=== PATIENT | female | born 1965 | race Caucasian/White ===

== ENCOUNTER 2022-10-21 15:50 | Outpatient (CLI) | payer BC, SELFPAY ==
[2022-10-21 17:24] LABS: Albumin* 4.7 g/dL (3.3-5.0); Chloride* 103 mmol/L (96-114)
[2022-10-21 17:25] LABS: Sodium* 141 mmol/L (135-149)
[2022-10-21 17:27] LABS: Amylase* 83 U/L (18-89); Creatinine* 1.2 mg/dL (0.5-1.5); Estimated Glomerular Filt Rate 52 ml/min
[2022-10-21 17:28] LABS: Alanine Aminotransferase* 32 U/L (4-35); Alkaline Phosphatase* 59 U/L (40-150); Aspartate Amino Transferase* 34 U/L (12-35); Bilirubin Total* 0.9 mg/dL (0.1-1.5); Blood Urea Nitrogen* 22 mg/dL (7-30); Calcium* 9.9 mg/dL (8.4-10.6); Carbon Dioxide* 28 mmol/L (20-32); Glucose* 109 mg/dL (60-115); Lipase* 181 U/L (23-300); Potassium* 3.7 mmol/L (3.6-5.1); Total Protein* 7.4 g/dL (6.0-8.3)
[2022-10-21 17:31] LABS: C Reactive Protein* 0.9 mg/dL (0.5-1.0)
== END 2022-10-21 15:51 | disposition home or self-care (01) ==
PROVIDERS: PCP Family Medicine; Visit Provider Family Medicine
DX: R10.9 Unspecified abdominal pain (principal)
CPT/HCPCS: 80053; 82150; 83690; 86140; 87086

== ENCOUNTER 2022-10-21 16:38 | Outpatient (CLI) | payer BC, SELFPAY ==
--- NOTE | 2022-10-21 17:00 | CRLHL7_ITS ---
For Patients: As a result of the Century Cures Act, medical imaging exams and procedure reports are released immediately into your electronic medical record. You may view this report before your referring provider. If you have questions, please contact your health care provider. Indication: Right-sided abdominal pain x4 days Technique: Volumetric multidetector CT images of the abdomen and pelvis were obtained after the administration of intravenous contrast. 100 cc Isovue 370 low osmolar intravenous contrast Comparison: CT abdomen and pelvis February 01, 2022 Findings: There is basilar atelectasis and parenchymal scar. The liver is enlarged with mild to moderate hepatic steatosis. The portal vein is patent. The gallbladder is unremarkable without evidence of radiopaque calculus. There is no significant common biliary ductal dilatation or abrupt cut off. The spleen is normal in enhancement and size. There is a small sliding-type hiatal hernia. There is mild thickening of the gastric antrum. The pancreas is normal in enhancement without significant atrophy. The adrenal glands are unremarkable. The kidneys demonstrate preserved corticomedullary differentiation without evidence of obstructive uropathy. There is moderate stool seen throughout the colon with minimal distal colonic diverticulosis without evidence of diverticulitis. The appendix is unremarkable. There is no significant mesenteric, retroperitoneal, or pelvic sidewall lymph nodes. The aorta is nonaneurysmal. There is no significant atherosclerotic disease appreciated. The solid pelvic viscera are grossly unremarkable. There is no free fluid or free air. There is a small fat containing umbilical hernia. The lumbar vertebral body heights are grossly maintained with [id number] multilevel degenerative disc disease. There is moderate facet arthrosis. Impression: Moderately enlarged liver with mildly elevated right hemidiaphragm with minimal basilar atelectasis. Normal appendix. Moderate diffuse stool seen throughout the colon. Otherwise, no definite acute intra-abdominal abnormalities are appreciated. Please note that all CT scans at this facility use dose modulation, iterative reconstruction, and/or weight-based dosing when appropriate to reduce radiation dose to as low as reasonably achievable. Dictated by Collin Singer MD @ 10/21/2022 6:12:13 PM (Electronically Signed)
== END 2022-10-21 16:39 | disposition home or self-care (01) ==
LOC: CT 16:38
PROVIDERS: PCP Family Medicine; Visit Provider Family Medicine
DX: R10.9 Unspecified abdominal pain (principal)
CPT/HCPCS: 74177; 80053; 82150; 83690; 86140; 87086; Q9967

== ENCOUNTER 2023-03-29 09:25 | Outpatient (CLI) | payer BC, SELFPAY | END 2023-03-29 09:26 | disposition home or self-care (01) | LOC: NFLDREF 03-30 11:03 | PROVIDERS: PCP Family Medicine; Referring Provider Family Medicine; Visit Provider Family Medicine | DX: E03.9 Hypothyroidism, unspecified (principal); E78.5 Hyperlipidemia, unspecified; G25.81 Restless legs syndrome | CPT/HCPCS: 80053; 80061; 82728; 84443 ==

== ENCOUNTER 2023-12-21 11:07 | Outpatient (CLI) | payer BC, SELFPAY | END 2023-12-21 11:08 | disposition home or self-care (01) | LOC: NFLDREF 17:15 | PROVIDERS: PCP Family Medicine; Referring Provider Family Medicine; Visit Provider Obstetrics & Gynecology | DX: R10.2 Pelvic and perineal pain (principal) | CPT/HCPCS: 87086 ==

== ENCOUNTER 2024-02-12 21:56 | Emergency (ER) | payer BC, SELFPAY ==
[2024-02-12 22:07] VITALS: BP 160/90; PULSE 63; RESP 16; TEMP 36.4; O2SAT 98; BMI 32.6
--- NOTE | 2024-02-12 22:25 | ED_ITS ---
HPI - General Adult General Time Seen by Provider: 22:25 Date Seen: 02/12/24 Chief complaint: Skin/Abscess/Foreign Body Stated complaint: Has something stuck in her R ear Time Seen by Provider: 02/12/24 22:24 Source: patient and RN notes reviewed Mode of arrival: ambulatory Limitations: no limitations History of Present Illness HPI narrative: Patient is a 58-year-old female coming in with concern of a foreign body in her right ear. She felt a tickling like there is a hair in her ear, thought maybe she perhaps got a bug in her ear. They did try some drops in did not help. There is a little sense of discomfort in the ear. She notes no hearing changes, no ringing. She has not been sick with any cough or cold symptoms. They did put a Q-tip in her ear and did end up getting some blood when they pulled it out. She has ruptured her eardrum before and does not have any sense of loss of hearing or feeling like that. Related Data Home Medications ?Medication ?Instructions ?Recorded ?Confirmed B-complex with vitamin C 1 tab PO QDAY 04/02/22 12/21/23 aspirin 81 mg tablet,delayed 81 mg PO QDAY 04/02/22 12/21/23 release (Adult Low Dose Aspirin) cholecalciferol (vitamin D3) 125 125 mcg PO QDAY 04/02/22 12/21/23 mcg (5,000 unit) capsule gabapentin 100 mg capsule 200 - 400 mg PO BID 10/21/22 12/21/23 iron,carbonyl 65 mg-vitamin C 125 2 tab PO QAM 04/21/23 12/21/23 mg tablet,delayed release (Vitron-C) levothyroxine 137 mcg capsule 137 mcg PO QDAY 04/21/23 12/21/23 Previous Rx's ?Medication ?Instructions ?Recorded cyclobenzaprine 10 mg tablet 10 mg PO QDAY PRN muscle spasm #90 04/02/22 tabs celecoxib 200 mg capsule 200 mg PO DAILY #90 caps 04/21/23 furosemide 20 mg tablet 20 mg PO .Daily as needed PRN 04/21/23 edema #90 tabs losartan 50 mg tablet 50 mg PO DAILY #90 tabs 04/21/23 prochlorperazine maleate 10 mg 10 mg PO Q6H PRN nausea and 04/21/23 tablet vomiting #30 tabs sumatriptan succinate 25 mg tablet See Rx Instructions PO .COMPLEX #9 04/21/23 tabs topiramate 50 mg tablet 50 mg PO BID #180 tabs 04/21/23 zolpidem 5 mg tablet 5 mg PO .hs #30 tabs 11/09/23 estradiol 0.01% (0.1 mg/gram) 1 g vaginal 2XW #42.5 grams 02/02/24 vaginal cream (Estrace) simvastatin 40 mg tablet 40 mg PO QPM #90 tabs 02/04/24 Allergies Allergy/AdvReac Type Severity Reaction Status Date / Time Chocolate Allergy Severe Sore Uncoded 12/21/23 11:16 throat, swelling Nut tree Allergy Severe Swelling Uncoded 12/21/23 11:16 in mouth Review of Systems Narrative: As per HPI. PFSH PFS Medical History Laceration of toe ?S91.119A - Laceration without foreign body of unspecified toe without damage to nail, initial encounter (ICD-10) Depression ?F32.A - Depression, unspecified (ICD-10) Adjustment disorder with anxious mood ?F43.22 - Adjustment disorder with anxiety (ICD-10) Surgical History Status post carpal tunnel release ?Z98.890 - Other specified postprocedural states (ICD-10) History of tubal ligation (1992) ?Z98.51 - Tubal ligation status (ICD-10) History of tonsillectomy (1969) ?Z90.89 - Acquired absence of other organs (ICD-10) History of nasal surgery (2001) ?Z98.890 - Other specified postprocedural states (ICD-10) History of endometrial ablation (2010) ?Z98.890 - Other specified postprocedural states (ICD-10) Family History Father Coronary artery disease Family/Other Breast cancer Social History Narrative: SOCIAL HISTORY: . Not working. Two children. She is sexually active. She exercises by riding a bike 3-5x per week. Her recent orthopedic issues have limited this since she recently had carpal tunnel release and thumb surgery on the right. HABITS: No tobacco or recreational drug use. Alcohol use is about 2 drinks per mo.. FAMILY HISTORY: Unchanged. Father with coronary artery disease status post bypass graft in his 40s. Parents are alive and otherwise well. Grandmother with breast cancer at age 60. What is your current living situation?: I presently have a place to live Problems where you live: no known problems In the past 12 months, utilities in danger of being shut off: no In past 12 months, lack of transportation kept you from medical appts, meetings, work, or getting things needed for daily living: no In the past 12 mos, have been you worried that your food would run out before you had money to buy more?: never true In the past 12 mos, the food you bought just didn't last and you didn't have money to buy more?: never true Smoking Status: Never smoker How often does anyone, including family, friends and others, physically hurt you : never How often does anyone, including family, friends and others, insult or talk down to you: never How often does anyone, including family, friends and others, threaten you with harm: never How often does anyone, including family, friends and others, scream or curse at you: never Little interest or pleasure in doing things: several days Feeling down, depressed, or hopeless: not at all Exam Const: Vital Signs, click to edit/add: Vital Signs - 24 hr 02/12/24 22:07 Temperature 97.6 F Pulse Rate [Left P ulse Oximeter] 63 Respiratory Rate 16 Blood Pressure [Ri ght Upper Arm] 160/90 H Pulse Oximetry 98 Oxygen Delivery Me thod Room Air This 58-year-old female is alert, interactive, no apparent distress. Face atraumatic. External ear structures are both normal. Left tympanic membrane and canal are completely normal. In the bottom of the right ear canal, small amount of abrasion with just a little bit of blood. The tympanic membrane itself is translucent, no evidence of any erythema or infection. There is a small portion of wax deep in the ear canal in the superior anterior portion, is quite small. This is too deep to take out. I absolutely do not see any foreign body, certainly do not see any bug. The abrasion in the inferior canal is not actively bleeding, reviewed that this would heal on its own. No pain on palpation of the tragus or the mastoid. No adenopathy noted around the ear. Documenting provider has reviewed patient's vital signs: yes Course Vital Signs Vital signs: Initial Vital Signs Temperature 97.6 F 02/12/24 22:07 Temperature Source Temporal Artery Scan 02/12/24 22:07 Pulse Rate 63 02/12/24 22:07 Pulse Rhythm Regular 02/12/24 22:07 Respiratory Rate 16 02/12/24 22:07 Blood Pressure 160/90 H 02/12/24 22:07 Blood Pressure Mean 113 H 02/12/24 22:07 Blood Pressure Position Sitting 02/12/24 22:07 Pulse Oximetry 98 02/12/24 22:07 Oxygen Delivery Method Room Air 02/12/24 22:07 Vital Signs Temperature 97.6 F 02/12/24 22:07 Pulse Rate 63 02/12/24 22:07 Respiratory Rate 16 02/12/24 22:07 Blood Pressure 160/90 H 02/12/24 22:07 Pulse Oximetry 98 02/12/24 22:07 Oxygen Delivery Method Room Air 02/12/24 22:07 Temperature 97.6 F 02/12/24 22:07 Pulse Rate 63 02/12/24 22:07 Respiratory Rate 16 02/12/24 22:07 Blood Pressure 160/90 H 02/12/24 22:07 Pulse Oximetry 98 02/12/24 22:07 Oxygen Delivery Method Room Air 02/12/24 22:07 Discharge Plan Discharge Clinical Impression: Otalgia of right ear Patient Disposition: Home, Self-Care Condition: Stable Instructions: Earache (ED) Additional Instructions: I do not see a source for your ear discomfort her symptoms tonight. Recommend leaving the ear canal alone, the little abrasion in the bottom part of the canal will heal on its own, may take 1-2 weeks for completion of healing. If you are noting increasing ear pain, develops other symptoms or concerning symptoms, do recommend re-evaluation. Is certainly fine for you to take some [id number] medicines such as Tylenol or ibuprofen per bottle directions if you have ongoing discomfort. If the pain is worsening, do recommend re- evaluation. Activity Level: Activity as Tolerated Prescriptions: No Action gabapentin 100 mg capsule 200 - 400 mg PO BID Patient Comments: TAKE 2-4 CAPSULES (200-400 MG) BY MOUTH TWICE A DAY levothyroxine 137 mcg capsule 137 mcg PO QDAY celecoxib 200 mg capsule 200 mg PO DAILY Qty: 90 3RF furosemide 20 mg tablet 20 mg PO .Daily as needed PRN (Reason: edema) Qty: 90 3RF losartan 50 mg tablet 50 mg PO DAILY Qty: 90 3RF prochlorperazine maleate 10 mg tablet 10 mg PO Q6H PRN (Reason: nausea and vomiting) Qty: 30 9RF sumatriptan succinate 25 mg tablet See Rx Instructions PO .COMPLEX Qty: 9 11RF Rx Instructions: take 1 tab at onset of headache; if no relief may repeat 1 tab after at least 2 hrs; max = 4 tabs/24 hr PO topiramate 50 mg tablet 50 mg PO BID Qty: 180 3RF B-complex with vitamin C Tablet 1 tab PO QDAY cholecalciferol (vitamin D3) 125 mcg (5,000 unit) capsule 125 mcg PO QDAY aspirin [Adult Low Dose Aspirin] 81 mg tablet,delayed release (DR/EC) 81 mg PO QDAY cyclobenzaprine 10 mg tablet 10 mg PO QDAY PRN (Reason: muscle spasm) Qty: 90 3RF Vitron-C 65 mg iron- 125 mg tablet,delayed release (DR/EC) 2 tab PO QAM zolpidem 5 mg tablet 5 mg PO .hs Qty: 30 5RF estradiol [Estrace] 0.01 % (0.1 mg/gram) cream 1 g vaginal 2XW Qty: 42.5 2RF simvastatin 40 mg tablet 40 mg PO QPM Qty: 90 0RF Follow Up/Referrals: Troy Seals MD [Primary Care Provider] - Stand Alone Forms: [employer] Info Instructions
--- OUTSIDE RECORDS SUMMARY | 2024-02-12 22:36 | XMS_ITS | Clinical Summary ---
Author Organization [facility] Address [place], [place] [address] Care Team Providers Care Glass Or Mirror Inspector Name Role Phone Troy Seals MD Primary Care Provider [phone] Oliver yHlton MD Unavailable [phone] Jm Araujo Unavailable Unavailable Allergies No known active allergies Medications Medication Sig Dispensed Refills Start Date End Date Status acetaminophen (TYLENOL EXTRA STRGTH) 500 mg tablet Take 500 mg by mouth every 6 hours if needed. Max acetaminophen dose: 4000mg in 24 hrs. Active multivitamin (MVI) tablet Take 1 tablet by mouth once daily. Active omega-3 fatty acids-vitamin E (FISH OIL) 1,000 mg cap Take 2 capsules by mouth once daily. Active ZOLPIDEM TARTRATE (AMBIEN ORAL) Take by mouth. Active aspirin chewable 81 mg chewable tablet Take 81 mg by mouth once daily with a meal. Active fexofenadine (GLENROY) 180 mg tablet Take 180 mg by mouth once daily. Active chlorthalidone (HYGROTON) 25 mg tablet Take 25 mg by mouth once daily. Active cholecalciferol (VITAMIN D3) 5,000 unit capsule Take 1 capsule by mouth once daily. 40 units = 1 mcg (5000 units = 125 mcg) 0 04/19/2020 Active celecoxib (CELEBREX) 100 mg capsule Take 1 capsule by mouth once daily with a meal. 0 04/19/2020 Active cyclobenzaprine (FLEXERIL) 10 mg tablet Take 1 tablet by mouth 3 times daily. 0 04/19/2020 Active furosemide (LASIX) 20 mg tablet Take 1 tablet by mouth once daily if needed for Other (Specify). 0 04/19/2020 Active simvastatin (ZOCOR) 40 mg tablet Take 1 tablet by mouth at bedtime. 0 04/19/2020 Active thyroid (ARMOUR THYROID) 30 mg tablet Take 2.5 tablets by mouth once daily. 04/19/2020 Active potassium chloride (MICRO-K) 10 mEq Controlled-release capsule Take 1 capsule by mouth once daily with a meal. 0 04/19/2020 Active estradioL (ESTRACE) 2 mg tablet Take 25 mg by mouth once daily. 05/09/2020 Active medroxyPROGESTERone (PROVERA) 10 mg tablet Take 10 mg by mouth once daily. 05/09/2020 Active phentermine (ADIPEX-P) 37.5 mg tablet Take 37.5 mg by mouth once daily before a meal. 05/10/2020 Active topiramate (TOPAMAX) 25 mg tablet Take 25 mg by mouth 2 times daily. 04/15/2020 Active medication order composerIndications :Routine general medical examination at a health care facility Topical testosterone cream, 1 pump daily on Wednesday, Wednesday & Wednesday. 0 05/14/2020 Active Active Problems Problem Noted Date Diagnosed Date CAD (coronary artery disease) 07/09/2014 SOB (shortness of breath) 06/06/2014 PVC (premature ventricular contraction) 06/06/20 14 Immunizations Name Administration Dates Next Due COVID-19 vaccine ([employer] 30mcg/0.3mL) P F, MDV 01/24/2021,12/31/2020 Social History Tobacco Use Types Packs/Day Years Used Date Smoking Tobacco: Never Smokeless Tobacco: Never Alcohol Use Standard Drinks/Week Comments Yes 0 (1 standard drink = 0.6 oz pur e alcohol) Social Connections Answer Date Recorded Frequency of Communication with Friends and Fami ly Not on file 09/20/2021 Financial Resource Strain Answer Date R ecorded Difficulty of Paying Living Expenses Not on file 09/20/2021 Difficulty of Paying Living Expenses Not on file 09/20/2021 Sex and Gender Information Value Date Recorded Sex Assigned at Not on file Gender Identity Not on file Sexual Orientation Not on file Obstetrics History Last Filed Vital Signs Vital Sign Reading Time Taken Comments Blood Pressure 112/76 05/23/2020 9:18 AM CDT Pulse 74 05/23/2020 9:18 AM CDT Temperature 36.5 ??C (97.7 ??F) 05/29/2020 2:00 PM CD T Respiratory Rate 16 05/14/2020 10:29 AM CDT Oxygen Saturation 96% 05/29/2020 2:00 PM CDT Inhaled Oxygen Concentration - - Weight 94.3 kg (208 lb) 05/23/2020 9:18 AM CDT Height 162.6 cm (5' 4) 05/23/2020 9:18 AM CDT Body Mass Index 35.7 05/23/2020 9:18 AM CDT Plan of Treatment Health Maintenance Due Date Last Done Comments Tdap 1975 Depression screening for age 12+ 1976 HIV for age 15-65 1979 Hepatitis C screening for age 18-79 1982 Tetanus booster 1984 Colonoscopy through age 75 2009 Lipids for age 45-75 2009 Mammogram for age 45-75 2009 Zoster (shingles) series for age 50+ (1 of 2) 2014 BMI (ht and wt on same day) for age 18+ 05/23/2021 05/23/2020, 05/14/2020 COVID-19 vaccine series (2022- season) 2023 01/24/2021, 12/31/2020 Influenza for age 50-64 05/21/2024 Pap test for age 21-65 06/16/2024 , 06/16/2021, 11/14/2015, Additional history exists Pneumococcal series for age 6-64 Aged Out No longer eligible based on patient's age to complete this topic Procedures Procedure Name Priority Date/Time Associated Diagnosis Comments HPV THIN PREP Routine 06/16/2021 11:35 AM CDT from Last 3 Months or Most Recently Relevant to Health Maintenance Results * HPV HIGH RISK (06/16/2021 11:35 AM CDT) TYPE 16 Negative Negative 06/19/2021 3:20 PM CDT [facility] TYPE 18 Negative Negative 06/19/2021 3:20 PM CDT [facility] OTHER HIGH RISK TYPES Negative Negative 06/19/2021 3:20 PM CDT [facility] Other (Cervical/Vagina l) 06/16/2021 11:35 AM CDT 06/18/2021 9:20 AM CDT Narrative [facility] - 06/19/2021 3:20 PM CDT HPV types 16, 18, 31, 33, 35, 39, 45, 51, 52, 56, 58, 59, 66 and 68 DNA were undetectable or below the pre-set threshold. Methodology: Farzaneh Dick 4800 HPV Test Cynthia Coy MD MICROBIOLOGY [facility] [address] [place] [id number], from Last 3 Months or Most Recently Relevant to Health Maintenance Care Teams Glass Or Mirror Inspector Relationship Specialty Start Date End Date Troy Seals MD PCP - General Family Practice 06/04/14 [place] [id number] [facility] [place] [address] Consulting Physician Cardiovascular Disease 06/06/14 Jm Araujo [address] [place] [address] Family Practice Electrical Drafter 04/19/20
--- OUTSIDE RECORDS SUMMARY | 2024-02-12 22:37 | XMS_ITS ---
Author Organization [facility] Address [address] [place] [address] Care Team Providers Care Extractor Plant Operator Name Role Phone Unavailable Unavailable Unavailable Surgery Details Not on file Complications Check Surgery Details section. Procedure Estimated Blood Loss Check Surgery Details section. Procedure Findings Check Surgery Details section. Procedure Specimens Taken Check Surgery Details section.
--- OUTSIDE RECORDS SUMMARY | 2024-02-12 22:37 | XMS_ITS | Encounter Summary ---
Author Organization [facility] Address [address] [place] [id number] Care Team Providers Care Double Corner Cutter Name Role Phone Unavailable Primary Care Provider Unavailabl e Reason for Visit * Reason Comments Med Refill Encounter Details Date Type Department Care Team (Late st Contact Info) Description 12/27/2023 Refill Division of Endocrinology in [place], [place] [address] [place] [phone] Cinda Willis M.B., Ch.B. [address] [place] [phone] Med Refill Social History Tobacco Use Types Packs/Day Years Used Date Smoking Tobacco: Never Smokeless Tobacco: Never Alcohol Use Standard Drinks/Week Comments Not Currently 1 (1 standard drink = 0.6 oz pur e alcohol) Humiliation, Afraid, Rape, and Kick questionnair e Answer Date Recorded Within the last year, have y ou been afraid of your partner or ex-partner? No 11/22/2022 Within the last year, have y ou been humiliated or emotionally abused in other ways by your partner or ex-partner? No Within the last year, have y ou been kicked, hit, slapped, or otherwise physically hurt by your partner or ex-partner? No 11/22/2022 Within the last year, have y ou been raped or forced to have any kind of sexual activity by your partner or ex-partner? No 11/22/2022 Social Connection and Isolat ion Panel [NHANES] Answer Date Recorded In a typical week, how many times do you talk on the phone with family, friends, or neighbors? Once a week 11/22/2022 How often do you get togethe r with friends or relatives? Once a week 11/22/2022 How often do you attend chur or bahai services? More than 4 times per year 11/22/2022 Do you belong to any clubs o r organizations such as rastafarian groups, unions, fraternal or athletic groups, or school groups? Yes 11/22/2022 How often do you attend meet ings of the clubs or organizations you belong to? More than 4 times per year 11/22/2022 Are you , , di vorced, , never , or living with a partner? 11/22/2022 AUDIT-C Answer Date Recorded Q1: How often do you have a drink containing alc ohol? Monthly or less 11/22/2022 Q2: How many drinks containi ng alcohol do you have on a typical day when you are drinking? 1 or 2 11/22/2022 Q3: How often do you have si x or more drinks on one occasion? Never 11/22/2022 Overall Financial Resource Strain (CARDIA) Answe r Date Recorded How hard is it for you to pa y for the very basics like food, housing, medical care, and heating? Not hard at all 11/22/2022 PHQ-2 Answer Date Recorded PHQ-2 Score 1 03/11/2021 [facility] - Occupational Stress Questionnaire Answer Date Recorded Do you feel stress - tense, restless, nervous, or anxious, or unable to sleep at night because your mind is troubled all the time - these days? Only a little 11/22/2022 Exercise Vital Sign Answer Date Recorde d On average, how many days pe r week do you engage in moderate to strenuous exercise (like a brisk walk)? 3 days 11/22/2022 On average, how many minutes do you engage in exercise at this level? 30 min 11/22/2022 Hunger Vital Sign Answer Date Recorded Within the past 12 months, y ou worried that your food would run out before you got the money to buy more. Never true 11/23/19 23 Within the past 12 months, t he food you bought just didn't last and you didn't have money to get more. Never true 11/22/2022 PRAPARE - Transportation Answer Date Re corded In the past 12 months, has l ack of transportation kept you from medical appointments or from getting medications? No 01/2023 In the past 12 months, has l ack of transportation kept you from meetings, work, or from getting things needed for daily living? No 11/22/2022 Housing Stability Vital Sign Answer Milton e Recorded In the last 12 months, was t here a time when you were not able to pay the mortgage or rent on time? No 11/22/2022 In the last 12 months, how many places have you lived? 1 11/22/2022 In the last 12 months, was t here a time when you did not have a steady place to sleep or slept in a jail (including now)? No 11/22/2022 Depression Answer Date Recor ded PHQ-9 Total Score (max 27) 4 03/11 Nutrition Answer Date Recorded Nutrition: EVOO Fat Source No 11/22 On average, how many serving s of fruits and vegetables do you eat per day (serving size is equal to 1 cup or approximately the size of a tennis ball)? 0-1 11/22/2022 Dental Answer Date Recorded Dental: Regular Dentist Yes 11/08/19 21 Employment Answer Date Recorded Employment status Unemployed/not in [facility] paid workforce and NOT seeking employment 11/22/2022 Education Answer Date Recorded What is the highest level of school you have completed or the highest degree you have received? Associate degree: occupational, technical, or vocational program 10/01/2020 Sex and Gender Information Value Date Recorded Sex Assigned at Female 06/23/2021 10:52 AM CDT Gender Identity Female 10/01/2020 2:34 PM CONTRACT RUNNER Sexual Orientation Straight 10/01/2020 2: 34 PM CONTRACT RUNNER documented as of this encounter Plan of Treatment Upcoming Encounters Date Type Department Care Team (Late st Contact Info) Description 02/18/2024 2:00 PM CDT Clinical Support Department of Nutrition and Diabetes Education in [place], [place] 200 [place] [phone] Cinda Willis M.B., Ch.B. 200 [place] [phone] Mandy Trevino M.S., RDN, LD [address] [place] [phone] 03/09/2024 2:45 PM CDT Clinical Support [facility]ative [facility] and [facility] in [address] [phone] Paulie Corral L.Ac. 03/17/2024 2:00 PM CDT Clinical Support Department of Nutrition and Diabetes Education in [address] [phone] Cinda Willis M.B., Ch.B. [address] [place] [phone] Mandy Trevino M.S., RDN, LD [address] [place] [phone] documented as of this encounter Visit Diagnoses Not on filedocumented in this encounter Additional Health Concerns Assessment Noted Time PHQ-9 Depression Total Score: 4 03/11/20 21 2:35 PM CDT documented as of this encounter
--- OUTSIDE RECORDS SUMMARY | 2024-02-12 22:37 | XMS_ITS | Clinical Summary ---
Author Organization [facility] Address [address] [place] [address] Care Team Providers Care Customer Specialist Name Role Phone Unavailable Primary Care Provider Unavailabl e Source Comments Patient records contain information from all sites at [facility]. For routine questions regarding patient records, call [phone] during business hours, M-F 8:00 AM - 5:00 PM Central Time. Record requests for emergency care only can be directed to [phone] at any time.[facility] Allergies Active Allergy Reactions Criticality Noted Date Comments Propofol Nausea And Vomiting 02/27/2014 Chocolate Flavor Other (see comments) 1 Soar throat, tongue swelling Nut - Unspecified Other (see comments) 10/01/19 14 Adhesive Itching 08/04/2013 Medications Medication Sig Dispensed Refills Start Date End Date Status losartan (COZAAR) 50 mg tablet Take 50 mg by mouth daily. 08/31/2020 Active topiramate (TOPAMAX) 50 mg tablet Take 50 mg by mouth 2 (two) times a day. 08/16/2020 Active zolpidem (AMBIEN) 5 mg tablet Take 2.5 mg by mouth at bedtime. 09/10/2020 Active simvastatin (ZOCOR) 40 mg tablet Take 40 mg by mouth at bedtime. 09/16/2020 Active celecoxib (CeleBREX) 200 mg capsule Take 200 mg by mouth daily. 09/16/2020 Active aspirin 81 mg chewable tablet Chew 81 mg daily. Ac tive furosemide (LASIX) 20 mg tablet Take 20 mg by mouth as needed. 07/20/2020 Active cyclobenzaprine (FLEXERIL) 10 mg tablet Take 10 mg by mouth as needed. 04/19/2020 Active iron,carbonyl-vitam in C (VITRON-C) 65 mg iron- [address] tablet Take 2 tablets by mouth daily. Do not crush or chew. Active prochlorperazine (COMPAZINE) 10 mg tablet Take 10 mg by mouth every 6 (six) hours as needed for nausea or vomiting. Active diphenhydrAMINE (BENADRYL) 25 mg capsule Take 25 mg by mouth daily. 10/08/2013 Active calcium carbonate (CALCIUM 500 ORAL) Take 1 tablet by mouth daily. Active MULTIVITAMIN ORAL Take 1 tablet by mouth daily. Active vitamin B complex (B COMPLEX 1 ORAL) Place 1 capsule under the tongue daily. Active Lactobac no.41/Bifidobact no.7 (PROBIOTIC-10 ORAL) Take 2 capsules by mouth at bedtime. Inner Balance 10/08/2012 Active hydroCHLOROthiazide (MICROZIDE) 12.5 mg capsule Take 12.5 mg by mouth daily. 01/01/2021 Active cholecalciferol, vitamin D3, (VITAMIN D3 ORAL) Take 5,000 Units by mouth daily. Active gabapentin (NEURONTIN) 600 mg tablet Take 200 mg by mouth 2 (two) times a day. 200 mg am, 400 mg pm Active naltrexone-bupropio n (Contrave) 8-90 mg per extended release tablet Start 1 tab daily in week 1, then 1 tablet twice daily in week 2, then 1 tablet AM, 2 tabs PM in week 3, then 2 tabs twice daily therafter 120 tablet 11 12/03/2022 Active diazePAM (Valium) 5 mg tablet Take 1 tablet (5 mg total) by mouth See Admin Instructions. Take one (1) tablet 30 minutes before MRI, may take 2nd dose if needed. Will need team cdl driver. 2 tablet 07/23/2023 Active diazePAM (Valium) 5 mg tablet Take 1 tablet (5 mg total) by mouth See Admin Instructions. Take one (1) tablet 30 minutes before MRI, may take 2nd dose if needed. Will need team cdl driver. 2 tablet 07/23/2023 Active diazePAM (VALIUM) 5 mg tablet Take 1 tablet (5mg) by mouth 30minutes before MRI, may take second dose if needed. 2 tablet 07/23/2023 Active levothyroxine (SYNTHROID, LEVOTHROID) 112 mcg tablet take one tablet by mouth every morning before breakfast 30 tablet 1 12/27/2023 Active Active Problems Problem Noted Date Diagnosed Date Limitation Of Motion Finger Right 01/27/2021 Obesity Body Mass Index 30-39.9 Adult 01/10/2021 Overview: Endocrinology consult recommended for advice on weight management. Carpal Tunnel Syndrome Right 12/30/2020 Carpal Tunnel Syndrome Left 12/30/2020 Primary Osteoarthritis First Carpal Metacarpal J oint Left 12/26/2020 Primary Osteoarthritis First Carpal Metacarpal J oint Right 12/26/2020 Numbness Hand 12/26/2020 Pain Abdominal Wall 10/08/2020 Pelvic And Perineal Pain 10/08/2020 Pain Low Back Unspecified 10/08/2020 Lower Abdominal Pain Unspecified 10/04/2020 Spasm Muscle Weakness Muscle Encounters Date Type Department Care Team Description 02/07/2024 1:30 PM CDT Clinical Support Integrative Medicine and Health in [place], [place] [address] [place] [address] Zeke Reddy L.Ac. Pain Low Back Unspecified; Pain Hip Bilateral 01/14/2024 2:45 PM CDT Clinical Support [facility] in [place], [place] [address] [place] [address] Zeke Reddy L.Ac. Pain Low Back Unspecified; Pain Hip Bilateral 01/07/2024 3:00 PM CDT Clinical Support Department of Nutrition and Diabetes Education in [place], [place] [address] [place] [address] Cinda Willis M.B., Ch.B. Mandy Trevino M.S., RDN, LD Obesity Body Mass Index 30-39.9 Adult [E66.9] (Primary Dx) 12/27/2023 Refill Division of Endocrinology in [place], [place] [address] [place] [address] Cinda Willis M.B., Ch.B. Med Refill 12/03/2023 1:30 PM CDT Clinical Support [facility] in [place], [place] [address] [place] [address] Zeny Cain L.Ac. Pain Low Back Unspecified; Pain Hip Bilateral from Last 3 Months Immunizations Name Administration Dates Next Due Influenza, Unspecified 02/21/2020 RZV (SHINGRIX) 10/08/2020(Deferred: Other - Will get locally at home),02/26/2020 Tdap 11/10/2012,09/26/2007 influenza vaccine quad (FLUZONE/FLUARIX) (6 months and older)(PF) 07/21/2019 Family History Medical History Relation Name Comments Coronary artery disease Father William Renteria Hyperlipidemia Father William Renteria Hypertension Father William Renteria Sleep apnea Father William Renteria Coronary artery disease Mother Meredith Renteria Breast cancer Mother's Sister Dorothy Mclain Breast cancer Paternal Grandmother Renea Renteria Relation Name Status Comments Father William Renteria Mother Meredith Renteria Mother's Sister Dorothy Mclain Paternal Grandmother Renea Renteria Social History Tobacco Use Types Packs/Day Years Used Date Smoking Tobacco: Never Smokeless Tobacco: Never Tobacco Cessation:Counseling Given: Not Answered Alcohol Use Standard Drinks/Week Comments Not Currently 1 (1 standard drink = 0.6 oz pur e alcohol) [facility] Utilities Answer Date Recorded In the past 12 months has e [employer], gas, oil, or water [employer] threatened to shut off services in your home? No 12/31/2023 Humiliation, Afraid, Rape, and Kick questionnair e [...] How often do you attend chur or mu-ism services? More than 4 times per year 11/22/2022 Do you belong to any clubs o r organizations such as temple groups, unions, fraternal or athletic groups, or [...] Answer Date Recorded PHQ-2 Score 1 03/11/2021 [facility] - Occupational Stress Questionnaire Answer Date Recorded [...] to strenuous exercise (like a brisk walk)? 0 days 12/31/2023 On average, how many minutes do you engage in exercise at this level? 0 min 12/31/2023 Hunger Vital Sign Answer Date Recorded Within the past 12 months, y ou worried that your food would run out before you got the money to buy more. Never true 12/31/19 24 Within the past 12 months, t he food you bought just didn't last and you didn't have money to get more. Never true 12/31/2023 PRAPARE - Transportation Answer Date Re corded In the past 12 months, has l ack of transportation kept you from medical appointments or from getting medications? No 12/19 In the past 12 months, has l ack of transportation kept you from meetings, work, or from getting things needed for daily living? No 12/31/2023 Depression Answer Date Recor ded PHQ-9 Total Score (max 27) 4 03/11 Nutrition Answer Date Recorded Nutrition: EVOO Fat Source No 12/30 On average, how many serving s of fruits and vegetables do you eat per day (serving size is equal to 1 cup or approximately the size of a tennis ball)? 3-5 12/31/2023 Dental Answer Date Recorded Dental: Regular Dentist Yes 11/08/19 Employment Answer Date Recorded Employment status Unemployed/not in e paid workforce and NOT seeking employment 12/31/2023 Housing Stability Answer Date Recorded What is your living situation today? I have a [facility] place to live 12/31/2023 Education Answer Date Recorded What is the highest level of school you have completed or the highest degree you have received? Associate degree: occupational, technical, or vocational program 10/01/2020 Sex and Gender Information Value Date Recorded Sex Assigned at Female 06/23/2021 10:52 AM CDT Gender Identity Female 10/01/2020 2:34 PM HAMPER MAKER MACHINE Sexual Orientation Straight 10/01/2020 2: 34 PM HAMPER MAKER MACHINE Last Filed Vital Signs Vital Sign Reading Time Taken Comments Blood Pressure 154/72 10/27/2023 2:52 PM HAMPER MAKER MACHINE Pulse 63 10/27/2023 2:52 PM HAMPER MAKER MACHINE Temperature 36.6 ??C (97.9 ??F) 10/27/2023 1:41 PM CS T Respiratory Rate 18 01/20/2021 1:15 PM CDT Oxygen Saturation 98% 10/27/2023 2:52 PM HAMPER MAKER MACHINE Inhaled Oxygen Concentration - - Weight 87.1 kg (192 lb 0.3 oz) 01/07/2024 2:48 P M CDT Height 159.6 cm (5' 2.84) 01/07/2024 2:48 PM CD T Body Mass Index 34.19 01/07/2024 2:48 PM CDT Plan of Treatment Upcoming Encounters Date Type Department Care Team (Late st Contact Info) Description 02/18/2024 2:00 PM CDT Clinical Support Department of Nutrition and Diabetes Education in [place], [place] [address] [place] [address] Cinda Willis M.B., Ch.B. [address] [place] [phone] Mandy Trevino M.S., RDN, LD [address] [place] [phone] 03/09/2024 2:45 PM CDT Clinical Support [facility] in [place], [place] [address] [place] [phone] Paulie Corral L.Ac. 03/17/2024 2:00 PM CDT Clinical Support Department of Nutrition and Diabetes Education in [place], [place] [address] [place] [phone] Cinda Willis M.B., Ch.B. [address] [place] [phone] Mandy Trevino M.S., RDN, LD [address] [place] [phone] Health Maintenance Due Date Last Done Comments CT Colonography 1964 Colonoscopy 1964 FIT 1964 HIV Screening 1964 Potassium Level 1964 Sodium Level 1964 Hepatitis B Vaccines (1 of 3 - 19+ 3-dose series) 1983 Creatinine Level (Kidney Function Test) 10/13/2017 10/13/2016 Lipid (Cholesterol) Screening 10/24/2017 10/24/2012 (Performed elsewhere) Fasting Glucose for Diabetes Screening 10/13/2019 10/13/2016 Mammogram 03/22/2021 03/22/2020, 07/21 (Performed elsewhere), 06/26/2013 (Performed elsewhere) Depression Screening (Annual PHQ-2) 09/20/2023 Cervical Cancer Screening 06/16/20242020, 10/24/2012 (Performed elsewhere) Thyroid Stimulating Hormone (TSH) test for thyroid function 09/03/2024 09/03/2023, 07/02/2023, 04/09/2023, Additional history exists Cologuard 07/16/2026 07/16/2023 Colorectal Cancer Screening 07/16/2026 DTaP,Tdap,and Td Vaccines (4 - Td or Tdap) 06/09/2031 06/09/2021, 11/10/2012, 09/26/2007 Hepatitis C Screening Completed 10/13/2016 Zoster Vaccines Completed 03/10/2021, 09/20, 02/26/2020 COVID-19 Vaccine Completed 08/03/2023, , 02/19/2022, Additional history exists Influenza Vaccine Completed 08/03/2023, , 07/02/2020, Additional history exists Pneumococcal vaccine (0-64 years) Aged Out No longer eligible based on patient's age to complete this topic Medical Devices Implanted Type Area Civil Technician Device Identifier Shelf Expiration Date Model / Serial / Lot Misc Other Misc Other Mouth Description:Left side upper lower teeth Procedures Procedure Name Priority Date/Time Associated Diagnosis Comments THYROID-STIMULATING HORMONE-SENSITIVE (S-TSH) Routine 09/03/2023 1:51 PM HAMPER MAKER MACHINE Hypothyroidism Primary OUTSIDE MG MAMMOGRAM Routine 03/22/2020 1:15 PM CDT HEMOGLOBIN A1C, B Routine 10/13/2016 9:2 6 AM HAMPER MAKER MACHINE CHRONIC VIRAL HEPATITIS PROFILE Routine 10/13/2016 9:26 AM HAMPER MAKER MACHINE CREATININE WITH EGFR, S/P Routine 10/13/2016 9:26 AM HAMPER MAKER MACHINE from Last 3 Months or Most Recently Relevant to Health Maintenance Results * S-TSH (Thyroid-Stimulating Hormone - Sensitive) (09/03/2023 1:51 PM HAMPER MAKER MACHINE) TSH, Sensitive 0.6 0.3 - 4.2 mIU/L 09/03/2023 2:56 PM HAMPER MAKER MACHINE DTL Blood (Blood, Venous) 09/03/2023 1:51 PM HAMPER MAKER MACHINE 09/03/2023 2:23 PM HAMPER MAKER MACHINE Cinda Staples, Светлана.B. LAB BLOOD ADD-ON Performing Organization Address City/[facility] Co de Phone Number [facility] [address] [place], [place] [phone] [place] [address] DTL [facility][note 3] [address] [place] [address] * MAMMO SCREEN, BILAT, W/CAD-Outside Mammogram (03/22/2020 1:15 PM CDT) Narrative IIMS - 07/01/2020 4:26 PM CDT This order has been created and auto-finalized to support the import of outside images. If available, original interpretation can be found on the Media Tab in Chart Review, in Document Viewer, or as an image in QREADS. If a re-interpretation or overread is required please follow defined workflow. ?? Provider Not In System IMG BI PROCEDURES Performing Organization Address [facility] de Phone Number [facility] NA * Chronic Hepatitis Profile (10/13/2016 9:26 AM HAMPER MAKER MACHINE) HBs Antigen, S Negative Negative [facility] HBc Total Ab, S Negative Negative [facility] HCV Ab, S Negative Negative [facility] Comment:[id number] rat io is <1.00. HBs Antibody,S Negative Unvaccinated : Negative; Vaccinated: Positive [facility] Comment:Patient is presumed to be not immune to infection with HBV. HBs Antibody, Quantitative, S <5.0 Unvaccinated : <5.0; Vaccinated: >=12.0 MIU/ML [facility] 10/13/2016 9:26 AM HAMPER MAKER MACHINE 10/13/2016 9:26 AM HAMPER MAKER MACHINE Didier Hays M.D. LAB MICROBIOLOGY - BLOOD ORDERABLES Performing Organization Address City/[facility] Co de Phone Number [facility] [address] * Hemoglobin A1c (10/13/2016 9:26 AM HAMPER MAKER MACHINE) Hemoglobin A1c, B 5.4 4.0 - 5.6 % [facility] 10/13/2016 9:26 AM HAMPER MAKER MACHINE 10/13/2016 9:26 AM HAMPER MAKER MACHINE Didier Hays M.D. LAB BLOOD ADD-ON [facility] [address] * Creatinine with Estimated GFR (MDRD) (10/13/2016 9:26 AM HAMPER MAKER MACHINE) Creatinine 0.9 0.6 - 1.1 MG/DL [facility] eGFR Non-Black/Afric an Luxembourger >60 >60 ML/MIN/BSA [facility] eGFR-Black/Afri can Luxembourger >60 >60 ML/MIN/BSA [facility] 10/13/2016 9:26 AM HAMPER MAKER MACHINE 10/13/2016 9:26 AM HAMPER MAKER MACHINE Didier Hays M.D. LAB BLOOD ADD-ON [facility] [address] from Last 3 Months or Most Recently Relevant to Health Maintenance
--- OUTSIDE RECORDS SUMMARY | 2024-02-12 22:37 | XMS_ITS | Referral Summary ---
Author Organization [facility] Address [address] [place] [address] Care Team Providers Care Java Developer Consultant Name Role Phone Unavailable Primary Care Provider Unavailabl e Source Comments Patient records contain information from all sites at [facility]. For routine questions regarding patient records, call [phone] during business hours, M-F 8:00 AM - 5:00 PM Central Time. Record requests for emergency care only can be directed to [phone] at any time.[facility] Encounters Date Type Department Care Team Description 02/07/2024 1:30 PM CDT Clinical Support [facility]ative [facility] and [facility] in [place], [place] [address] [place] [address] Zeke Reddy L.Ac. Pain Low Back Unspecified; Pain Hip Bilateral 01/14/2024 2:45 PM CDT Clinical Support [facility] in [place], [place] [address] [place] [address] Zeke Reddy L.Ac. Pain Low Back Unspecified; Pain Hip Bilateral 01/07/2024 3:00 PM CDT Clinical Support Department of Nutrition and Diabetes Education in [place], [place] [address] [place] [address] Cinda Willis M.B., Ch.B. Mandy Trevino M.S., RDN, LD Obesity Body Mass Index 30-39.9 Adult [E66.9] (Primary Dx) 12/27/2023 Refill Division of Endocrinology in [place], [place] [address] [place] [address] Cinda Willis M.B., Ch.B. Med Refill 12/03/2023 1:30 PM CDT Clinical Support [facility] in [place], [place] [address] [place] [address] Zeny Cain L.Ac. Pain Low Back Unspecified; Pain Hip Bilateral from Last 3 Months Allergies Active Allergy Reactions Criticality Noted Date [...] take 2nd dose if needed. Will need truck driver rubbish collector. 2 tablet 07/23/2023 Active diazePAM (Valium) 5 mg tablet Take 1 tablet (5 mg total) by mouth See Admin Instructions. Take one (1) tablet 30 minutes before MRI, may take 2nd dose if needed. Will need truck driver rubbish collector. 2 tablet 07/23/2023 Active diazePAM (VALIUM) 5 [...] Pain Unspecified 10/04/2020 Spasm Muscle Weakness Muscle Immunizations Name Administration Dates Next Due Influenza, Unspecified 02/21/2020 RZV (SHINGRIX) 10/08/2020(Deferred: Other - Will get locally at home),02/26/2020 Tdap 11/10/2012,09/26/2007 influenza vaccine quad (FLUZONE/FLUARIX) (6 months and older)(PF) 07/21/2019 Social History Tobacco Use Types Packs/Day Years Used Date Smoking Tobacco: Never Smokeless Tobacco: Never Tobacco Cessation:Counseling Given: Not Answered Alcohol Use Standard Drinks/Week Comments Not Currently 1 (1 standard drink = 0.6 oz pur e alcohol) [facility] [employer] Answer Date Recorded In the past 12 months has e [employer], gas, oil, or water [employer] threatened to shut off services in your [...] 11/22/2022 How often do you attend chur ch or zoroastrianism services? More than 4 times per year 11/22/2022 Do you belong to any clubs o r organizations such as yazdanism groups, unions, fraternal or athletic groups, or [...] Answer Date Recorded PHQ-2 Score 1 03/11/2021 [facility] of Occupat ional Health - Occupational Stress [...] your living situation today? I have a [facility] place to live 12/31/2023 Education Answer Date Recorded What is the highest level of school you have completed or the highest degree you have received? Associate degree: occupational, technical, or vocational program 10/01/2020 Sex and Gender Information Value Date Recorded Sex Assigned at Female 06/23/2021 10:52 AM CDT Gender Identity Female 10/01/2020 2:34 PM CARBON PAPER INTERLEAFER Sexual Orientation Straight 10/01/2020 2: 34 PM CARBON PAPER INTERLEAFER Last Filed Vital Signs Vital Sign Reading Time Taken Comments Blood Pressure 154/72 10/27/2023 2:52 PM CARBON PAPER INTERLEAFER Pulse 63 10/27/2023 2:52 PM CARBON PAPER INTERLEAFER Temperature 36.6 ??C (97.9 ??F) 10/27/2023 1:41 PM CS T Respiratory Rate 18 01/20/2021 1:15 PM CDT Oxygen Saturation 98% 10/27/2023 2:52 PM CARBON PAPER INTERLEAFER Inhaled Oxygen Concentration - - Weight 87.1 kg (192 lb 0.3 oz) 01/07/2024 2:48 P M CDT Height 159.6 cm (5' 2.84) 01/07/2024 2:48 PM CD T Body Mass Index 34.19 01/07/2024 2:48 PM CDT Plan of Treatment Upcoming Encounters Date Type Department Care Team (Late st Contact Info) Description 02/18/2024 2:00 PM CDT Clinical Support Department of Nutrition and Diabetes Education in [place], [place] [address] [place] [phone] Cinda Willis M.B., Ch.B. [address] [place] [phone] Mandy Trevino M.S., RDN, LD [address] [place] [phone] 03/09/2024 2:45 PM CDT Clinical Support [facility] in [place], [place] [address] [place] [phone] Paulie Corral L.Ac. 03/17/2024 2:00 PM CDT Clinical Support Department of Nutrition and Diabetes Education in [place], [place] [address] [place] [phone] Cinda Willis M.B., Ch.B. [address] [place] [phone] Mandy Trevino M.S., RDN, LD [address] [place] [phone] Medical Devices Implanted Type Area Household Manager Device Identifier Shelf Expiration Date Model / Serial / Lot Misc Other Misc Other Mouth Description:Left side upper lower teeth Procedures Procedure Name Priority Date/Time Associated Diagnosis Comments THYROID-STIMULATING HORMONE-SENSITIVE (S-TSH) Routine 09/03/2023 1:51 PM CARBON PAPER INTERLEAFER Hypothyroidism Primary OUTSIDE MG MAMMOGRAM Routine 03/22/2020 1:15 PM CDT HEMOGLOBIN A1C, B Routine 10/13/2016 9:2 6 AM CARBON PAPER INTERLEAFER CHRONIC VIRAL HEPATITIS PROFILE Routine 10/13/2016 9:26 AM CARBON PAPER INTERLEAFER CREATININE WITH EGFR, S/P Routine 10/13/2016 9:26 AM CARBON PAPER INTERLEAFER from Last 3 Months or Most Recently Relevant to Health Maintenance Results * S-TSH (Thyroid-Stimulating Hormone - Sensitive) (09/03/2023 1:51 PM CARBON PAPER INTERLEAFER) TSH, Sensitive 0.6 0.3 - 4.2 mIU/L 09/03/2023 2:56 PM CARBON PAPER INTERLEAFER DTL Blood (Blood, Venous) 09/03/2023 1:51 PM CARBON PAPER INTERLEAFER 09/03/2023 2:23 PM CARBON PAPER INTERLEAFER Cinda Staples, B. LAB BLOOD ADD-ON Performing Organization Address City/[facility] Co de Phone Number [facility] [address] [place] [address], [facility] DTL [facility] [address] [place] [address] * MAMMO SCREEN, BILAT, W/CAD-Outside Mammogram (03/22/2020 [...] System IMG BI PROCEDURES Performing Organization Address [facility] de Phone Number [facility] NA * Chronic Hepatitis Profile (10/13/2016 9:26 AM CARBON PAPER INTERLEAFER) HBs Antigen, S Negative Negative [facility] HBc Total Ab, S Negative Negative [facility] HCV Ab, S Negative Negative [facility] Comment:Yxldgr-mc-xgmiqj rat io is <1.00. HBs Antibody,S Negative Unvaccinated : Negative; Vaccinated: Positive [facility] Comment:Patient is presumed to be not immune to infection with HBV. HBs Antibody, Quantitative, S <5.0 Unvaccinated : <5.0; Vaccinated: >=12.0 MIU/ML [facility] 10/13/2016 9:26 AM CARBON PAPER INTERLEAFER 10/13/2016 9:26 AM CARBON PAPER INTERLEAFER Didier Hays M.D. LAB MICROBIOLOGY - BLOOD ORDERABLES Performing Organization Address City/[facility] Co de Phone Number [facility] [address] * Hemoglobin A1c (10/13/2016 9:26 AM CARBON PAPER INTERLEAFER) Hemoglobin A1c, B 5.4 4.0 - 5.6 % [facility] 10/13/2016 9:26 AM CARBON PAPER INTERLEAFER 10/13/2016 9:26 AM CARBON PAPER INTERLEAFER Didier Hays M.D. LAB BLOOD ADD-ON [facility] [address] * Creatinine with Estimated GFR (MDRD) (10/13/2016 9:26 AM CARBON PAPER INTERLEAFER) Creatinine 0.9 0.6 - 1.1 MG/DL [facility] eGFR Non-Black/Afric an German >60 >60 ML/MIN/BSA [facility] eGFR-Black/Afri can German >60 >60 ML/MIN/BSA [facility] 10/13/2016 9:26 AM CARBON PAPER INTERLEAFER 10/13/2016 9:26 AM CARBON PAPER INTERLEAFER Didier Hays M.D. LAB BLOOD ADD-ON [facility] [address] from Last 3 Months or Most Recently Relevant to Health Maintenance
--- OUTSIDE RECORDS SUMMARY | 2024-02-12 22:37 | XMS_ITS | Encounter Summary ---
Author Organization [facility] Address [address] [place] [address] Care Team Providers Care Desk Monitor Name Role Phone Unavailable Primary Care Provider Unavailabl e Reason for Visit * Outpatient (Routine) - Closed Specialty Diagnoses / Procedures Referred By Neftaly weinstein Referred To Contact Diagnoses Pain Low Back Unspecified Pain Hip Bilateral Procedures IM Acupuncture Rst [facility] [address] [place] [phone] [facility] Referral ID Status Reason Start Date Expiration Date Visits Re quested Visits Authorized [id number] Closed 12/11/2022 12/11/2023 12 12 Encounter Details Date Type Department Care Team (Latest Contact Info) Description 12/03/2023 1:30 PM CDT Clinical Support [facility] in [place], [place] [address] [place] [address] Zeny Cain L.Ac. [address] [place] [phone] Pain Low Back Unspecified; Pain Hip Bilateral Social History Tobacco Use Types Packs/Day Years [...] How often do you attend chur or hinduism services? More than 4 times per year 11/22/2022 Do you belong to any clubs o r organizations such as religious groups, unions, fraternal or athletic groups, or [...] Answer Date Recorded PHQ-2 Score 1 03/11/2021 [facility] of Occupat ional Health - Occupational Stress [...] place to sleep or slept in a longterm (including now)? No 11/22/2022 Depression Answer Date [...] e paid workforce and NOT seeking employment 11/22/2022 Education Answer Date Recorded What is the highest level of school you have completed or the highest degree you have received? Associate degree: occupational, technical, or vocational program 10/01/2020 Sex and Gender Information Value Date Recorded Sex Assigned at Female 06/23/2021 10:52 AM CDT Gender Identity Female 10/01/2020 2:34 PM PLASTICS FABRICATION SUPERVISOR Sexual Orientation Straight 10/01/2020 2: 34 PM PLASTICS FABRICATION SUPERVISOR documented as of this encounter Progress Notes * Zeny Cain L.Ac. - 12/03/2023 1:30 PM CDT Referral Source: No ref. provider found Supervised by: [place] [id number] SUBJECTIVE Chief Complaint: Back Pain and Neck Pain History of Present Illness Ms. Snow is a 58 y.o. female referred for evaluation and consideration of acupuncture treatment. Ms. Snow is seen in the outpatient setting. Their medical history is well documented and relevant portions were reviewed and discussed at today's session. Pilar returns for acupuncture treatment. She did undergo cervical spine injections in September and October. Today, she shares that she has been under a fair amount of stress with her father passing away unexpectedly. She is experiencing some pain and tension in her neck and upper back along with arecent return of low back and hip pain. OBJECTIVE ASSESSMENT / PLAN #1 Pain Low Back Unspecified #2 Pain Hip Bilateral This is treatment 12 of expected 20 treatments. Frequency: Acupuncture ordered for: Acute care Benefits and risks of acupuncture were discussed with patient and patient has signed consent authorization to proceed with treatment. Patient was informed that results may vary dependent on severity of symptoms and frequency of treatment. It was noted that most patients need a series of acupuncture treatments to obtain symptom relief. Total Needling Time: 30 minutes [place] Electrified: No Diathermy: No Cupping: Yes Treatment Points Used: Set One: GB20/21, JJJ, TB15, SI14 Set Two: UB23/24/25/26/53 GB30 Auricular: Number of [place] Used = Number of [place] Retrieved: Yes Stimulation Intensity: Medium Narrative Assessment: PPE used during visit: Patient tolerated acupuncture without any complications and will follow up as scheduled. The attendance policy for acupuncture has been reviewed and discussed with the patient in person. The patient has been made aware that due to high demand, acupuncture appointments are not always available in the timeframe or at the rate of frequency recommended to the patient. Patient Centered Plan of Care: The following plan of care, goals and recommendations have been discussed with the patient. Acupuncture treatment is time limited. The patient has been made aware that the purpose of acupuncture treatment is to make progress toward stated goals. Achievement of goals or therapeutic plateau will precipitate a change in type or frequency of therapeutic intervention or dismissal from this program with recommendations for availing acupuncture in his/her community. Patient has been provided resources and the www.NCCAOM.org for locating a qualified personal finance instructor in the local community. PATIENT EDUCATION Ready to learn, no apparent learning barriers were identified, learning preference include listening. Explained diagnosis and treatment plan: patient/caregiver expressed understanding of the content. documented in this encounter Plan of Treatment Upcoming Encounters Date Type Department Care Team (Late st Contact Info) Description 02/18/2024 2:00 PM CDT Clinical Support Department of Nutrition and Diabetes Education in [place], [place] [address] [place] [phone] Cinda Willis M.B., Ch.B. [address] [place] [phone] Mandy Trevino M.S., TOIN, LD [address] [place] [phone] 03/09/2024 2:45 PM CDT Clinical Support [facility] in [address] [phone] Paulie Corral L.Ac. 03/17/2024 2:00 PM CDT Clinical Support Department of Nutrition and Diabetes Education in [place], [place] [address] [place] [phone] Cinda Willis M.B., Ch.B. [address] [place] [phone] Mandy Trevino M.S., RDN, LD [address] [place] [phone] documented as of this encounter Visit Diagnoses Diagnosis Pain Low Back Unspecified Pain Hip Bilateral documented in this encounter Additional Health Concerns Assessment Noted Time PHQ-9 Depression Total Score: 4 03/11/20 21 2:35 PM CDT documented as of this encounter
--- OUTSIDE RECORDS SUMMARY | 2024-02-12 22:37 | XMS_ITS | Encounter Summary ---
Author Organization [facility] Address [address] [place] [phone] Care Team Providers Care Pharmacy Assistant Name Role Phone Unavailable Primary Care Provider Unavailabl e Reason for Referral * Outpatient (Routine) - Authorized Specialty Diagnoses / Procedures Referred By Contac t Referred To Contact Diagnoses Pain Low Back Unspecified Pain Hip Bilateral Procedures [facility] Acupuncture [facility] [address] [place] [phone] [facility] Referral ID Status Reason Start Date Expiration Date V isits Requested Visits Authorized [id number] Authorized 02/07/2024 02/06/2025 20 20 Reason for Visit * Outpatient (Routine) - Closed Specialty Diagnoses / Procedures Referred By Contac t Referred To Contact Diagnoses Pain Low Back Unspecified Pain Hip Bilateral Procedures [facility] Acupuncture [facility] [address] [place] [phone] [facility] Referral ID Status Reason Start Date Expiration Date Visits Re quested Visits Authorized [id number] Closed 12/11/2022 12/11/2023 12 12 Encounter Details Date Type Department Care Team (Latest Contact Info) Description 02/07/2024 1:30 PM CDT Clinical Support [facility] in [place], [place] [address] [place] [phone] Zeke Reddy L.Ac. [address] [place] [phone] Pain Low Back Unspecified; Pain Hip Bilateral Social History Tobacco Use Types Packs/Day Years Used Date Smoking Tobacco: Never Smokeless Tobacco: Never Alcohol Use Standard Drinks/Week Comments Not Currently 1 (1 standard drink = 0.6 oz pur e alcohol) [facility] Utilities Answer Date Recorded In the past 12 months has th e electric, gas, oil, or water company threatened to shut off services in your [...] often do you attend chur ch or congregation services? More than 4 times per year 11/22/2022 Do you belong to any clubs o r organizations such as mormonism groups, unions, fraternal or athletic groups, or [...] Answer Date Recorded PHQ-2 Score 1 03/11/2021 [facility] of Occupat ional [facility] - Occupational Stress Questionnaire Answer Date Recorded [...] Answer Date Recorded Employment status Unemployed/not in th e paid workforce and NOT seeking employment 12/31/2023 Housing Stability Answer Date Recorded What is your living situation today? I have a [facility] place to live 12/31/2023 Education Answer Date Recorded What is the highest level of school you have completed or the highest degree you have received? Associate degree: occupational, technical, or vocational program 10/01/2020 Sex and Gender Information Value Date Recorded Sex Assigned at Female 06/23/2021 10:52 AM CDT Gender Identity Female 10/01/2020 2:34 PM TAX COMPLIANCE REPRESENTATIVE Sexual Orientation Straight 10/01/2020 2: 34 PM TAX COMPLIANCE REPRESENTATIVE documented as of this encounter Progress Notes * Zeke Reddy L.Ac. - 02/07/2024 1:30 PM CDT Referral Source: No ref. provider found Supervised by: Canelo Bryant M.D. SUBJECTIVE Chief Complaint: Back Pain and Neck Pain History of Present Illness Ms. Snow is a 58 y.o. female referred for evaluation and consideration of acupuncture treatment. Ms. Snow is seen in the outpatient setting. Their medical history is well documented and relevant portions were reviewed and discussed at today's session. Pilar feels beneficial with acupuncture treatment and returns for further treatment today. She feels dull occipital pain, nausea, neck pain radiating to bilateral shoulders, denies arm pain or numbness. She is also struggling with lower back and hip pain. Today we worked on her neck and lower back, and she felt great after this session. OBJECTIVE ASSESSMENT / PLAN #1 Pain Low Back Unspecified #2 Pain Hip Bilateral This is treatment 1 of expected 20 treatments. Frequency: Acupuncture ordered [...] symptom relief. Total Needling Time: 30 minutes [place] Electrified: No Diathermy: No Cupping: Yes Treatment Points Used: Set One: GV 14/16/17, GB 19/20/21, [place], SI 11/13,BL 24/25/26/27/28 Set Two: Both GB 29/30/34/41, BL 54, Hip Ashix1 Number of [place] Used = Number of [place] Retrieved: Yes Stimulation Intensity: Medium Narrative Assessment: Patient tolerated acupuncture without any complications and [...] and the www.NCCAOM.org for locating a qualified visitor services associate in the local community. PATIENT EDUCATION Ready to learn, no apparent learning barriers were identified, learning preference include listening. Explained diagnosis and treatment plan: patient/caregiver expressed understanding of the content. documented in this encounter Plan of Treatment Upcoming Encounters Date Type Department Care Team (Late st Contact Info) Description 02/18/2024 2:00 PM CDT Clinical Support Department of Nutrition and Diabetes Education in [place], [place] [address] [place] [phone] Cinda Willis M.B., Ch.B. [address] [place] [phone] Mandy Trevino M.S., RDN, LD [address] [place] [phone] 03/09/2024 2:45 PM CDT Clinical Support [facility] in [place], [place] [address] [place] [phone] Paulie Corral L.Ac. 03/17/2024 2:00 PM CDT Clinical Support Department of Nutrition and Diabetes Education in [place], [place] [address] [place] [phone] Cinda Willis M.B., Ch.B. [address] [place] [phone] Mandy Trevino M.S., RDN, LD [address] [place] [phone] Scheduled Orders Name Type Priority Associated Diagnoses Orde r Schedule [facility] Acupuncture Procedures Routine Pain Low Back Unspecified Pain Hip Bilateral 20 Occurrences starting 02/07/2024 until 05/09/2025 documented as of this encounter Visit Diagnoses Diagnosis Pain Low Back Unspecified Pain Hip Bilateral documented in this encounter Additional Health Concerns Assessment Noted Time PHQ-9 Depression Total Score: 4 03/11/20 21 2:35 PM CDT documented as of this encounter
--- OUTSIDE RECORDS SUMMARY | 2024-02-12 22:37 | XMS_ITS | Encounter Summary ---
Author Organization [facility] Address [address] [place] [id number] Care Team Providers Care Leather Staker Name Role Phone Unavailable Primary Care Provider Unavailabl e Reason for Referral * Outpatient (Routine) - Authorized Specialty Diagnoses / Procedures Referred By Contac t Referred To Contact Cinda Styles M.B., Ch.B. [address] [place] [phone] [facility] Referral ID Status Reason Start Date Expiration Date V isits Requested Visits Authorized [id number] Authorized 01/07/2024 07/08/2025 2 2 Reason for Visit * Outpatient (Routine) - Closed Specialty Diagnoses / Procedures Referred By Neftaly weinstein Referred To Contact Cinda Styles M.B., Ch.B. [address] [place] [phone] [facility] Referral ID Status Reason Start Date Expiration Date Visits Re quested Visits Authorized [id number] Closed 07/09/2023 07/08/2026 1 1 Encounter Details Date Type Department Care Team (Latest Contact Info) Description 01/07/2024 3:00 PM CDT Clinical Support Department of Nutrition and Diabetes Education in [place], [place] [address] [place] [phone] Cinda Willis M.B., Ch.B. [address] [place] [phone] Mandy Trevino M.S., RDN, LD [address] [place] [phone] Obesity Body Mass Index 30-39.9 Adult [E66.9] (Primary Dx) Social History Tobacco Use Types Packs/Day Years Used Date Smoking Tobacco: Never Smokeless Tobacco: Never Alcohol Use Standard Drinks/Week Comments Not Currently 1 (1 standard drink = 0.6 oz pur e alcohol) [facility] Utilities Answer Date Recorded In the past 12 months has e [employer], gas, oil, or water [employer] threatened to shut off services in your [...] How often do you attend chur or episcopalian services? More than 4 times per year 11/22/2022 Do you belong to any clubs o r organizations such as congregation groups, unions, fraternal or athletic groups, or [...] Answer Date Recorded PHQ-2 Score 1 03/11/2021 [facility] - Occupational Stress Questionnaire Answer Date [...] living situation today? I have a [facility] to live 12/31/2023 Education Answer Date Recorded What is the highest level of school you have completed or the highest degree you have received? Associate degree: occupational, technical, or vocational program 10/01/2020 Sex and Gender Information Value Date Recorded Sex Assigned at Female 06/23/2021 10:52 AM CDT Gender Identity Female 10/01/2020 2:34 PM METAPHYSICS TEACHER Sexual Orientation Straight 10/01/2020 2: 34 PM METAPHYSICS TEACHER documented as of this encounter Last Filed Vital Signs Vital Sign Reading Time Taken Comments Blood Pressure - - Pulse - - Temperature - - Respiratory Rate - - Oxygen Saturation - - Inhaled Oxygen Concentration - - Weight 87.1 kg (192 lb 0.3 oz) 01/07/2024 2:48 P M CDT Height 159.6 cm (5' 2.84) 01/07/2024 2:48 PM CD T Body Mass Index 34.19 01/07/2024 2:48 PM CDT documented in this encounter Progress Notes * Mandy Trevino M.S., RDN, LD - 01/07/2024 3:00 PM CDT CHIEF COMPLAINT/REASON FOR VISIT Nutrition-Weight Management Follow-Up Met with patient ASSESSMENT Previous goals: 1. Try walk at home on [employer] or get basket for dog on the bike. Anything is good, more is better 2. Continue to focus on 2- 3 balanced meals daily (metabolic balance plan) -She continues to do this 80% of the time and is maintaining her weight Dieting experience: She previously tried phentermine but could not tolerate this. She is in [employer] group 2 times per month and is taking one Contrave in the morning (prescription is 2 in the am and 2 in the pm). She is doing a program from metabolic balance for inflammation (food, supplements, labs, etc.) and is following this. Eating environment: She does the cooking and grocery shopping. Restaurants/fast food 1-2 times per week. Food and beverage intake Breakfast: protein shake (Mediloss) + collagen powder Morning Snack: none Lunch (1 pm): turkey and cheese sandwich on whole wheat Afternoon Snack: fruit Evening Meal (6-8 pm): fish and fruit, salad Night Snack: none Beverages: Sprite Zero, water with [place], María Elena Dry Alcohol intake: occasionally 1-2 drinks Physical activity: Gisela Snow reports doing the recumbent bike for 50 minutes 4 times perweek. Weight History Ht Readings from Last 1 Encounters: 01/07/24 159.6 cm Wt Readings from Last 1 Encounters: 01/07/24 87.1 kg BMI Readings from Last 1 Encounters: 01/07/24 34.19 kg/m?? Weight change: 05/08/22: 88.9 kg 11/02/22: 91.9 kg 01/04/23: 87.2 kg 02/04/23: 85.7 kg 04/01/23: 86.8 kg 05/06/23: 86 kg 07/09/23: 85.8 kg Estimation of Nutritional Needs REE December 2020=[id number] REE x 1.2 - 500 = 1400 calories per day NUTRITION DIAGNOSIS Overweight/Obesity related to imbalance between energy intake and energy expenditure as evidenced by patient's intake, activity report, and BMI > 30 INTERVENTION Education: Weight Control See Patient Education Record for information regarding education materials covered today. MONITORING AND EVALUATION: Nutrition parameter to monitor: Weight Desired Outcome: establish healthy lifestyle changes; gradual weight reduction Patient Goal(s): 1. Basket on bike/tricycle for the dog, walking 3 times 2. Continue to focus on 2- 3 balanced meals daily (metabolic balance plan) FOLLOW UP PLAN: Follow-up appointment has been arranged Time spent with patient (minutes): 20 documented in this encounter Plan of Treatment Upcoming Encounters Date Type Department Care Team (Late st Contact Info) Description 02/18/2024 2:00 PM CDT Clinical Support Department of Nutrition and Diabetes Education in [place], [place] [address] [place] [phone] Cinda Willis M.B., Ch.B. 200 [place] [phone] Mandy Trevino M.S., RDN, LD [address] [place] [phone] 03/09/2024 2:45 PM CDT Clinical Support [facility] in [place], [place] [address] [place] [phone] Paulie Corral L.Ac. 03/17/2024 2:00 PM CDT Clinical Support Department of Nutrition and Diabetes Education in [place], [place] [address] [place] [phone] Cinda Willis M.B., Ch.B. [address] [place] [phone] Mandy Trevino M.S., RDN, LD [address] [place] [phone] Scheduled Referrals Name Type Priority Associated Diagnoses Order Schedule Nutrition office visit (clinic) Outpatient Referral Routine 2 Occurrence s starting 01/07/2024 until 04/07/2025 documented as of this encounter Visit Diagnoses Diagnosis Obesity Body Mass Index 30-39.9 Adult [E66.9]- Primary documented in this encounter Additional Health Concerns Assessment Noted Time PHQ-9 Depression Total Score: 4 03/11/20 21 2:35 PM CDT documented as of this encounter
--- OUTSIDE RECORDS SUMMARY | 2024-02-12 22:37 | XMS_ITS | Encounter Summary ---
Author Organization [facility] Address [address] [place] [address] Care Team Providers Care Exhibition Designer Name Role Phone Unavailable Primary Care Provider Unavailabl e Reason for Visit * Outpatient (Routine) - Closed Specialty Diagnoses / Procedures Referred By Neftaly t Referred To Contact Diagnoses Pain Low Back Unspecified Pain Hip Bilateral Procedures [facility] Acupuncture [facility]st [facility] [address] [place] [phone] [facility] Referral ID Status Reason Start Date Expiration Date Visits Re quested Visits Authorized [id number] Closed 12/11/2022 12/11/2023 12 12 Encounter Details Date Type Department Care Team (Latest Contact Info) Description 01/14/2024 2:45 PM CDT Clinical Support [facility] in [place], [place] [address] [place] [phone] Zeke Reddy L.Ac. [address] [place] [phone] Pain Low Back Unspecified; Pain Hip Bilateral Social History Tobacco Use Types Packs/Day Years Used Date Smoking Tobacco: Never Smokeless Tobacco: Never Alcohol Use Standard Drinks/Week Comments Not Currently 1 (1 standard drink = 0.6 oz pur e alcohol) [facility] Utilities Answer Date Recorded In the past 12 months has e electric, gas, oil, or water company [...] How often do you attend chur or mandaeism services? More than 4 times per year 11/22/2022 Do you belong to any clubs o r organizations such as quaker groups, unions, fraternal or athletic groups, or [...] Date Recorded PHQ-2 Score 1 03/11/2021 [facility] Occupat ional Health - Occupational Stress [...] your living situation today? I have a [facility] place to live 12/31/2023 Education Answer Date Recorded What is the highest level of school you have completed or the highest degree you have received? Associate degree: occupational, technical, or vocational program 10/01/2020 Sex and Gender Information Value Date Recorded Sex Assigned at Female 06/23/2021 10:52 AM CDT Gender Identity Female 10/01/2020 2:34 PM TREATMENT SPECIALIST Sexual Orientation Straight 10/01/2020 2: 34 PM TREATMENT SPECIALIST documented as of this encounter Progress Notes * Zeke Reddy L.Ac. - 01/14/2024 2:45 PM CDT Referral Source: No ref. provider found Supervised by: Julius Walker M.D. SUBJECTIVE Chief Complaint: Back Pain and [...] returns for further treatment today. She feels neck pain radiating to bilateral shoulders, denies arm pain or numbness. She is also struggling with lower back and hip pain. Today we worked on her neck and lower back, and she felt great when shewas leaving. OBJECTIVE ASSESSMENT / PLAN #1 Pain Low Back Unspecified #2 Pain Hip Bilateral This is treatment 13 of expected 20 treatments. Frequency: Acupuncture ordered [...] symptom relief. Total Needling Time: 30 minutes [place] Electrified: No Diathermy: No Cupping: Yes Treatment Points Used: Set One: GV 14, GB 20/21, Jingbailao, SI 11/13,BL 24/25/26/27/28 Set Two: Both GB 29/30/34/41, BL 54, Hip Ashix1 Number of [place] Used = Number of [place] Retrieved: Yes Stimulation Intensity: Medium Narrative Assessment: [...] and the www.[employer].org for locating a qualified home health nurse licensed practical in the local community. PATIENT EDUCATION Ready to learn, no apparent learning barriers were identified, learning preference include listening. Explained diagnosis and treatment plan: patient/caregiver expressed understanding of the content. documented in this encounter Plan of Treatment Upcoming Encounters Date Type Department Care Team (Late st Contact Info) Description 02/18/2024 2:00 PM CDT Clinical Support Department of Nutrition and Diabetes Education in [place], [place] [address] [place] [phone] Cinda Willis M.B., Ch.B. [address] [place] [phone] Mandy Trevino MDianne, RDN, LD [address] [place] [phone] 03/09/2024 2:45 PM CDT Clinical Support [facility] in [place], [place] [address] [place] [phone] Paulie Corral L.Ac. 03/17/2024 2:00 PM CDT Clinical Support Department of Nutrition and Diabetes Education in [place], [place] [address] [place] [phone] Cinda Willis M.B., Ch.B. [address] [place] [phone] Mandy Trevino M.S., RDN, LD [address] [place] [phone] documented as of this encounter Visit Diagnoses Diagnosis Pain Low Back Unspecified Pain Hip Bilateral documented in this encounter Additional Health Concerns Assessment Noted Time PHQ-9 Depression Total Score: 4 03/11/20 21 2:35 PM CDT documented as of this encounter
== END 2024-02-12 22:46 | disposition home or self-care (01) ==
LOC: ED 22:34
PROVIDERS: Emergency Provider Family Medicine; PCP Family Medicine
DX: H92.01 Otalgia, right ear (principal)
CPT/HCPCS: 99282

== ENCOUNTER 2024-02-26 20:56 | Emergency (ER) | payer BC, SELFPAY ==
[2024-02-26 21:10] VITALS: BP 160/87; PULSE 73; RESP 18; TEMP 36.8; O2SAT 96; BMI 34.0
--- NOTE | 2024-02-26 21:40 | CRLHL7_ITS ---
For Patients: As a result of the Century Cures Act, medical imaging exams and procedure reports are released immediately into your electronic medical record. You may view this report before your referring provider. If you have questions, please contact your health care provider. INDICATION: Fluid retention. TECHNIQUE: Chest 2 views. COMPARISON: None. FINDINGS: Cardiovascular and mediastinum: Heart size and vasculature are normal in caliber and appearance. Lungs and pleural spaces: Lungs are clear. No sign of infiltrate or mass. No sign of pleural effusion. No pneumothorax. Bones and soft tissues: Unremarkable for age. IMPRESSION: No evidence of an acute pulmonary process. Dictated by Ezekiel Sanders MD @ 02/26/2024 9:59:01 PM (Electronically Signed)
--- NOTE | 2024-02-26 21:40 | ED.GENADULT ---
HPI - General Adult General Chief complaint: Lower Extremity Swelling Stated complaint: Water retention Time Seen by Provider: 02/26/24 21:09 History of Present Illness HPI narrative: This 58-year-old female comes in with her reporting fluid retention over the past several days. She states that she had this quite a while ago and did not have a workup but did take some tablets of Lasix which resolved the symptoms. She states that she took 2 tablets of Lasix yesterday and again today but reports overall is 6 lb weight gain. Her weight did decrease by 3 lb yesterday but it was back up again today. She does not report any shortness of breath or orthopnea. She has not had any chest pain. She does not have a history of congestive heart failure. I see in her past medical history that there is a diagnosis of obstructive sleep apnea syndrome which may account for some fluid retention. Related Data Home Medications ?Medication ?Instructions ?Recorded ?Confirmed B-complex with vitamin C 1 tab PO QDAY 04/02/22 12/21/23 aspirin 81 mg tablet,delayed 81 mg PO QDAY 04/02/22 12/21/23 release (Adult Low Dose Aspirin) cholecalciferol (vitamin D3) 125 125 mcg PO QDAY 04/02/22 12/21/23 mcg (5,000 unit) capsule gabapentin 100 mg capsule 200 - 400 mg PO BID 10/21/22 12/21/23 iron,carbonyl 65 mg-vitamin C 125 2 tab PO QAM 04/21/23 12/21/23 mg tablet,delayed release (Vitron-C) levothyroxine 137 mcg capsule 137 mcg PO QDAY 04/21/23 12/21/23 Previous Rx's ?Medication ?Instructions ?Recorded cyclobenzaprine 10 mg tablet 10 mg PO QDAY PRN muscle spasm #90 04/02/22 tabs celecoxib 200 mg capsule 200 mg PO DAILY #90 caps 04/21/23 furosemide 20 mg tablet 20 mg PO .Daily as needed PRN 04/21/23 edema #90 tabs losartan 50 mg tablet 50 mg PO DAILY #90 tabs 04/21/23 prochlorperazine maleate 10 mg 10 mg PO Q6H PRN nausea and 04/21/23 tablet vomiting #30 tabs sumatriptan succinate 25 mg tablet See Rx Instructions PO .COMPLEX #9 04/21/23 tabs topiramate 50 mg tablet 50 mg PO BID #180 tabs 04/21/23 zolpidem 5 mg tablet 5 mg PO .hs #30 tabs 11/09/23 estradiol 0.01% (0.1 mg/gram) 1 g vaginal 2XW #42.5 grams 02/02/24 vaginal cream (Estrace) simvastatin 40 mg tablet 40 mg PO QPM #90 tabs 02/04/24 furosemide 20 mg tablet (Lasix) 20 mg PO DAILY #14 tabs 02/26/24 Allergies Allergy/AdvReac Type Severity Reaction Status Date / Time Chocolate Allergy Severe Sore Uncoded 12/21/23 11:16 throat, swelling Nut tree Allergy Severe Swelling Uncoded 12/21/23 11:16 in mouth Review of Systems Status of ROS: Reports: 10 or more systems reviewed and unremarkable except as noted in History and below Narrative: Constitutional: No fevers, no weight gain or loss. Eyes: No discharge. No vision changes. HENT: No congestion, no sore throat, no ear pain. Cardiovascular: No chest pain, no palpitations. Respiratory: No shortness of breath, no wheezes, no cough. Gastrointestinal: No abdominal pain, no vomiting, no diarrhea. Genitourinary: No dysuria, no hematuria. Musculoskeletal: Normal range of motion. Skin: No rashes, no pruritis. Neurological: No dizziness, weakness, sensory change, speech change. Endo/Heme/Allergies: No bruising or bleeding. No polydipsia. Pysch: no suicidality, no anxiety, no insomnia. All other systems reviewed and are negative. [facility] Medical History Laceration of toe ?S91.119A - Laceration without foreign body of unspecified toe without damage to nail, initial encounter (ICD-10) Depression ?F32.A - Depression, unspecified (ICD-10) Adjustment disorder with anxious mood ?F43.22 - Adjustment disorder with anxiety (ICD-10) Surgical History Status post carpal tunnel release ?Z98.890 - Other specified postprocedural states (ICD-10) History of tubal ligation (1992) ?Z98.51 - Tubal ligation status (ICD-10) History of tonsillectomy (1969) ?Z90.89 - Acquired absence of other organs (ICD-10) History of nasal surgery (2001) ?Z98.890 - Other specified postprocedural states (ICD-10) History of endometrial ablation (2010) ?Z98.890 - Other specified postprocedural states (ICD-10) Family History Father Coronary artery disease Family/Other Breast cancer Social History Narrative: SOCIAL HISTORY: . Not working. Two children. She is sexually active. She exercises by riding a bike 3-5x per week. Her recent orthopedic issues have limited this since she recently had carpal tunnel release and thumb surgery on the right. HABITS: No tobacco or recreational drug use. Alcohol use is about 2 drinks per mo.. FAMILY HISTORY: Unchanged. Father with coronary artery disease status post bypass graft in his 40s. Parents are alive and otherwise well. Grandmother with breast cancer at age 60. What is your current living situation?: I presently have a place to live Problems where you live: no known problems In the past 12 months, utilities in danger of being shut off: no In past 12 months, lack of transportation kept you from medical appts, meetings, work, or getting things needed for daily living: no In the past 12 mos, have been you worried that your food would run out before you had money to buy more?: never true In the past 12 mos, the food you bought just didn't last and you didn't have money to buy more?: never true Smoking Status: Never smoker Do you use any of these nicotine containing products: None Second hand tobacco smoke exposure: No How often do you have a drink containing alcohol: never AUDIT-C Alcohol total score: 0 Non-prescribed substance use: denies use How often does anyone, including family, friends and others, physically hurt you: never How often does anyone, including family, friends and others, insult or talk down to you: never How often does anyone, including family, friends and others, threaten you with harm: never How often does anyone, including family, friends and others, scream or curse at you: never Little interest or pleasure in doing things: several days Feeling down, depressed, or hopeless: not at all service: No Exam Narrative: Exam Narrative: Constitutional: Well-developed, well-nourished, no acute distress. HEENT: Normocephalic, atraumatic. Neck: Normal range of motion. Nontender. Supple. Heart: Regular. No murmurs. Normal rate. Intact distal pulses. Lungs: Clear to auscultation. No chest discomfort. No wheezes, rhonchi, or rales. Abdomen: Normal bowel sounds. Nontender. No rebound tenderness. Genitalia: Deferred. Back: No midline tenderness. Normal range of motion. Extremities: Normal range of motion. No injury. No pitting pedal edema. Skin: Intact. No rash. Warm. No erythema or pallor. Neurologic: No altered sensation. No weakness. Alert and oriented. Psychiatric: No suicidality. No anxiety or depression. No insomnia. Nursing notes and vitals signs are reviewed. Const: Vital Signs, click to edit/add: Vital Signs - 24 hr 02/26/24 21:10 Temperature 98.3 F Pulse Rate [Pulse Oximeter] 73 Respiratory Rate 18 Blood Pressure [Ri ght Upper Arm] 160/87 H Pulse Oximetry 96 Oxygen Delivery Me thod Room Air Course Vital Signs Vital signs: Initial Vital Signs Temperature 98.3 F 02/26/24 21:10 Temperature Source Temporal Artery Scan 02/26/24 21:10 Pulse Rate 73 02/26/24 21:10 Respiratory Rate 18 02/26/24 21:10 Blood Pressure 160/87 H 02/26/24 21:10 Blood Pressure Mean 111 H 02/26/24 21:10 Blood Pressure Position Sitting 02/26/24 21:10 Pulse Oximetry 96 02/26/24 21:10 Oxygen Delivery Method Room Air 02/26/24 21:10 Vital Signs Temperature 98.3 F 02/26/24 21:10 Pulse Rate 73 02/26/24 21:10 Respiratory Rate 18 02/26/24 21:10 Blood Pressure 160/87 H 02/26/24 21:10 Pulse Oximetry 96 02/26/24 21:10 Oxygen Delivery Method Room Air 02/26/24 21:10 Temperature 98.3 F 02/26/24 21:10 Pulse Rate 73 02/26/24 21:10 Respiratory Rate 18 02/26/24 21:10 Blood Pressure 160/87 H 02/26/24 21:10 Pulse Oximetry 96 02/26/24 21:10 Oxygen Delivery Method Room Air 02/26/24 21:10 Medical Decision Making MDM Narrative Medical decision making narrative: This patient comes in with concern that she is retaining fluid. She does not have any pitting edema. Her exam is rather normal but she reports weight gain. She does not have any chest pain or shortness of breath. I did do a workup as this has not been checked in the past as she reports some episodes of fluid retention similar to this previously. EKG, chest x-ray, and labs all returned with reassuring findings. She is not showing any sign of heart failure or heart injury and kidney function is normal for her. I see in her past medical history that she has obstructive sleep apnea syndrome listed. This may contribute to some fluid retention if it it is an active condition for her currently. The patient is okay to be discharged home and is reassured with these findings. I did provide a prescription for some tablets of Lasix and encouraged her to follow-up with her primary physician. The patient also states that she drinks lots of water and perhaps she is drinking too much water so I encouraged her to come moderate her fluid intake. Lab Data Labs: Lab Results 02/26/24 Range/Units 21:50 WBC 8.87 (4.50-11.00) K/uL RBC 4.88 (4.00-5.20) m/uL Hgb 14.7 (12.0-16.0) gm/dL Hct 45.1 (33.0-51.0) % MCV 92 (80-100) fL MCH 30 (26-34) pg MCHC 33 (32-36) gm/dL RDW Coeff of Lexi 12.8 (11.5-15.5) % Plt Count 252 (140-440) K/uL Neut % (Auto) 39.7 L (42.0-72.0) % Lymph % (Auto) 43.2 (20-44) % Harney % (Auto) 10.5 (0.0-11.0) % Eos % (Auto) 6.0 (0.0-7.0) % Baso % (Auto) 0.5 (0.0-3.0) % Neut # (Auto) 3.50 (1.7-7.0) K/uL Lymph # (Auto) 3.83 H (0.90-2.90) K/uL Harney # (Auto) 0.90 (0.00-0.90) K/UL Eos # (Auto) 0.53 H (0.00-0.50) K/uL Baso # (Auto) 0.04 (0.00-0.30) K/uL Abs Immat Gran (auto) 0.01 (0.00-0.30) K/uL Imm/Tot Granulo (auto) 0.1 % Sodium 140 (135-149) mmol/L Potassium 3.9 (3.6-5.1) mmol/L Chloride 103 (96-114) mmol/L Carbon Dioxide 31 (20-32) mmol/L Anion Gap 6 L (7-15) mEq/L BUN 22 (7-30) mg/dL Creatinine 1.1 (0.5-1.5) mg/dL Estimated Creat Clear 47.55 Estimated GFR 58 ml/min Glucose 109 (60-115) mg/dL Calcium 9.6 (8.4-10.6) mg/dL Troponin I < 0.01 L (0.01-0.04) ng/mL NT-Pro-B Natriuret Pep 80 pg/mL ECG Data Attestation: I personally reviewed and interpreted this ECG as follows: Interpretation: Normal sinus rhythm. Rate is 70 beats per minute. There are no ST or T-wave abnormalities. Discharge Plan Discharge Clinical Impression: Volume overload Patient Disposition: Home, Self-Care Condition: Stable Additional Instructions: Take medication as needed and indicated. Follow up with primary physician for ongoing management or return if worsening. Prescriptions: New furosemide [Lasix] 20 mg tablet 20 mg PO DAILY Qty: 14 2RF No Action gabapentin 100 mg capsule 200 - 400 mg PO BID Patient Comments: TAKE 2-4 CAPSULES (200-400 MG) BY MOUTH TWICE A DAY levothyroxine 137 mcg capsule 137 mcg PO QDAY celecoxib 200 mg capsule 200 mg PO DAILY Qty: 90 3RF furosemide 20 mg tablet 20 mg PO .Daily as needed PRN (Reason: edema) Qty: 90 3RF losartan 50 mg tablet 50 mg PO DAILY Qty: 90 3RF prochlorperazine maleate 10 mg tablet 10 mg PO Q6H PRN (Reason: nausea and vomiting) Qty: 30 9RF sumatriptan succinate 25 mg tablet See Rx Instructions PO .COMPLEX Qty: 9 11RF Rx Instructions: take 1 tab at onset of headache; if no relief may repeat 1 tab after at least 2 hrs; max = 4 tabs/24 hr PO topiramate 50 mg tablet 50 mg PO BID Qty: 180 3RF B-complex with vitamin C Tablet 1 tab PO QDAY cholecalciferol (vitamin D3) 125 mcg (5,000 unit) capsule 125 mcg PO QDAY aspirin [Adult Low Dose Aspirin] 81 mg tablet,delayed release (DR/EC) 81 mg PO QDAY cyclobenzaprine 10 mg tablet 10 mg PO QDAY PRN (Reason: muscle spasm) Qty: 90 3RF Vitron-C 65 mg iron- 125 mg tablet,delayed release (DR/EC) 2 tab PO QAM zolpidem 5 mg tablet 5 mg PO .hs Qty: 30 5RF estradiol [Estrace] 0.01 % (0.1 mg/gram) cream 1 g vaginal 2XW Qty: 42.5 2RF simvastatin 40 mg tablet 40 mg PO QPM Qty: 90 0RF Follow Up/Referrals: Troy Seals MD [Primary Care Provider] - Stand Alone Forms: MyHealth Info Instructions
--- OUTSIDE RECORDS SUMMARY | 2024-02-26 21:45 | XMS_ITS | Encounter Summary ---
Author Organization [facility] Address [address] [place] [id number] Care Team Providers Care Fisheries Enforcement Officer Name Role Phone Unavailable Primary Care Provider Unavailabl e Reason for Referral * Outpatient (Routine) - Authorized Specialty Diagnoses / Procedures Referred By Contac t Referred To Contact Cinda Styles M.B., Ch.B. [address] [place] [phone] [facility] Referral ID Status Reason Start Date Expiration Date V isits Requested Visits Authorized [id number] Authorized 02/18/2024 08/19/2025 2 2 Reason for Visit * Outpatient (Routine) - Authorized Specialty Diagnoses / Procedures Referred By Contangelique t Referred To Contact Cinda Styles M.B., Ch.B. [address] [place] [phone] [facility] Referral ID Status Reason Start Date Expiration Date V isits Requested Visits Authorized [id number] Authorized 01/07/2024 07/08/2025 2 2 Encounter Details Date Type Department Care Team (Latest Contact Info) Description 02/18/2024 2:00 PM CDT Clinical Support Department of Nutrition and Diabetes Education in [place], [place] [address] [place] [phone] Cinda Willis M.B., Ch.B. [address] [place] [address] [phone] Mandy Trevino M.S., RDN, LD [address] [place] [phone] Obesity Body Mass Index 30-39.9 Adult [E66.9] (Primary Dx) Social History Tobacco Use Types Packs/Day Years Used Date Smoking Tobacco: Never Smokeless Tobacco: Never Alcohol Use Standard Drinks/Week Comments Not Currently 1 (1 standard drink = 0.6 oz pur e alcohol) [facility] Utilities Answer Date Recorded In the past 12 months has e [employer], gas, oil, or water [employer] threatened to shut off services in your [...] How often do you attend chur or restorationist services? More than 4 times per year 11/22/2022 Do you belong to any clubs o r organizations such as yazidi groups, unions, fraternal or athletic groups, or [...] Answer Date Recorded PHQ-2 Score 1 03/11/2021 [facility] - Occupational Stress Questionnaire Answer Date [...] Answer Date Recorded Dental: Regular Dentist Yes 02/19/20 21 Employment Answer Date Recorded Employment status [...] CDT Gender Identity Female 10/01/2020 2:34 PM [employer] Sexual Orientation Straight 10/01/2020 2: 34 PM [employer] documented as of this encounter Last Filed Vital Signs Vital Sign Reading Time Taken Comments Blood Pressure - - Pulse - - Temperature - - Respiratory Rate - - Oxygen Saturation - - Inhaled Oxygen Concentration - - Weight 88.1 kg (194 lb 3.6 oz) 02/18/2024 1:28 P M CDT Height 159.7 cm (5' 2.87) 02/18/2024 1:28 PM CD T Body Mass Index 34.54 02/18/2024 1:28 PM CDT documented in this encounter Progress Notes * Mandy Trevino M.S., RDN, LD - 02/18/2024 2:00 PM CDT CHIEF COMPLAINT/REASON FOR VISIT Nutrition-Weight Management Follow-Up Met with patient ASSESSMENT Previous goals: 1. Basket on bike/tricycle for the dog, walking 3 times -Rode the bike 2 times recently, ordered basket for the bike 2. Continue to focus on 2- 3 balanced meals daily (metabolic balance plan) -is up 3 pounds so has been limit food intake this week which is the habit she does when she starts to see the scale increase Dieting experience: She previously tried phentermine but could not tolerate this. She is in [email or web address] 2 times per month and [...] Snack: none Beverages: Sprite Zero, water with [place], María Elena Dry Alcohol intake: occasionally 1-2 drinks Physical activity: Gisela Snow reports doing the recumbent bike for 50 minutes 4 times perweek. Weight History Ht Readings from Last 1 Encounters: 02/18/24 159.7 cm Wt Readings from Last 1 Encounters: 02/18/24 88.1 kg BMI Readings from Last 1 Encounters: 02/18/24 34.54 kg/m?? Weight change: 05/08/22: 88.9 kg 11/02/22: 91.9 kg 01/04/23: 87.2 kg 02/04/23: 85.7 kg 04/01/23: 86.8 kg 05/06/23: 86 kg 07/09/23: 85.8 kg 01/06/23: 87.1 kg Estimation of Nutritional Needs REE December [...] Goal(s): 1. Basket on bike/tricycle for the dog 2. Continue to focus on 2- 3 balanced meals daily FOLLOW UP PLAN: Follow-up appointment has been arranged She is interested in Wegovy and Zepbound since Contrave is not helping her to lose weight. She willcheck with her insurance company and reach out to Dr. Willis. Time spent with patient (minutes): 20 documented in this encounter Plan of Treatment Upcoming Encounters Date Type Department Care Team (Late st Contact Info) Description 03/09/2024 2:45 PM CDT Clinical Support [facility] and [facility] in [place], [place] [address] [place] [phone] Paulie Corral L.Ac. 03/17/2024 2:00 PM CDT Clinical Support Department of Nutrition and Diabetes Education in [place], [place] [address] [place] [phone] Cinda Willis M.B., Ch.B. [address] [place] [phone] Mandy Trevino M.S., RDN, LD [address] [place] [phone] 04/21/2024 1:00 PM CDT Clinical Support Department of Nutrition and Diabetes Education in [place], [place] [address] [place] [phone] Cinda Willis M.B., Ch.B. [address] [place] [phone] Mandy Trevino M.S., RDN, LD [address] [place] [phone] Scheduled Referrals Name Type Priority Associated Diagnoses Order Schedule Nutrition office visit (clinic) Outpatient Referral Routine 2 Occurrence s starting 02/18/2024 until 05/20/2025 documented as of this encounter Visit Diagnoses Diagnosis Obesity Body Mass Index 30-39.9 Adult [E66.9]- Primary documented in this encounter Additional Health Concerns Assessment Noted Time PHQ-9 Depression Total Score: 4 03/11/20 21 2:35 PM CDT documented as of this encounter
--- OUTSIDE RECORDS SUMMARY | 2024-02-26 21:45 | XMS_ITS | Clinical Summary ---
Author Organization [facility] Address [place], [place] [address] Care Team Providers Care Strip Machine Operator Name Role Phone Troy Seals MD Primary Care Provider [phone] Oliver Hylton MD Unavailable [phone] Jm Araujo Unavailable Unavailable Allergies No known [...] Name Administration Dates Next Due COVID-19 vaccine ([employer] 30mcg/0.3mL) P F, MDV 01/24/2021,12/31/2020 Social History [...] 16 Negative Negative 06/19/2021 3:20 PM CDT [facility] TRAL [facility]ORATORY TYPE 18 Negative Negative 06/19/2021 3:20 PM CDT [facility] OTHER HIGH RISK TYPES Negative Negative 06/19/2021 3:20 PM CDT [facility] TRA [facility]OR[facility] Other (Cervical/Vagina l) 06/16/2021 11:35 AM CDT 06/18/2021 9:20 AM CDT Narrative [facility] - 06/19/2021 3:20 PM CDT HPV types 16, 18, 31, 33, 35, 39, 45, 51, 52, 56, 58, 59, 66 and 68 DNA were undetectable or below the pre-set threshold. Methodology: Farzaneh Dick 4800 HPV Test Cynthia Coy MD MICROBIOLOGY [facility] [address] [place] [address], from Last 3 Months or Most Recently Relevant to Health Maintenance Care Teams Strip Machine Operator Relationship Specialty Start Date End Date Troy Seals MD PCP - General Family Practice 06/04/14 [place] [address] [place] [address] Consulting Physician Cardiovascular Disease 06/06/14 Jm Araujo [address] [place] [address] Family Practice Fender Repairer 04/19/20
--- OUTSIDE RECORDS SUMMARY | 2024-02-26 21:45 | XMS_ITS | Encounter Summary ---
Author Organization [facility] Address [address] [place] [address] Care Team Providers Care Mill Representative Name Role Phone Unavailable Primary Care Provider Unavailabl e Reason for Referral * Outpatient (Routine) - Authorized Specialty Diagnoses / Procedures Referred By Contac t Referred To Contact Diagnoses Pain Low Back Unspecified Pain Hip Bilateral Procedures [facility] Ac[facility] [address] [place] [phone] [facility] Referral ID Status Reason Start Date Expiration Date V isits Requested Visits Authorized [id number] Authorized 02/07/2024 02/06/2025 20 20 Reason for Visit * Outpatient (Routine) - Closed Specialty Diagnoses / Procedures Referred By Contac t Referred To Contact Diagnoses Pain Low Back Unspecified Pain Hip Bilateral Procedures [facility] Acupuncture [facility] [address] [place] [phone] [facility] Referral ID Status Reason Start Date Expiration Date Visits Re quested Visits Authorized [id number] Closed 12/11/2022 12/11/2023 12 12 Encounter Details Date Type Department Care Team (Latest Contact Info) Description 02/07/2024 1:30 PM CDT Clinical Support Integrative Medicine and Health in [place], [place] [address] [place] [phone] Zeke Reddy L.Ac. [address] [place] [phone] Pain Low Back Unspecified; Pain Hip Bilateral Social History Tobacco Use Types Packs/Day Years Used Date Smoking Tobacco: Never Smokeless Tobacco: Never Alcohol Use Standard Drinks/Week Comments Not Currently 1 (1 standard drink = 0.6 oz pur e alcohol) [facility] Utilities Answer Date Recorded In the past [...] often do you attend chur ch or pentecostalism services? More than 4 times per year 11/22/2022 Do you belong to any clubs o r organizations such as mu-ism groups, unions, fraternal or athletic groups, or [...] Answer Date Recorded PHQ-2 Score 1 03/11/2021 [facility] of Occupat ional [facility] - Occupational Stress Questionnaire Answer Date Recorded [...] CDT Gender Identity Female 10/01/2020 2:34 PM CLAMP CARRIER OPERATOR Sexual Orientation Straight 10/01/2020 2: 34 PM CLAMP CARRIER OPERATOR documented as of this encounter Progress Notes [...] symptom relief. Total Needling Time: 30 minutes [place] Electrified: No Diathermy: No Cupping: Yes Treatment Points Used: Set One: GV 14/16/17, GB 19/20/21, Jingbailao, SI 11/13,BL 24/25/26/27/28 Set Two: Both GB 29/30/34/41, BL 54, Hip Ashix1 Number of [place] Used = Number of [place] Retrieved: Yes Stimulation Intensity: Medium Narrative Assessment: [...] and the www.NCCAOM.org for locating a qualified licensed mental health professional in the local community. PATIENT EDUCATION Ready to learn, no apparent learning barriers were identified, learning preference include listening. Explained diagnosis and treatment plan: patient/caregiver expressed understanding of the content. documented in this encounter Plan of Treatment Upcoming Encounters Date Type Department Care Team (Late st Contact Info) Description 03/09/2024 2:45 PM CDT Clinical Support Integrative Medicine and Health in [address] [phone] Paulie Corral, L.Ac. 03/17/2024 2:00 PM CDT Clinical Support Department of Nutrition and Diabetes Education in [place], [place] [address] [place] [phone] Cinda Willis M.B., Ch.B. [address] [place] [phone] Mandy Trevino M.S., RDN, LD [address] [place] [phone] 04/21/2024 1:00 PM CDT Clinical Support Department of Nutrition and Diabetes Education in [address] [phone] Cinda Willis M.B., Ch.B. [address] [place] [phone] Mandy Trevino M.S., RDN, LD [address] [place] [phone] Scheduled Orders Name Type Priority Associated Diagnoses Orde r Schedule [facility] Acupuncture Procedures Routine Pain Low Back Unspecified Pain Hip Bilateral 20 Occurrences starting 02/07/2024 until 05/09/2025 documented as of this encounter Visit Diagnoses Diagnosis Pain Low Back Unspecified Pain Hip Bilateral documented in this encounter Additional Health Concerns Assessment Noted Time PHQ-9 Depression Total Score: 4 03/11/20 21 2:35 PM CDT documented as of this encounter
--- OUTSIDE RECORDS SUMMARY | 2024-02-26 21:45 | XMS_ITS | Clinical Summary ---
Author Organization [facility] Address [address] [place] [address] Care Team Providers Care Dance Artist Name Role Phone Unavailable Primary Care Provider Unavailabl e Source Comments Patient records contain information from all sites at [facility]. For routine questions regarding patient records, call [phone] during business hours, M-F 8:00 AM - 5:00 PM Central Time. Record requests for emergency care only can be directed to [phone] at any time.[facility] Allergies Active Allergy Reactions Criticality Noted Date [...] take 2nd dose if needed. Will need commercial front load driver. 2 tablet 07/23/2023 Active diazePAM (Valium) 5 mg tablet Take 1 tablet (5 mg total) by mouth See Admin Instructions. Take one (1) tablet 30 minutes before MRI, may take 2nd dose if needed. Will need commercial front load driver. 2 tablet 07/23/2023 Active diazePAM (VALIUM) [...] Encounters Date Type Department Care Team Description 02/18/2024 2:00 PM CDT Clinical Support Department of Nutrition and Diabetes Education in [place], [place] [address] [place] [address] Cinda Willis M.B., Светлана.B. Mandy Trevino, M.S., RDN, LD Obesity Body Mass Index 30-39.9 Adult [E66.9] (Primary Dx) 02/07/2024 1:30 PM CDT Clinical Support Integrative Medicine and Health in [place], [place] [address] [place] [address] Zeke Reddy L.Ac. Pain Low Back Unspecified; Pain Hip Bilateral 01/14/2024 2:45 PM CDT Clinical Support Integrative Medicine and Health in [place], [place] [address] [place] [address] Zeke Reddy, L.Ac. Pain Low Back Unspecified; Pain Hip Bilateral 01/07/2024 3:00 PM CDT Clinical Support Department of Nutrition and Diabetes Education in [place], [place] [address] [place] [address] Cinda Willis M.B., Ch.B. Mandy Trevino, M.S., RDN, LD Obesity Body Mass Index 30-39.9 Adult [E66.9] (Primary Dx) 12/27/2023 Refill Division of Endocrinology in [place], [place] [address] [place] [phone] Cinda Willis M.B., Ch.B. Med Refill 12/03/2023 1:30 PM CDT Clinical Support Integrative Medicine and Health in [place], [place] [address] [place] [address] Zeny Cain L.Ac. Pain Low Back Unspecified; [...] drink = 0.6 oz pur e alcohol) [facility] Utilities Answer Date Recorded In the past 12 months has e Rupture, oil, or water [employer] threatened to shut off services in your [...] How often do you attend chur or yazidism services? More than 4 times per year [...] Answer Date Recorded PHQ-2 Score 1 03/11/2021 [facility] of Occupat ional Health - Occupational [...] your living situation today? I have a [facility] place to live 12/31/2023 Education Answer Date Recorded What is the highest level of school you have completed or the highest degree you have received? Associate degree: occupational, technical, or vocational program 10/01/2020 Sex and Gender Information Value Date Recorded Sex Assigned at Female 06/23/2021 10:52 AM CDT Gender Identity Female 10/01/2020 2:34 PM GUEST SERVICES ASSISTANT Sexual Orientation Straight 10/01/2020 2: 34 PM GUEST SERVICES ASSISTANT Last Filed Vital Signs Vital Sign Reading Time Taken Comments Blood Pressure 154/72 10/27/2023 2:52 PM GUEST SERVICES ASSISTANT Pulse 63 10/27/2023 2:52 PM GUEST SERVICES ASSISTANT Temperature 36.6 ??C (97.9 ??F) 10/27/2023 1:41 PM CS T Respiratory Rate 18 01/20/2021 1:15 PM CDT Oxygen Saturation 98% 10/27/2023 2:52 PM GUEST SERVICES ASSISTANT Inhaled Oxygen Concentration - - Weight 88.1 kg (194 lb 3.6 oz) 02/18/2024 1:28 P M CDT Height 159.7 cm (5' 2.87) 02/18/2024 1:28 PM CD T Body Mass Index 34.54 02/18/2024 1:28 PM CDT Plan of Treatment Upcoming Encounters Date Type Department Care Team (Late st Contact Info) Description 03/09/2024 2:45 PM CDT Clinical Support Integrative Medicine and Health in [place], [place] [address] [place] [phone] Paulie Corral L.Ac. 03/17/2024 2:00 PM CDT Clinical Support Department of Nutrition and Diabetes Education in [place], [place] [address] [place] [phone] Cinda Willis M.B., Ch.B. [address] [place] [phone] Mandy Trevino M.S., TOIN, LD [address] [place] [phone] 04/21/2024 1:00 PM CDT Clinical Support Department of Nutrition and Diabetes Education in [place], [place] [address] [place] [phone] Cinda Willis M.B., Ch.B. [address] [place] [phone] Mandy Trevino M.S., TOIN, LD [address] [place] [phone] Health Maintenance Due Date Last Done Comments [...] this topic Medical Devices Implanted Type Area Security Shift Manager Device Identifier Shelf Expiration Date Model / Serial / Lot Misc Other Misc Other Mouth Description:Left side upper lower teeth Procedures Procedure Name Priority Date/Time Associated Diagnosis Comments THYROID-STIMULATING HORMONE-SENSITIVE (S-TSH) Routine 09/03/2023 1:51 PM GUEST SERVICES ASSISTANT Hypothyroidism Primary OUTSIDE MG MAMMOGRAM Routine 03/22/2020 1:15 PM CDT HEMOGLOBIN A1C, B Routine 10/13/2016 9:2 6 AM GUEST SERVICES ASSISTANT CHRONIC VIRAL HEPATITIS PROFILE Routine 10/13/2016 9:26 AM GUEST SERVICES ASSISTANT CREATININE WITH EGFR, S/P Routine 10/13/2016 9:26 AM GUEST SERVICES ASSISTANT from Last 3 Months or Most Recently Relevant to Health Maintenance Results * S-TSH (Thyroid-Stimulating Hormone - Sensitive) (09/03/2023 1:51 PM GUEST SERVICES ASSISTANT) TSH, Sensitive 0.6 0.3 - 4.2 mIU/L 09/03/2023 2:56 PM GUEST SERVICES ASSISTANT DTL Blood (Blood, Venous) 09/03/2023 1:51 PM GUEST SERVICES ASSISTANT 09/03/2023 2:23 PM GUEST SERVICES ASSISTANT Cinda Staples, B. LAB BLOOD ADD-ON Performing Organization Address City/[facility] Co de Phone Number [facility] [address] [place] [address], [facility] [address] [place] [address] * MAMMO SCREEN, BILAT, W/CAD-Outside Mammogram (03/22/2020 [...] BI PROCEDURES Performing Organization Address [facility] de Phone Number IIID NA * Chronic Hepatitis Profile (10/13/2016 9:26 AM GUEST SERVICES ASSISTANT) HBs Antigen, S Negative Negative [facility] HBc Total Ab, S Negative Negative [facility] HCV Ab, S Negative Negative [facility] Comment:Lnjbsw-km-pduagz rat io is <1.00. HBs Antibody,S Negative Unvaccinated : Negative; Vaccinated: Positive [facility] Comment:Patient is presumed to be not immune to infection with HBV. HBs Antibody, Quantitative, S <5.0 Unvaccinated : <5.0; Vaccinated: >=12.0 MIU/ML [facility] 10/13/2016 9:26 AM GUEST SERVICES ASSISTANT 10/13/2016 9:26 AM GUEST SERVICES ASSISTANT Didier Hays M.D. LAB MICROBIOLOGY - BLOOD ORDERABLES [facility] [address] * Hemoglobin A1c (10/13/2016 9:26 AM GUEST SERVICES ASSISTANT) Hemoglobin A1c, B 5.4 4.0 - 5.6 % [facility] 10/13/2016 9:26 AM GUEST SERVICES ASSISTANT 10/13/2016 9:26 AM GUEST SERVICES ASSISTANT Didier Hays M.D. LAB BLOOD ADD-ON Performing Organization Address City/[facility] Co de Phone Number [facility] [address] * Creatinine with Estimated GFR (MDRD) (10/13/2016 9:26 AM GUEST SERVICES ASSISTANT) Creatinine 0.9 0.6 - 1.1 MG/DL [facility] eGFR Non-Black/Afric an Macedonian >60 >60 ML/MIN/BSA [facility] eGFR-Black/Afri can Macedonian >60 >60 ML/MIN/BSA [facility] 10/13/2016 9:26 AM GUEST SERVICES ASSISTANT 10/13/2016 9:26 AM GUEST SERVICES ASSISTANT Didier Hays M.D. LAB BLOOD ADD-ON [facility] [address] from Last 3 Months or Most Recently Relevant to Health Maintenance
--- OUTSIDE RECORDS SUMMARY | 2024-02-26 21:45 | XMS_ITS ---
Author Organization [facility] Address [address] [place] [address] Care Team Providers Care Computational Linguist Name Role Phone Unavailable Unavailable Unavailable Surgery Details Not on file Complications Check Surgery Details section. Procedure Estimated Blood Loss Check Surgery Details section. Procedure Findings Check Surgery Details section. Procedure Specimens Taken Check Surgery Details section.
--- OUTSIDE RECORDS SUMMARY | 2024-02-26 21:45 | XMS_ITS | Encounter Summary ---
Author Organization [facility] Address [address] [place] [address] Care Team Providers Care Teamsite Developer Name Role Phone Unavailable Primary Care Provider Unavailabl e Reason for Visit * Reason Comments Med Refill Encounter Details Date Type Department Care Team (Late st Contact Info) Description 12/27/2023 Refill Division of Endocrinology in [place], [place] [address] [place] [phone] Cinda Willis M.B., Ch.B. [address] [place] [phone] Med Refill Social History Tobacco Use Types [...] How often do you attend chur or sabianist services? More than 4 times per year 11/22/2022 Do you belong to any clubs o r organizations such as confucianist groups, unions, fraternal or athletic groups, or [...] Date Recorded PHQ-2 Score 1 03/11/2021 [facility] of Occupat ional Health - Occupational [...] place to sleep or slept in a penitentiary (including now)? No 11/22/2022 Depression Answer Date [...] Answer Date Recorded Employment status Unemployed/not in [employer] paid workforce and NOT seeking employment 11/22/2022 Education Answer Date Recorded What is the highest level of school you have completed or the highest degree you have received? 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 03/17/2024 2:00 PM CDT Clinical Support Department of Nutrition and Diabetes Education in [place], [place] [address] [place] [phone] Cinda Willis M.B., Ch.B. [address] [place] [phone] Mandy Trevino M.S., RDN, LD [address] [place] [phone] 04/21/2024 1:00 PM CDT Clinical Support Department of Nutrition and Diabetes Education in [address] [phone] Cinda Willis M.B., Ch.B. [address] [place] [phone] Mandy Trevino M.S., RDN, LD [address] [place] [phone] documented as of this encounter Visit Diagnoses Not on filedocumented in this encounter Additional Health Concerns Assessment Noted Time PHQ-9 Depression Total Score: 4 03/11/20 21 2:35 PM CDT documented as of this encounter
--- OUTSIDE RECORDS SUMMARY | 2024-02-26 21:45 | XMS_ITS | Encounter Summary ---
Author Organization [facility] Address [address] [place] [address] Care Team Providers Care Shank Skinner Name Role Phone Unavailable Primary Care Provider Unavailabl e Reason for Visit * Outpatient (Routine) - Closed Specialty Diagnoses / Procedures Referred By Neftaly t Referred To Contact Diagnoses Pain Low Back Unspecified Pain Hip Bilateral Procedures [facility] Acupuncture Rst [facility] [place] [address] [place] [address] [facility] Referral ID Status Reason Start Date Expiration Date Visits Re quested Visits Authorized [id number] Closed 12/11/2022 12/11/2023 12 12 Encounter Details Date Type Department Care Team (Latest Contact Info) Description 01/14/2024 2:45 PM CDT Clinical Support Integrative Medicine and Health in [place], [place] [address] [place] [phone] Zeke Reddy L.Ac. [address] [place] [phone] Pain Low Back Unspecified; Pain Hip Bilateral Social History Tobacco Use Types Packs/Day Years Used Date Smoking Tobacco: Never Smokeless Tobacco: Never Alcohol Use Standard Drinks/Week Comments Not Currently 1 (1 standard drink = 0.6 oz pur e alcohol) [facility] Utilities Answer Date Recorded In [...] How often do you attend chur or mormonism services? More than 4 times per year 11/22/2022 Do you belong to any clubs o r organizations such as faith groups, unions, fraternal or athletic groups, or [...] Answer Date Recorded PHQ-2 Score 1 03/11/2021 [facility] of Occupat ional Health - Occupational [...] your living situation today? I have a [facility] place to live 12/31/2023 Education Answer Date Recorded What is the highest level of school you have completed or the highest degree you have received? 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 Total Needling Time: 30 minutes [place] Electrified: No Diathermy: No Cupping: Yes Treatment Points Used: Set One: GV 14, GB 20/21, Jingbailao, SI 11/13,BL 24/25/26/27/28 Set Two: Both GB 29/30/34/41, BL 54, Hip Ashix1 Number of [place] Used = Number of [place] Retrieved: Yes Stimulation Intensity: Medium Narrative Assessment: [...] and the www.NCCAOM.org for locating a qualified escort service attendant in the local community. PATIENT EDUCATION Ready to learn, no apparent learning barriers were identified, learning preference include listening. Explained diagnosis and treatment plan: patient/caregiver expressed understanding of the content. documented in this encounter Plan of Treatment Upcoming Encounters Date Type Department Care Team (Late st Contact Info) Description 03/09/2024 2:45 PM CDT Clinical Support Integrative Medicine and Health in [place], [place] [address] [place] [phone] Paulie Corral L.Ac. 03/17/2024 2:00 PM CDT Clinical Support Department of Nutrition and Diabetes Education in [address] [phone] Cinda Willis M.B., Ch.B. [address] [place] [phone] Mandy Trevino M.S., RDN, LD [address] [place] [phone] 04/21/2024 1:00 PM CDT Clinical Support Department of Nutrition and Diabetes Education in [address] [phone] Cinda Willis M.B., Ch.B. [address] [place] [phone] Mandy Trevino M.S., RDN, LD [address] [place] [phone] documented as of this encounter Visit Diagnoses Diagnosis Pain Low Back Unspecified Pain Hip Bilateral documented in this encounter Additional Health Concerns Assessment Noted Time PHQ-9 Depression Total Score: 4 03/11/20 21 2:35 PM CDT documented as of this encounter
--- OUTSIDE RECORDS SUMMARY | 2024-02-26 21:45 | XMS_ITS | Encounter Summary ---
Author Organization [facility] Address [address] [place] [address] Care Team Providers Care Rating Officer Name Role Phone Unavailable Primary Care Provider Unavailabl e Reason for Referral * Outpatient (Routine) - Authorized Specialty Diagnoses / Procedures Referred By Contac t Referred To Contact Cinda Styles M.B., Ch.B. [address] [place] [phone] [facility] Referral ID Status Reason Start Date Expiration Date V isits Requested Visits Authorized [id number] Authorized 01/07/2024 07/08/2025 2 2 Reason for Visit * Outpatient (Routine) - Closed Specialty Diagnoses / Procedures Referred By Neftaly weinstein Referred To Contact Cinda Styles M.B., Ch.B. [address] [place] [phone] [facility] Referral ID Status Reason Start Date Expiration Date Visits Re quested Visits Authorized [id number] Closed 07/09/2023 07/08/2026 1 1 Encounter Details Date Type Department Care Team (Latest Contact Info) Description 01/07/2024 3:00 PM CDT Clinical Support Department of Nutrition and Diabetes Education in [place], [place] [address] [place] [phone] Cinda Willis M.B., Ch.B. [address] [place] [phone] Mandy Trevino M.S., RDN, LD [address] [place] [address] Obesity Body Mass Index 30-39.9 Adult [E66.9] (Primary Dx) Social History Tobacco Use Types Packs/Day Years Used Date Smoking Tobacco: Never Smokeless Tobacco: Never Alcohol Use Standard Drinks/Week Comments Not Currently 1 (1 standard drink = 0.6 oz pur e alcohol) [facility] Utilities Answer Date Recorded In the past 12 months has e [employer], gas, oil, or water [employer] threatened to shut off services in your [...] How often do you attend chur or faith services? 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 She is in [employer] group 2 times per month [...] Snack: none Beverages: Sprite Zero, water with [place], María Elena Dry Alcohol intake: occasionally 1-2 [...] Clinical Support Integrative Medicine and Health in [place], [place] [address] [place] [address] Paulie Corral L.Ac. 03/17/2024 2:00 PM CDT Clinical Support Department of Nutrition and Diabetes Education in [place], [place] [address] [place] [phone] Cinda Willis M.B., Ch.B. [address] [place] [phone] Mandy Trevino M.S., RDN, LD [address] [place] [phone] 04/21/2024 1:00 PM CDT Clinical Support Department of Nutrition and Diabetes Education in [place], [place] [address] [place] [phone] Cinda Willis M.B., Ch.B. [address] [place] [phone] Mandy Trevino M.S., RDN, LD [address] [place] [phone] Scheduled Referrals Name Type Priority Associated Diagnoses [...]
--- OUTSIDE RECORDS SUMMARY | 2024-02-26 21:45 | XMS_ITS | Referral Summary ---
Author Organization [facility] Address [address] [place] [address] Care Team Providers Care Mds Rn Name Role Phone Unavailable Primary Care Provider Unavailabl e Source Comments Patient records contain information from all sites at [facility]. For routine questions regarding patient records, call [phone] during business hours, M-F 8:00 AM - 5:00 PM Central Time. Record requests for emergency care only can be directed to [phone] at any time.[facility] Encounters Date Type Department Care Team Description 02/18/2024 2:00 PM CDT Clinical Support Department of Nutrition and Diabetes Education in [place], [place] [address] [place] [address] Cinda Willis M.B., Ch.B. Mandy Trevino, M.S., RDN, LD Obesity Body Mass Index 30-39.9 Adult [E66.9] (Primary Dx) 02/07/2024 1:30 PM CDT Clinical Support Integrative Medicine and Health in [place], [place] [address] [place] [phone] Zeke Reddy L.Ac. Pain Low Back Unspecified; Pain Hip Bilateral 01/14/2024 2:45 PM CDT Clinical Support Integrative Medicine and Health in [place], [place] [address] [place] [phone] Zeke Reddy L.Ac. Pain Low Back Unspecified; Pain Hip Bilateral 01/07/2024 3:00 PM CDT Clinical Support Department of Nutrition and Diabetes Education in [place], [place] [address] [place] [phone] Cinda Willis M.B., Ch.B. Mandy Trevino M.S., RDN, LD Obesity Body Mass Index 30-39.9 Adult [E66.9] (Primary Dx) 12/27/2023 Refill Division of Endocrinology in [place], [place] [address] [place] [address] Cinda Willis M.B., Ch.B. Med Refill 12/03/2023 1:30 PM CDT Clinical Support [facility] and Health in [place], [place] [address] [place] [address] Zeny Cain L.Ac. Pain Low Back Unspecified; [...] take 2nd dose if needed. Will need hazmat tanker driver. 2 tablet 07/23/2023 Active diazePAM (Valium) 5 mg tablet Take 1 tablet (5 mg total) by mouth See Admin Instructions. Take one (1) tablet 30 minutes before MRI, may take 2nd dose if needed. Will need hazmat tanker driver. 2 tablet 07/23/2023 Active diazePAM (VALIUM) [...] drink = 0.6 oz pur e alcohol) [facility] Utilities Answer Date Recorded In the past 12 months has e [employer], gas, oil, or water Mavin threatened to shut off services in your [...] often do you attend chur ch or hinduism services? More than 4 times per year 11/22/2022 Do you belong to any clubs o r organizations such as jain groups, unions, fraternal or athletic groups, or [...] Answer Date Recorded PHQ-2 Score 1 03/11/2021 [facility] - Occupational Stress Questionnaire Answer Date [...] your living situation today? I have a [facility] place to live 12/31/2023 Education Answer Date Recorded What is the highest level of school you have completed or the highest degree you have received? Associate degree: occupational, technical, or vocational program 10/01/2020 Sex and Gender Information Value Date Recorded Sex Assigned at Female 06/23/2021 10:52 AM CDT Gender Identity Female 10/01/2020 2:34 PM HOME APPLIANCES MECHANIC Sexual Orientation Straight 10/01/2020 2: 34 PM HOME APPLIANCES MECHANIC Last Filed Vital Signs Vital Sign Reading Time Taken Comments Blood Pressure 154/72 10/27/2023 2:52 PM HOME APPLIANCES MECHANIC Pulse 63 10/27/2023 2:52 PM HOME APPLIANCES MECHANIC Temperature 36.6 ??C (97.9 ??F) 10/27/2023 1:41 PM CS T Respiratory Rate 18 01/20/2021 1:15 PM CDT Oxygen Saturation 98% 10/27/2023 2:52 PM HOME APPLIANCES MECHANIC Inhaled Oxygen Concentration - - Weight 88.1 kg (194 lb 3.6 oz) 02/18/2024 1:28 P M CDT Height 159.7 cm (5' 2.87) 02/18/2024 1:28 PM CD T Body Mass Index 34.54 02/18/2024 1:28 PM CDT Plan of Treatment Upcoming Encounters Date Type Department Care Team (Late st Contact Info) Description 03/09/2024 2:45 PM CDT Clinical Support Integrative Medicine and Health in [place], [place] [address] [place] [address] Paulie Corral L.Ac. 03/17/2024 2:00 PM CDT Clinical Support Department of Nutrition and Diabetes Education in [place], [place] [address] [place] [phone] Cinda Willis M.B., Ch.B. [address] [place] [phone] Mandy Trevino M.S., RDN, LD [address] [place] [phone] 04/21/2024 1:00 PM CDT Clinical Support Department of Nutrition and Diabetes Education in [place], [place] [address] [place] [phone] Cinda Willis M.B., Ch.B. [address] [place] [phone] Mandy Trevino M.S., RDN, LD [address] [place] [phone] Medical Devices Implanted Type Area Forging Press Setter Up Device Identifier Shelf Expiration Date Model / Serial / Lot Misc Other Misc Other Mouth Description:Left side upper lower teeth Procedures Procedure Name Priority Date/Time Associated Diagnosis Comments THYROID-STIMULATING HORMONE-SENSITIVE (S-TSH) Routine 09/03/2023 1:51 PM HOME APPLIANCES MECHANIC Hypothyroidism Primary OUTSIDE MG MAMMOGRAM Routine 03/22/2020 1:15 PM CDT HEMOGLOBIN A1C, B Routine 10/13/2016 9:2 6 AM HOME APPLIANCES MECHANIC CHRONIC VIRAL HEPATITIS PROFILE Routine 10/13/2016 9:26 AM HOME APPLIANCES MECHANIC CREATININE WITH EGFR, S/P Routine 10/13/2016 9:26 AM HOME APPLIANCES MECHANIC from Last 3 Months or Most Recently Relevant to Health Maintenance Results * S-TSH (Thyroid-Stimulating Hormone - Sensitive) (09/03/2023 1:51 PM HOME APPLIANCES MECHANIC) TSH, Sensitive 0.6 0.3 - 4.2 mIU/L 09/03/2023 2:56 PM HOME APPLIANCES MECHANIC DTL Blood (Blood, Venous) 09/03/2023 1:51 PM HOME APPLIANCES MECHANIC 09/03/2023 2:23 PM HOME APPLIANCES MECHANIC Cinda Staples, B. LAB BLOOD ADD-ON Performing Organization Address [facility] Co de Phone Number [facility] [address] [place] [address], [facility] DTL [facility] [address] [place] [address] * MAMMO SCREEN, BILAT, W/CAD-Outside Mammogram (03/22/2020 [...] System IMG BI PROCEDURES Performing Organization Address [facility] de Phone Number IIAZ NA * Chronic Hepatitis Profile (10/13/2016 9:26 AM HOME APPLIANCES MECHANIC) HBs Antigen, S Negative Negative [facility] HBc Total Ab, S Negative Negative [facility] HCV Ab, S Negative Negative [facility] Comment:Hzgana-wy-qnemgc rat io is <1.00. HBs Antibody,S Negative Unvaccinated : Negative; Vaccinated: Positive [facility] Comment:Patient is presumed to be not immune to infection with HBV. HBs Antibody, Quantitative, S <5.0 Unvaccinated : <5.0; Vaccinated: >=12.0 MIU/ML [facility] 10/13/2016 9:26 AM HOME APPLIANCES MECHANIC 10/13/2016 9:26 AM HOME APPLIANCES MECHANIC Didier Hays M.D. LAB MICROBIOLOGY - BLOOD ORDERABLES [facility] [address] * Hemoglobin A1c (10/13/2016 9:26 AM HOME APPLIANCES MECHANIC) Hemoglobin A1c, B 5.4 4.0 - 5.6 % [facility] 10/13/2016 9:26 AM HOME APPLIANCES MECHANIC 10/13/2016 9:26 AM HOME APPLIANCES MECHANIC Didier Hays M.D. LAB BLOOD ADD-ON Performing Organization Address City/[facility] Co de Phone Number [facility] [address] * Creatinine with Estimated GFR (MDRD) (10/13/2016 9:26 AM HOME APPLIANCES MECHANIC) Creatinine 0.9 0.6 - 1.1 MG/DL [facility] eGFR Non-Black/Afric an Kenyan >60 >60 ML/MIN/BSA [facility] eGFR-Black/Afri can Kenyan >60 >60 ML/MIN/BSA [facility] 10/13/2016 9:26 AM HOME APPLIANCES MECHANIC 10/13/2016 9:26 AM HOME APPLIANCES MECHANIC Didier Hays M.D. LAB BLOOD ADD-ON [facility] [address] from Last 3 Months or Most Recently Relevant to Health Maintenance
--- OUTSIDE RECORDS SUMMARY | 2024-02-26 21:46 | XMS_ITS | Encounter Summary ---
Author Organization [facility] Address [address] [place] [address] Care Team Providers Care Courier Name Role Phone Unavailable Primary Care Provider Unavailabl e Reason for Visit * Outpatient (Routine) - Closed Specialty Diagnoses / Procedures Referred By Neftaly weinstein Referred To Contact Diagnoses Pain Low Back Unspecified Pain Hip Bilateral Procedures IM Acupuncture R[facility] [address] [place] [phone] [facility] Referral ID Status Reason Start Date Expiration Date Visits Re quested Visits Authorized [id number] Closed 12/11/2022 12/11/2023 12 12 Encounter Details Date Type Department Care Team (Latest Contact Info) Description 12/03/2023 1:30 PM CDT Clinical Support Integrative Medicine and Health in [place], [place] [address] [place] [address] Zeny Cain L.Ac. [address] [place] [phone] Pain Low Back Unspecified; Pain Hip Bilateral [...] How often do you attend chur or moravian services? More than 4 times per year [...] Answer Date Recorded PHQ-2 Score 1 03/11/2021 [facility] [place] [facility] Occupat ional Health - Occupational Stress [...] place to sleep or slept in a intermediate (including now)? No 11/22/2022 Depression Answer Date [...] CDT Gender Identity Female 10/01/2020 2:34 PM FURNITURE REMOVALIST'S ASSISTANT Sexual Orientation Straight 10/01/2020 2: 34 PM FURNITURE REMOVALIST'S ASSISTANT documented as of this encounter Progress Notes * Zeny Cain L.Ac. - 12/03/2023 1:30 PM CDT Referral Source: No ref. provider found Supervised by: [place] [id number] SUBJECTIVE Chief Complaint: Back Pain and Neck [...] symptom relief. Total Needling Time: 30 minutes [place] Electrified: No Diathermy: No Cupping: Yes Treatment Points Used: Set One: GB20/21, JJJ, TB15, SI14 Set Two: UB23/24/25/26/53 GB30 Auricular: Number of [place] Used = Number of [place] Retrieved: Yes Stimulation Intensity: Medium Narrative Assessment: [...] and the www.NCCAOM.org for locating a qualified pump servicer in the local community. PATIENT EDUCATION Ready to learn, no apparent learning barriers were identified, learning preference include listening. Explained diagnosis and treatment plan: patient/caregiver expressed understanding of the content. documented in this encounter Plan of Treatment Upcoming Encounters Date Type Department Care Team (Late st Contact Info) Description 03/09/2024 2:45 PM CDT Clinical Support [facility]ative Medicine and Health in [place], [place] [address] [place] [phone] Paulie Corral L.Ac. 03/17/2024 2:00 PM CDT Clinical Support Department of Nutrition and Diabetes Education in [place], [place] [address] [place] [phone] Cinda Willis M.B., Ch.B. [address] [place] [phone] Mandy Trevino M.S., RDN, LD [address] [place] [phone] 04/21/2024 1:00 PM CDT Clinical Support Department of Nutrition and Diabetes Education in [address] [phone] Cinda Willis M.B., Ch.B. [address] [place] [phone] Mandy Trevino M.S., RDN, LD [address] [place] [phone] documented as of this encounter Visit Diagnoses Diagnosis Pain Low Back Unspecified Pain Hip Bilateral documented in this encounter Additional Health Concerns Assessment Noted Time PHQ-9 Depression Total Score: 4 03/11/20 21 2:35 PM CDT documented as of this encounter
[2024-02-26 22:02] LABS: Basophils Absolute Auto 0.04 K/uL (0.00-0.30); Basophils Percent Auto 0.5 % (0.0-3.0); Eosinophils Absolute Auto 0.53 K/uL (0.00-0.50); Hematocrit 45.1 % (33.0-51.0); Hemoglobin* 14.7 gm/dL (12.0-16.0); Immature Granulocytes Abs Auto 0.01 K/uL (0.00-0.30); Immature Granulocytes Pct Auto 0.1 %; Lymphocytes Absolute Auto 3.83 K/uL (0.90-2.90); Lymphocytes Percent Auto 43.2 % (20-44); Mean Corpuscular HGB Conc 33 gm/dL (32-36); Mean Corpuscular Hemoglobin 30 pg (26-34); Mean Corpuscular Volume 92 fL (80-100); Monocytes Percent Auto 10.5 % (0.0-11.0); Neutrophils Percent Auto 39.7 % (42.0-72.0); Platelet Count* 252 K/uL (140-440); RDW Coefficient of Variation % 12.8 % (11.5-15.5); Red Blood Count 4.88 m/uL (4.00-5.20); White Blood Count* 8.87 K/uL (4.50-11.00)
[2024-02-26 22:06] LABS: Slide Review Reflex No
[2024-02-26 22:17] LABS: Chloride* 103 mmol/L (96-114); Sodium* 140 mmol/L (135-149)
[2024-02-26 22:18] LABS: Potassium* 3.9 mmol/L (3.6-5.1)
[2024-02-26 22:20] LABS: Anion Gap 6 mEq/L (7-15); Carbon Dioxide* 31 mmol/L (20-32); Creatinine* 1.1 mg/dL (0.5-1.5); Est. Creatinine Clearance* 47.55; Estimated Glomerular Filt Rate 58 ml/min
[2024-02-26 22:21] LABS: Blood Urea Nitrogen* 22 mg/dL (7-30); Calcium* 9.6 mg/dL (8.4-10.6); Glucose* 109 mg/dL (60-115)
[2024-02-26 22:41] LABS: NT Pro B Type NatriureticPept* 80 pg/mL; Troponin I* < 0.01 ng/mL (0.01-0.04)
== END 2024-02-26 23:35 | disposition home or self-care (01) ==
PROVIDERS: Emergency Provider Emergency Medicine Emergency Medical Services; PCP Family Medicine
DX: E87.70 Fluid overload, unspecified (principal)
CPT/HCPCS: 36415; 71046; 80048; 83880; 84484; 85025; 93005; 99284; 99285

== ENCOUNTER 2024-05-10 09:18 | Outpatient (CLI) | payer BC, SELFPAY ==
--- OUTSIDE RECORDS SUMMARY | 2024-05-10 15:06 | XMS_ITS | Clinical Summary ---
Author Organization [facility] Address [place], [place] [address] Care Team Providers Care Material Chaser Name Role Phone Troy Seals MD Primary Care Provider [phone] Oliver Hylton MD Unavailable Jm Araujo Unavailable Unavailable Allergies No known [...] Name Administration Dates Next Due COVID-19 vaccine (Applix 30mcg/0.3mL) P F, MDV 01/24/2021,12/31/2020 Social History [...] 16 Negative Negative 06/19/2021 3:20 PM CDT [facility] LABOR[facility] TYPE 18 Negative Negative 06/19/2021 3:20 PM CDT [facility] TR[facility] LAB[facility] OTHER HIGH RISK TYPES Negative Negative 06/19/2021 3:20 PM CDT [facility] Other (Cervical/Vagina l) 06/16/2021 11:35 AM CDT 06/18/2021 9:20 AM CDT Narrative [facility] - 06/19/2021 3:20 PM CDT HPV types 16, 18, 31, 33, 35, 39, 45, 51, 52, 56, 58, 59, 66 and 68 DNA were undetectable or below the pre-set threshold. Methodology: Farzaneh Dick 4800 HPV Test Cynthia Coy MD MICROBIOLOGY [facility] [address] [place] [address], from Last 3 Months or Most Recently Relevant to Health Maintenance Care Teams Material Chaser Relationship Specialty Start Date End Date Troy Seals MD PCP - General Family Practice 06/04/14 [place] [address] [facility] [place] [address] Consulting Physician Cardiovascular Disease 06/06/14 Jm Araujo [address] [place] [address] Family Practice Funding Analyst 04/19/20
--- OUTSIDE RECORDS SUMMARY | 2024-05-10 15:06 | XMS_ITS | Encounter Summary ---
Author Organization [facility] Address [address] [place] [address] Care Team Providers Care Supervisor Car Installations Name Role Phone Unavailable Primary Care Provider Unavailabl e Reason for Visit * Reason Comments Med Refill Encounter Details Date Type Department Care Team (Late st Contact Info) Description 03/06/2024 Refill Division of Endocrinology in [place], [place] [address] [place] [address] Cinda Willis M.B., Ch.B. [address] [place] [address] Med Refill Social History Tobacco Use Types Packs/Day Years Used Date Smoking Tobacco: Never Smokeless Tobacco: Never Alcohol Use Standard Drinks/Week Comments Not Currently 1 (1 standard drink = 0.6 oz pur e alcohol) [facility] Utilities Answer Date Recorded In the past 12 months has [facility] [employer], gas, oil, or water [employer] threatened to shut off services in your [...] often do you attend chur ch or lutheran services? More than 4 times per year 11/22/2022 Do you belong to any clubs o r organizations such as zoroastrian groups, unions, fraternal or athletic groups, or [...] Answer Date Recorded PHQ-2 Score 1 03/11/2021 [facility] Questionnaire Answer Date Recorded [...] Answer Date Recorded Employment status Unemployed/not in [employer] paid workforce and NOT seeking employment 12/31/2023 Housing Stability Answer Date Recorded What is your living situation today? I have a [facility] place to live 12/31/2023 Education Answer Date Recorded What is the highest level of school you have completed or the highest degree you have received? Associate degree: occupational, technical, or vocational program 10/01/2020 Sex and Gender Information Value Date Recorded Sex Assigned at Female 06/23/2021 10:52 AM CDT Gender Identity Female 10/01/2020 2:34 PM SHUTTLE FINAL INSPECTOR Sexual Orientation Straight 10/01/2020 2: 34 PM SHUTTLE FINAL INSPECTOR documented as of this encounter Plan of Treatment Upcoming Encounters Date Type Department Care Team (Late st Contact Info) Description 05/12/2024 2:45 PM CDT Clinical Support Integrative Medicine and Health in [place], [place] [address] [place] [address] Calvin Smalls L.Ac. 06/02/2024 3:00 PM CDT Clinical Support Department of Nutrition and Diabetes Education in [place], [place] [address] [place] [address] Cinda Willis M.B., Ch.B. [address] [place] [phone] Mandy Trevino M.S., RDN, LD [address] [place] [phone] 06/09/2024 2:45 PM CDT Clinical Support [facility] Health in [place], [place] [address] [place] [phone] Zeke Reddy L.Ac. [address] [place] [phone] 06/30/2024 2:00 PM CDT Clinical Support Department of Nutrition and Diabetes Education in [place], [place] [address] [place] [phone] Cinda Willis M.B., Ch.B. [address] [place] [phone] Mandy Trevino M.S., VERENA, LD [address] [place] [phone] 07/07/2024 4:30 PM CDT Clinical Support Integrative Medicine and Health in [address] [phone] Zeke Reddy L.Ac. [address] [place] [phone] 08/04/2024 2:00 PM SHUTTLE FINAL INSPECTOR Telemedicine Department of Nutrition and Diabetes Education in [place], [place] [address] [place] [phone] Cinda Willis M.B., Ch.B. [address] [place] [phone] Mandy Trevino M.S., VERENA, LD [address] [place] [phone] documented as of this encounter Visit Diagnoses Not on filedocumented in this encounter Additional Health Concerns Assessment Noted Time PHQ-9 Depression Total Score: 4 03/11/20 21 2:35 PM CDT documented as of this encounter
--- OUTSIDE RECORDS SUMMARY | 2024-05-10 15:06 | XMS_ITS | Encounter Summary ---
Author Organization [facility] Address [address] [place] [address] Care Team Providers Care Histopathologist Name Role Phone Unavailable Primary Care Provider Unavailabl e Reason for Referral * Outpatient (Routine) - Authorized Specialty Diagnoses / Procedures Referred By Contac t Referred To Contact Diagnoses Pain Low Back Unspecified Pain Hip Bilateral Procedures [facility] Acupuncture [facility] [address] [place] [address] [facility] Referral ID Status Reason Start Date Expiration Date V isits Requested Visits Authorized [id number] Authorized 02/07/2024 02/06/2025 20 20 Reason for Visit * Outpatient (Routine) - Closed Specialty Diagnoses / Procedures Referred By Contac t Referred To Contact Diagnoses Pain Low Back Unspecified Pain Hip Bilateral Procedures [facility] Acupuncture [facility] [address] [place] [address] [facility] Referral ID Status Reason Start Date Expiration Date Visits Re quested Visits Authorized [id number] Closed 12/11/2022 12/11/2023 12 12 Encounter Details Date Type Department Care Team (Latest Contact Info) Description 02/07/2024 1:30 PM CDT Clinical Support Integrative Medicine and Health in [place], [place] [address] [place] [phone] Zeke Reddy L.Ac. [address] [place] [phone] Pain Low Back Unspecified; Pain Hip Bilateral Social History Tobacco Use Types Packs/Day Years Used Date Smoking Tobacco: Never Smokeless Tobacco: Never Alcohol Use Standard Drinks/Week Comments Not Currently 1 (1 standard drink = 0.6 oz pur e alcohol) [facility] Utilities Answer Date Recorded In the past [...] often do you attend chur ch or samaritan services? More than 4 times per year 11/22/2022 Do you belong to any clubs o r organizations such as evangelical groups, unions, fraternal or athletic groups, or [...] Answer Date Recorded PHQ-2 Score 1 03/11/2021 [facility] of Occupat ional Health - Occupational [...] your living situation today? I have a [facility] place to live 12/31/2023 Education Answer Date Recorded What is the highest level of school you have completed or the highest degree you have received? Associate degree: occupational, technical, or vocational program 10/01/2020 Sex and Gender Information Value Date Recorded Sex Assigned at Female 06/23/2021 10:52 AM CDT Gender Identity Female 10/01/2020 2:34 PM EXPANDED FUNCTION DENTAL ASSISTANT Sexual Orientation Straight 10/01/2020 2: 34 PM EXPANDED FUNCTION DENTAL ASSISTANT documented as of this encounter Progress [...] symptom relief. Total Needling Time: 30 minutes [place] Electrified: No Diathermy: No Cupping: Yes Treatment Points Used: Set One: GV 14/16/17, GB 19/20/21, Jingbailao, SI 11/13,BL 24/25/26/27/28 Set Two: Both GB 29/30/34/41, BL 54, Hip Ashix1 Number of [place] Used = Number of [place] Retrieved: Yes Stimulation Intensity: Medium Narrative Assessment: [...] and the www.NCCAOM.org for locating a qualified musician instrumental in the local community. PATIENT EDUCATION Ready to learn, no apparent learning barriers were identified, learning preference include listening. Explained diagnosis and treatment plan: patient/caregiver expressed understanding of the content. documented in this encounter Plan of Treatment Upcoming Encounters Date Type Department Care Team (Late st Contact Info) Description 05/12/2024 2:45 PM CDT Clinical Support [facility]ative Medicine and Health in [address] [phone] Calvin Smalls L.AcNorberto 06/02/2024 3:00 PM CDT Clinical Support Department of Nutrition and Diabetes Education in [address] [phone] Cinda Willis M.B., Ch.B. [address] [place] [phone] Madny Trevino M.S., RDN, LD [address] [place] [phone] 06/09/2024 2:45 PM CDT Clinical Support Integrative Medicine and [facility] in [address] [phone] Zeke Reddy L.Ac. [address] [place] [phone] 06/30/2024 2:00 PM CDT Clinical Support Department of Nutrition and Diabetes Education in [address] [place] [phone] Cinda Willis M.B., Ch.B. [address] [place] [phone] Mandy Trevino M.S., RDN, LD [address] [place] [phone] 07/07/2024 4:30 PM CDT Clinical Support [facility] and Health in [place], [place] [address] [place] [phone] Zeke Reddy L.Ac. [address] [place] [phone] 08/04/2024 2:00 PM EXPANDED FUNCTION DENTAL ASSISTANT Telemedicine Department of Nutrition and Diabetes Education in [place], [place] [address] [place] [phone] Cinda Willis M.B., Ch.B. [address] [place] [phone] Mandy Trevino M.S., RDN, LD [address] [place] [phone] Scheduled Orders Name Type Priority Associated Diagnoses Orde r Schedule [facility] Acupuncture Procedures Routine Pain Low Back [...]
--- OUTSIDE RECORDS SUMMARY | 2024-05-10 15:06 | XMS_ITS | Encounter Summary ---
Author Organization [facility] Address [address] [place] [address] Care Team Providers Care Director Of Programming Name Role Phone Unavailable Primary Care Provider Unavailabl e Reason for Referral * Outpatient (Routine) - Authorized Specialty Diagnoses / Procedures Referred By Contac t Referred To Contact Cinda Styles M.B., Ch.B. [address] [place] [phone] [facility] Referral ID Status Reason Start Date Expiration Date V isits Requested Visits Authorized [id number] Authorized 02/18/2024 08/19/2025 2 2 Reason for Visit * Outpatient (Routine) - Authorized Specialty Diagnoses / Procedures Referred By Neftaly weinstein Referred To Contact Cinda Styles M.B., Ch.B. [address] [place] [address] [facility] Referral ID Status Reason Start Date Expiration Date V isits Requested Visits Authorized [id number] Authorized 01/07/2024 07/08/2025 2 2 Encounter Details Date Type Department Care Team (Latest Contact Info) Description 02/18/2024 2:00 PM CDT Clinical Support Department of Nutrition and Diabetes Education in [place], [place] [address] [place] [phone] Cinda Willis M.B., Ch.B. [address] [place] [address] [phone] Mandy Trevino M.S., RDN, LD [address] [place] [address] Obesity Body Mass Index 30-39.9 Adult [E66.9] (Primary Dx) Social History Tobacco Use Types Packs/Day Years Used Date Smoking Tobacco: Never Smokeless Tobacco: Never Alcohol Use Standard Drinks/Week Comments Not Currently 1 (1 standard drink = 0.6 oz pur e alcohol) [facility] Utilities Answer Date Recorded In the past 12 months has e [employer], gas, oil, or water [employer] threatened to shut off services in your [...] How often do you attend chur or orthodoxy services? More than 4 times per year 11/22/2022 Do you belong to any clubs o r organizations such as orthodox groups, unions, fraternal or athletic groups, or [...] Answer Date Recorded PHQ-2 Score 1 03/11/2021 [facility] - Occupational Stress Questionnaire Answer Date [...] CDT Gender Identity Female 10/01/2020 2:34 PM [employer] Sexual Orientation Straight 10/01/2020 2: 34 PM [employer] documented as of this encounter Last Filed [...] this encounter Progress Notes * Mandy Trevino M.SNorberto, RDN, LD - 02/18/2024 2:00 PM CDT [...] could not tolerate this. She is in [employer] group 2 times per month and [...] Snack: none Beverages: Sprite Zero, water with [place], María Elena Dry Alcohol intake: occasionally 1-2 [...] PM CDT Clinical Support Integrative Medicine and [facility] in [place], [place] [address] [place] [address] Calvin Smalls L.Ac. 06/02/2024 3:00 PM CDT Clinical Support Department of Nutrition and Diabetes Education in [place], [place] [address] [place] [address] Cinda Willis M.B., Ch.B. [address] [place] [phone] Mandy Trevino M.S., RDCrystal, LD [address] [place] [phone] 06/09/2024 2:45 PM CDT Clinical Support Integrative Medicine and Health in [place], [place] [address] [place] [phone] Zeke Reddy L.Ac. [address] [place] [phone] 06/30/2024 2:00 PM CDT Clinical Support Department of Nutrition and Diabetes Education in [place], [place] [address] [place] [address] Cinda Willis M.B., Ch.B. [address] [place] [phone] Mandy Trevino M.S., VERENA, LD [address] [place] [phone] 07/07/2024 4:30 PM CDT Clinical Support [facility]ative Medicine and Health in [place], [place] [address] [place] [phone] Zeke Reddy L.Ac. [address] [place] [phone] 08/04/2024 2:00 PM [employer] Telemedicine Department of Nutrition and Diabetes Education in [place], [place] [address] [place] [phone] Cinda Willis M.B., Ch.B. [address] [place] [phone] Mandy Trevino M.S., RDN, LD [address] [place] [phone] Scheduled Referrals Name Type Priority Associated Diagnoses [...]
--- OUTSIDE RECORDS SUMMARY | 2024-05-10 15:06 | XMS_ITS | Encounter Summary ---
Author Organization [facility] Address [address] [place] [id number] Care Team Providers Care Welding Engineer Name Role Phone Unavailable Primary Care Provider Unavailabl e Reason for Referral * Outpatient (Routine) - Authorized Specialty Diagnoses / Procedures Referred By Contac t Referred To Contact Cinda Styles M.B., Ch.B. [address] [place] [phone] [facility] Referral ID Status Reason Start Date Expiration Date V isits Requested Visits Authorized [id number] Authorized 04/21/2024 10/21/2025 2 2 Reason for Visit * Outpatient (Routine) - Authorized Specialty Diagnoses / Procedures Referred By Neftaly weinstein Referred To Contact Cinda Styles M.B., Ch.B. [address] [place] [phone] [facility] Referral ID Status Reason Start Date Expiration Date V isits Requested Visits Authorized [id number] Authorized 02/18/2024 08/19/2025 2 2 Encounter Details Date Type Department Care Team (Latest Contact Info) Description 04/21/2024 2:00 PM CDT Clinical Support Department of Nutrition and Diabetes Education in [place], [place] [address] [place] [phone] Cinda Willis M.B., Ch.B. [address] [place] [phone] Mandy Trevino M.S., RDN, LD [address] [place] [address] Obesity Body Mass Index 30-39.9 Adult [E66.9] (Primary Dx) Social History Tobacco Use Types Packs/Day Years Used Date Smoking Tobacco: Never Smokeless Tobacco: Never Alcohol Use Standard Drinks/Week Comments Not Currently 1 (1 standard drink = 0.6 oz pur e alcohol) [facility] Utilities Answer Date Recorded In the past 12 months has e [facility], gas, oil, or water [employer] threatened to shut off services in your [...] How often do you attend chur or shinto services? More than 4 times per year 11/22/2022 Do you belong to any clubs o r organizations such as catholic groups, unions, fraternal or athletic groups, or [...] Answer Date Recorded PHQ-2 Score 1 03/11/2021 [facility] - Occupational Stress Questionnaire Answer Date [...] CDT Gender Identity Female 10/01/2020 2:34 PM GROUP DIRECTOR EXPERIENCE Sexual Orientation Straight 10/01/2020 2: 34 PM GROUP DIRECTOR EXPERIENCE documented as of this encounter Last Filed Vital Signs Vital Sign Reading Time Taken Comments Blood Pressure - - Pulse - - Temperature - - Respiratory Rate - - Oxygen Saturation - - Inhaled Oxygen Concentration - - Weight 88.6 kg (195 lb 5.2 oz) 04/21/2024 1:29 P M CDT Height 160 cm (5' 2.99) 04/21/2024 1:29 PM CDT Body Mass Index 34.61 04/21/2024 1:29 PM CDT documented in this encounter Progress Notes * Mandy Trevino M.S., RDN, LD - 04/21/2024 2:00 PM CDT CHIEF COMPLAINT/REASON FOR VISIT Nutrition-Weight Management Follow-Up Met with patient ASSESSMENT Previous goals: 1. Basket on bike/tricycle for the dog 2. Continue to focus on 2- 3 balanced meals daily She got a basket for the dog but has not used it yet. She is feeling unmotivated and stuck recently. Started on Lexapro 6 weeks ago and has seen a therapist once. She has not noticed a big differencein the medication yet. She is having goats milk and a pinky cracker around 11, peanut butter in the afternoon (unsure how much), sometimes a protein (chicken/hamburger noe) with an apple in the evening. Done eating by 9 pm most nights. May have 2-3 pinky crackers in the middle of the night if she is famished when letting the dog out. She called insurance about injectable weight loss medications and needs a prior authorization. Dieting experience: She previously tried phentermine but could not tolerate this and did not find benefits from Contrave. She is in [employer] group 2 times per month. She is doing a program from metabolic [...] Snack: none Beverages: Sprite Zero, water with Edward, María Elena Dry Alcohol intake: occasionally 1-2 drinks Physical activity: Gisela [place] reports doing the recumbent bike for 50 minutes 4 times perweek. Weight History Ht Readings from Last 1 Encounters: 04/21/24 160 cm Wt Readings from Last 1 Encounters: 04/21/24 88.6 kg BMI Readings from Last 1 Encounters: 04/21/24 34.61 kg/m?? Weight change: 05/06/23: 86 kg 07/09/23: 85.8 kg 01/07/24: 87.1 kg 02/08/24: 88.1 kg Estimation of Nutritional Needs REE December [...] changes; gradual weight reduction Patient Goal(s): 1. Portion peanut butter for snacks 2. Have protein + fruit/veg in the evening FOLLOW UP PLAN: Follow-up appointment has been arranged She is interested in Wegovy and Zepbound since Contrave is not helping her to lose weight. Encouraged her to message Dr. Willis now that she has talked to insurance. Time spent with patient (minutes): 35 documented in this encounter Plan of Treatment Upcoming Encounters Date Type Department Care Team (Late st Contact Info) Description 05/12/2024 2:45 PM CDT Clinical Support Integrative Medicine and Health in [place], [place] [address] [place] [address] Calvin Smalls L.Ac. 06/02/2024 3:00 PM CDT Clinical Support Department of Nutrition and Diabetes Education in [place], [place] [address] [place] [address] Cinda Willis M.B., Ch.B. [address] [place] [phone] Mandy Trevino M.S., VERENA, LD [address] [place] [phone] 06/09/2024 2:45 PM CDT Clinical Support [facility]ative Medicine and Health in [place], [place] [address] [place] [address] Zeke Reddy L.Ac. [address] [place] [phone] 06/30/2024 2:00 PM CDT Clinical Support Department of Nutrition and Diabetes Education in [place], [place] [address] [place] [address] Cinda Willis M.B., Ch.B. [address] [place] [phone] Mandy Trevino M.S., VERENA, LD [address] [place] [phone] 07/07/2024 4:30 PM CDT Clinical Support Integrative Medicine and Health in [place], [place] [address] [place] [phone] Zeke Reddy L.Ac. [address] [place] [phone] 08/04/2024 2:00 PM GROUP DIRECTOR EXPERIENCE Telemedicine Department of Nutrition and Diabetes Education in [place], [place] [address] [place] [address] Cinda Willis M.B., Ch.B. [address] [place] [phone] Mandy Trevino M.S., RDN, LD [address] [place] [phone] Scheduled Referrals Name Type Priority Associated Diagnoses Order Schedule Nutrition office visit (clinic) Outpatient Referral Routine 2 Occurrence s starting 04/21/2024 until 07/22/2025 documented as of this encounter Visit Diagnoses Diagnosis Obesity Body Mass Index 30-39.9 Adult [E66.9]- Primary documented in this encounter Additional Health Concerns Assessment Noted Time PHQ-9 Depression Total Score: 4 03/11/20 21 2:35 PM CDT documented as of this encounter
--- OUTSIDE RECORDS SUMMARY | 2024-05-10 15:06 | XMS_ITS | Clinical Summary ---
Author Organization [facility] Address [address] [place] [address] Care Team Providers Care Sand Mixer Operator Name Role Phone Unavailable Primary Care Provider Unavailabl e Source Comments Patient records contain information from all sites at [facility]. For routine questions regarding patient records, call [phone] during business hours, M-F 8:00 AM - 5:00 PM Central Time. Record requests for emergency care only can be directed to [phone] at any time.[facility] Allergies Active Allergy Reactions Criticality Noted [...] take 2nd dose if needed. Will need driver utility worker. 2 tablet 07/23/2023 Active diazePAM (Valium) 5 mg tablet Take 1 tablet (5 mg total) by mouth See Admin Instructions. Take one (1) tablet 30 minutes before MRI, may take 2nd dose if needed. Will need driver utility worker. 2 tablet 07/23/2023 Active diazePAM (VALIUM) 5 [...] Obesity Body Mass Index 30-39.9 Adult 01/10/2021 Overview (01/10/2021): Endocrinology consult recommended for advice on weight [...] Encounters Date Type Department Care Team Description 04/21/2024 2:00 PM CDT Clinical Support Department of Nutrition and Diabetes Education in [place], [place] [address] [place] [address] Cinda Willis M.B., Ch.B. Mandy Trevino MNorbertoSNorberto, RDN, LD Obesity Body Mass Index 30-39.9 Adult [E66.9] (Primary Dx) 04/14/2024 2:45 PM CDT Clinical Support Integrative Medicine and Health in [place], [place] [address] [place] [address] Calvin Smalls, L.Ac. Pain Low Back Unspecified; Pain Hip Bilateral 04/14/2024 Clinical Communication Integrative Medicine and Health in [place], [place] [address] [place] [address] Calvin Smalls L.Ac. 03/09/2024 2:45 PM CDT Clinical Support [facility] and Health in [place], [place] [address] [place] [address] Paulie Corral, L.Ac. Pain Low Back Unspecified; Pain Hip Bilateral 03/06/2024 Refill Division of Endocrinology in [place], [place] [address] [place] [address] Cinda Willis M.B., Ch.B. Med Refill 02/18/2024 2:00 PM CDT Clinical Support Department of Nutrition and Diabetes Education in [place], [place] [address] [place] [address] Cinda Willis M.B., Y[place]. Mandy Trevino M.SNorberto, RDN, LD Obesity Body Mass Index 30-39.9 Adult [E66.9] (Primary Dx) from Last 3 Months Immunizations Name Administration [...] drink = 0.6 oz pur e alcohol) [facility] Utilities Answer Date Recorded In the past 12 months has e [employer], oil, or water [employer] threatened to shut off services in your [...] How often do you attend chur or confucianism services? More than 4 times per year [...] Answer Date Recorded PHQ-2 Score 1 03/11/2021 [facility] - Occupational [...] Answer Date Recorded Employment status Unemployed/not in [employer] paid workforce and NOT seeking employment 12/31/2023 Housing Stability Answer Date Recorded What is your living situation today? I have a [facility] place to live 12/31/2023 Education Answer Date Recorded What is the highest level of school you have completed or the highest degree you have received? Associate degree: occupational, technical, or vocational program 10/01/2020 Sex and Gender Information Value Date Recorded Sex Assigned at Female 06/23/2021 10:52 AM CDT Gender Identity Female 10/01/2020 2:34 PM JAIL GUARD Sexual Orientation Straight 10/01/2020 2: 34 PM JAIL GUARD Last Filed Vital Signs Vital Sign Reading Time Taken Comments Blood Pressure 154/72 10/27/2023 2:52 PM JAIL GUARD Pulse 63 10/27/2023 2:52 PM JAIL GUARD Temperature 36.6 ??C (97.9 ??F) 10/27/2023 1:41 PM CS T Respiratory Rate 18 01/20/2021 1:15 PM CDT Oxygen Saturation 98% 10/27/2023 2:52 PM JAIL GUARD Inhaled Oxygen Concentration - - Weight 88.6 kg (195 lb 5.2 oz) 04/21/2024 1:29 P M CDT Height 160 cm (5' 2.99) 04/21/2024 1:29 PM CDT Body Mass Index 34.61 04/21/2024 1:29 PM CDT Plan of Treatment Upcoming Encounters Date Type Department Care Team (Late st Contact Info) Description 05/12/2024 2:45 PM CDT Clinical Support Integrative Medicine and Health in [place], [place] [address] [place] [phone] Calvin Smalls L.Ac. 06/02/2024 3:00 PM CDT Clinical Support Department of Nutrition and Diabetes Education in [place], [place] [address] [place] [phone] Cinda Willis M.B., Ch.B. [address] [place] [phone] Mandy Trevino M.S., VERENA, LD [address] [place] [phone] 06/09/2024 2:45 PM CDT Clinical Support [facility] in [place], [place] [address] [place] [phone] Zeke Reddy L.Ac. [address] [place] [phone] 06/30/2024 2:00 PM CDT Clinical Support Department of Nutrition and Diabetes Education in [place], [place] [address] [place] [phone] Cinda Willis M.B., Ch.B. [address] [place] [phone] Mandy Trevino M.S., VERENA, LD [address] [place] [phone] 07/07/2024 4:30 PM CDT Clinical Support [facility] and Health in [place], [place] [address] [place] [phone] Zeke Reddy L.Ac. [address] [place] [phone] 08/04/2024 2:00 PM JAIL GUARD Telemedicine Department of Nutrition and Diabetes Education in [place], [place] [address] [place] [phone] Cinda Willis M.B., Ch.B. [address] [place] [phone] Mandy Trevino M.S., RDN, LD [address] [place] [address] Health Maintenance Due Date Last Done Comments CT Colonography 1964 Colonoscopy 1964 FIT 1964 HIV Screening 1965 Potassium Level 1964 Sodium Level 1964 Creatinine Level (Kidney Function Test) 10/13/2017 10/13/2016 Lipid (Cholesterol) Screening 10/24/2017 10/24/2012 (Performed elsewhere) Fasting Glucose for Diabetes Screening 10/13/2019 10/13/2016 Mammogram 03/22/2021 03/22/2020, 07/21 (Performed elsewhere), 06/26/2013 (Performed elsewhere) Depression Screening (Annual PHQ-2) 09/20/2023 Cervical Cancer Screening 06/16/20242020, 10/24/2012 (Performed elsewhere) Influenza Vaccine (#1) 2024 , 09/09/2021, 07/02/2020, Additional history exists Thyroid Stimulating Hormone (TSH) test for thyroid function 09/03/2024 09/03/2023, 07/02/2023, 04/09/2023, Additional history exists Cologuard 07/16/2026 07/16/2023 Colorectal Cancer Screening 07/16/2026 DTaP,Tdap,and Td Vaccines (4 - Td or Tdap) 06/09/2031 06/09/2021, 11/10/2012, 09/26/2007 Hepatitis C Screening Completed 10/13/2016 Zoster Vaccines Completed 03/10/2021, 09/20, 02/26/2020 COVID-19 Vaccine Completed 08/03/2023, , 02/19/2022, Additional history exists Hepatitis B Vaccines Aged Out No long er eligible based on patient's age to complete this topic Pneumococcal vaccine (0-64 years) Aged Out No longer eligible based on patient's age to complete this topic Medical Devices Implanted Type Area Business Test Analyst Device Identifier Shelf Expiration Date Model / Serial / Lot Misc Other Misc Other Mouth Description:Left side upper lower teeth Procedures Procedure Name Priority Date/Time Associated Diagnosis Comments THYROID-STIMULATING HORMONE-SENSITIVE (S-TSH) Routine 09/03/2023 1:51 PM JAIL GUARD Hypothyroidism Primary OUTSIDE MG MAMMOGRAM Routine 03/22/2020 1:15 PM CDT HEMOGLOBIN A1C, B Routine 10/13/2016 9:2 6 AM JAIL GUARD CHRONIC VIRAL HEPATITIS PROFILE Routine 10/13/2016 9:26 AM JAIL GUARD CREATININE WITH EGFR, S/P Routine 10/13/2016 9:26 AM JAIL GUARD from Last 3 Months or Most Recently Relevant to Health Maintenance Results * S-TSH (Thyroid-Stimulating Hormone - Sensitive) (09/03/2023 1:51 PM JAIL GUARD) TSH, Sensitive 0.6 0.3 - 4.2 mIU/L 09/03/2023 2:56 PM JAIL GUARD DTL Blood (Blood, Venous) 09/03/2023 1:51 PM JAIL GUARD 09/03/2023 2:23 PM JAIL GUARD Cinda Staples, Ch.B. LAB BLOOD ADD-ON [facility] [address] [place] [address], [place] DTL [facility] [address] [place] [address] * MAMMO SCREEN, BILAT, W/CAD-Outside Mammogram (03/22/2020 [...] System IMG BI PROCEDURES Performing Organization Address [facility] Co de Phone Number IIMS NA * Chronic Hepatitis Profile (10/13/2016 9:26 AM JAIL GUARD) HBs Antigen, S Negative Negative [facility] HBc Total Ab, S Negative Negative [facility] HCV Ab, S Negative Negative [facility] Comment:Zfgedx-ia-uppsev rat io is <1.00. HBs Antibody,S Negative Unvaccinated : Negative; Vaccinated: Positive [facility] Comment:Patient is presumed to be not immune to infection with HBV. HBs Antibody, Quantitative, S <5.0 Unvaccinated : <5.0; Vaccinated: >=12.0 MIU/ML [facility] 10/13/2016 9:26 AM JAIL GUARD 10/13/2016 9:26 AM JAIL GUARD Didier Hays M.D. LAB MICROBIOLOGY - BLOOD ORDERABLES Performing Organization Address [facility] Co de Phone Number [facility] [address] * Hemoglobin A1c (10/13/2016 9:26 AM JAIL GUARD) Hemoglobin A1c, B 5.4 4.0 - 5.6 % [facility] 10/13/2016 9:26 AM JAIL GUARD 10/13/2016 9:26 AM JAIL GUARD Didier Hays M.D. LAB BLOOD ADD-ON Performing Organization Address [facility] Co de Phone Number [facility] [address] * Creatinine with Estimated GFR (MDRD) (10/13/2016 9:26 AM JAIL GUARD) Creatinine 0.9 0.6 - 1.1 MG/DL [facility] eGFR Non-Black/Afric an Malagasy >60 >60 ML/MIN/BSA [facility] eGFR-Black/Afri can Malagasy >60 >60 ML/MIN/BSA [facility] 10/13/2016 9:26 AM JAIL GUARD 10/13/2016 9:26 AM JAIL GUARD Didier Hays M.D. LAB BLOOD ADD-ON [facility] [address] from Last 3 Months or Most Recently Relevant to Health Maintenance
--- OUTSIDE RECORDS SUMMARY | 2024-05-10 15:06 | XMS_ITS | Referral Summary ---
Author Organization [facility] Address [address] [place] [address] Care Team Providers Care Watch Train Assembler Name Role Phone Unavailable Primary Care Provider Unavailabl e Source Comments Patient records contain information from all sites at [facility]. For routine questions regarding patient records, call [phone] during business hours, M-F 8:00 AM - 5:00 PM Central Time. Record requests for emergency care only can be directed to [phone] at any time.[facility] Encounters Date Type Department Care Team Description 04/21/2024 2:00 PM CDT Clinical Support Department of Nutrition and Diabetes Education in [place], [place] [address] [place] [address] Cinda Willis M.B., Ch.B. Mandy Trevino, M.S., RDN, LD Obesity Body Mass Index 30-39.9 Adult [E66.9] (Primary Dx) 04/14/2024 Clinical Communication [facility] in [place], [place] [address] [place] [address] Calvin Smalls L.Ac. 04/14/2024 2:45 PM CDT Clinical Support [facility] in [place], [place] [address] [place] [address] Calvin Smalls L.Ac. Pain Low Back Unspecified; Pain Hip Bilateral 03/09/2024 2:45 PM CDT Clinical Support [facility] in [place], [place] [address] [place] [address] Paulie Corral L.Ac. Pain Low Back Unspecified; Pain Hip Bilateral 03/06/2024 Refill Division of Endocrinology in [place], [place] [address] [place] [address] Cinda Willis M.B., Ch.B. Med Refill 02/18/2024 2:00 PM CDT Clinical Support Department of Nutrition and Diabetes Education in [place], [place] [address] [place] [address] Cinda Willis M.B., Ch.B. Mandy Trevino M.S., RDN, LD Obesity Body Mass Index 30-39.9 Adult [E66.9] (Primary Dx) from Last 3 Months Allergies Active Allergy [...] take 2nd dose if needed. Will need feeder driver. 2 tablet 07/23/2023 Active diazePAM (Valium) 5 mg tablet Take 1 tablet (5 mg total) by mouth See Admin Instructions. Take one (1) tablet 30 minutes before MRI, may take 2nd dose if needed. Will need feeder driver. 2 tablet 07/23/2023 Active diazePAM (VALIUM) [...] drink = 0.6 oz pur e alcohol) [employer]ities Answer Date Recorded In the past 12 months has e [employer], gas, oil, or water Merchantry threatened to shut off services in your [...] often do you attend chur ch or bahai services? More than 4 times per year 11/22/2022 Do you belong to any clubs o r organizations such as adventist groups, unions, fraternal or athletic groups, or [...] Answer Date Recorded PHQ-2 Score 1 03/11/2021 [facility] - Occupational Stress Questionnaire Answer Date [...] Answer Date Recorded Employment status Unemployed/not in [employer] paid workforce and NOT seeking employment 12/31/2023 Housing Stability Answer Date Recorded What is your living situation today? I have a [facility] place to live 12/31/2023 Education Answer Date Recorded What is the highest level of school you have completed or the highest degree you have received? Associate degree: occupational, technical, or vocational program 10/01/2020 Sex and Gender Information Value Date Recorded Sex Assigned at Female 06/23/2021 10:52 AM CDT Gender Identity Female 10/01/2020 2:34 PM BELL HOLE DIGGER Sexual Orientation Straight 10/01/2020 2: 34 PM BELL HOLE DIGGER Last Filed Vital Signs Vital Sign Reading Time Taken Comments Blood Pressure 154/72 10/27/2023 2:52 PM BELL HOLE DIGGER Pulse 63 10/27/2023 2:52 PM BELL HOLE DIGGER Temperature 36.6 ??C (97.9 ??F) 10/27/2023 1:41 PM CS T Respiratory Rate 18 01/20/2021 1:15 PM CDT Oxygen Saturation 98% 10/27/2023 2:52 PM BELL HOLE DIGGER Inhaled Oxygen Concentration - - Weight 88.6 kg (195 lb 5.2 oz) 04/21/2024 1:29 P M CDT Height 160 cm (5' 2.99) 04/21/2024 1:29 PM CDT Body Mass Index 34.61 04/21/2024 1:29 PM CDT Plan of Treatment Upcoming Encounters Date Type Department Care Team (Late st Contact Info) Description 05/12/2024 2:45 PM CDT Clinical Support [facility] in [place], [place] [address] [place] [address] Calvin Smalls L.Ac. 06/02/2024 3:00 PM CDT Clinical Support Department of Nutrition and Diabetes Education in [place], [place] [address] [place] [address] Cinda Willis M.B., Ch.B. [address] [place] [phone] Mandy Trevino M.S., RDN, LD [address] [place] [phone] 06/09/2024 2:45 PM CDT Clinical Support [facility] in [place], [place] [address] [place] [phone] Zeke Reddy L.Ac. [address] [place] [phone] 06/30/2024 2:00 PM CDT Clinical Support Department of Nutrition and Diabetes Education in [place], [place] [address] [place] [phone] Cinda Willis M.B., Ch.B. [address] [place] [phone] Mandy Trevino M.S., TOIN, LD [address] [place] [phone] 07/07/2024 4:30 PM CDT Clinical Support [facility] in [place], [place] [address] [place] [phone] Zeke Reddy L.Ac. [address] [place] [phone] 08/04/2024 2:00 PM BELL HOLE DIGGER Telemedicine Department of Nutrition and Diabetes Education in [place], [place] [address] [place] [phone] Cinda Willis M.B., Ch.B. [address] [place] [phone] Mandy Trevino M.S., RDN, LD [address] [place] [address] Medical Devices Implanted Type Area Small Products Assembler Device Identifier Shelf Expiration Date Model / Serial / Lot Misc Other Misc Other Mouth Description:Left side upper lower teeth Procedures Procedure Name Priority Date/Time Associated Diagnosis Comments THYROID-STIMULATING HORMONE-SENSITIVE (S-TSH) Routine 09/03/2023 1:51 PM BELL HOLE DIGGER Hypothyroidism Primary OUTSIDE MG MAMMOGRAM Routine 03/22/2020 1:15 PM CDT HEMOGLOBIN A1C, B Routine 10/13/2016 9:2 6 AM BELL HOLE DIGGER CHRONIC VIRAL HEPATITIS PROFILE Routine 10/13/2016 9:26 AM BELL HOLE DIGGER CREATININE WITH EGFR, S/P Routine 10/13/2016 9:26 AM BELL HOLE DIGGER from Last 3 Months or Most Recently Relevant to Health Maintenance Results * S-TSH (Thyroid-Stimulating Hormone - Sensitive) (09/03/2023 1:51 PM BELL HOLE DIGGER) TSH, Sensitive 0.6 0.3 - 4.2 mIU/L 09/03/2023 2:56 PM BELL HOLE DIGGER DTL Blood (Blood, Venous) 09/03/2023 1:51 PM BELL HOLE DIGGER 09/03/2023 2:23 PM BELL HOLE DIGGER Cinda Staples, Ch.B. LAB BLOOD ADD-ON [facility] [address] [place] [address], [facility] DTL [facility] [address] [place] [address] * MAMMO SCREEN, BILAT, W/CAD-Outside Mammogram (03/22/2020 [...] System IMG BI PROCEDURES Performing Organization Address [facility] Co de Phone Number IIMS NA * Chronic Hepatitis Profile (10/13/2016 9:26 AM BELL HOLE DIGGER) HBs Antigen, S Negative Negative [facility] HBc Total Ab, S Negative Negative [facility] HCV Ab, S Negative Negative [facility] Comment:Xseofz-qi-apnmip rat io is <1.00. HBs Antibody,S Negative Unvaccinated : Negative; Vaccinated: Positive [facility] Comment:Patient is presumed to be not immune to infection with HBV. HBs Antibody, Quantitative, S <5.0 Unvaccinated : <5.0; Vaccinated: >=12.0 MIU/ML [facility] 10/13/2016 9:26 AM BELL HOLE DIGGER 10/13/2016 9:26 AM BELL HOLE DIGGER Didier Hays M.D. LAB MICROBIOLOGY - BLOOD ORDERABLES Performing Organization Address [facility] Co de Phone Number [facility] [address] * Hemoglobin A1c (10/13/2016 9:26 AM BELL HOLE DIGGER) Hemoglobin A1c, B 5.4 4.0 - 5.6 % [facility] 10/13/2016 9:26 AM BELL HOLE DIGGER 10/13/2016 9:26 AM BELL HOLE DIGGER Didier Hays M.D. LAB BLOOD ADD-ON Performing Organization Address [facility] Co de Phone Number [facility] [address] * Creatinine with Estimated GFR (MDRD) (10/13/2016 9:26 AM BELL HOLE DIGGER) Creatinine 0.9 0.6 - 1.1 MG/DL [facility] eGFR Non-Black/Afric an Lithuanian >60 >60 ML/MIN/BSA [facility] eGFR-Black/Afri can Lithuanian >60 >60 ML/MIN/BSA [facility] 10/13/2016 9:26 AM BELL HOLE DIGGER 10/13/2016 9:26 AM BELL HOLE DIGGER Didier Hays M.D. LAB BLOOD ADD-ON [facility] [address] from Last 3 Months or Most Recently Relevant to Health Maintenance
--- OUTSIDE RECORDS SUMMARY | 2024-05-10 15:06 | XMS_ITS | Encounter Summary ---
Author Organization [facility] Address [address] [place] [address] Care Team Providers Care Submarine Diver Name Role Phone Unavailable Primary Care Provider Unavailabl e Reason for Visit * Outpatient (Routine) - Closed Specialty Diagnoses / Procedures Referred By Neftaly weinstein Referred To Contact Diagnoses Pain Low Back Unspecified Pain Hip Bilateral Procedures [facility] Acupuncture [facility] [address] [place] [address] [facility] Referral ID Status Reason Start Date Expiration Date Visits Re quested Visits Authorized [id number] Closed 12/11/2022 12/11/2023 12 12 Encounter Details Date Type Department Care Team (Latest Contact Info) Description 03/09/2024 2:45 PM CDT Clinical Support [facility] in [place], [place] [address] [place] [phone] Paulie Corral, L.. Pain Low Back Unspecified; Pain Hip Bilateral Social History Tobacco Use Types Packs/Day Years Used Date Smoking Tobacco: Never Smokeless Tobacco: Never Alcohol Use Standard Drinks/Week Comments Not Currently 1 (1 standard drink = 0.6 oz pur e alcohol) [facility] Utilities Answer Date Recorded In [...] How often do you attend chur or jew services? More than 4 times per year [...] Answer Date Recorded PHQ-2 Score 1 03/11/2021 [facility] - Occupational Stress [...] your living situation today? I have a [facility] place to live 12/31/2023 Education Answer Date Recorded What is the highest level of school you have completed or the highest degree you have received? Associate degree: occupational, technical, or vocational program 10/01/2020 Sex and Gender Information Value Date Recorded Sex Assigned at Female 06/23/2021 10:52 AM CDT Gender Identity Female 10/01/2020 2:34 PM DEFENCE FORCE SENIOR OFFICER Sexual Orientation Straight 10/01/2020 2: 34 PM DEFENCE FORCE SENIOR OFFICER documented as of this encounter Progress Notes * Paulie Corral L.Ac. - 03/09/2024 2:45 PM CDT Referral Source: No ref. provider found Supervised by: Noemy Felton MD [id number] SUBJECTIVE Chief Complaint: Bilateral Hip Pain and Back Pain History of Present Illness Ms. Snow is a 58 y.o. female referred for evaluation and consideration of acupuncture treatment. Ms. Snow is seen in the outpatient setting. Their medical history is well documented and relevant portions were reviewed and discussed at today's session. 03/09/24: Follow Up - Pilar reports that her acupuncture treatments are really helping keep her overall chronic low back and hip pain under control. Pilar also reports that she has all been having her neck worked on as well to help reduce the pain there too. Today we will continue to work on reducing the pain in the neck, low back and hips. OBJECTIVE ASSESSMENT / PLAN #1 Pain Low Back Unspecified #2 Pain Hip Bilateral This is treatment 15 of expected 20 treatments. Acupuncture ordered for: Acute care Benefits and risks of acupuncture were discussed with patient and patient has signed consent authorization to proceed with treatment. Patient was informed that results may vary dependent on severity of symptoms and frequency of treatment. It was noted that most patients need a series of acupuncture treatments to obtain symptom relief. Total Needling Time: 30 minutes [place] Electrified: No Diathermy: Yes Cupping: No Tuina: No Treatment Points Used: Set One: Gb20, Gb21, Du14, Bl13, Bl14, Bl15, Bl17, Sp6, Ki3 Set Two: Bl23, Bl24, Bl25, Vishal Kieran, Bl54, Gb30, Gb34 Head: None Auricular: None Number of [place] Used = Number of [place] Retrieved: Yes Stimulation Intensity: Medium Narrative Assessment: [...] for locating a qualified licensed mental health counselor in the local community. PATIENT EDUCATION Ready to learn, no apparent learning barriers were identified, learning preference include listening. Explained diagnosis and treatment plan: patient/caregiver expressed understanding of the content. documented in this encounter Plan of Treatment Upcoming Encounters Date Type Department Care Team (Late st Contact Info) Description 05/12/2024 2:45 PM CDT Clinical Support [facility] in [address] [phone] Calvin Smalls LNorbertoAc. 06/02/2024 3:00 PM CDT Clinical Support Department of Nutrition and Diabetes Education in [address] [phone] Cinda Willis M.B., Ch.B. [address] [place] [phone] Mandy Trevino M.S., RDN, LD [address] [place] [phone] 06/09/2024 2:45 PM CDT Clinical Support [facility] in [address] [phone] Zeke Reddy L.Ac. [address] [place] [phone] 06/30/2024 2:00 PM CDT Clinical Support Department of Nutrition and Diabetes Education in [address] [phone] Cinda Willis M.B., Ch.B. [address] [place] [phone] Mandy Trevino M.S., RDN, LD [address] [place] [phone] 07/07/2024 4:30 PM CDT Clinical Support [facility] in [address] [place] [address] Zeke Reddy L.Ac. [address] [place] [phone] 08/04/2024 2:00 PM DEFENCE FORCE SENIOR OFFICER Telemedicine Department of Nutrition and Diabetes Education in [place], [place] [address] [place] [phone] Cinda Willis M.B., Ch.B. [address] [place] [phone] Mandy Trevino M.S., RDN, LD [address] [place] [phone] documented as of this encounter Visit Diagnoses Diagnosis Pain Low Back Unspecified Pain Hip Bilateral documented in this encounter Additional Health Concerns Assessment Noted Time PHQ-9 Depression Total Score: 4 03/11/20 21 2:35 PM CDT documented as of this encounter
--- OUTSIDE RECORDS SUMMARY | 2024-05-10 15:06 | XMS_ITS | Encounter Summary ---
Author Organization [facility] Address [address] [place] [address] Care Team Providers Care Equipment Coordinator Name Role Phone Unavailable Primary Care Provider Unavailabl e Reason for Visit * Outpatient (Routine) - Authorized Specialty Diagnoses / Procedures Referred By Neftaly weinstein Referred To Contact Diagnoses Pain Low Back Unspecified Pain Hip Bilateral Procedures [facility] Acupuncture [facility]st [facility] [address] [place] [address] [facility] Referral ID Status Reason Start Date Expiration Date V isits Requested Visits Authorized [id number] Authorized 02/07/2024 02/06/2025 20 20 Encounter Details Date Type Department Care Team (Latest Contact Info) Description 04/14/2024 2:45 PM CDT Clinical Support [facility] in [place], [place] [address] [place] [address] Calvin Smalls L.[facility] Pain Low Back Unspecified; Pain Hip Bilateral Social History Tobacco Use Types Packs/Day Years Used Date Smoking Tobacco: Never Smokeless Tobacco: Never Alcohol Use Standard Drinks/Week Comments Not Currently 1 (1 standard drink = 0.6 oz pur e alcohol) [facility] Utilities Answer Date Recorded In the past [...] any clubs o r organizations such as baptism groups, unions, fraternal or athletic groups, or [...] Answer Date Recorded PHQ-2 Score 1 03/11/2021 [facility] Occupat ional Health - Occupational [...] your living situation today? I have a [facility] place to live 12/31/2023 Education Answer Date Recorded What is the highest level of school you have completed or the highest degree you have received? Associate degree: occupational, technical, or vocational program 10/01/2020 Sex and Gender Information Value Date Recorded Sex Assigned at Female 06/23/2021 10:52 AM CDT Gender Identity Female 10/01/2020 2:34 PM PLUMBING HARDWARE ASSEMBLER Sexual Orientation Straight 10/01/2020 2: 34 PM PLUMBING HARDWARE ASSEMBLER documented as of this encounter Progress Notes * Calvin Smalls L.Ac. - 04/14/2024 2:45 PM CDT Referral Source: No ref. provider found Supervised by: [place] [id number] SUBJECTIVE Chief Complaint: Back Pain History of Present Illness Ms. Snow is a 59 y.o. female referred for evaluation and consideration of acupuncture treatment. Ms. Snow is seen in the outpatient setting. Their medical history is well documented and relevant portions were reviewed and discussed at today's session. 04/14/24 Gisela reports that she is doing very well with the acupuncture, but that it was definitelytime for a treatment as the last few days she's been tossing and turning last night due to pain in her low back and hips. The pain is localized in the lower lumbar, SI, and TFL areas. She also reports a nagging pain that is always tight in her left neck. I showed her a floor stretch (reverse pigeonwith a twist) to help open her hips and stretch her TFL/SI joint at night. Previous Treatment: 03/09/24: Follow Up - Pilar reports that her acupuncture treatments are really helping keep her overall chronic low back and hip pain under control. Pilar also reports that she has all been having her neck worked on as well to help reduce the pain there too. Today we will continue to work on reducing the pain in the neck, low back and hips. ASSESSMENT / PLAN #1 Pain Low Back Unspecified #2 Pain Hip Bilateral This is treatment 16 of expected 20 treatments. Frequency: Acupuncture ordered [...] symptom relief. Total Needling Time: 30 minutes [place] Electrified: No Diathermy: Yes Cupping: No Treatment Points Used: Set One: GB20, UB10, GB21, SI15, UB23-25, [place], YaoYan, TFL mitzi triangle Set Two: UB40, GB34, SP6, KD3, UB62 Number of [place] Used = Number of [place] Retrieved: Yes Stimulation Intensity: Medium Narrative Assessment: [...] and the www.[employer]org for locating a qualified clay roaster in the local community. PATIENT EDUCATION Ready to learn, no apparent learning barriers were identified, learning preference include listening. Explained diagnosis and treatment plan: patient/caregiver expressed understanding of the content. documented in this encounter Plan of Treatment Upcoming Encounters Date Type Department Care Team (Late st Contact Info) Description 05/12/2024 2:45 PM CDT Clinical Support [facility] in [place], [place] [address] [place] [phone] Calvin Smalls L.Ac. 06/02/2024 3:00 PM CDT Clinical Support Department of Nutrition and Diabetes Education in [place], [place] [address] [place] [phone] Cinda Willis M.B., Ch.B. [address] [place] [phone] Mandy Trevino M.S., RDN, LD [address] [place] [phone] 06/09/2024 2:45 PM CDT Clinical Support [facility] in [place], [place] [address] [place] [phone] Zeke Reddy L.Ac. [address] [place] [phone] 06/30/2024 2:00 PM CDT Clinical Support Department of Nutrition and Diabetes Education in [place], [place] [address] [place] [phone] Cinda Willis M.B., Ch.B. [address] [place] [phone] Mandy Trevino M.S., RDN, LD [address] [place] [phone] 07/07/2024 4:30 PM CDT Clinical Support [facility] in [address] [phone] Zeke Reddy L.Ac. [address] [place] [phone] 08/04/2024 2:00 PM PLUMBING HARDWARE ASSEMBLER Telemedicine Department of Nutrition and Diabetes Education in [address] [phone] Cinda Willis M.B., Ch.B. [address] [place] [phone] Mandy Trevino M.S., VERENA, LD [address] [place] [phone] documented as of this encounter Visit Diagnoses Diagnosis Pain Low Back Unspecified Pain Hip Bilateral documented in this encounter Additional Health Concerns Assessment Noted Time PHQ-9 Depression Total Score: 4 03/11/20 21 2:35 PM CDT documented as of this encounter
--- OUTSIDE RECORDS SUMMARY | 2024-05-10 15:06 | XMS_ITS ---
Author Organization [facility] Address [address] [place] [address] Care Team Providers Care Metal Grinder Name Role Phone Unavailable Unavailable Unavailable Surgery Details Not on file Complications Check Surgery Details section. Procedure Estimated Blood Loss Check Surgery Details section. Procedure Findings Check Surgery Details section. Procedure Specimens Taken Check Surgery Details section.
--- OUTSIDE RECORDS SUMMARY | 2024-05-10 15:06 | XMS_ITS | Encounter Summary ---
Author Organization [facility] Address [address] [place] [address] Care Team Providers Care Him Coder Name Role Phone Unavailable Primary Care Provider Unavailabl e Encounter Details Date Type Department Care Team (Late st Contact Info) Description 04/14/2024 Clinical Communication Integrative Medicine and Health in [place], [place] [address] [place] [address] Calvin Smalls, L.[facility] Social History Tobacco Use Types Packs/Day Years Used Date Smoking Tobacco: Never Smokeless Tobacco: Never Alcohol Use Standard Drinks/Week Comments Not Currently 1 (1 standard drink = 0.6 oz pur e alcohol) [facility] Utilities Answer Date Recorded In the past 12 months has [facility] [employer], gas, oil, or water [employer] threatened to shut off services in your [...] How often do you attend chur or congregation services? More than 4 times per year 11/22/2022 Do you belong to any clubs o r organizations such as amish groups, unions, fraternal or athletic groups, or [...] Date Recorded PHQ-2 Score 1 03/11/2021 [facility] - Occupational Stress Questionnaire Answer Date Recorded [...] Answer Date Recorded Employment status Unemployed/not in [place] paid workforce and NOT seeking employment 12/31/2023 Housing Stability Answer Date Recorded What is your living situation today? I have a [facility] place to live 12/31/2023 Education Answer Date Recorded What is the highest level of school you have completed or the highest degree you have received? 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 06/02/2024 3:00 PM CDT Clinical Support Department of Nutrition and Diabetes Education in [place], [place] [address] [place] [address] Cinda Willis M.B., Ch.B. [address] [place] [address] Mandy Trevino M.S., RDN, LD [address] [place] [phone] 06/09/2024 2:45 PM CDT Clinical Support [facility]ative [facility] and Health in [place], [place] [address] [place] [phone] Zeke Reddy L.Ac. [address] [place] [phone] 06/30/2024 2:00 PM CDT Clinical Support Department of Nutrition and Diabetes Education in [place], [place] [address] [place] [phone] Cinda Willis M.B., Ch.B. [address] [place] [phone] Mandy Trevino M.S., TOIN, LD [address] [place] [phone] 07/07/2024 4:30 PM CDT Clinical Support [facility] in [place], [place] [address] [place] [phone] Zeke Reddy L.Ac. [address] [place] [phone] 08/04/2024 2:00 PM BONDACTOR MACHINE OPERATOR Telemedicine Department of Nutrition and Diabetes Education in [address] [phone] Cinda Willis M.B., Ch.B. [address] [place] [phone] Mandy Trevino M.S., RDN, LD [address] [place] [phone] documented as of this encounter Visit Diagnoses Not on filedocumented in this encounter Additional Health Concerns Assessment Noted Time PHQ-9 Depression Total Score: 4 03/11/20 21 2:35 PM CDT documented as of this encounter
== END 2024-05-10 09:19 | disposition home or self-care (01) ==
LOC: NFLDREF 15:04
PROVIDERS: PCP Family Medicine; Referring Provider Family Medicine; Visit Provider Family Medicine
DX: E03.9 Hypothyroidism, unspecified (principal); E78.5 Hyperlipidemia, unspecified; N18.9 Chronic kidney disease, unspecified; E66.9 Obesity, unspecified; I10 Essential (primary) hypertension
CPT/HCPCS: 80053; 80061; 84439; 84443

== ENCOUNTER 2024-05-17 14:56 | Outpatient (CLI) | payer BC, SELFPAY ==
--- OUTSIDE RECORDS SUMMARY | 2024-05-17 14:58 | XMS_ITS | Encounter Summary ---
Author Organization [facility] Address [address] [place] [address] Care Team Providers Care Stage Technician Name Role Phone Unavailable Primary Care Provider Unavailabl e Reason for Visit * Outpatient (Routine) - Authorized Specialty Diagnoses / Procedures Referred By Neftaly weinstein Referred To Contact Diagnoses Pain Low Back Unspecified Pain Hip Bilateral Procedures [facility] Acupuncture Rst [facility] [place] [address] [place] [address] [facility] Referral ID Status Reason Start Date Expiration Date V isits Requested Visits Authorized [id number] Authorized 02/07/2024 02/06/2025 20 20 Encounter Details Date Type Department Care Team (Latest Contact Info) Description 05/12/2024 1:00 PM CDT Clinical Support Integrative Medicine and Health in [place], [place] [address] [place] [address] Calvin Smalls L.[facility] Pain Low Back Unspecified; Pain Hip Bilateral Social History Tobacco Use Types Packs/Day Years Used Date Smoking Tobacco: Never Smokeless Tobacco: Never Alcohol Use Standard Drinks/Week Comments Not Currently 1 (1 standard drink = 0.6 oz pur e alcohol) [facility] Utilities Answer Date Recorded In the [...] How often do you attend chur or synagogue services? More than 4 times per year 11/22/2022 Do you belong to any clubs o r organizations such as jainism groups, unions, fraternal or athletic groups, or [...] Answer Date Recorded PHQ-2 Score 1 03/11/2021 [facility] [place] [facility] - Occupational Stress [...] your living situation today? I have a [facility] place to live 12/31/2023 Education Answer Date Recorded What is the highest level of school you have completed or the highest degree you have received? Associate degree: occupational, technical, or vocational program 10/01/2020 Sex and Gender Information Value Date Recorded Sex Assigned at Female 06/23/2021 10:52 AM CDT Gender Identity Female 10/01/2020 2:34 PM SHIP CONSTRUCTION TEACHER Sexual Orientation Straight 10/01/2020 2: 34 PM SHIP CONSTRUCTION TEACHER documented as of this encounter Progress Notes * Calvin Smalls L.Ac. - 05/12/2024 1:00 PM CDT Referral Source: No ref. provider found Supervised by: [place] [id number] SUBJECTIVE Chief Complaint: Back Pain History of Present Illness Ms. Snow is a 59 y.o. female referred for evaluation and consideration of acupuncture treatment. Ms. Snow is seen in the outpatient setting. Their medical history is well documented and relevant portions were reviewed and discussed at today's session. 05/12/24 Gisela reports Previous Treatment: ASSESSMENT / PLAN #1 Pain Low Back Unspecified #2 Pain Hip Bilateral This is treatment 17 of expected 20 treatments. Acupuncture ordered for: [...] symptom relief. Total Needling Time: 30 minutes Paul Electrified: No Diathermy: Yes Cupping: No Treatment Points Used: Set One: GB20, UB10, GB21, SI15, UB23-25, Bailao, YaoYan, TFL mitzi triangle Set Two: UB40, GB34, SP6, KD3, UB62 Other: Number of Paul Used = Number of Paul Retrieved: Yes Stimulation Intensity: Medium Narrative Assessment: PPE used during visit: Provider wore a mask. Patient tolerated acupuncture without any complications and [...] the www.[employer].org for locating a qualified licensed life and health agent in the local community. PATIENT EDUCATION Ready to learn, no apparent learning barriers were identified, learning preference include listening. Explained diagnosis and treatment plan: patient/caregiver expressed understanding of the content. documented in this encounter Plan of Treatment Upcoming Encounters Date Type Department Care Team (Late st Contact Info) Description 06/02/2024 3:00 PM CDT Clinical Support Department of Nutrition and Diabetes Education in [place], [place] [address] [place] [phone] Cinda Willis M.B., Ch.B. [address] [place] [phone] Mandy Trevino M.S., RDN, LD [address] [place] [phone] 06/09/2024 2:45 PM CDT Clinical Support [facility]ative Medicine and Health in [place], [place] [address] [place] [phone] Zeke Reddy L.Ac. [address] [place] [phone] 06/30/2024 2:00 PM CDT Clinical Support Department of Nutrition and Diabetes Education in [place], [place] [address] [place] [phone] Cinda Willis M.B., Ch.B. [address] [place] [phone] Mandy Trevino M.S., RDN, LD [address] [place] [phone] 07/07/2024 4:30 PM CDT Clinical Support [facility] in [place], [place] [address] [place] [phone] Zeke Reddy L.Ac. [address] [place] [phone] 08/04/2024 2:00 PM SHIP CONSTRUCTION TEACHER Telemedicine Department of Nutrition and Diabetes Education in [place], [place] [address] [place] [phone] Cinda Willis M.B., Ch.B. [address] [place] [phone] Mandy Trevino M.S., RDN, LD [address] [place] [phone] 08/18/2024 2:45 PM SHIP CONSTRUCTION TEACHER Clinical Support [facility] in [place], [place] [address] [place] [phone] Zeke Reddy L.Ac. [address] [place] [phone] documented as of this encounter Visit Diagnoses Diagnosis Pain Low Back Unspecified Pain Hip Bilateral documented in this encounter Additional Health Concerns Assessment Noted Time PHQ-9 Depression Total Score: 4 03/11/20 21 2:35 PM CDT documented as of this encounter
--- OUTSIDE RECORDS SUMMARY | 2024-05-17 14:58 | XMS_ITS | Encounter Summary ---
Author Organization [facility] Address [address] [place] [address] Care Team Providers Care Orientation And Mobility Specialist Name Role Phone Unavailable Primary Care Provider Unavailabl e Reason for Referral * Outpatient (Routine) - Authorized Specialty Diagnoses / Procedures Referred By Contac t Referred To Contact Cinda Styles M.B., Ch.B. [address] [place] [phone] [facility] Referral ID Status Reason Start Date Expiration Date V isits Requested Visits Authorized [id number] Authorized 02/18/2024 08/19/2025 2 2 Reason for Visit * Outpatient (Routine) - Authorized Specialty Diagnoses / Procedures Referred By Neftaly weinstein Referred To Contact Cinda Styles M.B., Ch.B. [address] [place] [address] [facility] Referral ID Status Reason Start Date Expiration Date V isits Requested Visits Authorized [id number] Authorized 01/07/2024 07/08/2025 2 2 Encounter Details Date Type Department Care Team (Latest Contact Info) Description 02/18/2024 2:00 PM CDT Clinical Support Department of Nutrition and Diabetes Education in [place], [place] [address] [place] [phone] Cinda Willis M.B., Ch.B. [address] [place] [phone] Mandy Trevino M.S., RDN, LD [address] [place] [address] Obesity Body Mass Index 30-39.9 Adult [E66.9] (Primary Dx) Social History Tobacco Use Types Packs/Day Years Used Date Smoking Tobacco: Never Smokeless Tobacco: Never Alcohol Use Standard Drinks/Week Comments Not Currently 1 (1 standard drink = 0.6 oz pur e alcohol) [facility] Utilities Answer Date Recorded In the past 12 months has e [employer], gas, oil, or water [employer] threatened to shut off services in your [...] How often do you attend chur or advent services? More than 4 times per year 11/22/2022 Do you belong to any clubs o r organizations such as pentecostalism groups, unions, fraternal or athletic groups, or [...] Answer Date Recorded PHQ-2 Score 1 03/11/2021 [facility] - Occupational Stress Questionnaire Answer Date [...] CDT Gender Identity Female 10/01/2020 2:34 PM ON AIR ANNOUNCER Sexual Orientation Straight 10/01/2020 2: 34 PM ON AIR ANNOUNCER documented as of this encounter Last Filed [...] could not tolerate this. She is in [employer] 2 times per month and [...] Snack: none Beverages: Sprite Zero, water with Breda, María Elena Dry Alcohol intake: occasionally 1-2 [...] Department of Nutrition and Diabetes Education in [place], [place] [address] [place] [phone] Cinda Willis M.B., Ch.B. [address] [place] [phone] Mandy Trevino M.S., RDN, LD [address] [place] [phone] 06/09/2024 2:45 PM CDT Clinical Support Integrative Medicine and Health in [place], [place] [address] [place] [phone] Zeke Reddy L.Ac. [address] [place] [phone] 06/30/2024 2:00 PM CDT Clinical Support Department of Nutrition and Diabetes Education in [place], [place] [address] [place] [phone] Cinda Willis M.B., Ch.B. [address] [place] [phone] Mandy Trevino M.S., RDN, LD [address] [place] [phone] 07/07/2024 4:30 PM CDT Clinical Support [facility] and [facility] in [place], [place] [address] [place] [phone] Zeke Reddy L.Ac. [address] [place] [phone] 08/04/2024 2:00 PM ON AIR ANNOUNCER Telemedicine Department of Nutrition and Diabetes Education in [place], [place] [address] [place] [phone] Cinda Willis M.B., Ch.B. [address] [place] [phone] Mandy Trevino M.S., RDN, LD [address] [place] [phone] 08/18/2024 2:45 PM ON AIR ANNOUNCER Clinical Support Integrative Medicine and Health in [place], [place] [address] [place] [phone] Zeke Reddy L.Ac. [address] [place] [address] Scheduled Referrals Name Type Priority Associated Diagnoses [...]
--- OUTSIDE RECORDS SUMMARY | 2024-05-17 14:58 | XMS_ITS | Referral Summary ---
Author Organization [facility] Address [address] [place] [address] Care Team Providers Care Representative Personal Service Name Role Phone Unavailable Primary Care Provider Unavailabl e Source Comments Patient records contain information from all sites at [facility]. For routine questions regarding patient records, call [phone] during business hours, M-F 8:00 AM - 5:00 PM Central Time. Record requests for emergency care only can be directed to [phone] at any time.[facility] Encounters Date Type Department Care Team Description 05/17/2024 Orders Only Division of Endocrinology in [place], [place] [address] [place] [address] Kristi Garland APRN, C.N.P. 05/12/2024 1:00 PM CDT Clinical Support [facility] in [place], [place] [address] [place] [address] Calvin Smalls L.Ac. Pain Low Back Unspecified; Pain Hip Bilateral 04/21/2024 2:00 PM CDT Clinical Support Department of Nutrition and Diabetes Education in [place], [place] [address] [place] [address] Cinda Willis M.B., Ch.B. Mandy Trevino, M.S., RDN, LD Obesity Body Mass Index 30-39.9 Adult [E66.9] (Primary Dx) 04/14/2024 Clinical Communication Integrative Medicine and Health in [place], [place] [address] [place] [address] Calvin Smalls L.Ac. 04/14/2024 2:45 PM CDT Clinical Support [facility] and Health in [place], [place] [address] [place] [address] Calvin Smalls L.Ac. Pain Low Back Unspecified; Pain Hip Bilateral 03/09/2024 2:45 PM CDT Clinical Support [facility] and Health in [place], [place] [address] [place] [address] Paulie Corral L.Ac. Pain Low Back Unspecified; Pain Hip Bilateral 03/06/2024 Refill Division of Endocrinology in [place], [place] [address] [place] [address] Cinda Willis M.B., Ch.B. Med Refill 02/18/2024 2:00 PM CDT Clinical Support Department of Nutrition and Diabetes Education in [place], [place] [address] [place] [address] Cinda Willis M.B., Ch.B. Mandy Trevino M.S., [...] take 2nd dose if needed. Will need emt driver. 2 tablet 07/23/2023 Active diazePAM (Valium) 5 mg tablet Take 1 tablet (5 mg total) by mouth See Admin Instructions. Take one (1) tablet 30 minutes before MRI, may take 2nd dose if needed. Will need emt driver. 2 tablet 07/23/2023 Active diazePAM (VALIUM) [...] drink = 0.6 oz pur e alcohol) [facility] Utilities Answer Date Recorded In the past 12 months has [facility] [employer], [employer], or water [employer] threatened to shut off services in your [...] your living situation today? I have a [facility] place to live 12/31/2023 Education Answer Date Recorded What is the highest level of school you have completed or the highest degree you have received? Associate degree: occupational, technical, or vocational program 10/01/2020 Sex and Gender Information Value Date Recorded Sex Assigned at Female 06/23/2021 10:52 AM CDT Gender Identity Female 10/01/2020 2:34 PM NOTCHING MACHINE OPERATOR Sexual Orientation Straight 10/01/2020 2: 34 PM NOTCHING MACHINE OPERATOR Last Filed Vital Signs Vital Sign Reading Time Taken Comments Blood Pressure 154/72 10/27/2023 2:52 PM NOTCHING MACHINE OPERATOR Pulse 63 10/27/2023 2:52 PM NOTCHING MACHINE OPERATOR Temperature 36.6 ??C (97.9 ??F) 10/27/2023 1:41 PM CS T Respiratory Rate 18 01/20/2021 1:15 PM CDT Oxygen Saturation 98% 10/27/2023 2:52 PM NOTCHING MACHINE OPERATOR Inhaled Oxygen Concentration - - Weight 88.6 kg (195 lb 5.2 oz) 04/21/2024 1:29 P M CDT Height 160 cm (5' 2.99) 04/21/2024 1:29 PM CDT Body Mass Index 34.61 04/21/2024 1:29 PM CDT Plan of Treatment Upcoming Encounters Date Type Department Care Team (Late st Contact Info) Description 06/02/2024 3:00 PM CDT Clinical Support Department of Nutrition and Diabetes Education in [address] [phone] Cinda Willis M.B., Ch.B. [address] [place] [phone] Mandy Trevino M.S., VERENA, LD [address] [place] [phone] 06/09/2024 2:45 PM CDT Clinical Support [facility]ative Medicine and Health in [address] [phone] Zeke Reddy L.Ac. [address] [place] [phone] 06/30/2024 2:00 PM CDT Clinical Support Department of Nutrition and Diabetes Education in [place], [place] [address] [place] [phone] Cinda Willis M.B., Ch.B. [address] [place] [phone] Mandy Trevino M.S., VERENA, LD [address] [place] [phone] 07/07/2024 4:30 PM CDT Clinical Support [facility] in [place], [place] [address] [place] [phone] Zeke Reddy L.Ac. [address] [place] [phone] 08/04/2024 2:00 PM NOTCHING MACHINE OPERATOR Telemedicine Department of Nutrition and Diabetes Education in [place], [place] [address] [place] [phone] Cinda Willis M.B., Ch.B. [address] [place] [address] Mandy Trevino M.S., RDN, LD [address] [place] [phone] 08/18/2024 2:45 PM NOTCHING MACHINE OPERATOR Clinical Support [facility] Health in [place], [place] [address] [place] [address] Zeke Reddy L.Ac. [address] [place] [phone] Medical Devices Implanted Type Area Anglesmith Helper Device Identifier Shelf Expiration Date Model / Serial / Lot Misc Other Misc Other Mouth Description:Left side upper lower teeth Procedures Procedure Name Priority Date/Time Associated Diagnosis Comments THYROID-STIMULATING HORMONE-SENSITIVE (S-TSH) Routine 09/03/2023 1:51 PM NOTCHING MACHINE OPERATOR Hypothyroidism Primary OUTSIDE MG MAMMOGRAM Routine 03/22/2020 1:15 PM CDT HEMOGLOBIN A1C, B Routine 10/13/2016 9:2 6 AM NOTCHING MACHINE OPERATOR CHRONIC VIRAL HEPATITIS PROFILE Routine 10/13/2016 9:26 AM NOTCHING MACHINE OPERATOR CREATININE WITH EGFR, S/P Routine 10/13/2016 9:26 AM NOTCHING MACHINE OPERATOR from Last 3 Months or Most Recently Relevant to Health Maintenance Results * S-TSH (Thyroid-Stimulating Hormone - Sensitive) (09/03/2023 1:51 PM NOTCHING MACHINE OPERATOR) TSH, Sensitive 0.6 0.3 - 4.2 mIU/L 09/03/2023 2:56 PM NOTCHING MACHINE OPERATOR DTL Blood (Blood, Venous) 09/03/2023 1:51 PM NOTCHING MACHINE OPERATOR 09/03/2023 2:23 PM NOTCHING MACHINE OPERATOR Cinda Staples, Ch.B. LAB BLOOD ADD-ON [facility] [address] [place], [place] [address] DTL [facility] [address] [place] [address] * MAMMO SCREEN, BILAT, W/CAD-Outside Mammogram (03/22/2020 [...] System IMG BI PROCEDURES Performing Organization Address [facility] Co de Phone Number [facility] NA * Chronic Hepatitis Profile (10/13/2016 9:26 AM NOTCHING MACHINE OPERATOR) HBs Antigen, S Negative Negative [facility] HBc Total Ab, S Negative Negative [facility] HCV Ab, S Negative Negative [facility] Comment:Mfaies-kc-ietory rat io is <1.00. HBs Antibody,S Negative Unvaccinated : Negative; Vaccinated: Positive [facility] Comment:Patient is presumed to be not immune to infection with HBV. HBs Antibody, Quantitative, S <5.0 Unvaccinated : <5.0; Vaccinated: >=12.0 MIU/ML [facility] 10/13/2016 9:26 AM NOTCHING MACHINE OPERATOR 10/13/2016 9:26 AM NOTCHING MACHINE OPERATOR Didier Hays M.D. LAB MICROBIOLOGY - BLOOD ORDERABLES Performing Organization Address [facility] Co de Phone Number [facility] [address] [place], [place] [phone] [place] [address] * Hemoglobin A1c (10/13/2016 9:26 AM NOTCHING MACHINE OPERATOR) Hemoglobin A1c, B 5.4 4.0 - 5.6 % [facility] 10/13/2016 9:26 AM NOTCHING MACHINE OPERATOR 10/13/2016 9:26 AM NOTCHING MACHINE OPERATOR Didier Hays M.D. LAB BLOOD ADD-ON [facility] [address] [place], [place] [address] * Creatinine with Estimated GFR (MDRD) (10/13/2016 9:26 AM NOTCHING MACHINE OPERATOR) Creatinine 0.9 0.6 - 1.1 MG/DL [facility] eGFR Non-Black/Afric an Turkish >60 >60 ML/MIN/BSA [facility] eGFR-Black/Afri can Turkish >60 >60 ML/MIN/BSA [facility] 10/13/2016 9:26 AM NOTCHING MACHINE OPERATOR 10/13/2016 9:26 AM NOTCHING MACHINE OPERATOR Didier Hays M.D. LAB BLOOD ADD-ON Performing Organization Address City/State/[facility] Co de Phone Number [facility] [address] [place], [place] [address] from Last 3 Months or Most Recently Relevant to Health Maintenance
--- OUTSIDE RECORDS SUMMARY | 2024-05-17 14:58 | XMS_ITS | Encounter Summary ---
Author Organization [facility] Address [address] [place] [address] Care Team Providers Care Per Diem Nurse Name Role Phone Unavailable Primary Care Provider Unavailabl e Encounter Details Date Type Department Care Team (Late st Contact Info) Description 05/17/2024 Orders Only Division of Endocrinology in [place], [place] [address] [place] [address] Kristi Garland, MANGLE ROLLER, C.N.P. [address] [place] [address] Social History Tobacco Use Types Packs/Day Years Used Date Smoking Tobacco: Never Smokeless Tobacco: Never Alcohol Use Standard Drinks/Week Comments Not Currently 1 (1 standard drink = 0.6 oz pur e alcohol) [facility] Utilities Answer Date Recorded In the past 12 months has [employer]), gas, oil, or water [employer] threatened to shut off services in your [...] often do you attend chur ch or anabaptism services? More than 4 times per year 11/22/2022 Do you belong to any clubs o r organizations such as yazidism groups, unions, fraternal or athletic groups, or [...] 1 03/11/2021 [facility] Questionnaire Answer [...] Answer Date Recorded Employment status Unemployed/not in [employer] paid workforce and NOT seeking employment 12/31/2023 Housing Stability Answer Date Recorded What is your living situation today? I have a [facility] place to live 12/31/2023 Education Answer Date Recorded What is the highest level of school you have completed or the highest degree you have received? Associate degree: occupational, technical, or vocational program 10/01/2020 Sex and Gender Information Value Date Recorded Sex Assigned at Female 06/23/2021 10:52 AM CDT Gender Identity Female 10/01/2020 2:34 PM TIMBER FELLER Sexual Orientation Straight 10/01/2020 2: 34 PM TIMBER FELLER documented as of this encounter Plan of Treatment Upcoming Encounters Date Type Department Care Team (Late st Contact Info) Description 06/02/2024 3:00 PM CDT Clinical Support Department of Nutrition and Diabetes Education in [place], [place] [address] [place] [address] Cinda Willis M.B., Ch.B. [address] [place] [phone] Mandy Trevino M.S., RDN, LD [address] [place] [address] 06/09/2024 2:45 PM CDT Clinical Support Integrative Medicine and Health in [place], [place] [address] [place] [phone] Zeke Reddy L.Ac. [address] [place] [phone] 06/30/2024 2:00 PM CDT Clinical Support Department of Nutrition and Diabetes Education in [place], [place] [address] [place] [phone] Cinda Willis M.B., Ch.B. [address] [place] [phone] Mandy Trevino M.S., VERENA, LD [address] [place] [phone] 07/07/2024 4:30 PM CDT Clinical Support [facility] and [facility] in [place], [place] [address] [place] [phone] Zeke Reddy L.Ac. [address] [place] [phone] 08/04/2024 2:00 PM TIMBER FELLER Telemedicine Department of Nutrition and Diabetes Education in [place], [place] [address] [place] [phone] Cinda Willis M.B., Ch.B. [address] [place] [phone] Mandy Trevino M.S., VERENA, LD [address] [place] [phone] 08/18/2024 2:45 PM TIMBER FELLER Clinical Support [facility]ative [facility] and Health in [place], [place] [address] [place] [phone] Zeke Reddy L.Ac. [address] [place] [phone] documented as of this encounter Visit Diagnoses Not on filedocumented in this encounter Additional Health Concerns Assessment Noted Time PHQ-9 Depression Total Score: 4 03/11/20 21 2:35 PM CDT documented as of this encounter
--- OUTSIDE RECORDS SUMMARY | 2024-05-17 14:58 | XMS_ITS | Clinical Summary ---
Author Organization [facility] Address [place], [place] [address] Care Team Providers Care Technical Training Instructor Name Role Phone Troy Seals MD Primary Care Provider [phone] Oliver Hylton MD Unavailable [phone] Jm Araujo Unavailable Unavailable Allergies No known [...] Name Administration Dates Next Due COVID-19 vaccine ([employer] 30mcg/0.3mL) P F, MDV 01/24/2021,12/31/2020 Social History [...] 3:20 PM CDT [facility] TRAL LABORATORY TYPE 18 Negative Negative 06/19/2021 3:20 PM CDT [facility] TRAL LABORATORY OTHER HIGH RISK TYPES Negative Negative 06/19/2021 3:20 PM CDT [facility] TRA LABORATORY Other (Cervical/Vagina l) 06/16/2021 11:35 AM CDT 06/18/2021 9:20 AM CDT Narrative [facility] - 06/19/2021 3:20 PM CDT HPV types 16, 18, 31, 33, 35, 39, 45, 51, 52, 56, 58, 59, 66 and 68 DNA were undetectable or below the pre-set threshold. Methodology: Farzaneh Dick 4800 HPV Test Cynthia Coy MD MICROBIOLOGY [facility] [address] [place] [address], from Last 3 Months or Most Recently Relevant to Health Maintenance Care Teams Technical Training Instructor Relationship Specialty Start Date End Date Troy Seals MD PCP - General Family Practice 06/04/14 [place] [address] [facility] [address] Consulting Physician Cardiovascular Disease 06/06/14 Jm Araujo [address] [place] [address] Family Practice Data Designer 04/19/20
--- OUTSIDE RECORDS SUMMARY | 2024-05-17 14:58 | XMS_ITS | Encounter Summary ---
Author Organization [facility] Address [address] [place] [address] Care Team Providers Care Bedspread Inspector Name Role Phone Unavailable Primary Care Provider Unavailabl e Reason for Visit * Reason Comments Med Refill Encounter Details Date Type Department Care Team (Late st Contact Info) Description 03/06/2024 Refill Division of Endocrinology in [place], [place] [address] [place] [address] Cinda Willis M.B., Ch.B. [address] [place] [address] Med Refill Social History Tobacco Use Types Packs/Day Years Used Date Smoking Tobacco: Never Smokeless Tobacco: Never Alcohol Use Standard Drinks/Week Comments Not Currently 1 (1 standard drink = 0.6 oz pur e alcohol) [facility] Utilities Answer Date Recorded In the past 12 months has [facility] [employer], gas, oil, or water [employer] threatened to shut off services in your [...] often do you attend chur ch or taoist services? More than 4 times per year 11/22/2022 Do you belong to any clubs o r organizations such as scientology groups, unions, fraternal or athletic groups, or [...] Answer Date Recorded PHQ-2 Score 1 03/11/2021 [facility] Questionnaire Answer Date Recorded [...] Answer Date Recorded Employment status Unemployed/not in [employer] paid workforce and NOT seeking employment 12/31/2023 Housing Stability Answer Date Recorded What is your living situation today? I have a [facility] place to live 12/31/2023 Education Answer Date Recorded What is the highest level of school you have completed or the highest degree you have received? Associate degree: occupational, technical, or vocational program 10/01/2020 Sex and Gender Information Value Date Recorded Sex Assigned at Female 06/23/2021 10:52 AM CDT Gender Identity Female 10/01/2020 2:34 PM MAINTENANCE MECHANIC MILLWRIGHT Sexual Orientation Straight 10/01/2020 2: 34 PM MAINTENANCE MECHANIC MILLWRIGHT documented as of this encounter Plan of Treatment Upcoming Encounters Date Type Department Care Team (Late st Contact Info) Description 06/02/2024 3:00 PM CDT Clinical Support Department of Nutrition and Diabetes Education in [place], [place] [address] [place] [phone] Cinda Willis M.B., Ch.B. [address] [place] [phone] Mandy Trevino M.S., RDN, LD [address] [place] [phone] 06/09/2024 2:45 PM CDT Clinical Support Integrative Medicine and Health in [place], [place] [address] [place] [phone] Zeke Reddy L.Ac. [address] [place] [phone] 06/30/2024 2:00 PM CDT Clinical Support Department of Nutrition and Diabetes Education in [place], [place] [address] [place] [phone] Cinda Willis M.B., Ch.B. [address] [place] [phone] Mandy Trevino M.S., VERENA, LD [address] [place] [phone] 07/07/2024 4:30 PM CDT Clinical Support [facility] and Health in [place], [place] [address] [place] [phone] Zeke Reddy L.Ac. [address] [place] [phone] 08/04/2024 2:00 PM MAINTENANCE MECHANIC MILLWRIGHT Telemedicine Department of Nutrition and Diabetes Education in [place], [place] [address] [place] [phone] Cinda Willis M.B., Ch.B. [address] [place] [phone] Mandy Trevino M.S., VERENA, LD [address] [place] [phone] 08/18/2024 2:45 PM MAINTENANCE MECHANIC MILLWRIGHT Clinical Support Integrative Medicine and Health in [address] [phone] Zeke Reddy L.Ac. [address] [place] [phone] documented as of this encounter Visit Diagnoses Not on filedocumented in this encounter Additional Health Concerns Assessment Noted Time PHQ-9 Depression Total Score: 4 03/11/20 21 2:35 PM CDT documented as of this encounter
--- OUTSIDE RECORDS SUMMARY | 2024-05-17 14:58 | XMS_ITS | Clinical Summary ---
Author Organization [facility] Address [address] [place] [address] Care Team Providers Care Coal Grader Name Role Phone Unavailable Primary Care Provider Unavailabl e Source Comments Patient records contain information from all sites at [facility]. For routine questions regarding patient records, call [phone] during business hours, M-F 8:00 AM - 5:00 PM Central Time. Record requests for emergency care only can be directed to [phone] at any time.[facility] Allergies Active Allergy Reactions Criticality Noted [...] take 2nd dose if needed. Will need trailer driver. 2 tablet 07/23/2023 Active diazePAM (Valium) 5 mg tablet Take 1 tablet (5 mg total) by mouth See Admin Instructions. Take one (1) tablet 30 minutes before MRI, may take 2nd dose if needed. Will need trailer driver. 2 tablet 07/23/2023 Active diazePAM (VALIUM) [...] 05/17/2024 Orders Only Division of Endocrinology in [place], [place] [address] [place] [address] Kristi Garland APRN, C.N.P. 05/12/2024 1:00 PM CDT Clinical Support Integrative Medicine and Health in [place], [place] [address] [place] [address] Calvin Smalls L.Ac. Pain Low Back Unspecified; Pain Hip Bilateral 04/21/2024 2:00 PM CDT Clinical Support Department of Nutrition and Diabetes Education in [place], [place] [address] [place] [address] Cinda Willis M.B., Ch.B. Mandy Trevino MNorbertoSNorberto, RDN, LD Obesity Body Mass Index 30-39.9 Adult [E66.9] (Primary Dx) 04/14/2024 2:45 PM CDT Clinical Support [facility] Health in [place], [place] [address] [place] [address] Calvin Smalls L.Ac. Pain Low Back Unspecified; Pain Hip Bilateral 04/14/2024 Clinical Communication [facility]ative Medicine and Health in [place], [place] [address] [place] [address] Calvin Smalls L.Ac. 03/09/2024 2:45 PM CDT Clinical Support [facility] Health in [place], [place] [address] [place] [address] Paulie Corral L.Ac. Pain Low Back Unspecified; Pain Hip Bilateral 03/06/2024 Refill Division of Endocrinology in [place], [place] [address] [place] [address] Cinda Willis M.B., Ch.B. Med Refill 02/18/2024 2:00 PM CDT Clinical Support Department of Nutrition and Diabetes Education in [place], [place] [address] [place] [address] Cinda Willis M.B., Ch.B. Mandy Trevino M.S., [...] week 11/22/2022 How often do you attend [facility] or adventist services? More than 4 times per year 11/22/2022 Do you belong to any clubs o r organizations such as mormon groups, unions, fraternal or athletic groups, or [...] Date Recorded PHQ-2 Score 1 03/11/2021 [facility] of Occupat ional Health - Occupational [...] your living situation today? I have a [facility] place to live 12/31/2023 Education Answer Date Recorded What is the highest level of school you have completed or the highest degree you have received? Associate degree: occupational, technical, or vocational program 10/01/2020 Sex and Gender Information Value Date Recorded Sex Assigned at Female 06/23/2021 10:52 AM CDT Gender Identity Female 10/01/2020 2:34 PM HIGH SCHOOL MUSIC DIRECTOR Sexual Orientation Straight 10/01/2020 2: 34 PM HIGH SCHOOL MUSIC DIRECTOR Last Filed Vital Signs Vital Sign Reading Time Taken Comments Blood Pressure 154/72 10/27/2023 2:52 PM HIGH SCHOOL MUSIC DIRECTOR Pulse 63 10/27/2023 2:52 PM HIGH SCHOOL MUSIC DIRECTOR Temperature 36.6 ??C (97.9 ??F) 10/27/2023 1:41 PM CS T Respiratory Rate 18 01/20/2021 1:15 PM CDT Oxygen Saturation 98% 10/27/2023 2:52 PM HIGH SCHOOL MUSIC DIRECTOR Inhaled Oxygen Concentration - - Weight 88.6 kg (195 lb 5.2 oz) 04/21/2024 1:29 P M CDT Height 160 cm (5' 2.99) 04/21/2024 1:29 PM CDT Body Mass Index 34.61 04/21/2024 1:29 PM CDT Plan of Treatment Upcoming Encounters Date Type Department Care Team (Late st Contact Info) Description 06/02/2024 3:00 PM CDT Clinical Support Department of Nutrition and Diabetes Education in [place], [place] [address] [place] [address] Cinda Willis M.B., Ch.B. [address] [place] [phone] Mandy Trevino M.S., RDN, LD [address] [place] [phone] 06/09/2024 2:45 PM CDT Clinical Support [facility] and Health in [place], [place] [address] [place] [address] Zeke Reddy L.Ac. [address] [place] [phone] 06/30/2024 2:00 PM CDT Clinical Support Department of Nutrition and Diabetes Education in [place], [place] [address] [place] [phone] Cinda Willis M.B., Ch.B. [address] [place] [phone] Mandy Trevino M.S., RDN, LD [address] [place] [phone] 07/07/2024 4:30 PM CDT Clinical Support [facility] and Health in [place], [place] [address] [place] [address] Zeke Reddy L.Ac. [address] [place] [phone] 08/04/2024 2:00 PM HIGH SCHOOL MUSIC DIRECTOR Telemedicine Department of Nutrition and Diabetes Education in [place], [place] [address] [place] [phone] Cinda Willis M.B., Ch.B. [address] [place] [phone] Mandy Trevino M.S., RDN, LD [address] [place] [phone] 08/18/2024 2:45 PM HIGH SCHOOL MUSIC DIRECTOR Clinical Support [facility]ative Medicine and Health in [place], [place] [address] [place] [phone] Zeke Reddy L.Ac. [address] [place] [phone] Health Maintenance Due Date Last Done Comments [...] this topic Medical Devices Implanted Type Area Revenue Enforcement Collection Agent Device Identifier Shelf Expiration Date Model / Serial / Lot Misc Other Misc Other Mouth Description:Left side upper lower teeth Procedures Procedure Name Priority Date/Time Associated Diagnosis Comments THYROID-STIMULATING HORMONE-SENSITIVE (S-TSH) Routine 09/03/2023 1:51 PM HIGH SCHOOL MUSIC DIRECTOR Hypothyroidism Primary OUTSIDE MG MAMMOGRAM Routine 03/22/2020 1:15 PM CDT HEMOGLOBIN A1C, B Routine 10/13/2016 9:2 6 AM HIGH SCHOOL MUSIC DIRECTOR CHRONIC VIRAL HEPATITIS PROFILE Routine 10/13/2016 9:26 AM HIGH SCHOOL MUSIC DIRECTOR CREATININE WITH EGFR, S/P Routine 10/13/2016 9:26 AM HIGH SCHOOL MUSIC DIRECTOR from Last 3 Months or Most Recently Relevant to Health Maintenance Results * S-TSH (Thyroid-Stimulating Hormone - Sensitive) (09/03/2023 1:51 PM HIGH SCHOOL MUSIC DIRECTOR) TSH, Sensitive 0.6 0.3 - 4.2 mIU/L 09/03/2023 2:56 PM HIGH SCHOOL MUSIC DIRECTOR DTL Blood (Blood, Venous) 09/03/2023 1:51 PM HIGH SCHOOL MUSIC DIRECTOR 09/03/2023 2:23 PM HIGH SCHOOL MUSIC DIRECTOR Cinda Willis M.B., Ch.B. LAB BLOOD ADD-ON Performing Organization Address City/[facility] Co de Phone Number [facility] [address] [place] [address], [facility] DTL [facility] [address] [place] [address] * MAMMO SCREEN, BILAT, W/CAD-Outside Mammogram (03/22/2020 [...] System IMG BI PROCEDURES Performing Organization Address [facility] [[email or web address]] de Phone Number [facility] NA * Chronic Hepatitis Profile (10/13/2016 9:26 AM HIGH SCHOOL MUSIC DIRECTOR) HBs Antigen, S Negative Negative [facility] HBc Total Ab, S Negative Negative [facility] HCV Ab, S Negative Negative [facility] Comment:Bwavzo-xi-buxmxv rat io is <1.00. HBs Antibody,S Negative Unvaccinated : Negative; Vaccinated: Positive [facility] Comment:Patient is presumed to be not immune to infection with HBV. HBs Antibody, Quantitative, S <5.0 Unvaccinated : <5.0; Vaccinated: >=12.0 MIU/ML [facility] 10/13/2016 9:26 AM HIGH SCHOOL MUSIC DIRECTOR 10/13/2016 9:26 AM HIGH SCHOOL MUSIC DIRECTOR Didier Hays M.D. LAB MICROBIOLOGY - BLOOD ORDERABLES Performing Organization Address [facility] Co de Phone Number [facility] [address] [place] [address], [facility] * Hemoglobin A1c (10/13/2016 9:26 AM HIGH SCHOOL MUSIC DIRECTOR) Hemoglobin A1c, B 5.4 4.0 - 5.6 % [facility] 10/13/2016 9:26 AM HIGH SCHOOL MUSIC DIRECTOR 10/13/2016 9:26 AM HIGH SCHOOL MUSIC DIRECTOR Didier Hays M.D. LAB BLOOD ADD-ON [facility] [address] * Creatinine with Estimated GFR (MDRD) (10/13/2016 9:26 AM HIGH SCHOOL MUSIC DIRECTOR) Creatinine 0.9 0.6 - 1.1 MG/DL [facility] eGFR Non-Black/Afric an Syrian >60 >60 ML/MIN/BSA [facility] eGFR-Black/Afri can Syrian >60 >60 ML/MIN/BSA [facility] 10/13/2016 9:26 AM HIGH SCHOOL MUSIC DIRECTOR 10/13/2016 9:26 AM HIGH SCHOOL MUSIC DIRECTOR Didier Hays M.D. LAB BLOOD ADD-ON [facility] [address] from Last 3 Months or Most Recently Relevant to Health Maintenance
--- OUTSIDE RECORDS SUMMARY | 2024-05-17 14:58 | XMS_ITS | Encounter Summary ---
Author Organization [facility] Address [address] [place] [address] Care Team Providers Care Hr Intern Name Role Phone Unavailable Primary Care Provider Unavailabl e Reason for Visit * Outpatient (Routine) - Closed Specialty Diagnoses / Procedures Referred By Neftaly weinstein Referred To Contact Diagnoses Pain Low Back Unspecified Pain Hip Bilateral Procedures [facility] Acupuncture Rst [facility] [address] [place] [address] [facility] Referral ID Status Reason Start Date Expiration Date Visits Re quested Visits Authorized [id number] Closed 12/11/2022 12/11/2023 12 12 Encounter Details Date Type Department Care Team (Latest Contact Info) Description 03/09/2024 2:45 PM CDT Clinical Support [facility]ative Medicine and Health in [place], [place] [address] [place] [phone] Paulie Corral, L.. Pain Low Back Unspecified; Pain Hip Bilateral Social History Tobacco Use Types Packs/Day Years Used Date Smoking Tobacco: Never Smokeless Tobacco: Never Alcohol Use Standard Drinks/Week Comments Not Currently 1 (1 standard drink = 0.6 oz pur e alcohol) [facility] Utilities Answer Date Recorded In the [...] How often do you attend chur or jewish services? More than 4 times per year 11/22/2022 Do you belong to any clubs o r organizations such as hindu groups, unions, fraternal or athletic groups, or [...] Answer Date Recorded PHQ-2 Score 1 03/11/2021 [facility] of Occupat ional Health - [...] your living situation today? I have a [facility] place to live 12/31/2023 Education Answer Date Recorded What is the highest level of school you have completed or the highest degree you have received? Associate degree: occupational, technical, or vocational program 10/01/2020 Sex and Gender Information Value Date Recorded Sex Assigned at Female 06/23/2021 10:52 AM CDT Gender Identity Female 10/01/2020 2:34 PM HOME THERAPY CLINICIAN Sexual Orientation Straight 10/01/2020 2: 34 PM HOME THERAPY CLINICIAN documented as of this encounter Progress Notes * Paulie Corral L.Ac. - 03/09/2024 2:45 PM CDT Referral Source: No ref. provider found Supervised by: Noemy Felton MD [id number] SUBJECTIVE Chief Complaint: Bilateral Hip Pain and [...] symptom relief. Total Needling Time: 30 minutes [place] Electrified: No Diathermy: Yes Cupping: No Tuina: No Treatment Points Used: Set One: Gb20, Gb21, Du14, Bl13, Bl14, Bl15, Bl17, Sp6, Ki3 Set Two: Bl23, Bl24, Bl25, Vishal Kieran, Bl54, Gb30, Gb34 Head: None Auricular: None Number of [place] Used = Number of [place] Retrieved: Yes Stimulation Intensity: Medium Narrative Assessment: [...] the www.[employer].org for locating a qualified licensed surveyor in the local community. PATIENT EDUCATION Ready to learn, no apparent learning barriers were identified, learning preference include listening. Explained diagnosis and treatment plan: patient/caregiver expressed understanding of the content. documented in this encounter Plan of Treatment Upcoming Encounters Date Type Department Care Team (Late st Contact Info) Description 06/02/2024 3:00 PM CDT Clinical Support Department of Nutrition and Diabetes Education in [address] [phone] Cinda Willis M.B., Ch.B. [address] [place] [phone] Mandy Trevino M.S., TOIN, LD [address] [place] [phone] 06/09/2024 2:45 PM CDT Clinical Support [facility]ative Medicine and Health in [address] [phone] Zeke Reddy L.Ac. [address] [place] [phone] 06/30/2024 2:00 PM CDT Clinical Support Department of Nutrition and Diabetes Education in [address] [phone] Cinda Willis M.B., Ch.B. [address] [place] [phone] Mandy Trevino M.S., VERENA, LD [address] [place] [phone] 07/07/2024 4:30 PM CDT Clinical Support [facility]ative Medicine and Health in [address] [phone] Zeke Reddy L.Ac. [address] [place] [phone] 08/04/2024 2:00 PM HOME THERAPY CLINICIAN Telemedicine Department of Nutrition and Diabetes Education in [place], [place] [address] [place] [address] Cinda Willis M.B., Ch.B. [address] [place] [phone] Mandy Trevino M.S., RDN, LD [address] [place] [phone] 08/18/2024 2:45 PM HOME THERAPY CLINICIAN Clinical Support [facility] Health in [place], [place] [address] [place] [phone] Zeke Reddy L.Ac. [address] [place] [phone] documented as of this encounter Visit Diagnoses Diagnosis Pain Low Back Unspecified Pain Hip Bilateral documented in this encounter Additional Health Concerns Assessment Noted Time PHQ-9 Depression Total Score: 4 03/11/20 21 2:35 PM CDT documented as of this encounter
--- OUTSIDE RECORDS SUMMARY | 2024-05-17 14:58 | XMS_ITS | Encounter Summary ---
Author Organization [facility] Address [address] [place] [address] Care Team Providers Care Mixing Place Supervisor Name Role Phone Unavailable Primary Care Provider Unavailabl e Reason for Referral * Outpatient (Routine) - Authorized Specialty Diagnoses / Procedures Referred By Contac t Referred To Contact Diagnoses Pain Low Back Unspecified Pain Hip Bilateral Procedures [facility] Acup[facility] [address] [place] [address] [facility] Referral ID Status Reason Start Date Expiration Date V isits Requested Visits Authorized [id number] Authorized 02/07/2024 02/06/2025 20 20 Reason for Visit * Outpatient (Routine) - Closed Specialty Diagnoses / Procedures Referred By Contac t Referred To Contact Diagnoses Pain Low Back Unspecified Pain Hip Bilateral Procedures [facility] Acup[facility] [address] [place] [address] [facility] Referral ID Status Reason Start Date Expiration Date Visits Re quested Visits Authorized [id number] Closed 12/11/2022 12/11/2023 12 12 Encounter Details Date Type Department Care Team (Latest Contact Info) Description 02/07/2024 1:30 PM CDT Clinical Support [facility]ative [facility] and Health in [place], [place] [address] [place] [phone] Zeke Reddy L.Ac. [address] [place] [phone] Pain Low Back Unspecified; Pain Hip Bilateral Social History Tobacco Use Types Packs/Day Years Used Date Smoking Tobacco: Never Smokeless Tobacco: Never Alcohol Use Standard Drinks/Week Comments Not Currently 1 (1 standard drink = 0.6 oz pur e alcohol) [facility] Utilities Answer Date Recorded In the [...] often do you attend chur ch or jewish services? More than 4 times [...] Answer Date Recorded PHQ-2 Score 1 03/11/2021 [facility] - Occupational [...] your living situation today? I have a [facility] place to live 12/31/2023 Education Answer Date Recorded What is the highest level of school you have completed or the highest degree you have received? Associate degree: occupational, technical, or vocational program 10/01/2020 Sex and Gender Information Value Date Recorded Sex Assigned at Female 06/23/2021 10:52 AM CDT Gender Identity Female 10/01/2020 2:34 PM LEARNING AND DEVELOPMENT ADMINISTRATOR Sexual Orientation Straight 10/01/2020 2: 34 PM LEARNING AND DEVELOPMENT ADMINISTRATOR documented as of this encounter Progress Notes [...] symptom relief. Total Needling Time: 30 minutes [place] Electrified: No Diathermy: No Cupping: Yes Treatment Points Used: Set One: GV 14/16/17, GB 19/20/21, Jingbailao, SI 11/13,BL 24/25/26/27/28 Set Two: Both GB 29/30/34/41, BL 54, Hip Ashix1 Number of [place] Used = Number of [place] Retrieved: Yes Stimulation Intensity: Medium Narrative Assessment: [...] the www.NCCAOM.org for locating a qualified licensed plumber in the local community. PATIENT EDUCATION Ready to learn, no apparent learning barriers were identified, learning preference include listening. Explained diagnosis and treatment plan: patient/caregiver expressed understanding of the content. documented in this encounter Plan of Treatment Upcoming Encounters Date Type Department Care Team (Late st Contact Info) Description 06/02/2024 3:00 PM CDT Clinical Support Department of Nutrition and Diabetes Education in [place], [place] [address] [place] [phone] Cinda Willis M.B., Ch.B. [address] [place] [phone] Mandy Trevino M.S., RDN, LD [address] [place] [phone] 06/09/2024 2:45 PM CDT Clinical Support [facility] in [place], [place] [address] [place] [phone] Zeke Reddy L.Ac. [address] [place] [phone] 06/30/2024 2:00 PM CDT Clinical Support Department of Nutrition and Diabetes Education in [place], [place] [address] [place] [phone] Cinda Willis M.B., Ch.B. [address] [place] [phone] Mandy Trevino M.S., VERENA, LD [address] [place] [phone] 07/07/2024 4:30 PM CDT Clinical Support [facility] in [place], [place] [address] [place] [phone] Zeke Reddy L.Ac. [address] [place] [phone] 08/04/2024 2:00 PM LEARNING AND DEVELOPMENT ADMINISTRATOR Telemedicine Department of Nutrition and Diabetes Education in [place], [place] [address] [place] [phone] Cinda Willis M.B., Ch.B. [address] [place] [phone] Mandy Trevino M.S., VERENA, LD [address] [place] [phone] 08/18/2024 2:45 PM LEARNING AND DEVELOPMENT ADMINISTRATOR Clinical Support [facility]ative [facility] in [address] [phone] Zeke Reddy L.Ac. [address] [place] [phone] Scheduled Orders Name Type Priority Associated Diagnoses Orde r Schedule [facility] Acupuncture Procedures Routine Pain Low Back [...]
--- OUTSIDE RECORDS SUMMARY | 2024-05-17 14:58 | XMS_ITS ---
Author Organization [facility] Address [address] [place] [address] Care Team Providers Care Power Plant Operations Manager Name Role Phone Unavailable Unavailable Unavailable Surgery Details Not on file Complications Check Surgery Details section. Procedure Estimated Blood Loss Check Surgery Details section. Procedure Findings Check Surgery Details section. Procedure Specimens Taken Check Surgery Details section.
--- OUTSIDE RECORDS SUMMARY | 2024-05-17 14:58 | XMS_ITS | Encounter Summary ---
Author Organization [facility] Address [address] [place] [address] Care Team Providers Care Special Skills Officer Name Role Phone Unavailable Primary Care Provider Unavailabl e Reason for Referral * Outpatient (Routine) - Authorized Specialty Diagnoses / Procedures Referred By Contac t Referred To Contact Cinda Styles M.B., Ch.B. [address] [place] [phone] [facility] Referral ID Status Reason Start Date Expiration Date V isits Requested Visits Authorized [id number] Authorized 04/21/2024 10/21/2025 2 2 Reason for Visit * Outpatient (Routine) - Authorized Specialty Diagnoses / Procedures Referred By Neftaly weinstein Referred To Contact Cinda Styles M.B., Ch.B. [address] [place] [phone] [facility] Referral ID Status Reason Start Date Expiration Date V isits Requested Visits Authorized [id number] Authorized 02/18/2024 08/19/2025 2 2 Encounter Details Date Type Department Care Team (Latest Contact Info) Description 04/21/2024 2:00 PM CDT Clinical Support Department of Nutrition and Diabetes Education in [place], [place] [address] [place] [phone] Cinda Willis M.B., Ch.B. [address] [place] [phone] Mandy Trevino M.S., RDN, LD [address] [place] [address] Obesity Body Mass Index 30-39.9 Adult [E66.9] (Primary Dx) Social History Tobacco Use Types Packs/Day Years Used Date Smoking Tobacco: Never Smokeless Tobacco: Never Alcohol Use Standard Drinks/Week Comments Not Currently 1 (1 standard drink = 0.6 oz pur e alcohol) [facility] Utilities Answer Date Recorded In the past 12 months has e [employer], gas, oil, or water [employer] threatened to shut off services in your [...] How often do you attend chur or confucianist services? More than 4 times per year 11/22/2022 Do you belong to any clubs o r organizations such as worship groups, unions, fraternal or athletic groups, or [...] Answer Date Recorded PHQ-2 Score 1 03/11/2021 [facility] Occupat ional [facility] - Occupational Stress Questionnaire Answer [...] COMPLIANCE REPRESENTATIVE documented as of this encounter Last Filed [...] find benefits from [employer]. She is in [employer] group 2 times per month. She is [...] Department of Nutrition and Diabetes Education in [place], [place] [address] [place] [phone] Cinda Willis M.B., Ch.B. [address] [place] [phone] Mandy Trevino M.S., RDN, LD [address] [place] [phone] 06/09/2024 2:45 PM CDT Clinical Support [facility]ative [facility] and Health in [place], [place] [address] [place] [phone] Zeke Reddy L.Ac. [address] [place] [phone] 06/30/2024 2:00 PM CDT Clinical Support Department of Nutrition and Diabetes Education in [place], [place] [address] [place] [address] Cinda Willis M.B., Ch.B. [address] [place] [phone] Mandy Trevino M.S., VERENA, LD [address] [place] [phone] 07/07/2024 4:30 PM CDT Clinical Support [facility] in [place], [place] [address] [place] [phone] Zeke Reddy L.Ac. [address] [place] [phone] 08/04/2024 2:00 PM TAX COMPLIANCE REPRESENTATIVE Telemedicine Department of Nutrition and Diabetes Education in [place], [place] [address] [place] [phone] Cinda Willis M.B., Ch.B. [address] [place] [phone] Mandy Trevino M.S., VERENA, LD [address] [place] [phone] 08/18/2024 2:45 PM TAX COMPLIANCE REPRESENTATIVE Clinical Support [facility]ative [facility] in [place], [place] [address] [place] [phone] Zeke Reddy L.Ac. [address] [place] [address] Scheduled Referrals Name Type Priority Associated Diagnoses [...]
--- OUTSIDE RECORDS SUMMARY | 2024-05-17 14:58 | XMS_ITS | Encounter Summary ---
Author Organization [facility] Address [address] [place] [address] Care Team Providers Care Manager Recruiting Name Role Phone Unavailable Primary Care Provider Unavailabl e Encounter Details Date Type Department Care Team (Late st Contact Info) Description 04/14/2024 Clinical Communication Integrative Medicine and Health in [place], [place] [address] [place] [phone] Calvin Smalls, L.[facility] Social History Tobacco Use Types Packs/Day Years Used Date Smoking Tobacco: Never Smokeless Tobacco: Never Alcohol Use Standard Drinks/Week Comments Not Currently 1 (1 standard drink = 0.6 oz pur e alcohol) [facility] Utilities Answer Date Recorded In the past 12 months has [facility] [employer], gas, oil, or water [employer] threatened to shut off services in your [...] How often do you attend chur or taoist services? More than 4 times [...] Answer Date Recorded PHQ-2 Score 1 03/11/2021 [facility] - Occupational Stress Questionnaire Answer [...] Answer Date Recorded Employment status Unemployed/not in [employer] paid workforce and NOT seeking employment 12/31/2023 [...] CDT Gender Identity Female 10/01/2020 2:34 PM DIRECTOR OF MARKET RESEARCH Sexual Orientation Straight 10/01/2020 2: 34 PM DIRECTOR OF MARKET RESEARCH documented as of this encounter Plan of Treatment Upcoming Encounters Date Type Department Care Team (Late st Contact Info) Description 06/02/2024 3:00 PM CDT Clinical Support Department of Nutrition and Diabetes Education in [place], [place] [address] [place] [phone] Cinda Willis M.B., Ch.B. [address] [place] [phone] Mandy Trevino M.S., RDN, LD [address] [place] [address] 06/09/2024 2:45 PM CDT Clinical Support [facility] and Health in [place], [place] [address] [place] [phone] Zeke Reddy L.Ac. [address] [place] [phone] 06/30/2024 2:00 PM CDT Clinical Support Department of Nutrition and Diabetes Education in [place], [place] [address] [place] [address] Cinda Willis M.B., Ch.B. [address] [place] [phone] Mandy Trevino M.S., RDN, LD [address] [place] [phone] 07/07/2024 4:30 PM CDT Clinical Support [facility] and Health in [place], [place] [address] [place] [phone] Zeke Reddy L.Ac. [address] [place] [phone] 08/04/2024 2:00 PM DIRECTOR OF MARKET RESEARCH Telemedicine Department of Nutrition and Diabetes Education in [place], [place] [address] [place] [phone] Cinda Willis M.B., Ch.B. [address] [place] [phone] Mandy Trevino M.S., RDN, LD [address] [place] [phone] 08/18/2024 2:45 PM DIRECTOR OF MARKET RESEARCH Clinical Support [facility] and Health in [place], [place] [address] [place] [phone] Zeke Reddy L.Ac. [address] [place] [phone] documented as of this encounter Visit Diagnoses Not on filedocumented in this encounter Additional Health Concerns Assessment Noted Time PHQ-9 Depression Total Score: 4 03/11/20 21 2:35 PM CDT documented as of this encounter
--- OUTSIDE RECORDS SUMMARY | 2024-05-17 14:58 | XMS_ITS | Encounter Summary ---
Author Organization [facility] Address [address] [place] [address] Care Team Providers Care Clinical Sales Consultant Name Role Phone Unavailable Primary Care Provider Unavailabl e Reason for Visit * Outpatient (Routine) - Authorized Specialty Diagnoses / Procedures Referred By Neftaly weinstein Referred To Contact Diagnoses Pain Low Back Unspecified Pain Hip Bilateral Procedures [facility] Acupuncture [facility] [address] [place] [address] [facility] Referral ID Status Reason Start Date Expiration Date V isits Requested Visits Authorized [id number] Authorized 02/07/2024 02/06/2025 20 20 Encounter Details Date Type Department Care Team (Latest Contact Info) Description 04/14/2024 2:45 PM CDT Clinical Support Integrative Medicine and Health in [place], [place] [address] [place] [address] Calvin Smalls L.[facility] Pain Low Back Unspecified; Pain Hip Bilateral Social History Tobacco Use Types Packs/Day Years Used Date Smoking Tobacco: Never Smokeless Tobacco: Never Alcohol Use Standard Drinks/Week Comments Not Currently 1 (1 standard drink = 0.6 oz pur e alcohol) [facility] Utilities Answer Date Recorded In the [...] How often do you attend chur or hoahaoism services? More than 4 times per year 11/22/2022 Do you belong to any clubs o r organizations such as judaism groups, unions, fraternal or athletic groups, or [...] Answer Date Recorded PHQ-2 Score 1 03/11/2021 [facility] Occupat ional Health - Occupational Stress [...] your living situation today? I have a [facility] place to live 12/31/2023 Education Answer Date Recorded What is the highest level of school you have completed or the highest degree you have received? Associate degree: occupational, technical, or vocational program 10/01/2020 Sex and Gender Information Value Date Recorded Sex Assigned at Female 06/23/2021 10:52 AM CDT Gender Identity Female 10/01/2020 2:34 PM INSTRUMENTATION AND CONTROL TECHNICIAN Sexual Orientation Straight 10/01/2020 2: 34 PM INSTRUMENTATION AND CONTROL TECHNICIAN documented as of this encounter Progress Notes * Calvin Smalls L.Ac. - 04/14/2024 2:45 PM CDT Referral Source: No ref. provider found Supervised by: [place] [id number] SUBJECTIVE Chief Complaint: Back Pain History of [...] symptom relief. Total Needling Time: 30 minutes [place] Electrified: No Diathermy: Yes Cupping: No Treatment Points Used: Set One: GB20, UB10, GB21, SI15, UB23-25, Bailao, YaoYan, TFL mitzi triangle Set Two: UB40, GB34, SP6, KD3, UB62 Number of [place] Used = Number of [place] Retrieved: Yes Stimulation Intensity: Medium Narrative Assessment: [...] the www.NCCAOM.org for locating a qualified licensed audiologist in the local community. PATIENT EDUCATION Ready to learn, no apparent learning barriers were identified, learning preference include listening. Explained diagnosis and treatment plan: patient/caregiver expressed understanding of the content. documented in this encounter Plan of Treatment Upcoming Encounters Date Type Department Care Team (Late st Contact Info) Description 06/02/2024 3:00 PM CDT Clinical Support Department of Nutrition and Diabetes Education in [address] [phone] Cinda Willis M.B., Ch.B. [address] [place] [phone] Mandy Trevino M.S., VERENA, LD [address] [place] [phone] 06/09/2024 2:45 PM CDT Clinical Support [facility]ative Medicine and Health in [address] [phone] Zeke Reddy L.Ac. [address] [place] [phone] 06/30/2024 2:00 PM CDT Clinical Support Department of Nutrition and Diabetes Education in [place], [place] [address] [place] [phone] Cinda Willis M.B., Ch.B. [address] [place] [phone] Mandy Trevino M.S., VERENA, LD [address] [place] [phone] 07/07/2024 4:30 PM CDT Clinical Support [facility] in [place], [place] [address] [place] [phone] Zeke Reddy L.Ac. [address] [place] [phone] 08/04/2024 2:00 PM INSTRUMENTATION AND CONTROL TECHNICIAN Telemedicine Department of Nutrition and Diabetes Education in [place], [place] [address] [place] [phone] Cinda Willis M.B., Ch.B. [address] [place] [phone] Mandy Trevino M.S., RDN, LD [address] [place] [phone] 08/18/2024 2:45 PM INSTRUMENTATION AND CONTROL TECHNICIAN Clinical Support [facility] in [place], [place] [address] [place] [phone] Zeke Reddy L.Ac. [address] [place] [phone] documented as of this encounter Visit Diagnoses Diagnosis Pain Low Back Unspecified Pain Hip Bilateral documented in this encounter Additional Health Concerns Assessment Noted Time PHQ-9 Depression Total Score: 4 03/11/20 21 2:35 PM CDT documented as of this encounter
== END 2024-05-17 14:57 | disposition home or self-care (01) ==
LOC: NFLDREF 14:56
PROVIDERS: PCP Family Medicine; Visit Provider Family Medicine
DX: N18.9 Chronic kidney disease, unspecified (principal)
CPT/HCPCS: 84439; 84443

== ENCOUNTER 2024-05-26 10:53 | Outpatient (CLI) | payer BC, SELFPAY ==
--- OUTSIDE RECORDS SUMMARY | 2024-06-01 06:32 | XMS_ITS | Encounter Summary ---
Author Organization [facility] Address [address] [place] [address] Care Team Providers Care Quality Control Tech Name Role Phone Unavailable Primary Care Provider Unavailabl e Encounter Details Date Type Department Care Team (Late st Contact Info) Description 05/17/2024 Orders Only Division of Endocrinology in [place], [place] [address] [place] [address] Kristi Garland, FORREST, C.N.P. [address] [place] [address] Social History Tobacco Use Types Packs/Day Years Used Date Smoking Tobacco: Never Smokeless Tobacco: Never Alcohol Use Standard Drinks/Week Comments Not Currently 1 (1 standard drink = 0.6 oz pur e alcohol) [facility] Utilities Answer Date Recorded In the past 12 months has [facility] [employer], gas, oil, or water [employer] threatened to shut off services in your [...] often do you attend chur ch or buddhism services? More than 4 times per year [...] Answer Date Recorded Employment status Unemployed/not in [employer] paid workforce and NOT seeking employment 12/31/2023 Housing Stability Answer Date Recorded What is your living situation today? I have a [facility] place to live 12/31/2023 Education Answer Date Recorded What is the highest level of school you have completed or the highest degree you have received? Associate degree: occupational, technical, or vocational program 10/01/2020 Sex and Gender Information Value Date Recorded Sex Assigned at Female 06/23/2021 10:52 AM CDT Gender Identity Female 10/01/2020 2:34 PM MECHANICAL PRODUCT ENGINEER Sexual Orientation Straight 10/01/2020 2: 34 PM MECHANICAL PRODUCT ENGINEER documented as of this encounter Plan of Treatment Upcoming Encounters Date Type Department Care Team (Late st Contact Info) Description 06/02/2024 3:00 PM CDT Clinical Support Department of Nutrition and Diabetes Education in [place], [place] [address] [place] [phone] Cinda Willis M.B., Ch.B. [address] [place] [phone] Mandy Trevino M.S., RDN, LD [address] [place] [phone] 06/09/2024 2:45 PM CDT Clinical Support Integrative Medicine and Health in [place], [place] [address] [place] [phone] Zeke Reddy L.Ac. [address] [place] [phone] 06/30/2024 2:00 PM CDT Clinical Support Department of Nutrition and Diabetes Education in [place], [place] [address] [place] [phone] Cinda Willis M.B., Ch.B. [address] [place] [phone] Mandy Trevino M.S., VERENA, LD [address] [place] [phone] 07/07/2024 4:30 PM CDT Clinical Support [facility]ative Medicine and Health in [place], [place] [address] [place] [phone] Zeke Reddy L.Ac. [address] [place] [phone] 08/04/2024 2:00 PM MECHANICAL PRODUCT ENGINEER Telemedicine Department of Nutrition and Diabetes Education in [place], [place] [address] [place] [phone] Cinda Willis M.B., Ch.B. [address] [place] [phone] Mandy Trevino M.S., RDN, LD [address] [place] [phone] 08/15/2024 3:00 PM MECHANICAL PRODUCT ENGINEER Office Visit Division of Endocrinology in [place], [place] [address] [place] [phone] Cinda Willis M.B., Ch.B. [address] [place] [phone] 08/18/2024 2:45 PM MECHANICAL PRODUCT ENGINEER Clinical Support Integrative Medicine and Health in [place], [place] [address] [place] [phone] Zeke Reddy L.Ac. [address] [place] [address] documented as of this encounter Visit Diagnoses Not on filedocumented in this encounter Additional Health Concerns Assessment Noted Time PHQ-9 Depression Total Score: 4 03/11/20 21 2:35 PM CDT documented as of this encounter
--- OUTSIDE RECORDS SUMMARY | 2024-06-01 06:32 | XMS_ITS | Clinical Summary ---
Author Organization [facility] Address [address] [place] [address] Care Team Providers Care Cocoa Bean Roaster Helper Name Role Phone Unavailable Primary Care Provider Unavailabl e Source Comments Patient records contain information from all sites at [facility]. For routine questions regarding patient records, call [phone] during business hours, M-F 8:00 AM - 5:00 PM Central Time. Record requests for emergency care only can be directed to [phone] at any time.[facility] Allergies Active Allergy Reactions Criticality Noted Date [...] 2nd dose if needed. Will need driver service technician. 2 tablet 07/23/2023 Active diazePAM (Valium) 5 mg tablet Take 1 tablet (5 mg total) by mouth See Admin Instructions. Take one (1) tablet 30 minutes before MRI, may take 2nd dose if needed. Will need driver service technician. 2 tablet 07/23/2023 Active diazePAM (VALIUM) 5 [...] 05/17/2024 Orders Only Division of Endocrinology in [place], [place] [address] [place] [address] Kristi Garland APRN, C.N.P. 05/12/2024 1:00 PM CDT Clinical Support Integrative Medicine and Health in [place], [place] [address] [place] [address] Calvin Smalls L.Ac. Pain Low Back Unspecified; Pain Hip Bilateral 04/21/2024 2:00 PM CDT Clinical Support Department of Nutrition and Diabetes Education in [place], [place] [address] [place] [address] Cinda Willis M.B., Ch.B. Mandy Trevino, M.S., RDN, LD Obesity Body Mass Index 30-39.9 Adult [E66.9] (Primary Dx) 04/14/2024 2:45 PM CDT Clinical Support [facility]ative Medicine and Health in [place], [place] [address] [place] [address] Calvin Smalls L.Ac. Pain Low Back Unspecified; Pain Hip Bilateral 04/14/2024 Clinical Communication [facility]ative Medicine and Health in [place], [place] [address] [place] [phone] Calvin Smalls L.Ac. 03/09/2024 2:45 PM CDT Clinical Support [facility] Medicine and Health in [place], [place] [address] [place] [address] Paulie Corral L.Ac. Pain Low Back Unspecified; Pain Hip Bilateral 03/06/2024 Refill Division of Endocrinology in [place], [place] [address] [place] [address] Cinda Willis M.B., Ch.B. Med Refill from [...] In the past 12 months has e [employer], oil, or water [employer] threatened to shut off services in your [...] often do you attend chur ch or jehovah's witness services? More than 4 times per year 11/22/2022 Do you belong to any clubs o r organizations such as episcopalian groups, unions, fraternal or athletic groups, or [...] your living situation today? I have a [facility] place to live 12/31/2023 Education Answer Date Recorded What is the highest level of school you have completed or the highest degree you have received? Associate degree: occupational, technical, or vocational program 10/01/2020 Sex and Gender Information Value Date Recorded Sex Assigned at Female 06/23/2021 10:52 AM CDT Gender Identity Female 10/01/2020 2:34 PM FLIGHT TEST SHOP MECHANIC Sexual Orientation Straight 10/01/2020 2: 34 PM FLIGHT TEST SHOP MECHANIC Last Filed Vital Signs Vital Sign Reading Time Taken Comments Blood Pressure 154/72 10/27/2023 2:52 PM FLIGHT TEST SHOP MECHANIC Pulse 63 10/27/2023 2:52 PM FLIGHT TEST SHOP MECHANIC Temperature 36.6 ??C (97.9 ??F) 10/27/2023 1:41 PM CS T Respiratory Rate 18 01/20/2021 1:15 PM CDT Oxygen Saturation 98% 10/27/2023 2:52 PM FLIGHT TEST SHOP MECHANIC Inhaled Oxygen Concentration - - Weight 88.6 kg (195 lb 5.2 oz) 04/21/2024 1:29 P M CDT Height 160 cm (5' 2.99) 04/21/2024 1:29 PM CDT Body Mass Index 34.61 04/21/2024 1:29 PM CDT Plan of Treatment Upcoming Encounters Date Type Department Care Team (Late st Contact Info) Description 06/02/2024 3:00 PM CDT Clinical Support Department of Nutrition and Diabetes Education in [place], [place] [address] [place] [phone] Cinda Willis M.B., Ch.B. [address] [place] [phone] Mandy Trevino M.S., RDN, LD [address] [place] [phone] 06/09/2024 2:45 PM CDT Clinical Support [facility] and Health in [place], [place] [address] [place] [phone] Zeke Reddy L.Ac. [address] [place] [phone] 06/30/2024 2:00 PM CDT Clinical Support Department of Nutrition and Diabetes Education in [place], [place] [address] [place] [phone] Cinda Willis M.B., Ch.B. [address] [place] [phone] Mandy Trevino M.S., VERENA, LD [address] [place] [phone] 07/07/2024 4:30 PM CDT Clinical Support [facility] Health in [place], [place] [address] [place] [phone] Zeke Reddy L.Ac. [address] [place] [phone] 08/04/2024 2:00 PM FLIGHT TEST SHOP MECHANIC Telemedicine Department of Nutrition and Diabetes Education in [address] [phone] Cinda Willis M.B., Ch.B. [address] [place] [address] Mandy Trevino M.S., RDN, LD [address] [place] [phone] 08/15/2024 3:00 PM FLIGHT TEST SHOP MECHANIC Office Visit Division of Endocrinology in [place], [place] [address] [place] [address] Cinda Willis M.B., Ch.B. [address] [place] [phone] 08/18/2024 2:45 PM FLIGHT TEST SHOP MECHANIC Clinical Support [facility] and Health in [place], [place] [address] [place] [address] Zeke Reddy L.Ac. [address] [place] [phone] Health Maintenance Due Date Last Done Comments [...] this topic Medical Devices Implanted Type Area Dental Practice Manager Device Identifier Shelf Expiration Date Model / Serial / Lot Misc Other Misc Other Mouth Description:Left side upper lower teeth Procedures Procedure Name Priority Date/Time Associated Diagnosis Comments THYROID-STIMULATING HORMONE-SENSITIVE (S-TSH) Routine 09/03/2023 1:51 PM FLIGHT TEST SHOP MECHANIC Hypothyroidism Primary OUTSIDE MG MAMMOGRAM Routine 03/22/2020 1:15 PM CDT HEMOGLOBIN A1C, B Routine 10/13/2016 9:2 6 AM FLIGHT TEST SHOP MECHANIC CHRONIC VIRAL HEPATITIS PROFILE Routine 10/13/2016 9:26 AM FLIGHT TEST SHOP MECHANIC CREATININE WITH EGFR, S/P Routine 10/13/2016 9:26 AM FLIGHT TEST SHOP MECHANIC from Last 3 Months or Most Recently Relevant to Health Maintenance Results * S-TSH (Thyroid-Stimulating Hormone - Sensitive) (09/03/2023 1:51 PM FLIGHT TEST SHOP MECHANIC) TSH, Sensitive 0.6 0.3 - 4.2 mIU/L 09/03/2023 2:56 PM FLIGHT TEST SHOP MECHANIC DTL Blood (Blood, Venous) 09/03/2023 1:51 PM FLIGHT TEST SHOP MECHANIC 09/03/2023 2:23 PM FLIGHT TEST SHOP MECHANIC Cinda Willis M.B., Ch.B. LAB BLOOD ADD-ON Performing Organization Address [facility] Co de Phone Number [facility] [address] [place] [address], [facility] DTL [facility] [address] [place] [address] * MAMMO SCREEN, BILAT, W/CAD-Outside Mammogram (03/22/2020 [...] System IMG BI PROCEDURES Performing Organization Address [facility] de Phone Number [facility] NA * Chronic Hepatitis Profile (10/13/2016 9:26 AM FLIGHT TEST SHOP MECHANIC) HBs Antigen, S Negative Negative [facility] HBc Total Ab, S Negative Negative [facility] HCV Ab, S Negative Negative [facility] Comment:[id number] rat io is <1.00. HBs Antibody,S Negative Unvaccinated : Negative; Vaccinated: Positive [facility] Comment:Patient is presumed to be not immune to infection with HBV. HBs Antibody, Quantitative, S <5.0 Unvaccinated : <5.0; Vaccinated: >=12.0 MIU/ML [facility] 10/13/2016 9:26 AM FLIGHT TEST SHOP MECHANIC 10/13/2016 9:26 AM FLIGHT TEST SHOP MECHANIC Didier Hays M.D. LAB MICROBIOLOGY - BLOOD ORDERABLES Performing Organization Address [facility] Co de Phone Number [facility] [address] [place] [address], [facility] * Hemoglobin A1c (10/13/2016 9:26 AM FLIGHT TEST SHOP MECHANIC) Hemoglobin A1c, B 5.4 4.0 - 5.6 % [facility] 10/13/2016 9:26 AM FLIGHT TEST SHOP MECHANIC 10/13/2016 9:26 AM FLIGHT TEST SHOP MECHANIC Didier Hays M.D. LAB BLOOD ADD-ON [facility] [address] * Creatinine with Estimated GFR (MDRD) (10/13/2016 9:26 AM FLIGHT TEST SHOP MECHANIC) Creatinine 0.9 0.6 - 1.1 MG/DL [facility] eGFR Non-Black/Afric an Tunisian >60 >60 ML/MIN/BSA [facility] eGFR-Black/Afri can Tunisian >60 >60 ML/MIN/BSA [facility] 10/13/2016 9:26 AM FLIGHT TEST SHOP MECHANIC 10/13/2016 9:26 AM FLIGHT TEST SHOP MECHANIC Didier Hays M.D. LAB BLOOD ADD-ON [facility] [address] from Last 3 Months or Most Recently Relevant to Health Maintenance
--- OUTSIDE RECORDS SUMMARY | 2024-06-01 06:32 | XMS_ITS | Referral Summary ---
Author Organization [facility] Address [address] [place] [address] Care Team Providers Care Environmental Services Supervisor Name Role Phone Unavailable Primary Care Provider Unavailabl e Source Comments Patient records contain information from all sites at [facility]. For routine questions regarding patient records, call [phone] during business hours, M-F 8:00 AM - 5:00 PM Central Time. Record requests for emergency care only can be directed to [phone] at any time.[facility] Encounters Date Type Department Care Team Description 05/17/2024 Orders Only Division of Endocrinology in [place], [place] [address] [place] [address] Kristi Garland APRN, C.N.P. 05/12/2024 1:00 PM CDT Clinical Support [facility] Medicine and Health in [place], [place] [address] [place] [address] Calvin Smalls L.Ac. Pain Low Back Unspecified; Pain Hip Bilateral 04/21/2024 2:00 PM CDT Clinical Support Department of Nutrition and Diabetes Education in [place], [place] [address] [place] [address] Cinda Willis M.B., Ch.B. Mandy Trevino MNorbertoS., RDN, LD Obesity Body Mass Index 30-39.9 Adult [E66.9] (Primary Dx) 04/14/2024 Clinical Communication Integrative Medicine and Health in [place], [place] [address] [place] [address] Calvin Smalls L.Ac. 04/14/2024 2:45 PM CDT Clinical Support Integrative Medicine and [facility] in [place], [place] [address] [place] [address] Calvin Smalls L.Ac. Pain Low Back Unspecified; Pain Hip Bilateral 03/09/2024 2:45 PM CDT Clinical Support [facility] Medicine and [facility] in [place], [place] [address] [place] [address] Paulie Corral L.Ac. Pain Low Back Unspecified; Pain Hip Bilateral 03/06/2024 Refill Division of Endocrinology in [place], [place] [address] [place] [address] Cinda Willis M.B., Ch.B. Med Refill from [...] take 2nd dose if needed. Will need train driver. 2 tablet 07/23/2023 Active diazePAM (Valium) 5 mg tablet Take 1 tablet (5 mg total) by mouth See Admin Instructions. Take one (1) tablet 30 minutes before MRI, may take 2nd dose if needed. Will need train driver. 2 tablet 07/23/2023 Active diazePAM (VALIUM) [...] = 0.6 oz pur e alcohol) [facility] Utilities Answer Date Recorded In the past 12 months has e [employer], gas, oil, or water [employer] threatened to shut off services in your [...] How often do you attend chur or zoroastrian services? More than 4 times per year 11/22/2022 Do you belong to any clubs o r organizations such as islam groups, unions, fraternal or athletic groups, or [...] Answer Date Recorded PHQ-2 Score 1 03/11/2021 [facility] of Occupat ional Health - [...] your living situation today? I have a [facility] place to live 12/31/2023 Education Answer Date Recorded What is the highest level of school you have completed or the highest degree you have received? Associate degree: occupational, technical, or vocational program 10/01/2020 Sex and Gender Information Value Date Recorded Sex Assigned at Female 06/23/2021 10:52 AM CDT Gender Identity Female 10/01/2020 2:34 PM CARD PLACER Sexual Orientation Straight 10/01/2020 2: 34 PM CARD PLACER Last Filed Vital Signs Vital Sign Reading Time Taken Comments Blood Pressure 154/72 10/27/2023 2:52 PM CARD PLACER Pulse 63 10/27/2023 2:52 PM CARD PLACER Temperature 36.6 ??C (97.9 ??F) 10/27/2023 1:41 PM CS T Respiratory Rate 18 01/20/2021 1:15 PM CDT Oxygen Saturation 98% 10/27/2023 2:52 PM CARD PLACER Inhaled Oxygen Concentration - - Weight 88.6 kg (195 lb 5.2 oz) 04/21/2024 1:29 P M CDT Height 160 cm (5' 2.99) 04/21/2024 1:29 PM CDT Body Mass Index 34.61 04/21/2024 1:29 PM CDT Plan of Treatment Upcoming Encounters Date Type Department Care Team (Late st Contact Info) Description 06/02/2024 3:00 PM CDT Clinical Support Department of Nutrition and Diabetes Education in [place], [place] [address] [place] [phone] Cinda Willis M.B., Ch.B. [address] [place] [phone] Mandy Trevino M.S., RDN, LD [address] [place] [phone] 06/09/2024 2:45 PM CDT Clinical Support Integrative Medicine and Health in [place], [place] [address] [place] [phone] Zeke Reddy L.Ac. [address] [place] [phone] 06/30/2024 2:00 PM CDT Clinical Support Department of Nutrition and Diabetes Education in [place], [place] [address] [place] [phone] Cinda Willis M.B., Ch.B. [address] [place] [phone] Mandy Trevino M.S., VERENA, LD [address] [place] [phone] 07/07/2024 4:30 PM CDT Clinical Support Integrative Medicine and Health in [address] [phone] Zeke Reddy L.Ac. [address] [place] [phone] 08/04/2024 2:00 PM CARD PLACER Telemedicine Department of Nutrition and Diabetes Education in [place], [place] [address] [place] [phone] Cinda Willis M.B., Ch.B. [address] [place] [phone] Mandy Trevino M.S., VERENA, LD [address] [place] [phone] 08/15/2024 3:00 PM CARD PLACER Office Visit Division of Endocrinology in [place], [place] [address] [place] [address] Cinda Willis M.B., Ch.B. [address] [place] [address] 08/18/2024 2:45 PM CARD PLACER Clinical Support Integrative Medicine and Health in [place], [place] [address] [place] [address] Zeke Reddy L.Ac. [address] [place] [address] Medical Devices Implanted Type Area Voice Network Engineer Device Identifier Shelf Expiration Date Model / Serial / Lot Misc Other Misc Other Mouth Description:Left side upper lower teeth Procedures Procedure Name Priority Date/Time Associated Diagnosis Comments THYROID-STIMULATING HORMONE-SENSITIVE (S-TSH) Routine 09/03/2023 1:51 PM CARD PLACER Hypothyroidism Primary OUTSIDE MG MAMMOGRAM Routine 03/22/2020 1:15 PM CDT HEMOGLOBIN A1C, B Routine 10/13/2016 9:2 6 AM CARD PLACER CHRONIC VIRAL HEPATITIS PROFILE Routine 10/13/2016 9:26 AM CARD PLACER CREATININE WITH EGFR, S/P Routine 10/13/2016 9:26 AM CARD PLACER from Last 3 Months or Most Recently Relevant to Health Maintenance Results * S-TSH (Thyroid-Stimulating Hormone - Sensitive) (09/03/2023 1:51 PM CARD PLACER) TSH, Sensitive 0.6 0.3 - 4.2 mIU/L 09/03/2023 2:56 PM CARD PLACER DTL Blood (Blood, Venous) 09/03/2023 1:51 PM CARD PLACER 09/03/2023 2:23 PM CARD PLACER Cinda Staples, Ch.B. LAB BLOOD ADD-ON Performing Organization Address City/State/[facility] Co de Phone Number [facility] [address] [place] [address], [facility] DTL [facility] [address] [place] [address] * MAMMO SCREEN, BILAT, W/CAD-Outside Mammogram (03/22/2020 [...] System IMG BI PROCEDURES Performing Organization Address [facility] Co de Phone Number [facility] NA * Chronic Hepatitis Profile (10/13/2016 9:26 AM CARD PLACER) HBs Antigen, S Negative Negative [facility] HBc Total Ab, S Negative Negative [facility] HCV Ab, S Negative Negative [facility] Comment:Iaqkov-we-azojjr rat io is <1.00. HBs Antibody,S Negative Unvaccinated : Negative; Vaccinated: Positive [facility] Comment:Patient is presumed to be not immune to infection with HBV. HBs Antibody, Quantitative, S <5.0 Unvaccinated : <5.0; Vaccinated: >=12.0 MIU/ML [facility] 10/13/2016 9:26 AM CARD PLACER 10/13/2016 9:26 AM CARD PLACER Didier Hays M.D. LAB MICROBIOLOGY - BLOOD ORDERABLES Performing Organization Address [facility] Co de Phone Number [facility] [address] [place], [place] [phone] [place] [address] * Hemoglobin A1c (10/13/2016 9:26 AM CARD PLACER) Hemoglobin A1c, B 5.4 4.0 - 5.6 % [facility] 10/13/2016 9:26 AM CARD PLACER 10/13/2016 9:26 AM CARD PLACER Didier Hays M.D. LAB BLOOD ADD-ON [facility] [address] [place] [phone] * Creatinine with Estimated GFR (MDRD) (10/13/2016 9:26 AM CARD PLACER) Creatinine 0.9 0.6 - 1.1 MG/DL [facility] eGFR Non-Black/Afric an Kittitian >60 >60 ML/MIN/BSA [facility] eGFR-Black/Afri can Kittitian >60 >60 ML/MIN/BSA [facility] 10/13/2016 9:26 AM CARD PLACER 10/13/2016 9:26 AM CARD PLACER Didier Hays M.D. LAB BLOOD ADD-ON Performing Organization Address City/State/[facility] Co de Phone Number [facility] [address] [place] [phone] from Last 3 Months or Most Recently Relevant to Health Maintenance
--- OUTSIDE RECORDS SUMMARY | 2024-06-01 06:32 | XMS_ITS | Encounter Summary ---
Author Organization [facility] Address [address] [place] [address] Care Team Providers Care Psych Np Name Role Phone Unavailable Primary Care Provider Unavailabl e Reason for Visit * Outpatient (Routine) - Authorized Specialty Diagnoses / Procedures Referred By Contac t Referred To Contact Diagnoses Pain Low Back Unspecified Pain Hip Bilateral Procedures [facility] Acupuncture Rst [facility] Zoey [address] [place] [address] [facility] Referral ID Status Reason Start Date Expiration Date V isits Requested Visits Authorized [id number] Authorized 02/07/2024 02/06/2025 20 20 Encounter Details Date Type Department Care Team (Latest Contact Info) Description 05/12/2024 1:00 PM CDT Clinical Support Integrative Medicine and Health in [place], [place] [address] [place] [address] Calvin Smalls L.. Pain Low Back Unspecified; Pain Hip Bilateral Social History Tobacco Use Types Packs/Day Years Used Date Smoking Tobacco: Never Smokeless Tobacco: Never Alcohol Use Standard Drinks/Week Comments Not Currently 1 (1 standard drink = 0.6 oz pur e alcohol) [facility] Utilities Answer Date Recorded In the [...] Answer Date Recorded PHQ-2 Score 1 03/11/2021 [facility] of Occupat ional Health - [...] your living situation today? I have a [facility] place to live 12/31/2023 Education Answer Date Recorded What is the highest level of school you have completed or the highest degree you have received? Associate degree: occupational, technical, or vocational program 10/01/2020 Sex and Gender Information Value Date Recorded Sex Assigned at Female 06/23/2021 10:52 AM CDT Gender Identity Female 10/01/2020 2:34 PM FORENSIC LOCKSMITH Sexual Orientation Straight 10/01/2020 2: 34 PM FORENSIC LOCKSMITH documented as of this encounter Progress Notes * Calvin Smalls L.Ac. - 05/12/2024 1:00 PM CDT Referral Source: No ref. provider found Supervised by: [place] [id number] SUBJECTIVE Chief Complaint: Back Pain History of [...] symptom relief. Total Needling Time: 30 minutes Ross Electrified: No Diathermy: Yes Cupping: No Treatment Points Used: Set One: GB20, UB10, GB21, SI15, UB23-25, Bailao, YaoYan, TFL mitzi triangle Set Two: UB40, GB34, SP6, KD3, UB62 Other: Number of Ross Used = Number of Ross Retrieved: Yes Stimulation Intensity: Medium Narrative Assessment: [...] and the www.[employer].org for locating a qualified clutch operator in the local community. PATIENT EDUCATION Ready to learn, no apparent learning barriers were identified, learning preference include listening. Explained diagnosis and treatment plan: patient/caregiver expressed understanding of the content. documented in this encounter Plan of Treatment Upcoming Encounters Date Type Department Care Team (Late st Contact Info) Description 06/02/2024 3:00 PM CDT Clinical Support Department of Nutrition and Diabetes Education in [place], [place] [address] [place] [phone] Cinda Willis M.B., Ch.B. [address] [place] [phone] Mandy Trevino M.S., RDN, LD [address] [place] [phone] 06/09/2024 2:45 PM CDT Clinical Support Integrative Medicine and Health in [place], [place] [address] [place] [phone] Zeke Reddy L.Ac. [address] [place] [phone] 06/30/2024 2:00 PM CDT Clinical Support Department of Nutrition and Diabetes Education in [place], [place] [address] [place] [phone] Cinda Willis M.B., Ch.B. [address] [place] [phone] Mandy Trevino M.S., RDN, LD [address] [place] [phone] 07/07/2024 4:30 PM CDT Clinical Support Integrative Medicine and Health in [place], [place] [address] [place] [phone] Zeke Reddy L.Ac. [address] [place] [phone] 08/04/2024 2:00 PM FORENSIC LOCKSMITH Telemedicine Department of Nutrition and Diabetes Education in [place], [place] [address] [place] [phone] Cinda Willis M.B., Ch.B. [address] [place] [phone] Mandy Trevino M.S., RDN, LD [address] [place] [phone] 08/15/2024 3:00 PM FORENSIC LOCKSMITH Office Visit Division of Endocrinology in [place], [place] [address] [place] [phone] Cinda Willis M.B., Ch.B. [address] [place] [phone] 08/18/2024 2:45 PM FORENSIC LOCKSMITH Clinical Support Integrative Medicine and Health in [place], [place] [address] [place] [phone] Zeke Reddy L.Ac. [address] [place] [phone] documented as of this encounter Visit Diagnoses Diagnosis Pain Low Back Unspecified Pain Hip Bilateral documented in this encounter Additional Health Concerns Assessment Noted Time PHQ-9 Depression Total Score: 4 03/11/20 21 2:35 PM CDT documented as of this encounter
--- OUTSIDE RECORDS SUMMARY | 2024-06-01 06:32 | XMS_ITS | Clinical Summary ---
Author Organization [facility] Address [place], [place] [address] Care Team Providers Care Fur Cleaner Name Role Phone Troy Seals MD Primary Care Provider Oliver Hylton MD Unavailable [phone] Jm Araujo Unavailable Unavailable Allergies No known [...] Name Administration Dates Next Due COVID-19 vaccine (RedT 30mcg/0.3mL) P F, MDV 01/24/2021,12/31/2020 Social History [...] 16 Negative Negative 06/19/2021 3:20 PM CDT [facility] LAB[facility] TYPE 18 Negative Negative 06/19/2021 3:20 PM CDT [facility] TRAL LAB[facility] OTHER HIGH RISK TYPES Negative Negative 06/19/2021 3:20 PM CDT [facility] TRA LABOR[facility] Other (Cervical/Vagina l) 06/16/2021 11:35 AM CDT 06/18/2021 9:20 AM CDT Narrative [facility] - 06/19/2021 3:20 PM CDT HPV types 16, 18, 31, 33, 35, 39, 45, 51, 52, 56, 58, 59, 66 and 68 DNA were undetectable or below the pre-set threshold. Methodology: Farzaneh Dick 4800 HPV Test Cynthia Coy MD MICROBIOLOGY [facility] [address] [place] [address], from Last 3 Months or Most Recently Relevant to Health Maintenance Care Teams Fur Cleaner Relationship Specialty Start Date End Date Troy Seals MD PCP - General Family Practice 06/04/[address] [place] [address] [address] [facility] [address] Consulting Physician Cardiovascular Disease 06/06/14 Jm Araujo [address] [place] [address] Family Practice Immunology Specialist 04/19/20
--- OUTSIDE RECORDS SUMMARY | 2024-06-01 06:32 | XMS_ITS ---
Author Organization [facility] Address [address] [place] [address] Care Team Providers Care Leg Man Name Role Phone Unavailable Unavailable Unavailable Surgery Details Not on file Complications Check Surgery Details section. Procedure Estimated Blood Loss Check Surgery Details section. Procedure Findings Check Surgery Details section. Procedure Specimens Taken Check Surgery Details section.
--- OUTSIDE RECORDS SUMMARY | 2024-06-01 06:33 | XMS_ITS | Encounter Summary ---
Author Organization [facility] Address [address] [place] [address] Care Team Providers Care Wool Dyer Name Role Phone Unavailable Primary Care Provider Unavailabl e Reason for Referral * Outpatient (Routine) - Authorized Specialty Diagnoses / Procedures Referred By Contac t Referred To Contact Cinda tSyles M.B., Ch.B. [address] [place] [address] [facility] Referral ID Status Reason Start Date Expiration Date V isits Requested Visits Authorized [id number] Authorized 04/21/2024 10/21/2025 2 2 Reason for Visit * Outpatient (Routine) - Authorized Specialty Diagnoses / Procedures Referred By Contac t Referred To Contact Cinda Styles M.B., Ch.B. [address] [place] [address] [facility] Referral ID Status Reason Start Date Expiration Date V isits Requested Visits Authorized [id number] Authorized 02/18/2024 08/19/2025 2 2 Encounter Details Date Type Department Care Team (Latest Contact Info) Description 04/21/2024 2:00 PM CDT Clinical Support Department of Nutrition and Diabetes Education in [place], [place] [address] [place] [phone] Cinda Willis M.B., Ch.B. [address] [place] [phone] Mandy Trevino M.S., RDN, LD [address] [place] [phone] Obesity Body Mass Index 30-39.9 Adult [E66.9] (Primary Dx) Social History Tobacco Use Types Packs/Day Years Used Date Smoking Tobacco: Never Smokeless Tobacco: Never Alcohol Use Standard Drinks/Week Comments Not Currently 1 (1 standard drink = 0.6 oz pur e alcohol) [facility] Utilities Answer Date Recorded In the past 12 months has e [employer], gas, oil, or water [employer] threatened to shut off services in your [...] Answer Date Recorded PHQ-2 Score 1 03/11/2021 [facility] of Occupat ional Health - Occupational [...] your living situation today? I have a [facility] place to live 12/31/2023 Education Answer Date Recorded What is the highest level of school you have completed or the highest degree you have received? Associate degree: occupational, technical, or vocational program 10/01/2020 Sex and Gender Information Value Date Recorded Sex Assigned at Female 06/23/2021 10:52 AM CDT Gender Identity Female 10/01/2020 2:34 PM REVENUE ANALYST Sexual Orientation Straight 10/01/2020 2: 34 PM REVENUE ANALYST documented as of this encounter Last Filed [...] find benefits from [employer]. She is in [employer] group 2 times per month. She is [...] Snack: none Beverages: Sprite Zero, water with [employer], María Elena Dry Alcohol intake: occasionally 1-2 [...] Department of Nutrition and Diabetes Education in [place], [place] [address] [place] [phone] Cinda Willis M.B., Ch.B. [address] [place] [phone] Mandy Trevino M.S., RDN, LD [address] [place] [phone] 06/09/2024 2:45 PM CDT Clinical Support Integrative Medicine and Health in [place], [place] [address] [place] [phone] Zeke Reddy L.Ac. [address] [place] [phone] 06/30/2024 2:00 PM CDT Clinical Support Department of Nutrition and Diabetes Education in [place], [place] [address] [place] [phone] Cinda Willis M.B., Ch.B. [address] [place] [phone] Mandy Trevino M.S., VERENA, LD [address] [place] [phone] 07/07/2024 4:30 PM CDT Clinical Support Integrative Medicine and Health in [place], [place] [address] [place] [phone] Zeke Reddy L.Ac. [address] [place] [phone] 08/04/2024 2:00 PM REVENUE ANALYST Telemedicine Department of Nutrition and Diabetes Education in [address] [phone] Cinda Willis M.B., Ch.B. [address] [place] [phone] Mandy Trevino M.S., VERENA, LD [address] [place] [phone] 08/15/2024 3:00 PM REVENUE ANALYST Office Visit Division of Endocrinology in [place], [place] [address] [place] [phone] Cinda Willis M.B., Ch.B. [address] [place] [phone] 08/18/2024 2:45 PM REVENUE ANALYST Clinical Support Integrative Medicine and Health in [place], [place] [address] [place] [phone] Zeke Reddy L.Ac. [address] [place] [phone] Scheduled Referrals Name Type Priority Associated Diagnoses [...]
--- OUTSIDE RECORDS SUMMARY | 2024-06-01 06:33 | XMS_ITS | Encounter Summary ---
Author Organization [facility] Address [address] [place] [address] Care Team Providers Care Legal Transcriber Name Role Phone Unavailable Primary Care Provider Unavailabl e Reason for Visit * Outpatient (Routine) - Closed Specialty Diagnoses / Procedures Referred By Contac t Referred To Contact Diagnoses Pain Low Back Unspecified Pain Hip Bilateral Procedures [facility] Acupuncture Rst [facility] Zoey [address] [place] [address] [facility] Referral ID Status Reason Start Date Expiration Date Visits Re quested Visits Authorized [id number] Closed 12/11/2022 12/11/2023 12 12 Encounter Details Date Type Department Care Team (Latest Contact Info) Description 03/09/2024 2:45 PM CDT Clinical Support Integrative Medicine and Health in [place], [place] [address] [place] [phone] Paulie Corral, L.Ac. Pain Low Back Unspecified; Pain Hip Bilateral Social History Tobacco Use Types Packs/Day Years Used Date Smoking Tobacco: Never Smokeless Tobacco: Never Alcohol Use Standard Drinks/Week Comments Not Currently 1 (1 standard drink = 0.6 oz pur e alcohol) [facility] Utilities Answer Date Recorded In [...] Answer Date Recorded PHQ-2 Score 1 03/11/2021 [facility] - [...] your living situation today? [facility] place to live 12/31/2023 Education Answer Date Recorded What is the highest level of school you have completed or the highest degree you have received? Associate degree: occupational, technical, or vocational program 10/01/2020 Sex and Gender Information Value Date Recorded Sex Assigned at Female 06/23/2021 10:52 AM CDT Gender Identity Female 10/01/2020 2:34 PM CUFF MAKER Sexual Orientation Straight 10/01/2020 2: 34 PM CUFF MAKER documented as of this encounter Progress Notes * Paulie Corral LNorbertoAc. - 03/09/2024 2:45 PM CDT Referral Source: No ref. provider found Supervised by: Noemy Felton MD [phone] SUBJECTIVE Chief Complaint: Bilateral Hip Pain and Back Pain History of Present Illness Ms. Snow is a 58 y.o. female referred for evaluation and consideration of acupuncture treatment. Ms. Sonw is seen in the outpatient setting. Their [...] symptom relief. Total Needling Time: [address] Electrified: No Diathermy: Yes Cupping: No Tuina: No Treatment Points Used: Set One: Gb20, Gb21, Du14, Bl13, Bl14, Bl15, Bl17, Sp6, Ki3 Set Two: Bl23, Bl24, Bl25, Vishal Kieran, Bl54, Gb30, Gb34 Head: None Auricular: None Number of Broadway Used = Number of Broadway Retrieved: Yes Stimulation Intensity: Medium Narrative Assessment: [...] the www.NCCAOM.org for locating a qualified licensed professional counselor in the local community. PATIENT EDUCATION Ready to learn, no apparent learning barriers were identified, learning preference include listening. Explained diagnosis and treatment plan: patient/caregiver expressed understanding of the content. documented in this encounter Plan of Treatment Upcoming Encounters Date Type Department Care Team (Late st Contact Info) Description 06/02/2024 3:00 PM CDT Clinical Support Department of Nutrition and Diabetes Education in [address] [phone] Cinda Willis M.B., Ch.B. [address] [place] [phone] Mandy Trevino M.S., VERENA, LD [address] [place] [phone] 06/09/2024 2:45 PM CDT Clinical Support Integrative Medicine and Health in [address] [phone] Zeke Reddy L.Ac. [address] [place] [phone] 06/30/2024 2:00 PM CDT Clinical Support Department of Nutrition and Diabetes Education in [address] [phone] Cinda Willis M.B., Ch.B. [address] [place] [phone] Mandy Trevino M.S., VERENA, LD [address] [place] [phone] 07/07/2024 4:30 PM CDT Clinical Support [facility] in [address] [phone] Zeke Reddy L.Ac. [address] [place] [phone] 08/04/2024 2:00 PM CUFF MAKER Telemedicine Department of Nutrition and Diabetes Education in [place], [place] [address] [place] [phone] Cinda Willis M.B., Ch.B. [address] [place] [phone] Mandy Trevino M.S., RDN, LD [address] [place] [phone] 08/15/2024 3:00 PM CUFF MAKER Office Visit Division of Endocrinology in [place], [place] [address] [place] [phone] Cinda Willis M.B., Ch.B. [address] [place] [phone] 08/18/2024 2:45 PM CUFF MAKER Clinical Support [facility] in [place], [place] [address] [place] [phone] Zeke Reddy L.Ac. [address] [place] [phone] documented as of this encounter Visit Diagnoses Diagnosis Pain Low Back Unspecified Pain Hip Bilateral documented in this encounter Additional Health Concerns Assessment Noted Time PHQ-9 Depression Total Score: 4 03/11/20 21 2:35 PM CDT documented as of this encounter
--- OUTSIDE RECORDS SUMMARY | 2024-06-01 06:33 | XMS_ITS | Encounter Summary ---
Author Organization [facility] Address [address] [place] [address] Care Team Providers Care Security Tester Name Role Phone Unavailable Primary Care Provider Unavailabl e Encounter Details Date Type Department Care Team (Late st Contact Info) Description 04/14/2024 Clinical Communication [facility]ative Medicine and Health in [place], [place] [address] [place] [address] Calvin Smalls, L.. Social History Tobacco Use Types Packs/Day Years Used Date Smoking Tobacco: Never Smokeless Tobacco: Never Alcohol Use Standard Drinks/Week Comments Not Currently 1 (1 standard drink = 0.6 oz pur e alcohol) [facility] Utilities Answer Date Recorded In the past 12 months has e electric, gas, oil, or water [employer] threatened to shut off services in your [...] often do you attend chur ch or alevism services? More than 4 times per year [...] Answer Date Recorded PHQ-2 Score 1 03/11/2021 [facility] - Occupational Stress Questionnaire Answer [...] Answer Date Recorded Employment status Unemployed/not in [employer] paid workforce and NOT seeking employment 12/31/2023 Housing Stability Answer Date Recorded What is your living situation today? I have a [facility] place to live 12/31/2023 Education Answer Date Recorded What is the highest level of school you have completed or the highest degree you have received? Associate degree: occupational, technical, or vocational program 10/01/2020 Sex and Gender Information Value Date Recorded Sex Assigned at Female 06/23/2021 10:52 AM CDT Gender Identity Female 10/01/2020 2:34 PM TAILINGS DAM LABORER Sexual Orientation Straight 10/01/2020 2: 34 PM TAILINGS DAM LABORER documented as of this encounter Plan of Treatment Upcoming Encounters Date Type Department Care Team (Late st Contact Info) Description 06/02/2024 3:00 PM CDT Clinical Support Department of Nutrition and Diabetes Education in [place], [place] [address] [place] [address] Cinda Willis M.B., Ch.B. [address] [place] [phone] Mandy Trevino M.S., RDN, LD [address] [place] [address] 06/09/2024 2:45 PM CDT Clinical Support [facility] in [place], [place] [address] [place] [address] Zeke Reddy L.Ac. [address] [place] [phone] 06/30/2024 2:00 PM CDT Clinical Support Department of Nutrition and Diabetes Education in [place], [place] [address] [place] [address] Cinda Willis M.B., Ch.B. [address] [place] [phone] Mandy Trevino M.S., RDN, LD [address] [place] [phone] 07/07/2024 4:30 PM CDT Clinical Support [facility] in [place], [place] [address] [place] [phone] Zeke Reddy L.Ac. [address] [place] [phone] 08/04/2024 2:00 PM TAILINGS DAM LABORER Telemedicine Department of Nutrition and Diabetes Education in [place], [place] [address] [place] [address] Cinda Willis M.B., Ch.B. [address] [place] [phone] Mandy Trevino M.S., RDN, LD [address] [place] [phone] 08/15/2024 3:00 PM TAILINGS DAM LABORER Office Visit Division of Endocrinology in [address] [phone] Cinda Willis M.B., Ch.B. [address] [place] [phone] 08/18/2024 2:45 PM TAILINGS DAM LABORER Clinical Support [facility] in [place], [place] [address] [place] [address] Zeke Reddy L.Ac. [address] [place] [phone] documented as of this encounter Visit Diagnoses Not on filedocumented in this encounter Additional Health Concerns Assessment Noted Time PHQ-9 Depression Total Score: 4 03/11/20 21 2:35 PM CDT documented as of this encounter
--- OUTSIDE RECORDS SUMMARY | 2024-06-01 06:33 | XMS_ITS | Encounter Summary ---
Author Organization [facility] Address [address] [place] [address] Care Team Providers Care Pyrometallurgical Engineer Name Role Phone Unavailable Primary Care Provider Unavailabl e Reason for Visit * Reason Comments Med Refill Encounter Details Date Type Department Care Team (Late st Contact Info) Description 03/06/2024 Refill Division of Endocrinology in [place], [place] [address] [place] [phone] Cinda Willis M.B., Ch.B. [address] [place] [address] Med Refill Social History Tobacco Use Types Packs/Day Years Used Date Smoking Tobacco: Never Smokeless Tobacco: Never Alcohol Use Standard Drinks/Week Comments Not Currently 1 (1 standard drink = 0.6 oz pur e alcohol) [facility] Utilities Answer Date Recorded In the past 12 months has e [employer]), gas, oil, or water [employer] threatened to shut off services in your [...] How often do you attend chur or scientologist services? More than 4 times per year 11/22/2022 Do you belong to any clubs o r organizations such as jewish groups, unions, fraternal or athletic groups, or [...] Answer Date Recorded PHQ-2 Score 1 03/11/2021 [facility]at ional Health - [...] Answer Date Recorded Employment status Unemployed/not in [employer] paid workforce and NOT seeking employment 12/31/2023 Housing Stability Answer Date Recorded What is your living situation today? I have a [facility] place to live 12/31/2023 Education Answer Date Recorded What is the highest level of school you have completed or the highest degree you have received? Associate degree: occupational, technical, or vocational program 10/01/2020 Sex and Gender Information Value Date Recorded Sex Assigned at Female 06/23/2021 10:52 AM CDT Gender Identity Female 10/01/2020 2:[address] SPECIALIST Sexual Orientation Straight 10/01/2020 2: [address] SPECIALIST documented as of this encounter Plan of Treatment Upcoming Encounters Date Type Department Care Team (Late st Contact Info) Description 06/02/2024 3:00 PM CDT Clinical Support Department of Nutrition and Diabetes Education in [place], [place] [address] [place] [phone] Cinda Willis M.B., Ch.B. [address] [place] [phone] Mandy Trevino M.S., RDN, LD [address] [place] [phone] 06/09/2024 2:45 PM CDT Clinical Support [facility] in [place], [place] [address] [place] [phone] Zeke Reddy L.Ac. [address] [place] [phone] 06/30/2024 2:00 PM CDT Clinical Support Department of Nutrition and Diabetes Education in [place], [place] [address] [place] [phone] Cinda Willis M.B., Ch.B. [address] [place] [phone] Mandy Trevino M.S., RDCrystal, LD [address] [place] [phone] 07/07/2024 4:30 PM CDT Clinical Support [facility] in [place], [place] [address] [place] [phone] Zeke Reddy L.Ac. [address] [place] [phone] 08/04/2024 2:[address] SPECIALIST Telemedicine Department of Nutrition and Diabetes Education in [place], [place] [address] [place] [phone] Cinda Willis M.B., Ch.B. [address] [place] [phone] Mandy Trevino M.S., RDN, LD [address] [place] [phone] 08/15/2024 3:[address] SPECIALIST Office Visit Division of Endocrinology in [place], [place] [address] [place] [phone] Cinda Willis M.B., Ch.B. [address] [place] [phone] 08/18/2024 2:[address] SPECIALIST Clinical Support [facility] in [place], [place] [address] [place] [phone] Zeke Reddy L.. [address] [place] [address] documented as of this encounter Visit Diagnoses Not on filedocumented in this encounter Additional Health Concerns Assessment Noted Time PHQ-9 Depression Total Score: 4 03/11/20 21 2:35 PM CDT documented as of this encounter
--- OUTSIDE RECORDS SUMMARY | 2024-06-01 06:33 | XMS_ITS | Encounter Summary ---
Author Organization [facility] Address [address] [place] [address] Care Team Providers Care Claims Supervisor Name Role Phone Unavailable Primary Care Provider Unavailabl e Reason for Visit * Outpatient (Routine) - Authorized Specialty Diagnoses / Procedures Referred By Contac t Referred To Contact Diagnoses Pain Low Back Unspecified Pain Hip Bilateral Procedures [facility] Acupuncture Rst [facility] Zoey [address] [place] [address] [facility] Referral ID Status Reason Start Date Expiration Date V isits Requested Visits Authorized [id number] Authorized 02/07/2024 02/06/2025 20 20 Encounter Details Date Type Department Care Team (Latest Contact Info) Description 04/14/2024 2:45 PM CDT Clinical Support [facility]ative Medicine and Health in [place], [place] [address] [place] [address] Calvin Smalls L.. Pain Low Back Unspecified; Pain Hip Bilateral Social History Tobacco Use Types Packs/Day Years Used Date Smoking Tobacco: Never Smokeless Tobacco: Never Alcohol Use Standard Drinks/Week Comments Not Currently 1 (1 standard drink = 0.6 oz pur e alcohol) [facility] Utilities Answer Date Recorded In [...] How often do you attend chur or yazidi services? More than 4 times per year 11/22/2022 Do you belong to any clubs o r organizations such as advent groups, unions, fraternal or athletic groups, or [...] PHQ-2 Score 1 03/11/2021 [facility] Occupat ional Health - Occupational [...] your living situation today? [facility] 12/31/2023 Education Answer Date Recorded What is the highest level of school you have completed or the highest degree you have received? Associate degree: occupational, technical, or vocational program 10/01/2020 Sex and Gender Information Value Date Recorded Sex Assigned at Female 06/23/2021 10:52 AM CDT Gender Identity Female 10/01/2020 2:34 PM PEDIATRIC PSYCHIATRIST Sexual Orientation Straight 10/01/2020 2: 34 PM PEDIATRIC PSYCHIATRIST documented as of this encounter Progress Notes * Calvin Smalls L.Ac. - 04/14/2024 2:45 PM CDT Referral Source: No ref. provider found Supervised by: [place] [id number] SUBJECTIVE Chief Complaint: Back Pain History of [...] symptom relief. Total Needling Time: 30 minutes [place] Electrified: No Diathermy: Yes Cupping: No Treatment Points Used: Set One: GB20, UB10, GB21, SI15, UB23-25, [place], YaoYan, TFL mitzi triangle Set Two: UB40, GB34, SP6, KD3, UB62 Number of [place] Used = Number of [place] Retrieved: Yes Stimulation Intensity: Medium Narrative Assessment: [...] the www.NCCAOM.org for locating a qualified licensed social worker in the local community. PATIENT EDUCATION Ready to learn, no apparent learning barriers were identified, learning preference include listening. Explained diagnosis and treatment plan: patient/caregiver expressed understanding of the content. documented in this encounter Plan of Treatment Upcoming Encounters Date Type Department Care Team (Late st Contact Info) Description 06/02/2024 3:00 PM CDT Clinical Support Department of Nutrition and Diabetes Education in [address] [phone] Cinda Willis M.B., Ch.B. [address] [place] [phone] Mandy Trevino M.S., VERENA, LD [address] [place] [phone] 06/09/2024 2:45 PM CDT Clinical Support [facility] Health in [address] [phone] Zeke Reddy L.Ac. [address] [place] [phone] 06/30/2024 2:00 PM CDT Clinical Support Department of Nutrition and Diabetes Education in [address] [phone] Cinda Willis M.B., Ch.B. [address] [place] [phone] Mandy Trevino M.S., VERENA, LD [address] [place] [phone] 07/07/2024 4:30 PM CDT Clinical Support [facility] in [place], [place] [address] [place] [phone] Zeke Reddy L.Ac. [address] [place] [phone] 08/04/2024 2:00 PM PEDIATRIC PSYCHIATRIST Telemedicine Department of Nutrition and Diabetes Education in [place], [place] [address] [place] [phone] Cinda Willis M.B., Ch.B. [address] [place] [phone] Mandy Trevino M.S., RDN, LD [address] [place] [phone] 08/15/2024 3:00 PM PEDIATRIC PSYCHIATRIST Office Visit Division of Endocrinology in [place], [place] [address] [place] [phone] Cinda Willis M.B., Ch.B. [address] [place] [phone] 08/18/2024 2:45 PM PEDIATRIC PSYCHIATRIST Clinical Support [facility] Health in [address] [phone] Zeke Reddy L.Ac. [address] [place] [phone] documented as of this encounter Visit Diagnoses Diagnosis Pain Low Back Unspecified Pain Hip Bilateral documented in this encounter Additional Health Concerns Assessment Noted Time PHQ-9 Depression Total Score: 4 03/11/20 21 2:35 PM CDT documented as of this encounter
== END 2024-05-26 10:54 | disposition home or self-care (01) ==
LOC: NFLDREF 06-01 06:30
PROVIDERS: PCP Family Medicine; Referring Provider Family Medicine; Visit Provider Family Medicine
DX: E03.9 Hypothyroidism, unspecified (principal)
CPT/HCPCS: 84439; 84443

== ENCOUNTER 2024-05-31 08:14 | Outpatient (CLI) | payer BC, SELFPAY ==
--- NOTE | 2024-05-31 08:15 | CRLHL7_ITS ---
For Patients: As a result of the Century Cures Act, medical imaging exams and procedure reports are released immediately into your electronic medical record. You may view this report before your referring provider. If you have questions, please contact your health care provider. EXAM: MRI OF THE RIGHT KNEE, WITHOUT CONTRAST CLINICAL INDICATION: Knee pain. PRIOR SURGERY: None reported. COMPARISON PLAIN FILMS: 27 April 2024 COMPARISON CROSS-SECTIONAL IMAGING STUDIES: None available at time of interpretation. TECHNICAL: Axial, sagittal and coronal T1, PD, PD FS and T2 FS images. 1.5 Pippa MR scanner. Knee coil. FINDINGS: OSSEOUS STRUCTURES: No fracture, marrow edema or marrow replacement process. JOINT SPACE AND CAPSULE: Effusion: Small effusion. Mild reactive synovitis diffusely. Joint Bodies: None seen. CRUCIATE LIGAMENTS: Anterior Cruciate Ligament: Normal. Posterior Cruciate Ligament: Normal. EXTENSOR MECHANISM: Distal Quadriceps Tendon: Normal. Patellar Tendon: Normal. Medial Patellar Retinaculum and Medial Patellofemoral Ligament: Normal. Lateral Patellar Retinaculum: Normal. Normal patellar alignment. No patella xavier. Normal trochlear depth. Normal lateral trochlear inclination. MEDIAL COLLATERAL LIGAMENT AND POSTEROMEDIAL CORNER COMPLEX: Medial Collateral Ligament: Normal. Medial Head of the Gastrocnemius and Semimembranosus Tendons: Normal. LATERAL COLLATERAL LIGAMENT COMPLEX AND POSTEROLATERAL CORNER COMPLEX: Fibular Collateral Ligament: Normal. Distal Biceps Femoris Tendon Complex: Normal. Iliotibial Band: Normal. Popliteus Tendon: Normal. Posterolateral Corner Capsule: Normal. MEDIAL COMPARTMENT: Medial Meniscus: Moderately extensive horizontal undersurface and free margin tear of the body and posterior horn. Intact root. Intact anterior horn. Articular Cartilage: Mildly undulating grade 2 thinning. Small marginal osteophytes. LATERAL COMPARTMENT: Lateral Meniscus: Normal size and morphology without tear. Articular Cartilage: Shallow grade 2 thinning. Tiny marginal osteophytes. PATELLOFEMORAL COMPARTMENT: Articular Cartilage: High-grade 3 to pinpoint grade 4 cartilage loss median ridge with underlying sclerosis and edema. Grade 2 thinning and grade 3 fissuring inferior lateral facet with focal subchondral cyst. Grade 2 to grade 3 irregular chondromalacia in the trochlea most pronounced at the apex with some underlying cysts and sclerosis. PERIARTICULAR SOFT TISSUES: Popliteal Cyst: No significant popliteal cyst. Periarticular Cysts or Ganglia: None. Bursae: No prepatellar, superficial infrapatellar, deep infrapatellar, pes anserinus or semimembranosus/MCL bursitis. Musculature: No muscle atrophy or muscle edema. Subcutaneous and Soft Tissues: No subcutaneous or soft tissue mass, edema or fluid collection. Neurovascular Structures: Normal. IMPRESSION: 1. Degenerative tear medial meniscus. 2. Mild tricompartmental osteoarthritis, most pronounced patellofemoral compartment. Dictated by Axel Aguirre MD @ 06/01/2024 8:50:31 AM (Electronically Signed)
--- OUTSIDE RECORDS SUMMARY | 2024-05-31 08:17 | XMS_ITS | Clinical Summary ---
Author Organization [facility] Address [place], [place] [address] Care Team Providers Care Pt Skilled Name Role Phone Troy Seals MD Primary Care Provider [phone] Oliver Hylton MD Unavailable [phone] Jm Araujo Unavailable Unavailable Allergies No known [...] Name Administration Dates Next Due COVID-19 vaccine ([employer] 30mcg/0.3mL) P F, MDV 01/24/2021,12/31/2020 Social History [...] 05/23/2020, 05/14/2020 COVID-19 vaccine series (2022- season) 2024 01/24/2021, 12/31/2020 Influenza for age 50-64 05/21/2024 [...] 16 Negative Negative 06/19/2021 3:20 PM CDT [facility] TYPE 18 Negative Negative 06/19/2021 3:[address] [facility] OTHER HIGH RISK TYPES Negative Negative 06/19/2021 3:20 PM CDT [facility] Other (Cervical/Vagina l) 06/16/2021 11:35 AM CDT 06/18/2021 9:[address] [facility] - 06/19/2021 3:20 PM CDT HPV types 16, 18, 31, 33, 35, 39, 45, 51, 52, 56, 58, 59, 66 and 68 DNA were undetectable or below the pre-set threshold. Methodology: Farzaneh Dick 4800 HPV Test Cynthia Coy MD MICROBIOLOGY [facility] [address] [place] [address], from Last 3 Months or Most Recently Relevant to Health Maintenance Care Teams Pt Skilled Relationship Specialty Start Date End Date Troy Seals MD PCP - General Family Practice 06/04/14 [place] [id number] [facility] [place] [address] Consulting Physician Cardiovascular Disease 06/06/14 Jm Araujo [address] [place] [address] Family Practice Aoc Plans Intelligence Officer Chief 04/19/20
--- OUTSIDE RECORDS SUMMARY | 2024-05-31 08:17 | XMS_ITS | Encounter Summary ---
Author Organization [facility] Address [address] [place] [address] Care Team Providers Care Application Helper Name Role Phone Unavailable Primary Care Provider Unavailabl e Encounter Details Date Type Department Care Team (Late st Contact Info) Description 05/17/2024 Orders Only Division of Endocrinology in [place], [place] [address] [place] [address] Kristi Garland, FORREST, C.N.P. [address] [place] [address] Social History Tobacco Use Types Packs/Day Years Used Date Smoking Tobacco: Never Smokeless Tobacco: Never Alcohol Use Standard Drinks/Week Comments Not Currently 1 (1 standard drink = 0.6 oz pur e alcohol) [facility] Utilities Answer Date Recorded In the past [address] [facility] [employer], gas, oil, or water [employer] threatened to shut off services in [...] often do you attend chur ch or denominational services? More than 4 times per year [...] Answer Date Recorded PHQ-2 Score 1 03/11/2021 [facility] - [...] Answer Date Recorded Employment status Unemployed/not in [employer] paid workforce and NOT seeking employment 12/31/2023 Housing Stability Answer Date Recorded What is your living situation today? I have a [facility] place to live 12/31/2023 Education Answer Date Recorded What is the highest level of school you have completed or the highest degree you have received? Associate degree: occupational, technical, or vocational program 10/01/2020 Sex and Gender Information Value Date Recorded Sex Assigned at Female 06/23/2021 10:52 AM CDT Gender Identity Female 10/01/2020 2:34 PM EXTRACTION MACHINE OPERATOR Sexual Orientation Straight 10/01/2020 2: 34 PM EXTRACTION MACHINE OPERATOR documented as of this encounter Plan of Treatment Upcoming Encounters Date Type Department Care Team (Late st Contact Info) Description 06/02/2024 3:00 PM CDT Clinical Support Department of Nutrition and Diabetes Education in [place], [place] [address] [place] [phone] Cinda Willis M.B., Ch.B. [address] [place] [phone] Mandy Trevino M.S., RDN, LD [address] [place] [phone] 06/09/2024 2:45 PM CDT Clinical Support Integrative Medicine and Health in [place], [place] [address] [place] [phone] Zeke Reddy L.Ac. [address] [place] [phone] 06/30/2024 2:00 PM CDT Clinical Support Department of Nutrition and Diabetes Education in [place], [place] [address] [place] [phone] Cinda Willis M.B., Ch.B. [address] [place] [phone] Mandy Trevino M.S., VERENA, LD [address] [place] [phone] 07/07/2024 4:30 PM CDT Clinical Support [facility] in [place], [place] [address] [place] [phone] Zeke Reddy L.Ac. [address] [place] [phone] 08/04/2024 2:00 PM EXTRACTION MACHINE OPERATOR Telemedicine Department of Nutrition and Diabetes Education in [place], [place] [address] [place] [phone] Cinda Willis M.B., Ch.B. [address] [place] [phone] Mandy Trevino M.S., RDN, LD [address] [place] [phone] 08/15/2024 3:00 PM EXTRACTION MACHINE OPERATOR Office Visit Division of Endocrinology in [place], [place] [address] [place] [phone] Cinda Willis M.B., Ch.B. [address] [place] [phone] 08/18/2024 2:45 PM EXTRACTION MACHINE OPERATOR Clinical Support [facility] in [place], [place] [address] [place] [phone] Zeke Reddy L.Ac. [address] [place] [phone] documented as of this encounter Visit Diagnoses Not on filedocumented in this encounter Additional Health Concerns Assessment Noted Time PHQ-9 Depression Total Score: 4 03/11/20 21 2:35 PM CDT documented as of this encounter
--- OUTSIDE RECORDS SUMMARY | 2024-05-31 08:17 | XMS_ITS | Encounter Summary ---
Author Organization [facility] Address [address] [place] [address] Care Team Providers Care Junior Automation Engineer Name Role Phone Unavailable Primary Care Provider Unavailabl e Reason for Visit * Outpatient (Routine) - Authorized Specialty Diagnoses / Procedures Referred By Contac t Referred To Contact Diagnoses Pain Low Back Unspecified Pain Hip Bilateral Procedures [facility] Acupuncture [facility] Zoey [address] [place] [address] [facility] Referral ID Status Reason Start Date Expiration Date V isits Requested Visits Authorized [id number] Authorized 02/07/2024 02/06/2025 20 20 Encounter Details Date Type Department Care Team (Latest Contact Info) Description 05/12/2024 1:00 PM CDT Clinical Support Integrative Medicine and Health in [place], [place] [address] [place] [phone] Calvin Smalls L.. Pain Low Back Unspecified; Pain Hip Bilateral Social History Tobacco Use Types Packs/Day Years Used Date Smoking Tobacco: Never Smokeless Tobacco: Never Alcohol Use Standard Drinks/Week Comments Not Currently 1 (1 standard drink = 0.6 oz pur e alcohol) [facility] Utilities Answer Date Recorded In the [...] How often do you attend chur or druze services? More than 4 times per year 11/22/2022 Do you belong to any clubs o r organizations such as oriental orthodox groups, unions, fraternal or athletic groups, [...] Answer Date Recorded PHQ-2 Score 1 03/11/2021 [facility] - [...] your living situation today? I have a [facility] place to live 12/31/2023 Education Answer Date Recorded What is the highest level of school you have completed or the highest degree you have received? Associate degree: occupational, technical, or vocational program 10/01/2020 Sex and Gender Information Value Date Recorded Sex Assigned at Female 06/23/2021 10:52 AM CDT Gender Identity Female 10/01/2020 2:34 PM FISH STRAIGHTENER Sexual Orientation Straight 10/01/2020 2: 34 PM FISH STRAIGHTENER documented as of this encounter Progress Notes * Calvin Smalls L.Ac. - 05/12/2024 1:00 PM CDT Referral Source: No ref. provider found Supervised by: [place] [id number] SUBJECTIVE Chief Complaint: Back Pain History of [...] symptom relief. Total Needling Time: 30 minutes [place] Electrified: No Diathermy: Yes Cupping: No Treatment Points Used: Set One: GB20, UB10, GB21, SI15, UB23-25, [place], YaoYan, TFL mitzi triangle Set Two: UB40, GB34, SP6, KD3, UB62 Other: Number of [place] Used = Number of [place] Retrieved: Yes Stimulation Intensity: Medium Narrative Assessment: [...] the www.[employer].org for locating a qualified licensed prosthetist in the local community. PATIENT EDUCATION Ready to learn, no apparent learning barriers were identified, learning preference include listening. Explained diagnosis and treatment plan: patient/caregiver expressed understanding of the content. documented in this encounter Plan of Treatment Upcoming Encounters Date Type Department Care Team (Late st Contact Info) Description 06/02/2024 3:00 PM CDT Clinical Support Department of Nutrition and Diabetes Education in [place], [place] [address] [place] [phone] Cinda Willis M.B., Ch.B. [address] [place] [phone] Mandy Trevino M.S., RDN, LD [address] [place] [phone] 06/09/2024 2:45 PM CDT Clinical Support [facility] in [place], [place] [address] [place] [phone] Zeke Reddy L.Ac. [address] [place] [phone] 06/30/2024 2:00 PM CDT Clinical Support Department of Nutrition and Diabetes Education in [place], [place] [address] [place] [phone] Cinda Willis M.B., Ch.B. [address] [place] [phone] Mandy Trevino M.S., RDN, LD [address] [place] [phone] 07/07/2024 4:30 PM CDT Clinical Support [facility] in [place], [place] [address] [place] [phone] Zeke Reddy L.Ac. [address] [place] [phone] 08/04/2024 2:00 PM FISH STRAIGHTENER Telemedicine Department of Nutrition and Diabetes Education in [place], [place] [address] [place] [phone] Cinda Willis M.B., Ch.B. [address] [place] [phone] Mandy Trevino M.S., RDN, LD [address] [place] [phone] 08/15/2024 3:00 PM FISH STRAIGHTENER Office Visit Division of Endocrinology in [place], [place] [address] [place] [phone] Cinda Willis M.B., Ch.B. [address] [place] [phone] 08/18/2024 2:45 PM FISH STRAIGHTENER Clinical Support [facility] in [place], [place] [address] [place] [phone] Zeke Reddy L.Ac. [address] [place] [phone] documented as of this encounter Visit Diagnoses Diagnosis Pain Low Back Unspecified Pain Hip Bilateral documented in this encounter Additional Health Concerns Assessment Noted Time PHQ-9 Depression Total Score: 4 03/11/20 21 2:35 PM CDT documented as of this encounter
--- OUTSIDE RECORDS SUMMARY | 2024-05-31 08:17 | XMS_ITS | Clinical Summary ---
Author Organization [facility] Address [address] [place] [address] Care Team Providers Care Home Sales Consultant Name Role Phone Unavailable Primary Care Provider Unavailabl e Source Comments Patient records contain information from all sites at [facility]. For routine questions regarding patient records, call [phone] during business hours, M-F 8:00 AM - 5:00 PM Central Time. Record requests for emergency care only can be directed to [phone] at any time.[facility] Allergies Active Allergy Reactions Criticality Noted Date [...] take 2nd dose if needed. Will need otr truck driver. 2 tablet 07/23/2023 Active diazePAM (Valium) 5 mg tablet Take 1 tablet (5 mg total) by mouth See Admin Instructions. Take one (1) tablet 30 minutes before MRI, may take 2nd dose if needed. Will need otr truck driver. 2 tablet 07/23/2023 Active diazePAM (VALIUM) [...] 05/17/2024 Orders Only Division of Endocrinology in [place], [place] [address] [place] [phone] Kristi Garland APRN, C.N.P. 05/12/2024 1:00 PM CDT Clinical Support Integrative Medicine and Health in [place], [place] [address] [place] [phone] Calvin Smalls L.Ac. Pain Low Back Unspecified; Pain Hip Bilateral 04/21/2024 2:00 PM CDT Clinical Support Department of Nutrition and Diabetes Education in [place], [place] [address] [place] [phone] Cinda Willis M.B., Ch.B. Mandy Trevino, M.S., RDN, LD Obesity Body Mass Index 30-39.9 Adult [E66.9] (Primary Dx) 04/14/2024 2:45 PM CDT Clinical Support [facility] in [place], [place] [address] [place] [phone] Calvin Smalls L.Ac. Pain Low Back Unspecified; Pain Hip Bilateral 04/14/2024 Clinical Communication [facility] Health in [place], [place] [address] [place] [phone] Calvin Smalls L.Ac. 03/09/2024 2:45 PM CDT Clinical Support [facility] in [place], [place] [address] [place] [phone] Paulie Corral L.Ac. Pain Low Back Unspecified; Pain Hip Bilateral 03/06/2024 Refill Division of Endocrinology in [place], [place] [address] [place] [phone] Cinda Willis M.B., Ch.B. Med Refill from Last 3 Months Immunizations Name Administration [...] In the past 12 months has e [employer], oil, or water [employer] threatened to shut off services in your [...] often do you attend chur ch or restorationism services? More than 4 times per year [...] Answer Date Recorded PHQ-2 Score 1 03/11/2021 [facility]at ional Health - [...] your living situation today? I have a [facility] place to live 12/31/2023 Education Answer Date Recorded What is the highest level of school you have completed or the highest degree you have received? Associate degree: occupational, technical, or vocational program 10/01/2020 Sex and Gender Information Value Date Recorded Sex Assigned at Female 06/23/2021 10:52 AM CDT Gender Identity Female 10/01/2020 2:34 PM RIVET HOLE PUNCHER Sexual Orientation Straight 10/01/2020 2: 34 PM RIVET HOLE PUNCHER Last Filed Vital Signs Vital Sign Reading Time Taken Comments Blood Pressure 154/72 10/27/2023 2:52 PM RIVET HOLE PUNCHER Pulse 63 10/27/2023 2:52 PM RIVET HOLE PUNCHER Temperature 36.6 ??C (97.9 ??F) 10/27/2023 1:41 PM CS T Respiratory Rate 18 01/20/2021 1:15 PM CDT Oxygen Saturation 98% 10/27/2023 2:52 PM RIVET HOLE PUNCHER Inhaled Oxygen Concentration - - Weight 88.6 kg (195 lb 5.2 oz) 04/21/2024 1:29 P M CDT Height 160 cm (5' 2.99) 04/21/2024 1:29 PM CDT Body Mass Index 34.61 04/21/2024 1:29 PM CDT Plan of Treatment Upcoming Encounters Date Type Department Care Team (Late st Contact Info) Description 06/02/2024 3:00 PM CDT Clinical Support Department of Nutrition and Diabetes Education in [place], [place] [address] [place] [phone] Cinda Willis M.B., Ch.B. [address] [place] [phone] Mandy Trevino M.S., RDN, LD [address] [place] [phone] 06/09/2024 2:45 PM CDT Clinical Support [facility] in [place], [place] [address] [place] [phone] Zeke Reddy L.Ac. [address] [place] [phone] 06/30/2024 2:00 PM CDT Clinical Support Department of Nutrition and Diabetes Education in [place], [place] [address] [place] [phone] Cinda Wilils M.B., Ch.B. [address] [place] [phone] Mandy Trevino M.S., VERENA, LD [address] [place] [phone] 07/07/2024 4:30 PM CDT Clinical Support [facility] in [place], [place] [address] [place] [phone] Zeke Reddy L.Ac. [address] [place] [phone] 08/04/2024 2:00 PM RIVET HOLE PUNCHER Telemedicine Department of Nutrition and Diabetes Education in [address] [phone] Cinda Willis M.B., Ch.B. [address] [place] [phone] Mandy Trevino M.S., RDN, LD [address] [place] [phone] 08/15/2024 3:00 PM RIVET HOLE PUNCHER Office Visit Division of Endocrinology in [place], [place] [address] [place] [phone] Cinda Willis M.B., Ch.B. [address] [place] [phone] 08/18/2024 2:45 PM RIVET HOLE PUNCHER Clinical Support [facility] Health in [place], [place] [address] [place] [phone] Zeke Reddy L.Ac. [address] [place] [phone] Health Maintenance Due Date Last Done Comments [...] this topic Medical Devices Implanted Type Area Transfer Car Operator Drier Device Identifier Shelf Expiration Date Model / Serial / Lot Misc Other Misc Other Mouth Description:Left side upper lower teeth Procedures Procedure Name Priority Date/Time Associated Diagnosis Comments THYROID-STIMULATING HORMONE-SENSITIVE (S-TSH) Routine 09/03/2023 1:51 PM RIVET HOLE PUNCHER Hypothyroidism Primary OUTSIDE MG MAMMOGRAM Routine 03/22/2020 1:15 PM CDT HEMOGLOBIN A1C, B Routine 10/13/2016 9:2 6 AM RIVET HOLE PUNCHER CHRONIC VIRAL HEPATITIS PROFILE Routine 10/13/2016 9:26 AM RIVET HOLE PUNCHER CREATININE WITH EGFR, S/P Routine 10/13/2016 9:26 AM RIVET HOLE PUNCHER from Last 3 Months or Most Recently Relevant to Health Maintenance Results * S-TSH (Thyroid-Stimulating Hormone - Sensitive) (09/03/2023 1:51 PM RIVET HOLE PUNCHER) TSH, Sensitive 0.6 0.3 - 4.2 mIU/L 09/03/2023 2:56 PM RIVET HOLE PUNCHER DTL Blood (Blood, Venous) 09/03/2023 1:51 PM RIVET HOLE PUNCHER 09/03/2023 2:23 PM RIVET HOLE PUNCHER Cinda Willis M.B., Ch.B. LAB BLOOD ADD-ON Performing Organization Address City/[facility] Co de Phone Number [facility] [address] [place] [address], [facility] DTL [facility] [address] [place] [address] * MAMMO SCREEN, BILAT, W/CAD-Outside Mammogram (03/22/2020 [...] System IMG BI PROCEDURES Performing Organization Address [facility] de Phone Number [facility] NA * Chronic Hepatitis Profile (10/13/2016 9:26 AM RIVET HOLE PUNCHER) HBs Antigen, S Negative Negative [facility] HBc Total Ab, S Negative Negative [facility] HCV Ab, S Negative Negative [facility] Comment:[id number] rat io is <1.00. HBs Antibody,S Negative Unvaccinated : Negative; Vaccinated: Positive [facility] Comment:Patient is presumed to be not immune to infection with HBV. HBs Antibody, Quantitative, S <5.0 Unvaccinated : <5.0; Vaccinated: >=12.0 MIU/ML [facility] 10/13/2016 9:26 AM RIVET HOLE PUNCHER 10/13/2016 9:26 AM RIVET HOLE PUNCHER Didier Hays M.D. LAB MICROBIOLOGY - BLOOD ORDERABLES Performing Organization Address [facility] Co de Phone Number [facility] [address] [place] [address], [facility] * Hemoglobin A1c (10/13/2016 9:26 AM RIVET HOLE PUNCHER) Hemoglobin A1c, B 5.4 4.0 - 5.6 % [facility] 10/13/2016 9:26 AM RIVET HOLE PUNCHER 10/13/2016 9:26 AM RIVET HOLE PUNCHER Didier Hays M.D. LAB BLOOD ADD-ON [facility] [address] * Creatinine with Estimated GFR (MDRD) (10/13/2016 9:26 AM RIVET HOLE PUNCHER) Creatinine 0.9 0.6 - 1.1 MG/DL [facility] eGFR Non-Black/Afric an Cameroonian >60 >60 ML/MIN/BSA [facility] eGFR-Black/Afri can Cameroonian >60 >60 ML/MIN/BSA [facility] 10/13/2016 9:26 AM RIVET HOLE PUNCHER 10/13/2016 9:26 AM RIVET HOLE PUNCHER Didier Hays M.D. LAB BLOOD ADD-ON [facility] [address] from Last 3 Months or Most Recently Relevant to Health Maintenance
--- OUTSIDE RECORDS SUMMARY | 2024-05-31 08:17 | XMS_ITS | Referral Summary ---
Author Organization [facility] Address [address] [place] [address] Care Team Providers Care Sewer And Drain Technician Name Role Phone Unavailable Primary Care Provider Unavailabl e Source Comments Patient records contain information from all sites at [facility]. For routine questions regarding patient records, call [phone] during business hours, M-F 8:00 AM - 5:00 PM Central Time. Record requests for emergency care only can be directed to [phone] at any time.[facility] Encounters Date Type Department Care Team Description 05/17/2024 Orders Only Division of Endocrinology in [place], [place] [address] [place] [address] Kristi Garland APRN, C.N.P. 05/12/2024 1:00 PM CDT Clinical Support [facility] Medicine and Health in [place], [place] [address] [place] [address] Calvin Smalls L.Ac. Pain Low Back Unspecified; Pain Hip Bilateral 04/21/2024 2:00 PM CDT Clinical Support Department of Nutrition and Diabetes Education in [place], [place] [address] [place] [address] Cinda Willis M.B., Ch.B. Mandy Trevino MNorbertoS., RDN, LD Obesity Body Mass Index 30-39.9 Adult [E66.9] (Primary Dx) 04/14/2024 Clinical Communication Integrative Medicine and Health in [place], [place] [address] [place] [address] Calvin Smalls L.Ac. 04/14/2024 2:45 PM CDT Clinical Support Integrative Medicine and [facility] in [place], [place] [address] [place] [address] Calvin Smalls L.Ac. Pain Low Back Unspecified; Pain Hip Bilateral 03/09/2024 2:45 PM CDT Clinical Support [facility] Medicine and [facility] in [place], [place] [address] [place] [address] Paulie Corral L.Ac. Pain Low Back Unspecified; Pain Hip Bilateral 03/06/2024 Refill Division of Endocrinology in [place], [place] [address] [place] [address] Cinda Willis M.B., Ch.B. Med Refill from Last 3 Months Allergies Active Allergy [...] take 2nd dose if needed. Will need lifter driver. 2 tablet 07/23/2023 Active diazePAM (Valium) 5 mg tablet Take 1 tablet (5 mg total) by mouth See Admin Instructions. Take one (1) tablet 30 minutes before MRI, may take 2nd dose if needed. Will need lifter driver. 2 tablet 07/23/2023 Active diazePAM (VALIUM) [...] drink = 0.6 oz pur e alcohol) [facility] Utilities Answer Date Recorded In the past 12 months has e [employer], gas, oil, or water [employer] threatened to shut off services in your [...] any clubs o r organizations such as christianity groups, unions, fraternal or athletic groups, or [...] Answer Date Recorded PHQ-2 Score 1 03/11/2021 [facility] of Occupat ional Health - Occupational Stress [...] your living situation today? I have a [facility] place to live 12/31/2023 Education Answer Date Recorded What is the highest level of school you have completed or the highest degree you have received? Associate degree: occupational, technical, or vocational program 10/01/2020 Sex and Gender Information Value Date Recorded Sex Assigned at Female 06/23/2021 10:52 AM CDT Gender Identity Female 10/01/2020 2:34 PM LEAD ARCHITECT Sexual Orientation Straight 10/01/2020 2: 34 PM LEAD ARCHITECT Last Filed Vital Signs Vital Sign Reading Time Taken Comments Blood Pressure 154/72 10/27/2023 2:52 PM LEAD ARCHITECT Pulse 63 10/27/2023 2:52 PM LEAD ARCHITECT Temperature 36.6 ??C (97.9 ??F) 10/27/2023 1:41 PM CS T Respiratory Rate 18 01/20/2021 1:15 PM CDT Oxygen Saturation 98% 10/27/2023 2:52 PM LEAD ARCHITECT Inhaled Oxygen Concentration - - Weight 88.6 kg (195 lb 5.2 oz) 04/21/2024 1:29 P M CDT Height 160 cm (5' 2.99) 04/21/2024 1:29 PM CDT Body Mass Index 34.61 04/21/2024 1:29 PM CDT Plan of Treatment Upcoming Encounters Date Type Department Care Team (Late st Contact Info) Description 06/02/2024 3:00 PM CDT Clinical Support Department of Nutrition and Diabetes Education in [place], [place] [address] [place] [phone] Cinda Willis M.B., Ch.B. [address] [place] [phone] Mandy Trevino M.S., RDN, LD [address] [place] [phone] 06/09/2024 2:45 PM CDT Clinical Support Integrative Medicine and Health in [place], [place] [address] [place] [phone] Zeke Reddy L.Ac. [address] [place] [phone] 06/30/2024 2:00 PM CDT Clinical Support Department of Nutrition and Diabetes Education in [place], [place] [address] [place] [phone] Cinda Willis M.B., Ch.B. [address] [place] [phone] Mandy Trevino M.S., VERENA, LD [address] [place] [phone] 07/07/2024 4:30 PM CDT Clinical Support Integrative Medicine and Health in [address] [phone] Zeke Reddy L.Ac. [address] [place] [phone] 08/04/2024 2:00 PM LEAD ARCHITECT Telemedicine Department of Nutrition and Diabetes Education in [place], [place] [address] [place] [phone] Cinda Willis M.B., Ch.B. [address] [place] [phone] Mandy Trevino M.S., VERENA, LD [address] [place] [phone] 08/15/2024 3:00 PM LEAD ARCHITECT Office Visit Division of Endocrinology in [place], [place] [address] [place] [address] Cinda Willis M.B., Ch.B. [address] [place] [address] 08/18/2024 2:45 PM LEAD ARCHITECT Clinical Support Integrative Medicine and Health in [place], [place] [address] [place] [address] Zeke Reddy L.Ac. [address] [place] [address] Medical Devices Implanted Type Area Rattan Worker Device Identifier Shelf Expiration Date Model / Serial / Lot Misc Other Misc Other Mouth Description:Left side upper lower teeth Procedures Procedure Name Priority Date/Time Associated Diagnosis Comments THYROID-STIMULATING HORMONE-SENSITIVE (S-TSH) Routine 09/03/2023 1:51 PM LEAD ARCHITECT Hypothyroidism Primary OUTSIDE MG MAMMOGRAM Routine 03/22/2020 1:15 PM CDT HEMOGLOBIN A1C, B Routine 10/13/2016 9:2 6 AM LEAD ARCHITECT CHRONIC VIRAL HEPATITIS PROFILE Routine 10/13/2016 9:26 AM LEAD ARCHITECT CREATININE WITH EGFR, S/P Routine 10/13/2016 9:26 AM LEAD ARCHITECT from Last 3 Months or Most Recently Relevant to Health Maintenance Results * S-TSH (Thyroid-Stimulating Hormone - Sensitive) (09/03/2023 1:51 PM LEAD ARCHITECT) TSH, Sensitive 0.6 0.3 - 4.2 mIU/L 09/03/2023 2:56 PM LEAD ARCHITECT DTL Blood (Blood, Venous) 09/03/2023 1:51 PM LEAD ARCHITECT 09/03/2023 2:23 PM LEAD ARCHITECT Cinda Staples, Ch.B. LAB BLOOD ADD-ON Performing Organization Address City/State/[facility] Co de Phone Number [facility] [address] [place] [address], [facility] DTL [facility] [address] [place] [address] * MAMMO SCREEN, BILAT, W/CAD-Outside Mammogram (03/22/2020 [...] System IMG BI PROCEDURES Performing Organization Address [facility] Co de Phone Number [facility] NA * Chronic Hepatitis Profile (10/13/2016 9:26 AM LEAD ARCHITECT) HBs Antigen, S Negative Negative [facility] HBc Total Ab, S Negative Negative [facility] HCV Ab, S Negative Negative [facility] Comment:Vzjuig-hi-rkgybn rat io is <1.00. HBs Antibody,S Negative Unvaccinated : Negative; Vaccinated: Positive [facility] Comment:Patient is presumed to be not immune to infection with HBV. HBs Antibody, Quantitative, S <5.0 Unvaccinated : <5.0; Vaccinated: >=12.0 MIU/ML [facility] 10/13/2016 9:26 AM LEAD ARCHITECT 10/13/2016 9:26 AM LEAD ARCHITECT Didier Hays M.D. LAB MICROBIOLOGY - BLOOD ORDERABLES Performing Organization Address [facility] Co de Phone Number [facility] [address] [place], [place] [phone] [place] [address] * Hemoglobin A1c (10/13/2016 9:26 AM LEAD ARCHITECT) Hemoglobin A1c, B 5.4 4.0 - 5.6 % [facility] 10/13/2016 9:26 AM LEAD ARCHITECT 10/13/2016 9:26 AM LEAD ARCHITECT Didier Hays M.D. LAB BLOOD ADD-ON [facility] [address] [place] [phone] * Creatinine with Estimated GFR (MDRD) (10/13/2016 9:26 AM LEAD ARCHITECT) Creatinine 0.9 0.6 - 1.1 MG/DL [facility] eGFR Non-Black/Afric an Swiss >60 >60 ML/MIN/BSA [facility] eGFR-Black/Afri can Swiss >60 >60 ML/MIN/BSA [facility] 10/13/2016 9:26 AM LEAD ARCHITECT 10/13/2016 9:26 AM LEAD ARCHITECT Didier Hays M.D. LAB BLOOD ADD-ON Performing Organization Address City/State/[facility] Co de Phone Number [facility] [address] [place] [phone] from Last 3 Months or Most Recently Relevant to Health Maintenance
--- OUTSIDE RECORDS SUMMARY | 2024-05-31 08:17 | XMS_ITS ---
Author Organization [facility] Address [address] [place] [address] Care Team Providers Care Glass Crusher Name Role Phone Unavailable Unavailable Unavailable Surgery Details Not on file Complications Check Surgery Details section. Procedure Estimated Blood Loss Check Surgery Details section. Procedure Findings Check Surgery Details section. Procedure Specimens Taken Check Surgery Details section.
--- OUTSIDE RECORDS SUMMARY | 2024-05-31 08:18 | XMS_ITS | Encounter Summary ---
Author Organization [facility] Address [address] [place] [address] Care Team Providers Care Manager Market Intelligence Name Role Phone Unavailable Primary Care Provider Unavailabl e Reason for Referral * Outpatient (Routine) - Authorized Specialty Diagnoses / Procedures Referred By Contac t Referred To Contact Cinda Styles M.B., Ch.B. [address] [place] [address] [facility] Referral ID Status Reason Start Date Expiration Date V isits Requested Visits Authorized [id number] Authorized 04/21/2024 10/21/2025 2 2 Reason for Visit * Outpatient (Routine) - Authorized Specialty Diagnoses / Procedures Referred By Contac t Referred To Contact Cinda Styles M.B., Ch.B. [address] [place] [address] [facility] Referral ID Status Reason Start Date Expiration Date V isits Requested Visits Authorized [id number] Authorized 02/18/2024 08/19/2025 2 2 Encounter Details Date Type Department Care Team (Latest Contact Info) Description 04/21/2024 2:00 PM CDT Clinical Support Department of Nutrition and Diabetes Education in [place], [place] [address] [place] [phone] Cinda Willis M.B., Ch.B. [address] [place] [phone] Mandy Trevino M.S., RDN, LD [address] [place] [phone] Obesity Body Mass Index 30-39.9 Adult [E66.9] (Primary Dx) Social History Tobacco Use Types Packs/Day Years Used Date Smoking Tobacco: Never Smokeless Tobacco: Never Alcohol Use Standard Drinks/Week Comments Not Currently 1 (1 standard drink = 0.6 oz pur e alcohol) [facility] Utilities Answer Date Recorded In the past 12 months has e [employer], gas, oil, or water [employer] threatened to shut off services in your [...] often do you attend chur ch or yarsani services? More than 4 times per year [...] Answer Date Recorded PHQ-2 Score 1 03/11/2021 [facility] of Occupat ional Health - [...] your living situation today? I have a [facility] place to live 12/31/2023 Education Answer Date Recorded What is the highest level of school you have completed or the highest degree you have received? Associate degree: occupational, technical, or vocational program 10/01/2020 Sex and Gender Information Value Date Recorded Sex Assigned at Female 06/23/2021 10:52 AM CDT Gender Identity Female 10/01/2020 2:34 PM MOTOR POWER CONNECTOR Sexual Orientation Straight 10/01/2020 2: 34 PM MOTOR POWER CONNECTOR documented as of this encounter Last Filed [...] find benefits from [employer]. She is in [employer] 2 times per month. She is [...] Snack: none Beverages: Sprite Zero, water with Car in the Cloud, María Elena Dry Alcohol intake: occasionally 1-2 [...] Department of Nutrition and Diabetes Education in [place], [place] [address] [place] [phone] Cinda Willis M.B., Ch.B. [address] [place] [phone] Mandy Trevino M.S., RDN, LD [address] [place] [phone] 06/09/2024 2:45 PM CDT Clinical Support Integrative Medicine and Health in [place], [place] [address] [place] [phone] Zeke Reddy L.Ac. [address] [place] [phone] 06/30/2024 2:00 PM CDT Clinical Support Department of Nutrition and Diabetes Education in [place], [place] [address] [place] [phone] Cinda Willis M.B., Ch.B. [address] [place] [phone] Mandy Trevino M.S., VERENA, LD [address] [place] [phone] 07/07/2024 4:30 PM CDT Clinical Support Integrative Medicine and Health in [place], [place] [address] [place] [phone] Zeke Reddy L.Ac. [address] [place] [phone] 08/04/2024 2:00 PM MOTOR POWER CONNECTOR Telemedicine Department of Nutrition and Diabetes Education in [address] [phone] Cinda Willis M.B., Ch.B. [address] [place] [phone] Mandy Trevino M.S., VERENA, LD [address] [place] [phone] 08/15/2024 3:00 PM MOTOR POWER CONNECTOR Office Visit Division of Endocrinology in [place], [place] [address] [place] [phone] Cinda Willis M.B., Ch.B. [address] [place] [phone] 08/18/2024 2:45 PM MOTOR POWER CONNECTOR Clinical Support Integrative Medicine and Health in [place], [place] [address] [place] [phone] Zeke Reddy L.Ac. [address] [place] [phone] Scheduled Referrals Name Type Priority Associated Diagnoses [...]
--- OUTSIDE RECORDS SUMMARY | 2024-05-31 08:18 | XMS_ITS | Encounter Summary ---
Author Organization [facility] Address [address] [place] [address] Care Team Providers Care Web Site Manager Name Role Phone Unavailable Primary Care Provider Unavailabl e Reason for Visit * Reason Comments Med Refill Encounter Details Date Type Department Care Team (Late st Contact Info) Description 03/06/2024 Refill Division of Endocrinology in [place], [place] [address] [place] [phone] Cinda Willis M.B., Ch.B. [address] [place] [address] Med Refill Social History Tobacco Use Types Packs/Day Years Used Date Smoking Tobacco: Never Smokeless Tobacco: Never Alcohol Use Standard Drinks/Week Comments Not Currently 1 (1 standard drink = 0.6 oz pur e alcohol) [facility] Utilities Answer Date Recorded In the past 12 months has [facility] [employer], gas, oil, or water [employer] threatened to shut off services in your [...] How often do you attend chur or holiness services? More than 4 times per year [...] 03/11/2021 [facility] of Occupat ional Health - [...] Answer Date Recorded Employment status Unemployed/not in [employer] paid workforce and NOT seeking employment 12/31/2023 Housing Stability Answer Date Recorded What is your living situation today? I have a [facility] place to live 12/31/2023 Education Answer Date Recorded What is the highest level of school you have completed or the highest degree you have received? Associate degree: occupational, technical, or vocational program 10/01/2020 Sex and Gender Information Value Date Recorded Sex Assigned at Female 06/23/2021 10:52 AM CDT Gender Identity Female 10/01/2020 2:34 PM TOOL ROOM GEAR MACHINE OPERATOR Sexual Orientation Straight 10/01/2020 2: 34 PM TOOL ROOM GEAR MACHINE OPERATOR documented as of this encounter Plan of Treatment Upcoming Encounters Date Type Department Care Team (Late st Contact Info) Description 06/02/2024 3:00 PM CDT Clinical Support Department of Nutrition and Diabetes Education in [place], [place] [address] [place] [phone] Cinda Willis M.B., Ch.B. [address] [place] [phone] Mandy Trevino M.S., RDN, LD [address] [place] [phone] 06/09/2024 2:45 PM CDT Clinical Support Integrative Medicine and Health in [place], [place] [address] [place] [phone] Zeke Reddy L.Ac. [address] [place] [phone] 06/30/2024 2:00 PM CDT Clinical Support Department of Nutrition and Diabetes Education in [place], [place] [address] [place] [phone] Cinda Willis M.B., Ch.B. [address] [place] [phone] Mandy Trevino M.S., RDCrystal, LD [address] [place] [phone] 07/07/2024 4:30 PM CDT Clinical Support Integrative Medicine and Health in [place], [place] [address] [place] [phone] Zeke Reddy L.Ac. [address] [place] [phone] 08/04/2024 2:00 PM TOOL ROOM GEAR MACHINE OPERATOR Telemedicine Department of Nutrition and Diabetes Education in [place], [place] [address] [place] [phone] Cinad Willis M.B., Ch.B. [address] [place] [phone] Mandy Trevino M.S., RDN, LD [address] [place] [phone] 08/15/2024 3:00 PM TOOL ROOM GEAR MACHINE OPERATOR Office Visit Division of Endocrinology in [place], [place] [address] [place] [phone] Cinda Willis M.B., Ch.B. [address] [place] [phone] 08/18/2024 2:45 PM TOOL ROOM GEAR MACHINE OPERATOR Clinical Support Integrative Medicine and Health in [place], [place] [address] [place] [phone] Zeke Reddy L.. [address] [place] [phone] documented as of this encounter Visit Diagnoses Not on filedocumented in this encounter Additional Health Concerns Assessment Noted Time PHQ-9 Depression Total Score: 4 03/11/20 21 2:35 PM CDT documented as of this encounter
--- OUTSIDE RECORDS SUMMARY | 2024-05-31 08:18 | XMS_ITS | Encounter Summary ---
Author Organization [facility] Address [address] [place] [address] Care Team Providers Care Wedding Cake Designer Name Role Phone Unavailable Primary Care Provider Unavailabl e Reason for Visit * Outpatient (Routine) - Authorized Specialty Diagnoses / Procedures Referred By Contac t Referred To Contact Diagnoses Pain Low Back Unspecified Pain Hip Bilateral Procedures COUNT INCLUDES THE [facility] Acupuncture [facility] Zoey [address] [place] [address] [facility] Referral ID Status Reason Start Date Expiration Date V isits Requested Visits Authorized [id number] Authorized 02/07/2024 02/06/2025 20 20 Encounter Details Date Type Department Care Team (Latest Contact Info) Description 04/14/2024 2:45 PM CDT Clinical Support Integrative Medicine and Health in [place], [place] [address] [place] [address] Calvin Smalls L.. Pain Low Back Unspecified; Pain Hip Bilateral Social History Tobacco Use Types Packs/Day Years Used Date Smoking Tobacco: Never Smokeless Tobacco: Never Alcohol Use Standard Drinks/Week Comments Not Currently 1 (1 standard drink = 0.6 oz pur e alcohol) [facility] Utilities Answer Date Recorded In the [...] How often do you attend chur or uatsdin services? More than 4 times per year 11/22/2022 Do you belong to any clubs o r organizations such as uatsdin groups, unions, fraternal or athletic groups, or [...] Answer Date Recorded PHQ-2 Score 1 03/11/2021 [facility] of Occupat ional Health - [...] Gender Identity Female 10/01/2020 2:34 PM FURNITURE REFINISHER Sexual Orientation Straight 10/01/2020 2: 34 PM FURNITURE REFINISHER documented as of this encounter Progress Notes * Calvin Smalls L.Ac. - 04/14/2024 2:45 PM CDT Referral Source: No ref. provider found Supervised by: [place] [id number] SUBJECTIVE Chief Complaint: Back Pain History of [...] symptom relief. Total Needling Time: 30 minutes [place] Electrified: No Diathermy: Yes Cupping: No Treatment Points Used: Set One: GB20, UB10, GB21, SI15, UB23-25, [place], YaoYan, TFL mitzi triangle Set Two: UB40, GB34, SP6, KD3, UB62 Number of [place] Used = Number of [place] Retrieved: Yes Stimulation Intensity: Medium Narrative Assessment: [...] the www.[employer].org for locating a qualified licensed psychologist manager in the local community. PATIENT EDUCATION Ready to learn, no apparent learning barriers were identified, learning preference include listening. Explained diagnosis and treatment plan: patient/caregiver expressed understanding of the content. documented in this encounter Plan of Treatment Upcoming Encounters Date Type Department Care Team (Late st Contact Info) Description 06/02/2024 3:00 PM CDT Clinical Support Department of Nutrition and Diabetes Education in [address] [phone] Cinda Willis M.B., Ch.B. [address] [place] [phone] Mandy Trevino M.S., VERENA, LD [address] [place] [phone] 06/09/2024 2:45 PM CDT Clinical Support Integrative Medicine and Health in [address] [phone] Zeke Reddy L.Ac. [address] [place] [phone] 06/30/2024 2:00 PM CDT Clinical Support Department of Nutrition and Diabetes Education in [address] [phone] Cinda Willis M.B., Ch.B. [address] [place] [phone] Mandy Trevino M.S., VERENA, LD [address] [place] [phone] 07/07/2024 4:30 PM CDT Clinical Support Integrative Medicine and Health in [place], [place] [address] [place] [phone] Zeke Reddy L.Ac. [address] [place] [phone] 08/04/2024 2:00 PM FURNITURE REFINISHER Telemedicine Department of Nutrition and Diabetes Education in [place], [place] [address] [place] [phone] Cinda Willis M.B., Ch.B. [address] [place] [phone] Mandy Trevino M.S., RDN, LD [address] [place] [phone] 08/15/2024 3:00 PM FURNITURE REFINISHER Office Visit Division of Endocrinology in [place], [place] [address] [place] [phone] Cinda Willis M.B., Ch.B. [address] [place] [phone] 08/18/2024 2:45 PM FURNITURE REFINISHER Clinical Support Integrative Medicine and Health in [address] [phone] Zeke Reddy L.Ac. [address] [place] [phone] documented as of this encounter Visit Diagnoses Diagnosis Pain Low Back Unspecified Pain Hip Bilateral documented in this encounter Additional Health Concerns Assessment Noted Time PHQ-9 Depression Total Score: 4 03/11/20 21 2:35 PM CDT documented as of this encounter
--- OUTSIDE RECORDS SUMMARY | 2024-05-31 08:18 | XMS_ITS | Encounter Summary ---
Author Organization [facility] Address [address] [place] [address] Care Team Providers Care Building Inspector Name Role Phone Unavailable Primary Care Provider Unavailabl e Encounter Details Date Type Department Care Team (Late st Contact Info) Description 04/14/2024 Clinical Communication Integrative Medicine and Health in [place], [place] [address] [place] [address] Calvin Smalls, L.. Social History Tobacco Use Types Packs/Day Years Used Date Smoking Tobacco: Never Smokeless Tobacco: Never Alcohol Use Standard Drinks/Week Comments Not Currently 1 (1 standard drink = 0.6 oz pur e alcohol) [facility] Utilities Answer Date Recorded In the past 12 months has e electric, gas, oil, or water [employer] threatened to shut off services in your [...] often do you attend chur ch or christianity services? More than 4 times per year 11/22/2022 Do you belong to any clubs o r organizations such as mandaeism groups, unions, fraternal or athletic groups, or [...] 03/11/2021 [facility] - Occupational Stress Questionnaire Answer [...] Answer Date Recorded Employment status Unemployed/not in [employer] paid workforce and NOT seeking employment 12/31/2023 Housing Stability Answer Date Recorded What is your living situation today? I have a [facility] place to live 12/31/2023 Education Answer Date Recorded What is the highest level of school you have completed or the highest degree you have received? Associate degree: occupational, technical, or vocational program 10/01/2020 Sex and Gender Information Value Date Recorded Sex Assigned at Female 06/23/2021 10:52 AM CDT Gender Identity Female 10/01/2020 2:34 PM HIGH ENERGY FORMING EQUIPMENT OPERATOR Sexual Orientation Straight 10/01/2020 2: 34 PM HIGH ENERGY FORMING EQUIPMENT OPERATOR documented as of this encounter Plan of Treatment Upcoming Encounters Date Type Department Care Team (Late st Contact Info) Description 06/02/2024 3:00 PM CDT Clinical Support Department of Nutrition and Diabetes Education in [place], [place] [address] [place] [address] Cinda Willis M.B., Ch.B. [address] [place] [phone] Mandy Trevino M.S., RDN, LD [address] [place] [address] 06/09/2024 2:45 PM CDT Clinical Support [facility]ative [facility] and [facility] in [place], [place] [address] [place] [address] Zeke Reddy L.Ac. [address] [place] [phone] 06/30/2024 2:00 PM CDT Clinical Support Department of Nutrition and Diabetes Education in [place], [place] [address] [place] [address] Cinda Willis M.B., Ch.B. [address] [place] [phone] Mandy Trevino M.S., RDN, LD [address] [place] [phone] 07/07/2024 4:30 PM CDT Clinical Support [facility]ative [facility] and Health in [place], [place] [address] [place] [phone] Zeke Reddy L.Ac. [address] [place] [phone] 08/04/2024 2:00 PM HIGH ENERGY FORMING EQUIPMENT OPERATOR Telemedicine Department of Nutrition and Diabetes Education in [place], [place] [address] [place] [address] Cinda Willis M.B., Ch.B. [address] [place] [phone] Mandy Trevino M.S., RDN, LD [address] [place] [phone] 08/15/2024 3:00 PM HIGH ENERGY FORMING EQUIPMENT OPERATOR Office Visit Division of Endocrinology in [address] [phone] Cinda Willis M.B., Ch.B. [address] [place] [phone] 08/18/2024 2:45 PM HIGH ENERGY FORMING EQUIPMENT OPERATOR Clinical Support [facility] in [place], [place] [address] [place] [address] Zeke Reddy L.Ac. [address] [place] [phone] documented as of this encounter Visit Diagnoses Not on filedocumented in this encounter Additional Health Concerns Assessment Noted Time PHQ-9 Depression Total Score: 4 03/11/20 21 2:35 PM CDT documented as of this encounter
--- OUTSIDE RECORDS SUMMARY | 2024-05-31 08:18 | XMS_ITS | Encounter Summary ---
Author Organization [facility] Address [address] [place] [address] Care Team Providers Care Mate Ship Name Role Phone Unavailable Primary Care Provider Unavailabl e Reason for Visit * Outpatient (Routine) - Closed Specialty Diagnoses / Procedures Referred By Contac t Referred To Contact Diagnoses Pain Low Back Unspecified Pain Hip Bilateral Procedures COUNTS INCLUDE 234 BEDS AT [facility] Acupuncture Rst [facility] [address] [place] [address] [facility] Referral ID Status Reason Start Date Expiration Date Visits Re quested Visits Authorized [id number] Closed 12/11/2022 12/11/2023 12 12 Encounter Details Date Type Department Care Team (Latest Contact Info) Description 03/09/2024 2:45 PM CDT Clinical Support Integrative Medicine and Health in [place], [place] [address] [place] [phone] Paulie Corral, L.Ac. Pain Low Back Unspecified; Pain Hip Bilateral Social History Tobacco Use Types Packs/Day Years Used Date Smoking Tobacco: Never Smokeless Tobacco: Never Alcohol Use Standard Drinks/Week Comments Not Currently 1 (1 standard drink = 0.6 oz pur e alcohol) [facility] Utilities Answer Date Recorded In the past [...] How often do you attend chur or jainism services? More than 4 times per year 11/22/2022 Do you belong to any clubs o r organizations such as jew groups, unions, fraternal or athletic groups, or [...] Answer Date Recorded PHQ-2 Score 1 03/11/2021 [facility] - Occupational [...] situation today? I have a [facility] place to live 12/31/2023 Education Answer Date Recorded What is the highest level of school you have completed or the highest degree you have received? Associate degree: occupational, technical, or vocational program 10/01/2020 Sex and Gender Information Value Date Recorded Sex Assigned at Female 06/23/2021 10:52 AM CDT Gender Identity Female 10/01/2020 2:34 PM PITCH FLAKER Sexual Orientation Straight 10/01/2020 2: 34 PM PITCH FLAKER documented as of this encounter Progress Notes * Paulie Corral LNorbertoAc. - 03/09/2024 2:45 PM CDT Referral Source: No ref. provider found Supervised by: Noemy Felton MD [id number] SUBJECTIVE Chief Complaint: Bilateral Hip Pain and [...] symptom relief. Total Needling Time: 30 minutes Anton Electrified: No Diathermy: Yes Cupping: No Tuina: No Treatment Points Used: Set One: Gb20, Gb21, Du14, Bl13, Bl14, Bl15, Bl17, Sp6, Ki3 Set Two: Bl23, Bl24, Bl25, Vishal Kieran, Bl54, Gb30, Gb34 Head: None Auricular: None Number of Anton Used = Number of Anton Retrieved: Yes Stimulation Intensity: Medium Narrative Assessment: [...] and the www.[employer].org for locating a qualified rn licensed practical in the local community. PATIENT [...] Department of Nutrition and Diabetes Education in [address] [phone] Cinda Willis M.B., Ch.B. [address] [place] [phone] Mandy Trevino M.S., VERENA, LD [address] [place] [phone] 06/09/2024 2:45 PM CDT Clinical Support Integrative Medicine and Health in [address] [phone] Zeke Reddy L.Ac. [address] [place] [phone] 06/30/2024 2:00 PM CDT Clinical Support Department of Nutrition and Diabetes Education in [address] [phone] Cinda Willis M.B., Ch.B. [address] [place] [phone] Mandy Trevino M.S., VERENA, LD [address] [place] [phone] 07/07/2024 4:30 PM CDT Clinical Support [facility]ative Medicine and Health in [address] [phone] Zeke Reddy L.Ac. [address] [place] [phone] 08/04/2024 2:00 PM PITCH FLAKER Telemedicine Department of Nutrition and Diabetes Education in [place], [place] [address] [place] [phone] Cinda Willis M.B., Ch.B. [address] [place] [phone] Mandy Trevino M.S., RDN, LD [address] [place] [phone] 08/15/2024 3:00 PM PITCH FLAKER Office Visit Division of Endocrinology in [place], [place] [address] [place] [phone] Cinda Willis M.B., Ch.B. [address] [place] [phone] 08/18/2024 2:45 PM PITCH FLAKER Clinical Support Integrative Medicine and Health in [place], [place] [address] [place] [phone] Zeke Reddy L.Ac. [address] [place] [phone] documented as of this encounter Visit Diagnoses Diagnosis Pain Low Back Unspecified Pain Hip Bilateral documented in this encounter Additional Health Concerns Assessment Noted Time PHQ-9 Depression Total Score: 4 03/11/20 21 2:35 PM CDT documented as of this encounter
== END 2024-05-31 08:15 | disposition home or self-care (01) ==
LOC: MRI 08:15
PROVIDERS: PCP Family Medicine; Visit Provider Family Medicine
DX: M25.561 Pain in right knee (principal); S83.241A Other tear of medial meniscus, current injury, right knee, initial encounter; M17.11 Unilateral primary osteoarthritis, right knee
CPT/HCPCS: 73721

== ENCOUNTER 2024-06-14 10:45 | Outpatient (CLI) | payer BC, SELFPAY ==
--- OUTSIDE RECORDS SUMMARY | 2024-06-18 08:50 | XMS_ITS | Clinical Summary ---
Author Organization [facility] Address [place], [place] [address] Care Team Providers Care Option Trader Name Role Phone Troy Seals MD Primary Care Provider [phone] Oliver Hylton MD Unavailable [phone] Jm Araujo Unavailable Unavailable Allergies No known [...] Name Administration Dates Next Due COVID-19 vaccine (Pinocular 30mcg/0.3mL) P F, MDV 01/24/2021,12/31/2020 Social History [...] 18+ 05/23/2021 05/23/2020, 05/14/2020 COVID-19 vaccine series (2023- season) 2024 01/24/2021, 12/31/2020 Influenza for age 50-64 05/21/2024 Pap test for age 21-65 06/16/2024 , 06/16/2021, 11/14/2015, Additional history exists Pneumococcal series for age 6-64 Aged Out No longer eligible based on patient's age to complete this topic Procedures Procedure Name Priority Date/Time Associated Diagnosis Comments HPV HIGH RISK Routine 06/16/2021 11:35 AM CDT from Last 3 Months or Most Recently Relevant to Health Maintenance Results * HPV HIGH RISK (06/16/2021 11:35 AM CDT) TYPE 16 Negative Negative 06/19/2021 3:20 PM CDT [facility] TYPE 18 Negative Negative 06/19/2021 3:20 PM CDT [facility] OTHER HIGH RISK TYPES Negative Negative 06/19/2021 3:20 PM CDT [facility] Other (Cervical/Vagina l) 06/16/2021 11:35 AM CDT 06/18/2021 9:20 AM CDT Narrative [facility] - 06/19/2021 3:20 PM CDT HPV types 16, 18, 31, 33, 35, 39, 45, 51, 52, 56, 58, 59, 66 and 68 DNA were undetectable or below the pre-set threshold. Methodology: Farzaneh Dick 4800 HPV Test Cynthia Coy MD MICROBIOLOGY [facility] [address] [place] [address], from Last 3 Months or Most Recently Relevant to Health Maintenance Care Teams Option Trader Relationship Specialty Start Date End Date Troy Seals MD PCP - General Family Practice 06/04/14 [place] [address] [facility] [place] [address] Consulting Physician Cardiovascular Disease 06/06/14 Jm Araujo [address] [place] [address] Family Practice Magician Helper 04/19/20
--- OUTSIDE RECORDS SUMMARY | 2024-06-18 08:50 | XMS_ITS | Clinical Summary ---
Author Organization [facility] Address [address] [place] [address] Care Team Providers Care Associate Chemist Name Role Phone Unavailable Primary Care Provider Unavailabl e Source Comments Patient records contain information from all sites at [facility]. For routine questions regarding patient records, call [phone] during business hours, M-F 8:00 AM - 5:00 PM Central Time. Record requests for emergency care only can be directed to [phone] at any time.[facility] Allergies Active Allergy Reactions Criticality Noted [...] take 2nd dose if needed. Will need pile driver engineer. 2 tablet 07/23/2023 Active diazePAM (Valium) 5 mg tablet Take 1 tablet (5 mg total) by mouth See Admin Instructions. Take one (1) tablet 30 minutes before MRI, may take 2nd dose if needed. Will need pile driver engineer. 2 tablet 07/23/2023 Active diazePAM (VALIUM) 5 [...] Encounters Date Type Department Care Team Description 06/09/2024 2:45 PM CDT Clinical Support [facility]ative [facility] and [facility] in [place], [place] [address] [place] [address] Zeke Reddy L.Ac. Pain Low Back Unspecified; Pain Hip Bilateral 06/02/2024 3:00 PM CDT Clinical Support Department of Nutrition and Diabetes Education in [place], [place] [address] [place] [address] Cinda Willis M.B., Ch.B. Mandy Trevino MNorbertoS., RDN, LD Obesity Body Mass Index 30-39.9 Adult [E66.9] (Primary Dx) 06/01/2024 Clinical Communication Division of General Internal Medicine in [place], [place] [address] [place] [address] Prescheduling, Provider Triage 05/17/2024 Orders Only Division of Endocrinology in [place], [place] [address] [place] [address] Kristi Garland APRN, C.N.P. 05/12/2024 1:00 PM CDT Clinical Support [facility] in [place], [place] [address] [place] [address] Calvin Smalls L.Antoni. Pain Low Back Unspecified; Pain Hip Bilateral 04/21/2024 2:00 PM CDT Clinical Support Department of Nutrition and Diabetes Education in [place], [place] [address] [place] [address] Cinda Willis M.B., Ch.B. Mandy Trevino M.S., RDN, LD Obesity Body Mass Index 30-39.9 Adult [E66.9] (Primary Dx) 04/14/2024 2:45 PM CDT Clinical Support [facility] Medicine and [facility] in [place], [place] [address] [place] [address] Calvin Smalls L.Ac. Pain Low Back Unspecified; Pain Hip Bilateral 04/14/2024 Clinical Communication Integrative Medicine and [facility] in [place], [place] [address] [place] [address] Calvin Smalls L.Ac. from Last 3 Months Immunizations Name Administration [...] Answer Date Recorded PHQ-2 Score 1 03/11/2021 [facility] of Occupat ional Health - Occupational Stress [...] your living situation today? I have a [facility] place to live 12/31/2023 Education Answer Date Recorded What is the highest level of school you have completed or the highest degree you have received? Associate degree: occupational, technical, or vocational program 10/01/2020 Sex and Gender Information Value Date Recorded Sex Assigned at Female 06/23/2021 10:52 AM CDT Gender Identity Female 10/01/2020 2:34 PM BIOLOGICAL AIDE Sexual Orientation Straight 10/01/2020 2: 34 PM BIOLOGICAL AIDE Last Filed Vital Signs Vital Sign Reading Time Taken Comments Blood Pressure 154/72 10/27/2023 2:52 PM BIOLOGICAL AIDE Pulse 63 10/27/2023 2:52 PM BIOLOGICAL AIDE Temperature 36.6 ??C (97.9 ??F) 10/27/2023 1:41 PM CS T Respiratory Rate 18 01/20/2021 1:15 PM CDT Oxygen Saturation 98% 10/27/2023 2:52 PM BIOLOGICAL AIDE Inhaled Oxygen Concentration - - Weight 93.8 kg (206 lb 12.7 oz) 06/02/2024 2:46 PM CDT Height 160.4 cm (5' 3.15) 06/02/2024 2:46 PM CD T Body Mass Index 36.46 06/02/2024 2:46 PM CDT Plan of Treatment Upcoming Encounters Date Type Department Care Team (Late st Contact Info) Description 06/30/2024 2:00 PM CDT Clinical Support Department of Nutrition and Diabetes Education in [address] [phone] Cinda Willis M.B., Ch.B. [address] [place] [phone] Mandy Trevino M.S., RDN, LD [address] [place] [phone] 07/07/2024 4:30 PM CDT Clinical Support [facility] in [place], [place] [address] [place] [phone] Zeke Reddy L.Ac. [address] [place] [phone] 08/04/2024 2:00 PM BIOLOGICAL AIDE Telemedicine Department of Nutrition and Diabetes Education in [place], [place] [address] [place] [phone] Cinda Willis M.B., Ch.B. [address] [place] [phone] Mandy Trevino M.S., RDN, LD [address] [place] [phone] 08/15/2024 3:00 PM BIOLOGICAL AIDE Office Visit Division of Endocrinology in [place], [place] [address] [place] [address] [place] [phone] Cinda Willis M.B., Ch.B. [address] [place] [phone] 08/18/2024 2:45 PM BIOLOGICAL AIDE Clinical Support [facility] in [place], [place] [address] [place] [address] Zeke Reddy L.Ac. [address] [place] [phone] 09/22/2024 2:00 PM BIOLOGICAL AIDE Clinical Support [facility] in [place], [place] [address] [place] [phone] Zeke Reddy L.Ac. [address] [place] [phone] Health Maintenance Due Date Last Done Comments CT Colonography 1964 Colonoscopy 1964 FIT 1964 HIV Screening 1965 Potassium Level 1964 Sodium Level 1964 Creatinine Level (Kidney Function Test) 10/13/2017 10/13/2016 Lipid (Cholesterol) Screening 10/24/2017 10/24/2012 (Performed elsewhere) Fasting Glucose for Diabetes Screening 10/13/2019 10/13/2016 Mammogram 03/22/2021 03/22/2020, 07/21 (Performed elsewhere), 06/26/2013 (Performed elsewhere) Depression Screening (Annual PHQ-2) 09/20/2023 COVID-19 Vaccine ( season) 2024 06/18/2022, 02/19/2022, 09/09/2021, Additional history exists Cervical Cancer Screening 06/16/20242020, 10/24/2012 (Performed elsewhere) Influenza Vaccine (#1) 2024 , 09/09/2021, 07/02/2020, Additional history exists Thyroid Stimulating Hormone (TSH) test for thyroid function 09/03/2024 09/03/2023, 07/02/2023, 04/09/2023, Additional history exists Cologuard 07/16/2026 07/16/2023 Colorectal Cancer Screening 07/16/2026 DTaP,Tdap,and Td Vaccines (4 - Td or Tdap) 06/09/2031 06/09/2021, 11/10/2012, 09/26/2007 Hepatitis C Screening Completed 10/13/2016 Zoster Vaccines Completed 03/10/2021, 09/20, 02/26/2020 Hepatitis B Vaccines Aged Out No long er eligible based on patient's age to complete this topic Pneumococcal vaccine (0-64 years) Aged Out No longer eligible based on patient's age to complete this topic Medical Devices Implanted Type Area Drill Sharpener Operator Device Identifier Shelf Expiration Date Model / Serial / Lot Misc Other Misc Other Mouth Description:Left side upper lower teeth Procedures Procedure Name Priority Date/Time Associated Diagnosis Comments THYROID-STIMULATING HORMONE-SENSITIVE (S-TSH) Routine 09/03/2023 1:51 PM BIOLOGICAL AIDE Hypothyroidism Primary OUTSIDE MG MAMMOGRAM Routine 03/22/2020 1:15 PM CDT HEMOGLOBIN A1C, B Routine 10/13/2016 9:2 6 AM BIOLOGICAL AIDE CHRONIC VIRAL HEPATITIS PROFILE Routine 10/13/2016 9:26 AM BIOLOGICAL AIDE CREATININE WITH EGFR, S/P Routine 10/13/2016 9:26 AM BIOLOGICAL AIDE from Last 3 Months or Most Recently Relevant to Health Maintenance Results * S-TSH (Thyroid-Stimulating Hormone - Sensitive) (09/03/2023 1:51 PM BIOLOGICAL AIDE) TSH, Sensitive 0.6 0.3 - 4.2 mIU/L 09/03/2023 2:56 PM BIOLOGICAL AIDE DTL Blood (Blood, Venous) 09/03/2023 1:51 PM BIOLOGICAL AIDE 09/03/2023 2:23 PM BIOLOGICAL AIDE Cinda Staples, Светлана.B. LAB BLOOD ADD-ON [facility] [address] [place] [address], [facility] DTL [facility] [address] [place] [address] * MAMMO SCREEN, BILAT, W/CAD-Outside Mammogram (03/22/2020 [...] System IMG BI PROCEDURES Performing Organization Address City/[facility]/ZIP Co de Phone Number [facility] NA * Chronic Hepatitis Profile (10/13/2016 9:26 AM BIOLOGICAL AIDE) HBs Antigen, S Negative Negative [facility] HBc Total Ab, S Negative Negative [facility] HCV Ab, S Negative Negative [facility] Comment:Lnvxon-za-pgdgdt rat io is <1.00. HBs Antibody,S Negative Unvaccinated : Negative; Vaccinated: Positive [facility] Comment:Patient is presumed to be not immune to infection with HBV. HBs Antibody, Quantitative, S <5.0 Unvaccinated : <5.0; Vaccinated: >=12.0 MIU/ML [facility] 10/13/2016 9:26 AM BIOLOGICAL AIDE 10/13/2016 9:26 AM BIOLOGICAL AIDE Didier Hays M.D. LAB MICROBIOLOGY - BLOOD ORDERABLES [facility] [address] [place] [address], [facility] * Hemoglobin A1c (10/13/2016 9:26 AM BIOLOGICAL AIDE) Hemoglobin A1c, B 5.4 4.0 - 5.6 % [facility] 10/13/2016 9:26 AM BIOLOGICAL AIDE 10/13/2016 9:26 AM BIOLOGICAL AIDE Didier Hays M.D. LAB BLOOD ADD-ON [facility] [address] * Creatinine with Estimated GFR (MDRD) (10/13/2016 9:26 AM BIOLOGICAL AIDE) Creatinine 0.9 0.6 - 1.1 MG/DL [facility] eGFR Non-Black/Afric an Italian >60 >60 ML/MIN/BSA [facility] eGFR-Black/Afri can Italian >60 >60 ML/MIN/BSA [facility] 10/13/2016 9:26 AM BIOLOGICAL AIDE 10/13/2016 9:26 AM BIOLOGICAL AIDE Didier Hays M.D. LAB BLOOD ADD-ON [facility] [address] [place], [place] [address] from Last 3 Months or Most Recently Relevant to Health Maintenance
--- OUTSIDE RECORDS SUMMARY | 2024-06-18 08:51 | XMS_ITS | Encounter Summary ---
Author Organization [facility] Address [address] [place] [address] Care Team Providers Care Senior Sourcing Manager Name Role Phone Unavailable Primary Care Provider Unavailabl e Reason for Visit * Outpatient (Routine) - Closed Specialty Diagnoses / Procedures Referred By Contangelique t Referred To Contact Nutrition Cinda Willis M.B., Ch.B. [address] [place] [address] [facility] Referral ID Status Reason Start Date Expiration Date Visits Re quested Visits Authorized [id number] Closed 01/07/2024 07/08/2025 2 2 Encounter Details Date Type Department Care Team (Latest Contact Info) Description 06/02/2024 3:00 PM CDT Clinical Support Department of Nutrition and Diabetes Education in [place], [place] [address] [place] [phone] Cinda Willis M.B., Ch.B. [address] [place] [phone] Mandy Trevino M.S., RDN, LD [address] [place] [phone] Obesity Body Mass Index 30-39.9 Adult [E66.9] (Primary Dx) Social History Tobacco Use Types Packs/Day Years Used Date Smoking Tobacco: Never Smokeless Tobacco: Never Alcohol Use Standard Drinks/Week Comments Not Currently 1 (1 standard drink = 0.6 oz pur e alcohol) [facility] Utilities Answer Date Recorded In the past 12 months has e [employer], oil, or water [email or web address] threatened to shut off services in your [...] often do you attend chur ch or hindu services? More than 4 times per year [...] Answer Date Recorded PHQ-2 Score 1 03/11/2021 [facility] of Occupat ional Health - Occupational Stress [...] your living situation today? I have a [facility] place to live 12/31/2023 Education Answer Date Recorded What is the highest level of school you have completed or the highest degree you have received? Associate degree: occupational, technical, or vocational program 10/01/2020 Sex and Gender Information Value Date Recorded Sex Assigned at Female 06/23/2021 10:52 AM CDT Gender Identity Female 10/01/2020 2:34 PM RELEASE AND TECHNICAL RECORDS CLERK Sexual Orientation Straight 10/01/2020 2: 34 PM RELEASE AND TECHNICAL RECORDS CLERK documented as of this encounter Last Filed Vital Signs Vital Sign Reading Time Taken Comments Blood Pressure - - Pulse - - Temperature - - Respiratory Rate - - Oxygen Saturation - - Inhaled Oxygen Concentration - - Weight 93.8 kg (206 lb 12.7 oz) 06/02/2024 2:46 PM CDT Height 160.4 cm (5' 3.15) 06/02/2024 2:46 PM CD T Body Mass Index 36.46 06/02/2024 2:46 PM CDT documented in this encounter Progress Notes * Mandy Trevino M.S., RDN, LD - 06/02/2024 3:00 PM CDT CHIEF COMPLAINT/REASON FOR VISIT Nutrition-Weight Management Follow-Up Met with patient ASSESSMENT Previous goals: 1. Portion peanut butter for snacks 2. Have protein + fruit/veg in the evening Updates: She has been getting the individual peanut butter servings. Having a fruit/veg and proteinmost evenings. She is concerned about weight gain/fluid rentention recently. Dieting experience: She previously tried phentermine but could not tolerate this and did not find benefits from Contrave. She is in [employer] group 2 times per month. She is [...] Snack: none Beverages: Sprite Zero, water with Tiltap, María Elena Dry Alcohol intake: occasionally 1-2 drinks Physical activity: Gisela Snow reports doing the recumbent bike for 50 minutes 4 times perweek. Weight History Ht Readings from Last 1 Encounters: 06/02/24 160.4 cm Wt Readings from Last 1 Encounters: 06/02/24 93.8 kg BMI Readings from Last 1 Encounters: 06/02/24 36.46 kg/m?? Weight change: 05/06/23: 86 kg 07/09/23: 85.8 kg 01/07/24: 87.1 kg 02/08/24: 88.1 kg 04/21/24: 88.6 kg Estimation of Nutritional Needs REE December [...] changes; gradual weight reduction Patient Goal(s): 1. Continue to have goat milk + pinky cracker/oat bar in the morning and protein + fruit/veg in the evening-1500 mg sodium per day FOLLOW UP PLAN: Follow-up appointment has been arranged Appt with Dr. Willis 08/15, hoping to be seen sooner due to thyroid function concerns and fluid retention Time spent with patient (minutes): 40 documented in this encounter Plan of Treatment Upcoming Encounters Date Type Department Care Team (Late st Contact Info) Description 06/30/2024 2:00 PM CDT Clinical Support Department of Nutrition and Diabetes Education in [place], [place] [address] [place] [phone] Cinda Willis M.B., Ch.B. [address] [place] [phone] Mnady Trevino M.S., TOIN, LD [address] [place] [phone] 07/07/2024 4:30 PM CDT Clinical Support [facility] in [place], [place] [address] [place] [phone] Zeke Reddy L.Ac. [address] [place] [phone] 08/04/2024 2:00 PM RELEASE AND TECHNICAL RECORDS CLERK Telemedicine Department of Nutrition and Diabetes Education in [place], [place] [address] [place] [phone] Cinda Willis M.B., Ch.B. [address] [place] [phone] Mandy Trevino M.S., RDN, LD [address] [place] [phone] 08/15/2024 3:00 PM RELEASE AND TECHNICAL RECORDS CLERK Office Visit Division of Endocrinology in [place], [place] [address] [place] [phone] Cinda Willis M.B., Ch.B. [address] [place] [phone] 08/18/2024 2:45 PM RELEASE AND TECHNICAL RECORDS CLERK Clinical Support [facility] Health in [place], [place] [address] [place] [address] Zeke Reddy L.Ac. [address] [place] [phone] 09/22/2024 2:00 PM RELEASE AND TECHNICAL RECORDS CLERK Clinical Support [facility] in [place], [place] [address] [place] [address] Zeke Reddy L.AcNorberto [address] [place] [phone] documented as of this encounter Visit Diagnoses Diagnosis Obesity Body Mass Index 30-39.9 Adult [E66.9]- Primary documented in this encounter Additional Health Concerns Assessment Noted Time PHQ-9 Depression Total Score: 4 03/11/20 21 2:35 PM CDT documented as of this encounter
--- OUTSIDE RECORDS SUMMARY | 2024-06-18 08:51 | XMS_ITS | Encounter Summary ---
Author Organization [facility] Address [address] [place] [address] Care Team Providers Care Utilities And Maintenance Supervisor Name Role Phone Unavailable Primary Care Provider Unavailabl e Reason for Visit * Outpatient (Routine) - Authorized Specialty Diagnoses / Procedures Referred By Contac t Referred To Contact Diagnoses Pain Low Back Unspecified Pain Hip Bilateral Procedures [facility] Acupuncture [facility]st [facility] Zoey [address] [place] [address] [facility] Referral ID Status Reason Start Date Expiration Date V isits Requested Visits Authorized [id number] Authorized 02/07/2024 02/06/2025 20 20 Encounter Details Date Type Department Care Team (Latest Contact Info) Description 05/12/2024 1:00 PM CDT Clinical Support [facility] Health in [place], [place] [address] [place] [address] Calvin Smalls L.. Pain Low Back Unspecified; Pain Hip Bilateral Social History Tobacco Use Types Packs/Day Years Used Date Smoking Tobacco: Never Smokeless Tobacco: Never Alcohol Use Standard Drinks/Week Comments Not Currently 1 (1 standard drink = 0.6 oz pur e alcohol) [facility] Utilities Answer Date Recorded In [...] How often do you attend chur or sikhism services? More than 4 times per year 11/22/2022 Do you belong to any clubs o r organizations such as samaritan groups, unions, fraternal or athletic groups, or [...] Date Recorded PHQ-2 Score 1 03/11/2021 [facility] of Occupat ional Health - Occupational [...] your living situation today? I have a [facility] place to live 12/31/2023 Education Answer Date Recorded What is the highest level of school you have completed or the highest degree you have received? Associate degree: occupational, technical, or vocational program 10/01/2020 Sex and Gender Information Value Date Recorded Sex Assigned at Female 06/23/2021 10:52 AM CDT Gender Identity Female 10/01/2020 2:34 PM ICT SUPPORT ENGINEER Sexual Orientation Straight 10/01/2020 2: 34 PM ICT SUPPORT ENGINEER documented as of this encounter Progress Notes * Calvin Smalls L.Ac. - 05/12/2024 1:00 PM CDT Referral Source: No ref. provider found Supervised by: [place] [id number] SUBJECTIVE Chief Complaint: Back Pain History of [...] symptom relief. Total Needling Time: 30 minutes Sycamore Electrified: No Diathermy: Yes Cupping: No Treatment Points Used: Set One: GB20, UB10, GB21, SI15, UB23-25, B[place]ao, YaoYan, TFL mitzi triangle Set Two: UB40, GB34, SP6, KD3, UB62 Other: Number of Sycamore Used = Number of Sycamore Retrieved: Yes Stimulation Intensity: Medium Narrative Assessment: [...] the www.[employer].org for locating a qualified licensed physical therapist assistant in the local community. PATIENT EDUCATION Ready to learn, no apparent learning barriers were identified, learning preference include listening. Explained diagnosis and treatment plan: patient/caregiver expressed understanding of the content. documented in this encounter Plan of Treatment Upcoming Encounters Date Type Department Care Team (Late st Contact Info) Description 06/30/2024 2:00 PM CDT Clinical Support Department of Nutrition and Diabetes Education in [place], [place] [address] [place] [phone] Cinda Willis M.B., Ch.B. [address] [place] [phone] Mandy Trevino M.S., RDN, LD [address] [place] [phone] 07/07/2024 4:30 PM CDT Clinical Support [facility] in [place], [place] [address] [place] [phone] Zeke Reddy L.Ac. [address] [place] [phone] 08/04/2024 2:00 PM ICT SUPPORT ENGINEER Telemedicine Department of Nutrition and Diabetes Education in [place], [place] [address] [place] [phone] Cinda Willis M.B., Ch.B. [address] [place] [phone] Mandy Trevino M.S., RDN, LD [address] [place] [phone] 08/15/2024 3:00 PM ICT SUPPORT ENGINEER Office Visit Division of Endocrinology in [place], [place] [address] [place] [phone] Cinda Willis M.B., Ch.B. [address] [place] [phone] 08/18/2024 2:45 PM ICT SUPPORT ENGINEER Clinical Support Integrative Medicine and [facility] in [place], [place] [address] [place] [phone] Zeke Reddy L.AcNorberto [address] [place] [phone] 09/22/2024 2:00 PM ICT SUPPORT ENGINEER Clinical Support [facility] in [place], [place] [address] [place] [address] Zeke Reddy L.Ac. [address] [place] [phone] documented as of this encounter Visit Diagnoses Diagnosis Pain Low Back Unspecified Pain Hip Bilateral documented in this encounter Additional Health Concerns Assessment Noted Time PHQ-9 Depression Total Score: 4 03/11/20 21 2:35 PM CDT documented as of this encounter
--- OUTSIDE RECORDS SUMMARY | 2024-06-18 08:51 | XMS_ITS | Referral Summary ---
Author Organization [facility] Address [address] [place] [address] Care Team Providers Care Crystal Slicer Name Role Phone Unavailable Primary Care Provider Unavailabl e Source Comments Patient records contain information from all sites at [facility]. For routine questions regarding patient records, call [phone] during business hours, M-F 8:00 AM - 5:00 PM Central Time. Record requests for emergency care only can be directed to [phone] at any time.[facility] Encounters Date Type Department Care Team Description 06/09/2024 2:45 PM CDT Clinical Support Integrative Medicine and Health in [place], [place] [address] [place] [address] Zeke Reddy L.Ac. Pain Low Back Unspecified; Pain Hip Bilateral 06/02/2024 3:00 PM CDT Clinical Support Department of Nutrition and Diabetes Education in [place], [place] [address] [place] [address] Cinda Willis M.B., Ch.B. Mandy Trevino M.SNorberto, RDN, LD Obesity Body Mass Index 30-39.9 Adult [E66.9] (Primary Dx) 06/01/2024 Clinical Communication Division of General Internal Medicine in [place], [place] [address] [place] [address] Prescheduling, Provider Triage 05/17/2024 Orders Only Division of Endocrinology in [place], [place] [address] [place] [address] Kristi Garland APRN, C.N.P. 05/12/2024 1:00 PM CDT Clinical Support Integrative Medicine and Health in [place], [place] [address] [place] [address] Calvin Smalls L.Ac. Pain Low Back Unspecified; Pain Hip Bilateral 04/21/2024 2:00 PM CDT Clinical Support Department of Nutrition and Diabetes Education in [place], [place] [address] [place] [address] Cinda Willis M.B., Ch.B. Mandy Trevino M.S., RDN, LD Obesity Body Mass Index 30-39.9 Adult [E66.9] (Primary Dx) 04/14/2024 Clinical Communication Integrative Medicine and [facility] in [place], [place] [address] [place] [address] Calvin Smalls L.Ac. 04/14/2024 2:45 PM CDT Clinical Support [facility] Medicine and [facility] in [place], [place] [address] [place] [address] Calvin Smalls L.Ac. Pain Low Back Unspecified; [...] take 2nd dose if needed. Will need assembly line driver. 2 tablet 07/23/2023 Active diazePAM (Valium) 5 mg tablet Take 1 tablet (5 mg total) by mouth See Admin Instructions. Take one (1) tablet 30 minutes before MRI, may take 2nd dose if needed. Will need assembly line driver. 2 tablet 07/23/2023 Active diazePAM (VALIUM) [...] drink = 0.6 oz pur e alcohol) [facility] Utilities Answer Date Recorded In the past 12 months has [employer], Commissioner, or water [employer] threatened to shut off services in your [...] How often do you attend chur or church services? More than 4 times per year 11/22/2022 Do you belong to any clubs o r organizations such as buddhism groups, unions, fraternal or athletic groups, or [...] Answer Date Recorded PHQ-2 Score 1 03/11/2021 [facility] - Occupational [...] CDT Gender Identity Female 10/01/2020 2:34 PM COLOR SHOP HELPER Sexual Orientation Straight 10/01/2020 2: 34 PM COLOR SHOP HELPER Last Filed Vital Signs Vital Sign Reading Time Taken Comments Blood Pressure 154/72 10/27/2023 2:52 PM COLOR SHOP HELPER Pulse 63 10/27/2023 2:52 PM COLOR SHOP HELPER Temperature 36.6 ??C (97.9 ??F) 10/27/2023 1:41 PM CS T Respiratory Rate 18 01/20/2021 1:15 PM CDT Oxygen Saturation 98% 10/27/2023 2:52 PM COLOR SHOP HELPER Inhaled Oxygen Concentration - - Weight 93.8 kg (206 lb 12.7 oz) 06/02/2024 2:46 PM CDT Height 160.4 cm (5' 3.15) 06/02/2024 2:46 PM CD T Body Mass Index 36.46 06/02/2024 2:46 PM CDT Plan of Treatment Upcoming Encounters Date Type Department Care Team (Late st Contact Info) Description 06/30/2024 2:00 PM CDT Clinical Support Department of Nutrition and Diabetes Education in [address] [phone] Cinda Willis M.B., Ch.B. [address] [place] [phone] Mandy Trevino M.S., VERENA, LD [address] [place] [phone] 07/07/2024 4:30 PM CDT Clinical Support Integrative Medicine and Health in [address] [address] Zeke Reddy L.Ac. [address] [place] [phone] 08/04/2024 2:00 PM COLOR SHOP HELPER Telemedicine Department of Nutrition and Diabetes Education in [place], [place] [address] [place] [phone] Cinda Willis M.B., Ch.B. [address] [place] [phone] Mandy Trevino M.S., RDN, LD [address] [place] [phone] 08/15/2024 3:00 PM COLOR SHOP HELPER Office Visit Division of Endocrinology in [place], [place] [address] [place] [phone] Cinda Willis M.B., Ch.B. [address] [place] [phone] 08/18/2024 2:45 PM COLOR SHOP HELPER Clinical Support Integrative Medicine and Health in [address] [phone] Zeke Reddy L.Ac. [address] [place] [address] 09/22/2024 2:00 PM COLOR SHOP HELPER Clinical Support [facility] in [place], [place] [address] [place] [address] Zeke Reddy L.Ac. [address] [place] [address] Medical Devices Implanted Type Area Channel Development Manager Device Identifier Shelf Expiration Date Model / Serial / Lot Misc Other Misc Other Mouth Description:Left side upper lower teeth Procedures Procedure Name Priority Date/Time Associated Diagnosis Comments THYROID-STIMULATING HORMONE-SENSITIVE (S-TSH) Routine 09/03/2023 1:51 PM COLOR SHOP HELPER Hypothyroidism Primary OUTSIDE MG MAMMOGRAM Routine 03/22/2020 1:15 PM CDT HEMOGLOBIN A1C, B Routine 10/13/2016 9:2 6 AM COLOR SHOP HELPER CHRONIC VIRAL HEPATITIS PROFILE Routine 10/13/2016 9:26 AM COLOR SHOP HELPER CREATININE WITH EGFR, S/P Routine 10/13/2016 9:26 AM COLOR SHOP HELPER from Last 3 Months or Most Recently Relevant to Health Maintenance Results * S-TSH (Thyroid-Stimulating Hormone - Sensitive) (09/03/2023 1:51 PM COLOR SHOP HELPER) TSH, Sensitive 0.6 0.3 - 4.2 mIU/L 09/03/2023 2:56 PM COLOR SHOP HELPER DTL Blood (Blood, Venous) 09/03/2023 1:51 PM COLOR SHOP HELPER 09/03/2023 2:23 PM COLOR SHOP HELPER Cinda Staples, Ch.B. LAB BLOOD ADD-ON [facility] [address] [place] [address], [facility] DTL [facility] [address] [place] [address] * MAMMO SCREEN, BILAT, W/CAD-Outside Mammogram (03/22/2020 1:15 PM CDT) Imelda SHETH - 07/01/2020 4:26 PM CDT This order [...] System IMG BI PROCEDURES Performing Organization Address City/[facility]/ZIP Co de Phone Number [facility] NA * Chronic Hepatitis Profile (10/13/2016 9:26 AM COLOR SHOP HELPER) HBs Antigen, S Negative Negative [facility] HBc Total Ab, S Negative Negative [facility] HCV Ab, S Negative Negative [facility] Comment:Voziel-cy-rkfsqs rat io is <1.00. HBs Antibody,S Negative Unvaccinated : Negative; Vaccinated: Positive [facility] Comment:Patient is presumed to be not immune to infection with HBV. HBs Antibody, Quantitative, S <5.0 Unvaccinated : <5.0; Vaccinated: >=12.0 MIU/ML [facility] 10/13/2016 9:26 AM COLOR SHOP HELPER 10/13/2016 9:26 AM COLOR SHOP HELPER Didier Hays M.D. LAB MICROBIOLOGY - BLOOD ORDERABLES [facility] [address] [place] [address], [facility] * Hemoglobin A1c (10/13/2016 9:26 AM COLOR SHOP HELPER) Hemoglobin A1c, B 5.4 4.0 - 5.6 % [facility] 10/13/2016 9:26 AM COLOR SHOP HELPER 10/13/2016 9:26 AM COLOR SHOP HELPER Didier Hays M.D. LAB BLOOD ADD-ON [facility] [address] * Creatinine with Estimated GFR (MDRD) (10/13/2016 9:26 AM COLOR SHOP HELPER) Creatinine 0.9 0.6 - 1.1 MG/DL [facility] eGFR Non-Black/Afric an Serbian >60 >60 ML/MIN/BSA [facility] eGFR-Black/Afri can Serbian >60 >60 ML/MIN/BSA [facility] 10/13/2016 9:26 AM COLOR SHOP HELPER 10/13/2016 9:26 AM COLOR SHOP HELPER Didier Hays M.D. LAB BLOOD ADD-ON [facility] [address] from Last 3 Months or Most Recently Relevant to Health Maintenance
--- OUTSIDE RECORDS SUMMARY | 2024-06-18 08:51 | XMS_ITS | Encounter Summary ---
Author Organization [facility] Address [address] [place] [address] Care Team Providers Care Pedal Assembler Name Role Phone Unavailable Primary Care Provider Unavailabl e Encounter Details Date Type Department Care Team (Late st Contact Info) Description 04/14/2024 Clinical Communication Integrative Medicine and Health in [place], [place] [address] [place] [address] Calvin Smalls, L.. Social History Tobacco Use Types Packs/Day Years Used Date Smoking Tobacco: Never Smokeless Tobacco: Never Alcohol Use Standard Drinks/Week Comments Not Currently 1 (1 standard drink = 0.6 oz pur e alcohol) [facility] Utilities Answer Date Recorded In the past 12 months has e electric, gas, oil, or water [employer] threatened to shut off services in your [...] often do you attend chur ch or baptist services? More than 4 times per year 11/22/2022 Do you belong to any clubs o r organizations such as sikh groups, unions, fraternal or athletic groups, or [...] Answer Date Recorded PHQ-2 Score 1 03/11/2021 [facility] - Occupational Stress Questionnaire Answer Date Recorded [...] Answer Date Recorded Employment status Unemployed/not in [employer] paid workforce and NOT seeking employment 12/31/2023 Housing Stability Answer Date Recorded What is your living situation today? I have a [facility] place to live 12/31/2023 Education Answer Date Recorded What is the highest level of school you have completed or the highest degree you have received? Associate degree: occupational, technical, or vocational program 10/01/2020 Sex and Gender Information Value Date Recorded Sex Assigned at Female 06/23/2021 10:52 AM CDT Gender Identity Female 10/01/2020 2:34 PM SKIFF OPERATOR Sexual Orientation Straight 10/01/2020 2: 34 PM SKIFF OPERATOR documented as of this encounter Plan of Treatment Upcoming Encounters Date Type Department Care Team (Late st Contact Info) Description 06/30/2024 2:00 PM CDT Clinical Support Department of Nutrition and Diabetes Education in [place], [place] [address] [place] [address] Cinda Willis M.B., Ch.B. [address] [place] [phone] Mandy Trevino M.S., RDN, LD [address] [place] [address] 07/07/2024 4:30 PM CDT Clinical Support Integrative Medicine and Health in [place], [place] [address] [place] [address] Zeke Reddy L.Ac. [address] [place] [phone] 08/04/2024 2:00 PM SKIFF OPERATOR Telemedicine Department of Nutrition and Diabetes Education in [place], [place] [address] [place] [address] Cinda Willis M.B., Ch.B. [address] [place] [phone] Mandy Trevino M.S., RDN, LD [address] [place] [phone] 08/15/2024 3:00 PM SKIFF OPERATOR Office Visit Division of Endocrinology in [place], [place] [address] [place] [phone] Cinda Willis M.B., Ch.B. [address] [place] [phone] 08/18/2024 2:45 PM SKIFF OPERATOR Clinical Support [facility]ative Medicine and Health in [place], [place] [address] [place] [address] Zeke Reddy L.Ac. [address] [place] [phone] 09/22/2024 2:00 PM SKIFF OPERATOR Clinical Support Integrative Medicine and Health in [place], [place] [address] [place] [phone] Zeke Reddy L.Ac. [address] [place] [phone] documented as of this encounter Visit Diagnoses Not on filedocumented in this encounter Additional Health Concerns Assessment Noted Time PHQ-9 Depression Total Score: 4 03/11/20 21 2:35 PM CDT documented as of this encounter
--- OUTSIDE RECORDS SUMMARY | 2024-06-18 08:51 | XMS_ITS | Encounter Summary ---
Author Organization [facility] Address [address] [place] [address] Care Team Providers Care Corporate Planner Name Role Phone Unavailable Primary Care Provider Unavailabl e Reason for Referral * Outpatient (Routine) - Authorized Specialty Diagnoses / Procedures Referred By Contac t Referred To Contact Cinda Styles M.B., Ch.B. [address] [place] [address] [facility] Referral ID Status Reason Start Date Expiration Date V isits Requested Visits Authorized [id number] Authorized 04/21/2024 10/21/2025 2 2 Reason for Visit * Outpatient (Routine) - Authorized Specialty Diagnoses / Procedures Referred By Contac t Referred To Contact Cinda Styles M.B., Ch.B. [address] [place] [address] [facility] Referral ID Status Reason Start Date Expiration Date V isits Requested Visits Authorized [id number] Authorized 02/18/2024 08/19/2025 2 2 Encounter Details Date Type Department Care Team (Latest Contact Info) Description 04/21/2024 2:00 PM CDT Clinical Support Department of Nutrition and Diabetes Education in [place], [place] [address] [place] [phone] Cinda Willis M.B., Ch.B. [address] [place] [phone] Mandy Trevino M.S., RDN, LD [address] [place] [phone] Obesity Body Mass Index 30-39.9 Adult [E66.9] (Primary Dx) Social History Tobacco Use Types Packs/Day Years Used Date Smoking Tobacco: Never Smokeless Tobacco: Never Alcohol Use Standard Drinks/Week Comments Not Currently 1 (1 standard drink = 0.6 oz pur e alcohol) [facility] Utilities Answer Date Recorded In the past 12 months has e [employer], gas, oil, or water [employer] threatened to shut off services in your [...] any clubs o r organizations such as moravian groups, unions, fraternal or athletic groups, or [...] your living situation today? I have a [facility] place to live 12/31/2023 Education Answer Date Recorded What is the highest level of school you have completed or the highest degree you have received? Associate degree: occupational, technical, or vocational program 10/01/2020 Sex and Gender Information Value Date Recorded Sex Assigned at Female 06/23/2021 10:52 AM CDT Gender Identity Female 10/01/2020 2:34 PM ROCKET ENGINE MECHANIC Sexual Orientation Straight 10/01/2020 2: 34 PM ROCKET ENGINE MECHANIC documented as of this encounter Last Filed [...] find benefits from [employer]. She is in [employer] group 2 times per month. She is [...] Snack: none Beverages: Sprite Zero, water with [employer], María Elena Dry Alcohol intake: occasionally 1-2 [...] Department of Nutrition and Diabetes Education in [place], [place] [address] [place] [phone] Cinda Willis M.B., Ch.B. [address] [place] [phone] Mandy Trevino M.S., RDN, LD [address] [place] [phone] 07/07/2024 4:30 PM CDT Clinical Support Integrative Medicine and Health in [place], [place] [address] [place] [phone] Zeke Reddy L.Ac. [address] [place] [phone] 08/04/2024 2:00 PM ROCKET ENGINE MECHANIC Telemedicine Department of Nutrition and Diabetes Education in [place], [place] [address] [place] [phone] Cinda Willis M.B., Ch.B. [address] [place] [phone] Mandy Trevino M.S., RDN, LD [address] [place] [phone] 08/15/2024 3:00 PM ROCKET ENGINE MECHANIC Office Visit Division of Endocrinology in [address] [phone] Cinda Willis M.B., Ch.B. [address] [place] [phone] 08/18/2024 2:45 PM ROCKET ENGINE MECHANIC Clinical Support Integrative Medicine and Health in [place], [place] [address] [place] [phone] Zeke Reddy L.AcNorberto [address] [place] [phone] 09/22/2024 2:00 PM ROCKET ENGINE MECHANIC Clinical Support Integrative Medicine and Health in [place], [place] [address] [place] [address] Zeke Reddy L.Ac. [address] [place] [address] Scheduled Referrals Name Type Priority Associated Diagnoses [...]
--- OUTSIDE RECORDS SUMMARY | 2024-06-18 08:51 | XMS_ITS | Encounter Summary ---
Author Organization [facility] Address [address] [place] [address] Care Team Providers Care Crime Scene Specialist Name Role Phone Unavailable Primary Care Provider Unavailabl e Reason for Visit * Reason Onset Date Comments Triage 06/01/2024 Encounter Details Date Type Department Care Team (Late st Contact Info) Description 06/01/2024 Clinical Communication Division of General Internal Medicine in [place], [place] [address] [place] [address] Prescheduling, Provider Triage Social History Tobacco Use Types Packs/Day Years Used Date Smoking Tobacco: Never Smokeless Tobacco: Never Alcohol Use Standard Drinks/Week Comments Not Currently 1 (1 standard drink = 0.6 oz pur e alcohol) [facility] Utilities Answer Date Recorded In the past 12 months has e [employer], gas, oil, or water [employer] threatened to shut off services in your [...] often do you attend chur ch or rastafari services? More than 4 times per year [...] Date Recorded PHQ-2 Score 1 03/11/2021 [facility] - Occupational Stress Questionnaire Answer Date [...] your living situation today? I have a [facility] place to live 12/31/2023 Education Answer Date Recorded What is the highest level of school you have completed or the highest degree you have received? Associate degree: occupational, technical, or vocational program 10/01/2020 Sex and Gender Information Value Date Recorded Sex Assigned at Female 06/23/2021 10:52 AM CDT Gender Identity Female 10/01/2020 2:34 PM PUBLISHING EDITOR Sexual Orientation Straight 10/01/2020 2: 34 PM PUBLISHING EDITOR documented as of this encounter Miscellaneous Notes * Telephone Encounter - Susie Kingsley Moon - 06/01/2024 2:29 PM CDT Gisela Snow 1965 [id number] 59 years Height: 5'-4 Weight: 201 Gender: Female PCP: Troy Kim Who filled out ARF: Obed Snow, Spouse Request: I have medical symptoms without a clear diagnosis MAIN SYMPTOM Fluid Retention Description: Starting February 2024, I noticed a fluid retention in my lower legs. In the morning my face was puffy,and eyes swollen. In March 2024, I went to the emergency room for significant fluid buildup in the legs and lower abdomen. My weight was 205lbs. I was instructed to take 40mg Furosemide daily up to 80mg if needed. My weight fluctuates between 197 and 203. I have noticed fluid build up in the arms lately and the my stomach area has gotten larger and firmer. My daily symptoms include dry skin, tiredness, weight gain, body aches. Duration: 6 to 12 months Previous Eval: Yes Location: [facility] Have had: None of the above Diagnosis: Outcome: Continue to take 40-80mg Furosemide daily and referral to a Research Archaeologist, appt schedule Jun 27. The fluid retention seems to be getting worse and not sure if I can or should wait till then. Expectations: Determine cause and develop treatment plan. ADDITIONAL - 1 Description: Duration: Previous Eval: Location: Have had: Diagnosis: Outcome: Expectations: ADDITIONAL - 2 Description: Duration: Previous Eval: Location: Have had: Diagnosis: Outcome: Expectations: ADDITIONAL - 3 Description: Duration: Previous Eval: Location: Have had: Diagnosis: Outcome: Expectations: ADDITIONAL - 4 Description: Duration: Previous Eval: Location: Have had: Diagnosis: Outcome: Expectations: ADDITIONAL CONCERNS: LIFESTYLE MEDICINE CONSULTATION: Yes CONDITIONS: Depression, Pain, Fatigue BOTHERED BY: Feeling nervous, anxious or on edge - Not at all Not being able to control or stop worrying - Several days Little interest or pleasure in doing things - Several days Feeling down, depressed, or helpless - Several days Willing to speak to a mental health professional - PAIN LONGER THAN 3 MONTHS: Yes CARE PROVIDERS TO DATE: 2 LOWEST PAIN LAST 7 DAYS (0 to 10): 4 PAIN INTERFERENCE PAST 3 MONTHS (0 to 10): 7 PAIN AREAS: JAW, NECK, Lower BACK, Right HIP, Right KNEE, Left HIP FATIGUE A MAIN REASON FOR VISIT: Yes FATIGUE/HOW LONG: Less than 6 months PROBLEMS WITH SLEEP: Yes SLEEP PROBLEMS LAST 2 WEEKS: Mild SLEEP APNEA DIAGNOSIS: Yes Willing to attend [facility] or PRC appointments - Definitely yes DAILY MEDS: 12 OPIOIDS: No CURRENT DIALYSIS: No CURRENT HEALTH/PAST YEAR: Fair CONFIDENCE: Agree NOT AVAILABLE: I AM AVAILABLE ANY TIME PHONE: [phone] documented in this encounter Plan of Treatment Upcoming Encounters Date Type Department Care Team (Late st Contact Info) Description 06/30/2024 2:00 PM CDT Clinical Support Department of Nutrition and Diabetes Education in [place], [place] [address] [place] [phone] Cinda Willis M.B., Ch.B. [address] [place] [phone] Mandy Trevino M.S., RDN, LD [address] [place] [phone] 07/07/2024 4:30 PM CDT Clinical Support [facility] and Health in [place], [place] [address] [place] [phone] Zeke Reddy L.Ac. [address] [place] [phone] 08/04/2024 2:00 PM PUBLISHING EDITOR Telemedicine Department of Nutrition and Diabetes Education in [place], [place] [address] [place] [phone] Cinda Willis M.B., Ch.B. [address] [place] [phone] Mandy Trevino M.S., RDN, LD [address] [place] [phone] 08/15/2024 3:00 PM PUBLISHING EDITOR Office Visit Division of Endocrinology in [address] [phone] Cinda Willis M.B., Ch.B. [address] [place] [phone] 08/18/2024 2:45 PM PUBLISHING EDITOR Clinical Support [facility] Health in [place], [place] [address] [place] [phone] Zeke Reddy L.Ac. [address] [place] [phone] 09/22/2024 2:00 PM PUBLISHING EDITOR Clinical Support [facility] Health in [place], [place] [address] [place] [phone] Zeke Reddy L.Ac. [address] [place] [phone] documented as of this encounter Visit Diagnoses Not on filedocumented in this encounter Additional Health Concerns Assessment Noted Time PHQ-9 Depression Total Score: 4 03/11/20 21 2:35 PM CDT documented as of this encounter
--- OUTSIDE RECORDS SUMMARY | 2024-06-18 08:51 | XMS_ITS | Encounter Summary ---
Author Organization [facility] Address [address] [place] [address] Care Team Providers Care Video Game Maker Name Role Phone Unavailable Primary Care Provider Unavailabl e Reason for Visit * Outpatient (Routine) - Authorized Specialty Diagnoses / Procedures Referred By Contac t Referred To Contact Diagnoses Pain Low Back Unspecified Pain Hip Bilateral Procedures [facility] Acupuncture [facility]st [facility] Zoey [address] [place] [address] [facility] Referral ID Status Reason Start Date Expiration Date V isits Requested Visits Authorized [id number] Authorized 02/07/2024 02/06/2025 20 20 Encounter Details Date Type Department Care Team (Latest Contact Info) Description 04/14/2024 2:45 PM CDT Clinical Support Integrative Medicine and Health in [place], [place] [address] [place] [address] Calvin Smalls L.. Pain Low Back Unspecified; Pain Hip Bilateral Social History Tobacco Use Types Packs/Day Years Used Date Smoking Tobacco: Never Smokeless Tobacco: Never Alcohol Use Standard Drinks/Week Comments Not Currently 1 (1 standard drink = 0.6 oz pur e alcohol) [facility] Utilities Answer Date Recorded In the [...] How often do you attend chur or hindu services? More than 4 times [...] Answer Date Recorded PHQ-2 Score 1 03/11/2021 [facility] [...] your living situation today? I have a [facility] place to live 12/31/2023 Education Answer Date Recorded What is the highest level of school you have completed or the highest degree you have received? Associate degree: occupational, technical, or vocational program 10/01/2020 Sex and Gender Information Value Date Recorded Sex Assigned at Female 06/23/2021 10:52 AM CDT Gender Identity Female 10/01/2020 2:34 PM SOLAR CREW MEMBER Sexual Orientation Straight 10/01/2020 2: 34 PM SOLAR CREW MEMBER documented as of this encounter Progress Notes * Calvin Smalls L.Ac. - 04/14/2024 2:45 PM CDT Referral Source: No ref. provider found Supervised by: [place] [id number] SUBJECTIVE Chief Complaint: Back Pain History of [...] symptom relief. Total Needling Time: 30 minutes [place] Electrified: No Diathermy: Yes Cupping: No Treatment Points Used: Set One: GB20, UB10, GB21, SI15, UB23-25, [place], YaoYan, TFL mitzi triangle Set Two: UB40, GB34, SP6, KD3, UB62 Number of [place] Used = Number of [place] Retrieved: Yes Stimulation Intensity: Medium Narrative Assessment: [...] Department of Nutrition and Diabetes Education in [address] [phone] Cinda Willis M.B., Ch.B. [address] [place] [phone] Mandy Trevino M.S., VERENA, LD [address] [place] [phone] 07/07/2024 4:30 PM CDT Clinical Support Integrative Medicine and Health in [address] [address] Zeke Reddy L.Ac. [address] [place] [phone] 08/04/2024 2:00 PM [employer] CREW MEMBER Telemedicine Department of Nutrition and Diabetes Education in [address] [phone] Cinda Willis M.B., Ch.B. [address] [place] [phone] Mandy Trevino M.S., RDN, LD [address] [place] [phone] 08/15/2024 3:00 PM SOLAR CREW MEMBER Office Visit Division of Endocrinology in [place], [place] [address] [place] [phone] Cinda Willis M.B., Ch.B. [address] [place] [phone] 08/18/2024 2:45 PM SOLAR CREW MEMBER Clinical Support [facility] in [place], [place] [address] [place] [phone] Zeke Reddy L.Ac. [address] [place] [phone] 09/22/2024 2:00 PM [employer]AR [employer]W MEMBER Clinical Support [facility] in [place], [place] [address] [place] [phone] Zeke Reddy L.Ac. [address] [place] [phone] documented as of this encounter Visit Diagnoses Diagnosis Pain Low Back Unspecified Pain Hip Bilateral documented in this encounter Additional Health Concerns Assessment Noted Time PHQ-9 Depression Total Score: 4 03/11/20 21 2:35 PM CDT documented as of this encounter
--- OUTSIDE RECORDS SUMMARY | 2024-06-18 08:51 | XMS_ITS | Encounter Summary ---
Author Organization [facility] Address [address] [place] [address] Care Team Providers Care Blocklayer Name Role Phone Unavailable Primary Care Provider Unavailabl e Reason for Visit * Outpatient (Routine) - Authorized Specialty Diagnoses / Procedures Referred By Contac t Referred To Contact Diagnoses Pain Low Back Unspecified Pain Hip Bilateral Procedures [facility] Acupuncture [facility]st [facility] Zoey [address] [place] [address] [facility] Referral ID Status Reason Start Date Expiration Date V isits Requested Visits Authorized [id number] Authorized 02/07/2024 02/06/2025 20 Encounter Details Date Type Department Care Team (Latest Contact Info) Description 06/09/2024 2:45 PM CDT Clinical Support Integrative Medicine and Health in [place], [place] [address] [place] [address] Zeke Reddy L.Ac. [address] [place] [address] Pain Low Back Unspecified; Pain Hip Bilateral Social History Tobacco Use Types Packs/Day Years Used Date Smoking Tobacco: Never Smokeless Tobacco: Never Alcohol Use Standard Drinks/Week Comments Not Currently 1 (1 standard drink = 0.6 oz pur e alcohol) [facility] Utilities Answer Date Recorded In the [...] often do you attend chur ch or mandaen services? More than 4 times per year 11/22/2022 Do you belong to any clubs o r organizations such as anabaptism groups, unions, fraternal or athletic groups, or [...] Answer Date Recorded PHQ-2 Score 1 03/11/2021 [facility] Occupat ional Health - [...] your living situation today? I have a [facility] place to live 12/31/2023 Education Answer Date Recorded What is the highest level of school you have completed or the highest degree you have received? Associate degree: occupational, technical, or vocational program 10/01/2020 Sex and Gender Information Value Date Recorded Sex Assigned at Female 06/23/2021 10:52 AM CDT Gender Identity Female 10/01/2020 2:34 PM COMPOSING ROOM MACHINIST Sexual Orientation Straight 10/01/2020 2: 34 PM COMPOSING ROOM MACHINIST documented as of this encounter Progress Notes * Zeke Reddy L.Ac. - 06/09/2024 2:45 PM CDT Referral Source: No ref. [...] and discussed at today's session. Pilar feels migraine, mainly locating bilateral temples and left occipital, nausea and right forehead aura . She reports feeling of food retention, abdominal bloating, constipation, purple tongue with deep white fur, slippery pulse. She is still struggling with neck and lower back pain and tension. We apply acupuncture for her pain management, mind relaxation, and general wellness improvement,and she felt great when she left. OBJECTIVE ASSESSMENT / PLAN #1 Pain Low Back Unspecified #2 Pain Hip Bilateral This is treatment 18 of expected 20 treatments. Frequency: Acupuncture ordered [...] symptom relief. Total Needling Time: 30 minutes [place] Electrified: No Diathermy: No Cupping: Yes Treatment Points Used: Supine position. Set One: GV 20/24, Penetrating needle from TE 23 to GB 8, penetrating GB14 to Yuyao, TE 5, PC 6, LI4 Set Two: CV 12/24/07/01, ST 25,Weishangshu, ST 36/37, SP 12/24/09, LV 3/5, KI 3 Number of [place] Used = Number of [place] Retrieved: Yes Stimulation Intensity: Medium Narrative Assessment: [...] the www.[employer].org for locating a qualified licensed aircraft maintenance engineer in the local community. PATIENT EDUCATION Ready to learn, no apparent learning barriers were identified, learning preference include listening. Explained diagnosis and treatment plan: patient/caregiver expressed understanding of the content. documented in this encounter Plan of Treatment Upcoming Encounters Date Type Department Care Team (Late st Contact Info) Description 06/30/2024 2:00 PM CDT Clinical Support Department of Nutrition and Diabetes Education in [address] [phone] Cinda Willis M.B., Ch.B. [address] [place] [phone] Mandy Trevino M.S., RDN, LD [address] [place] [phone] 07/07/2024 4:30 PM CDT Clinical Support [facility] Medicine and Health in [address] [address] Zeke Reddy L.Ac. [address] [place] [phone] 08/04/2024 2:00 PM COMPOSING ROOM MACHINIST Telemedicine Department of Nutrition and Diabetes Education in [address] [address] Cinda Willis M.B., Ch.B. [address] [place] [phone] Mandy Trevino M.S., RDN, LD [address] [place] [phone] 08/15/2024 3:00 PM COMPOSING ROOM MACHINIST Office Visit Division of Endocrinology in [address] [phone] Cinda Willis M.B., Ch.B. [address] [place] [phone] 08/18/2024 2:45 PM COMPOSING ROOM MACHINIST Clinical Support [facility]ative [facility] and Health in [place], [place] [address] [place] [phone] Zeke Reddy L.Ac. [address] [place] [phone] 09/22/2024 2:00 PM COMPOSING ROOM MACHINIST Clinical Support [facility] in [place], [place] [address] [place] [address] Zeke Reddy L.Ac. [address] [place] [phone] documented as of this encounter Visit Diagnoses Diagnosis Pain Low Back Unspecified Pain Hip Bilateral documented in this encounter Additional Health Concerns Assessment Noted Time PHQ-9 Depression Total Score: 4 03/11/20 21 2:35 PM CDT documented as of this encounter
--- OUTSIDE RECORDS SUMMARY | 2024-06-18 08:51 | XMS_ITS | Encounter Summary ---
Author Organization [facility] Address [address] [place] [address] Care Team Providers Care Socket Puller Name Role Phone Unavailable Primary Care Provider Unavailabl e Encounter Details Date Type Department Care Team (Late st Contact Info) Description 05/17/2024 Orders Only Division of Endocrinology in [place], [place] [address] [place] [address] Kristi Garland, FORREST, C.N.P. [address] [place] [address] Social History Tobacco Use Types Packs/Day Years Used Date Smoking Tobacco: Never Smokeless Tobacco: Never Alcohol Use Standard Drinks/Week Comments Not Currently 1 (1 standard drink = 0.6 oz pur e alcohol) [facility] Utilities Answer Date Recorded In the past 12 months has [facility] [employer], gas, oil, or water [employer] threatened to shut off services in your [...] Answer Date Recorded PHQ-2 Score 1 03/11/2021 [facility] Occupat ional Health [...] Answer Date Recorded Employment status Unemployed/not in better. paid workforce and NOT seeking employment 12/31/2023 [...] Gender Identity Female 10/01/2020 2:34 PM TIMBER SELECTOR Sexual Orientation Straight 10/01/2020 2: 34 PM TIMBER SELECTOR documented as of this encounter Plan of Treatment Upcoming Encounters Date Type Department Care Team (Late st Contact Info) Description 06/30/2024 2:00 PM CDT Clinical Support Department of Nutrition and Diabetes Education in [place], [place] [address] [place] [phone] Cinda Willis M.B., Ch.B. [address] [place] [phone] Mandy Trevino M.S., RDN, LD [address] [place] [phone] 07/07/2024 4:30 PM CDT Clinical Support [facility] in [place], [place] [address] [place] [address] Zeke Reddy L.Ac. [address] [place] [phone] 08/04/2024 2:00 PM TIMBER SELECTOR Telemedicine Department of Nutrition and Diabetes Education in [place], [place] [address] [place] [phone] Cinda Willis M.B., Ch.B. [address] [place] [phone] Mandy Trevino M.S., RDN, LD [address] [place] [phone] 08/15/2024 3:00 PM TIMBER SELECTOR Office Visit Division of Endocrinology in [place], [place] [address] [place] [phone] Cinda Willis M.B., Ch.B. [address] [place] [phone] 08/18/2024 2:45 PM TIMBER SELECTOR Clinical Support [facility] in [place], [place] [address] [place] [phone] Zeke Reddy L.Ac. [address] [place] [phone] 09/22/2024 2:00 PM TIMBER SELECTOR Clinical Support [facility] in [place], [place] [address] [place] [phone] Zeke Reddy L.Ac. [address] [place] [phone] documented as of this encounter Visit Diagnoses Not on filedocumented in this encounter Additional Health Concerns Assessment Noted Time PHQ-9 Depression Total Score: 4 03/11/20 21 2:35 PM CDT documented as of this encounter
--- OUTSIDE RECORDS SUMMARY | 2024-06-18 08:51 | XMS_ITS ---
Author Organization [facility] Address [address] [place] [address] Care Team Providers Care Media Relations Manager Name Role Phone Unavailable Unavailable Unavailable Surgery Details Not on file Complications Check Surgery Details section. Procedure Estimated Blood Loss Check Surgery Details section. Procedure Findings Check Surgery Details section. Procedure Specimens Taken Check Surgery Details section.
== END 2024-06-14 10:46 | disposition home or self-care (01) ==
LOC: NFLDREF 06-18 08:49
PROVIDERS: PCP Family Medicine; Referring Provider Family Medicine; Visit Provider Family Medicine
DX: E03.9 Hypothyroidism, unspecified (principal)
CPT/HCPCS: 84439; 84443

== ENCOUNTER 2024-07-28 08:32 | Outpatient (CLI) | payer BC, SELFPAY ==
--- OUTSIDE RECORDS SUMMARY | 2024-07-28 08:35 | XMS_ITS | Clinical Summary ---
Author Organization [employer] Address [place], [place] [address] Care Team Providers Care Laborer Aquatic Life Name Role Phone Troy Seals MD Primary Care Provider [phone] Oliver Hylton MD Unavailable [phone] Jm Araujo Unavailable Unavailable Allergies No known [...] Name Administration Dates Next Due COVID-19 vaccine ([place] Credito 30mcg/0.3mL) P F, MDV 01/24/2021,12/31/2020 Social History [...] 16 Negative Negative 06/19/2021 3:20 PM CDT [facility] LABORATORY TYPE 18 Negative Negative 06/19/2021 3:20 PM CDT [facility] TRAL LABORATORY OTHER HIGH RISK TYPES Negative Negative 06/19/2021 3:20 PM CDT [facility] Other (Cervical/Vagina l) 06/16/2021 11:35 AM CDT 06/18/2021 9:20 AM CDT Narrative [facility] - 06/19/2021 3:20 PM CDT HPV types 16, 18, 31, 33, 35, 39, 45, 51, 52, 56, 58, 59, 66 and 68 DNA were undetectable or below the pre-set threshold. Methodology: Farzaneh Dick 4800 HPV Test Cynthia Coy MD MICROBIOLOGY [facility] [address] [place] [address], from Last 3 Months or Most Recently Relevant to Health Maintenance Care Teams Laborer Aquatic Life Relationship Specialty Start Date End Date Troy Seals MD PCP - General Family Practice 06/04/14 [place] [address] [facility] [address] Consulting Physician Cardiovascular Disease 06/06/14 Jm Araujo [address] [place] [address] Family Practice Medicine Man 04/19/20
--- OUTSIDE RECORDS SUMMARY | 2024-07-28 08:35 | XMS_ITS | Clinical Summary ---
Author Organization [facility] Address [address] [place] [address] Care Team Providers Care External Grinder Tool Name Role Phone Unavailable Primary Care Provider Unavailabl e Source Comments Patient records contain information from all sites at [facility]. For routine questions regarding patient records, call [phone] during business hours, M-F 8:00 AM - 5:00 PM Central Time. Record requests for emergency care only can be directed to [phone] at any time.[facility] Allergies Active Allergy Reactions Criticality Noted Date Comments Propofol Nausea And Vomiting 02/27/2014 Chocolate Flavor Other (see comments) 1 Soar throat, tongue swelling Nut - Unspecified Other (see comments) 10/01/19 14 Adhesive Itching 08/04/2013 Medications * This document contains information received from the source organization and may not represent a complete record from that organization. losartan (COZAAR) 50 mg tablet Take 50 mg by mouth daily. 0 Active topiramate (TOPAMAX) 50 mg tablet Take 50 mg by mouth 2 (two) times a day. 0 Active zolpidem (AMBIEN) 5 mg tablet Take 2.5 mg by mouth at bedtime. 0 Active simvastatin (ZOCOR) 40 mg tablet Take 40 mg by mouth at bedtime. 0 Active celecoxib (CeleBREX) 200 mg capsule Take 200 mg by mouth daily. 0 Active aspirin 81 mg chewable tablet Chew 81 mg daily. Active furosemide (LASIX) 20 mg tablet Take 20 mg by mouth as needed. 10/31/202 0 Active cyclobenzaprine (FLEXERIL) 10 mg tablet Take 10 mg by mouth as needed. 0 Active iron,carbonyl-v itamin C (VITRON-C) 65 mg iron- [address] tablet Take 2 tablets by mouth daily. Do not crush or chew. Active prochlorperazin e (COMPAZINE) 10 mg tablet Take 10 mg by mouth every 6 (six) hours as needed for nausea or vomiting. Active diphenhydrAMINE (BENADRYL) 25 mg capsule Take 25 mg by mouth daily. 4 Active calcium carbonate (CALCIUM 500 ORAL) Take 1 tablet by mouth daily. Active MULTIVITAMIN ORAL Take 1 tablet by mouth daily. Active vitamin B complex (B COMPLEX 1 ORAL) Place 1 capsule under the tongue daily. Active Lactobac no.41/Bifidobac t no.7 (PROBIOTIC-10 ORAL) Take 2 capsules by mouth at bedtime. Inner Balance 3 Active hydroCHLOROthia zide (MICROZIDE) 12.5 mg capsule Take 12.5 mg by mouth daily. 1 Active cholecalciferol , vitamin D3, (VITAMIN D3 ORAL) Take 5,000 Units by mouth daily. Active gabapentin (NEURONTIN) 600 mg tablet Take 200 mg by mouth 2 (two) times a day. 200 mg am, 400 mg pm Active naltrexone-bupr opion (Contrave) 8-90 mg per extended release tablet Start 1 tab daily in week 1, then 1 tablet twice daily in week 2, then 1 tablet AM, 2 tabs PM in week 3, then 2 tabs twice daily therafter 120 tablet 11 3 Active diazePAM (Valium) 5 mg tablet Take 1 tablet (5 mg total) by mouth See Admin Instructions. Take one (1) tablet 30 minutes before MRI, may take 2nd dose if needed. Will need newspaper delivery driver. 2 tablet 3 Active levothyroxine (SYNTHROID, LEVOTHROID) 112 mcg tablet take one tablet by mouth every morning before breakfast 30 tablet 1 4 Active torsemide (Demadex) 20 mg tablet Take 1 tablet (20 mg total) by mouth daily. 90 tablet 3 4 06/28/20 25 Active Active Problems Problem Noted Date Diagnosed [...] Unspecified 10/04/2020 Spasm Muscle Weakness Muscle Encounters * This document contains information received from the source organization and may not represent a complete record from that organization. Date Type Department Care Team Description 07/20/2024 1:02 PM CDT - 07/20/2024 11:59 PM CDT Hospital Encounter Department of Radiology, [facility] in [place], [place] [address] [place] [phone] Fransisca Araiza M.D., Ph.D. Excess Fluid Volume Discharge Disposition: Home or Self Care 07/07/2024 4:30 PM CDT Clinical Support [facility] in [place], [place] [address] [place] [phone] Zeke Reddy L.Ac. Pain Low Back Unspecified; Pain Hip Bilateral 06/30/2024 2:00 PM CDT Clinical Support Department of Nutrition and Diabetes Education in [place], [place] [address] [place] [phone] Cinda Willis M.B., Ch.B. Mandy Trevino MNorbertoS., RDN, LD Obesity Body Mass Index 30-39.9 Adult [E66.9] (Primary Dx) 06/30/2024 10:30 AM CDT Procedure visit Department of Physical Medicine and Rehabilitation in [place], [place] [address] [place] [address] Alonzo Barrow M.D. Pain Hip Bilateral 06/27/2024 11:00 AM CDT External Outreach Division of Nephrology and Hypertension in [place], [place] [address] [place] [phone] Fransisca Araiza M.D., Ph.D. Excess Fluid Volume (Primary Dx); Elevated Creatinine 06/26/2024 Orders Only Department of Physical Medicine and Rehabilitation in [place], [place] [address] [place] [address] Jinny Hutson M.D. Pain Hip Bilateral (Primary Dx) 06/09/2024 2:45 PM CDT Clinical Support [facility] in [place], [place] [address] [place] [address] Zeke Reddy L.Ac. Pain Low Back Unspecified; Pain Hip Bilateral 06/02/2024 3:00 PM CDT Clinical Support Department of Nutrition and Diabetes Education in [place], [place] [address] [place] [phone] Cinda Willis M.B., Ch.B. Mandy Trevino MNorbertoS., RDN, LD Obesity Body Mass Index 30-39.9 Adult [E66.9] (Primary Dx) 06/01/2024 Clinical Communication Division of General Internal Medicine in [address] [phone] Prescheduling, Provider Triage 05/17/2024 Orders Only Division of Endocrinology in [address] [phone] Kristi Garland, [employer], C.N.P. 05/12/2024 1:00 PM CDT Clinical Support [facility] in [place], [place] [address] [place] [address] Calvin Smalls L.Ac. Pain Low Back Unspecified; [...] In the past 12 months has e [employer], gas, oil, or water [employer] threatened to shut off services in your [...] often do you attend chur ch or gnosticism services? More than 4 times per year [...] Answer Date Recorded PHQ-2 Score 1 03/11/2021 [facility] - Occupational Stress Questionnaire Answer Date [...] 27) 4 03/11 Nutrition Answer Date Recorded On average, how many serving s of [...] your living situation today? I have [facility] 12/31/2023 Education Answer Date Recorded What is the highest level of school you have completed or the highest degree you have received? Associate degree: occupational, technical, or vocational program 10/01/2020 Comments No Sex and Gender Information Value Date Recorded Sex Assigned at Female 06/23/2021 10:52 AM CDT Legal Sex Female 5:19 PM SKATE BOARDER Gender Identity Female 10/01/2020 2:34 PM SKATE BOARDER Sexual Orientation Straight 10/01/2020 2: 34 PM SKATE BOARDER Last Filed Vital Signs Vital Sign Reading Time Taken Comments Blood Pressure 154/72 10/27/2023 2:52 PM SKATE BOARDER Pulse 63 10/27/2023 2:52 PM SKATE BOARDER Temperature 36.6 ??C (97.9 ??F) 10/27/2023 1:41 PM CS T Respiratory Rate 18 01/20/2021 1:15 PM CDT Oxygen Saturation 98% 10/27/2023 2:52 PM SKATE BOARDER Inhaled Oxygen Concentration - - Weight 90.7 kg (199 lb 15.3 oz) 024 11:05 AM CDT Height 162.2 cm (5' 3.86) 06/30/2024 1 1:05 AM CDT Body Mass Index 34.48 06/30/2024 11:05 AM CDT Plan of Treatment Upcoming Encounters Date Type Department Care Team (Latest Contact Info) Description 08/04/2024 1:20 PM SKATE BOARDER Appointment Department of Laboratory Medicine and Pathology, [facility], in [place], [place] [address] [place] [address] Cinda Willis M.B., Ch.B. 200 [place] [phone] 08/04/2024 2:00 PM SKATE BOARDER Clinical Support Department of Nutrition and Diabetes Education in [place], [place] [address] [place] [phone] Cinda Willis M.B., Ch.B. [address] [place] [phone] Mandy Trevino M.S., RDN, LD [address] [place] [phone] 08/15/2024 3:00 PM SKATE BOARDER Office Visit Division of Endocrinology in [place], [place] [address] [place] [phone] Cinda Willis M.B., Ch.B. [address] [place] [phone] 08/18/2024 2:45 PM SKATE BOARDER Clinical Support [facility] in [address] [phone] Zeke Reddy L.Ac. [address] [place] [phone] 09/14/2024 2:25 PM SKATE BOARDER Appointment Department of Cardiovascular Diseases in [address] [phone] Fransisca Araiza M.D., Ph.D. [address] [place] [phone] Discharge Disposition: Home or Self Care 09/22/2024 2:00 PM SKATE BOARDER Clinical Support [facility] in [address] [phone] Zeke Reddy L.Ac. [address] [place] [phone] 10/02/2024 3:00 PM SKATE BOARDER Office Visit Division of Nephrology and Hypertension in [address] [phone] Fransisca Araiza M.D., Ph.D. [address] [place] [phone] Health Maintenance Due Date Last Done Comments CT Colonography 1964 Colonoscopy 1964 FIT 1964 HIV Screening 1965 Potassium Level 1964 Sodium Level 1964 Creatinine Level (Kidney Function Test) 10/13/2017 10/13/2016 Lipid (Cholesterol) Screening 10/24/2017 10/24/2012 (Performed elsewhere) Fasting Glucose for Diabetes Screening 10/13/2019 10/13/2016 Mammogram 03/22/2021 03/22/2020, 07/21 (Performed elsewhere), 06/26/2013 (Performed elsewhere) Depression Screening (Annual PHQ-2) 09/20/2023 RSV vaccine - (32-36 weeks) or 60+ years (1 - Risk 60-74 years 1-dose series) 2024 COVID-19 Vaccine ( season) 2024 08/03/2023, 06/18/2022, 02/19/2022, Additional history exists Cervical/Vaginal Cancer Screening 06/16/2024 06/16/2021, 10/24/2012 (Performed elsewhere) Influenza Vaccine (#1) 2024 [...] on patient's age to complete this topic IPV Vaccines Aged Out No longer eligi ble based on patient's age to complete this topic Pneumococcal vaccine (0-64 years) Aged Out No longer eligible based on patient's age to complete this topic Medical Devices Implanted Type Area Beeswax Bleacher Device Identifier Shelf Expiration Date Model / Serial / Lot Misc Other Misc Other Mouth Description:Left side upper lower teeth Procedures Procedure Name Priority Date/Time Associated Diagnosis Comments US ABDOMEN COMPLETE RAD - Routine (most inpatients and all outpatients) 07/20/2024 2:13 PM CDT Excess Fluid Volume [place] ARTHCS ASP/INJ MJR JT W US Routine 06/30/2024 10:30 AM CDT Pain Hip Bilateral THYROID-STIMULATIN G HORMONE-SENSITIVE (S-TSH) Routine 09/03/2023 1:51 PM SKATE BOARDER Hypothyroidism Primary OUTSIDE MG MAMMOGRAM Routine 03/22/2020 1:15 PM CDT HEMOGLOBIN A1C, B Routine 10/13/2016 9:2 6 AM SKATE BOARDER CHRONIC VIRAL HEPATITIS PROFILE Routine 10/13/2016 9:26 AM SKATE BOARDER CREATININE WITH EGFR, S/P Routine 10/13/2016 9:26 AM SKATE BOARDER from Last 3 Months or Most Recently Relevant to Health Maintenance Results * US Abdomen Complete (07/20/2024 2:13 PM CDT) Anatomical Region Laterality Modality Abdomen, Ultrasound RST LOS, Ultrasound ARZ LOS, Ultrasound FLA LOS N/A Ultrasound Impressions 07/20/2024 2:28 PM CDT 1. Hepatic steatosis. Shear wave elastography with low probability of compensated advanced chronic liver disease. 2. Gallbladder polyps measuring up to 0.4 cm, no follow-up imaging is recommended per the SRU consensus guidelines. Narrative 07/20/2024 2:28 PM CDT EXAM: US ABDOMEN COMPLETE COMPARISON: CT abdomen and pelvis with IV contrast from October 21, 2022 FINDINGS: Liver: Diffuse increased echogenicity consistent with hepatic steatosis. ??No focal hepatic observation. Antegrade flow of the main portal vein. Liver shear wave elastography (2D-SWE, GE, C1-6, LPO with wedge position with right arm overhead) was performed with patient in suspended respiration. Patient was fasting for at least 4 hours prior to the exam. Rn Neonatal images were obtained Subjective assessment of study quality: ??Good Median liver stiffness of 5.02 kPa Interquartile Range/Median (IQR/M): ??12.1 % (quality metric; less than or equal to 30% suggests acceptable variability). Interpretation of US 2D SWE results: Less than 5.0 kPa: Normal or minimal risk of clinically significant fibrosis. Less than 9.0 kPa: Low probability of compensated advanced chronic liver disease (cACLD). If clinical signs, consider further testing for confirmation. 9.0-13.0 kPa: Suggestive of cACLD but need further testing for confirmation. Greater than 13.0 kPa: High likelihood of cACLD. Greater than 17.0 kPa: Suggestive of clinically significant portal hypertension (CSPH). Technical Note: In the setting of elevated liver enzymes (AST and/or ALT greater than 5 times normal limits), acute hepatitis, infiltrative liver disease, obstructive cholestasis, liver congestion, CHF, or non-fasting states the degree of liver fibrosis may be overestimated. MR elastography calculates liver stiffness using Shear Modulus whereas US shear wave elastography calculates liver stiffness using Young's Modulus. Thus the values correlate but are not directly comparable. Gallbladder: Gallbladder polyps, the largest of which measures up to 0.4 cm. No follow-up imaging is required per the SRU consensus guidelines. No cholelithiasis. No pericholecystic fluid or gallbladder wall thickening. Negative sonographic Ruby's sign. Intrahepatic ducts: Not dilated. Common duct: Not dilated. Pancreas: Partially obscured by bowel gas. Right kidney: Length: 10.3 cm. Normal echogenicity. No hydronephrosis. Left kidney: Length: 9.5 cm. Normal echogenicity. No hydronephrosis. Spleen: Normal. ??Spleen length: 7.8 cm. Aorta: Normal caliber. IVC: Normal where seen. Ascites: ??None. Procedure Note Ratna Ruelas M.B.BNorbertoS. - 07/20/2024 EXAM: US ABDOMEN COMPLETE COMPARISON: CT abdomen and pelvis with IV contrast from October 21, 2022 FINDINGS: Liver: Diffuse increased echogenicity consistent with hepatic steatosis.No focal hepatic observation. Antegrade flow of the main portal vein. Liver shear wave elastography (2D-SWE, GE, C1-6, LPO with wedge positionwith right arm overhead) was performed with patient in suspendedrespiration. Patient was fasting for at least 4 hours prior to the exam.Rn Neonatal images were obtained Subjective assessment of study quality: Good Median liver stiffness of 5.02 kPa Interquartile Range/Median (IQR/M): 12.1 % (quality metric; less than orequal to 30% suggests acceptable variability). Interpretation of US 2D SWE results: Less than 5.0 kPa: Normal or minimal risk of clinically significantfibrosis. Less than 9.0 kPa: Low probability of compensated advanced chronic liverdisease (cACLD). If clinical signs, consider further testing forconfirmation. 9.0-13.0 kPa: Suggestive of cACLD but need further testing forconfirmation. Greater than 13.0 kPa: High likelihood of cACLD. Greater than 17.0 kPa: Suggestive of clinically significant portalhypertension (CSPH). Technical Note: In the setting of elevated liver enzymes (AST and/or ALT greater than 5times normal limits), acute hepatitis, infiltrative liver disease,obstructive cholestasis, liver congestion, CHF, or non-fasting states thedegree of liver fibrosis may be overestimated. MR elastography calculates liver stiffness using Shear Modulus whereas USshear wave elastography calculates liver stiffness using Young's Modulus.Thus the values correlate but are not directly comparable. Gallbladder: Gallbladder polyps, the largest of which measures up to 0.4cm. No follow-up imaging is required per the SRU consensus guidelines. Nocholelithiasis. No pericholecystic fluid or gallbladder wall thickening.Negative sonographic Ruby's sign. Intrahepatic ducts: Not dilated. Common duct: Not dilated. Pancreas: Partially obscured by bowel gas. Right kidney: Length: 10.3 cm. Normal echogenicity. No hydronephrosis. Left kidney: Length: 9.5 cm. Normal echogenicity. No hydronephrosis. Spleen: Normal. Spleen length: 7.8 cm. Aorta: Normal caliber. IVC: Normal where seen. Ascites: None. IMPRESSION: 1. Hepatic steatosis. Shear wave elastography with low probability ofcompensated advanced chronic liver disease. 2. Gallbladder polyps measuring up to 0.4 cm, no follow-up imaging isrecommended per the SRU consensus guidelines. us Fransisca Lim M.D., Ph.D. IMG US PROCEDU RES Final Result * [place] ARTHCS ASP/INJ MJR JT W US (06/30/2024 10:30 AM CDT) Narrative [facility] - 06/30/2024 10:30 AM CDT Alonzo Barrow M.D. ? 06/30/2024 10:35 AM Hip site - Bilat hip joint: injection only Performed by: Alonzo Barrow M.D. Authorized by: Jinny Hutson M.D. ?? Care team members present 1. Alonzo Barrow M.D. 2. Yesenia Cunningham PROCEDURE DETAILS Indications: bilateral hip pain Procedure Location hip Hip site - Bilat hip joint Site prep: patient was prepped and draped in usual sterile fashion ?? Patient position: supine Procedure performed: injection only Needle gauge: 22 G, length: 3.5 in Ultrasound image guidance used to localize target, identify at risk structures, and dynamically used to direct therapy to the target. Image(s) acquired and saved. Pre-procedure image guidance used to localize target and identify at risk structures, and plan approach and site was marked using indelible marker Probe: convex low/mid-frequency Ultrasound visualization: in-plane Procedural Medication The following medications were administered at the target site(s) On the right: Local anesthetic: 3 mL ROPivacaine (PF) 2 mg/mL (0.2 %) Corticosteroid: 40 mg methylPREDNISolone acetate 40 mg/mL On the left: Local anesthetic: 3 mL ROPivacaine (PF) 2 mg/mL (0.2 %) Corticosteroid: 40 mg methylPREDNISolone acetate 40 mg/mL CONSENT Consent obtained: written (Risks, benefits and alternatives were discussed and a written Informed Consent was obtained. Please see Informed Consent form for further details.) UNIVERSAL PROTOCOL All relevant documentation and testing were reviewed and available. All required blood products, implants, devices and or special equipment were made available as applicable. Pre-procedure verification was conducted and the correct site was marked if required. A fire risk and smoke assessment were done as applicable. The procedural time-out to verify correct patient, correct side/site, and procedure was conducted prior to performing the procedure and confirmed in a procedural pause. PRE-PROCEDURE DETAILS Procedure purpose: therapeutic Indications: bilateral hip pain Appropriate hand hygiene, gown, cap, mask, protective eyewear, sterile gloves, skin preparation, sterile drape, and strict aseptic technique were utilized as applicable for the procedure. Site preparation: chlorhexidine POST-PROCEDURE DETAILS Procedure completed successfully: yes Complications: no apparent complications ?? Post-procedure instructions: avoid strenuous activity for 2 days, avoid submersion of procedure site for 48 hours and post-procedure activity instructions provided Discharge instructions: ice area as needed for comfort and pain management instructions Comments Consent obtained (written and verbal): The benefits, alternatives, and risks (including but not limited to bleeding, bruising, hematoma, reaction to medication, allergic reaction, infection, transient increase in pain, possible continued pain) were discussed with the patient and/or decision maker, as well as the roles of healthcare team members performing significant interventional tasks. Injection multi care technician/nurse was present for assistance during the procedure. us Jinny Hutson M.D. PROCEDURE/MINOR SURGICAL ORDERABLES Final Result Performing Organization Address [facility] Co de Phone Number [facility] NA * S-TSH (Thyroid-Stimulating Hormone - Sensitive) (09/03/2023 1:51 PM SKATE BOARDER) TSH, Sensitive 0.6 0.3 - 4.2 mIU/L 09/03/2023 2:56 PM SKATE BOARDER DTL Blood (Blood, Venous) 09/03/2023 1:51 PM SKATE BOARDER 09/03/2023 2:23 PM SKATE BOARDER us Cinda Staples, ChNorbertoB. LAB BLOOD ADD-ON Final Re sult Performing Organization Address [facility]/ZIP Co de Phone Number [facility] [address] [place] [address], [place] DTL [facility] [address] [place] [address] * MAMMO SCREEN, BILAT, W/CAD-Outside Mammogram (03/22/2020 [...] is required please follow defined workflow. ?? us Provider Not In System IMG BI PROCEDURES Final R esult Performing Organization Address [facility] Co de Phone Number [facility] NA * Chronic Hepatitis Profile (10/13/2016 9:26 AM SKATE BOARDER) HBs Antigen, S Negative Negative [facility] HBc Total Ab, S Negative Negative [facility] HCV Ab, S Negative Negative [facility] Comment:[id number] rat io is <1.00. HBs Antibody,S Negative Unvaccinated : Negative; Vaccinated: Positive [facility] Comment:Patient is presumed to be not immune to infection with HBV. HBs Antibody, Quantitative, S <5.0 Unvaccinated : <5.0; Vaccinated: >=12.0 MIU/ML [facility] 10/13/2016 9:26 AM SKATE BOARDER 10/13/2016 9:26 AM SKATE BOARDER Didier Hays M.D. LAB MICROBIOLOGY - BLOOD ORDERABLES Final Result Performing Organization Address City/[facility] Co de Phone Number [facility] [address] * Hemoglobin A1c (10/13/2016 9:26 AM SKATE BOARDER) Hemoglobin A1c, B 5.4 4.0 - 5.6 % [facility] 10/13/2016 9:26 AM SKATE BOARDER 10/13/2016 9:26 AM SKATE BOARDER Didier Hays M.D. LAB BLOOD ADD-ON Final R esult [facility] [address] * Creatinine with Estimated GFR (MDRD) (10/13/2016 9:26 AM SKATE BOARDER) Creatinine 0.9 0.6 - 1.1 MG/DL [facility] eGFR Non-Black/Afric an Sri [place]an >60 >60 ML/MIN/BSA [facility] eGFR-Black/Afri can [place]an >60 >60 ML/MIN/BSA [facility] 10/13/2016 9:26 AM SKATE BOARDER 10/13/2016 9:26 AM SKATE BOARDER Didier Hays M.D. LAB BLOOD ADD-ON Final R esult Performing Organization Address City/[facility]/ZIP Co de Phone Number [facility] [address] from Last 3 Months or Most Recently Relevant to Health Maintenance Insurance [facility]
--- OUTSIDE RECORDS SUMMARY | 2024-07-28 08:36 | XMS_ITS | Encounter Summary ---
Author Organization [facility] Address [address] [place] [address] Care Team Providers Care Pharmacogeneticist Name Role Phone Unavailable Primary Care Provider Unavailabl e Reason for Visit * Outpatient (Routine) - Authorized Specialty Diagnoses / Procedures Referred By Neftaly t Referred To Contact Diagnoses Pain Low Back Unspecified Pain Hip Bilateral Procedures [facility] Acupuncture [facility] in [place], [place] [address] [place] [address] Phone: tel: [facility] Referral ID Status Reason Start Date Expiration Date V isits Requested Visits Authorized [id number] Authorized 02/07/2024 02/06/2025 20 20 Encounter Details Date Type Department Care Team (Latest Contact Info) Description 07/07/2024 4:30 PM CDT Clinical Support [facility]ative [facility] in [place], [place] [address] [place] [phone] Zeke Reddy L.Ac. [address] [place] [phone] Pain Low Back Unspecified; Pain Hip Bilateral Social History Tobacco Use Types Packs/Day Years Used Date Smoking Tobacco: Never Smokeless Tobacco: Never Alcohol Use Standard Drinks/Week Comments Not Currently 1 (1 standard drink = 0.6 oz pur e alcohol) [facility] Utilities Answer Date Recorded In [...] often do you attend chur ch or scientologist services? More than 4 times per year 11/22/2022 Do you belong to any clubs o r organizations such as presybeterian groups, unions, fraternal or athletic groups, or [...] Answer Date Recorded PHQ-2 Score 1 03/11/2021 [facility]at ional [facility] [...] your living situation today? I have a [facility] place to live 12/31/2023 Education Answer Date Recorded What is the highest level of school you have completed or the highest degree you have received? Associate degree: occupational, technical, or vocational program 10/01/2020 Comments No Sex and Gender Information Value Date Recorded Sex Assigned at Female 06/23/2021 10:52 AM CDT Legal Sex Female 5:19 PM OSTEOPATHIC PHYSICIAN Gender Identity Female 10/01/2020 2:34 PM OSTEOPATHIC PHYSICIAN Sexual Orientation Straight 10/01/2020 2: 34 PM OSTEOPATHIC PHYSICIAN documented as of this encounter Progress Notes * Zeke Reddy L.Ac. - 07/07/2024 4:30 PM CDT Referral Source: No ref. provider [...] and discussed at today's session. Pilar feels dull occipital pain, nausea, neck pain radiating to bilateral shoulders and middle back(T5/6/7) ,denies arm pain or numbness. She reports lower back and hip pain, especially the left side, she does not notice greatly relieved bilateral hip joint on 06/30/24. Today we worked on her neckand lower back, and she felt great after this session. OBJECTIVE ASSESSMENT / PLAN #1 Pain Low Back Unspecified #2 Pain Hip Bilateral This is treatment 20 of expected 20 treatments. Frequency: 1-4 times per month if schedule allows. Acupuncture ordered for: Acute care Benefits and risks of acupuncture were discussed with patient and patient has signed consent authorization to proceed with treatment. Patient was informed that results may vary dependent on severity of symptoms and frequency of treatment. It was noted that most patients need a series of acupuncture treatments to obtain symptom relief. Total Needling Time: 30 minutes [place] Electrified: No Diathermy: No Cupping: Yes Treatment Points Used: Prone position. Set One: GV 14/16/17, GB 19/20/21, [place], SI 11/13,BL 24/25/26/27/28 Set Two: Both GB 29/30/34/41, BL 54, Hip Ashix1,BL 37/40/57 Number of [place] Used = Number of [place] Retrieved: Yes Stimulation Intensity: Medium Narrative Assessment: [...] the www.[employer].org for locating a qualified licensed master social worker in the local community. PATIENT EDUCATION Ready to learn, no apparent learning barriers were identified, learning preference include listening. Explained diagnosis and treatment plan: patient/caregiver expressed understanding of the content. documented in this encounter Plan of Treatment Upcoming Encounters Date Type Department Care Team (Latest Contact Info) Description 08/04/2024 1:20 PM OSTEOPATHIC PHYSICIAN Appointment Department of Laboratory Medicine and Pathology, [facility] in [address] [phone] Cinda Willis M.B., Ch.B. [address] [place] [phone] 08/04/2024 2:00 PM OSTEOPATHIC PHYSICIAN Clinical Support Department of Nutrition and Diabetes Education in [place], [place] [address] [place] [phone] Cinda Willis M.B., Ch.B. [address] [place] [phone] Mandy Trevino M.S., RDN, LD [address] [place] [phone] 08/15/2024 3:00 PM OSTEOPATHIC PHYSICIAN Office Visit Division of Endocrinology in [address] [phone] Cinda Willis M.B., Ch.B. [address] [place] [phone] 08/18/2024 2:45 PM OSTEOPATHIC PHYSICIAN Clinical Support [facility] in [address] [phone] Zeke Reddy L.Ac. [address] [place] [phone] 09/14/2024 2:25 PM OSTEOPATHIC PHYSICIAN Appointment Department of Cardiovascular Diseases in [place], [place] [address] [place] [phone] Fransisca Araiza M.D., Ph.D. [address] [place] [phone] Discharge Disposition: Home or Self Care 09/22/2024 2:00 PM OSTEOPATHIC PHYSICIAN Clinical Support [facility] in [place], [place] [address] [place] [phone] Zeke Reddy L.Ac. [address] [place] [phone] 10/02/2024 3:00 PM OSTEOPATHIC PHYSICIAN Office Visit Division of Nephrology and Hypertension in [place], [place] [address] [place] [phone] Fransisca Araiza M.D., Ph.D. [address] [place] [phone] documented as of this encounter Visit Diagnoses Diagnosis Pain Low Back Unspecified Pain Hip Bilateral documented in this encounter Additional Health Concerns Assessment Noted Time PHQ-9 Depression Total Score: 4 03/11/20 21 2:35 PM CDT documented as of this encounter
--- OUTSIDE RECORDS SUMMARY | 2024-07-28 08:36 | XMS_ITS | Encounter Summary ---
Author Organization [facility] Address [address] [place] [address] Care Team Providers Care Occupational Nurse Name Role Phone Unavailable Primary Care Provider Unavailabl e Reason for Referral * Outpatient (Routine) - Closed Specialty Diagnoses / Procedures Referred By Contac t Referred To Contact Diagnoses Excess Fluid Volume Procedures US Abdomen Complete Franssica Araiza M.D., Ph.D. [address] [place] [address] Phone: tel: fax: [facility] Referral ID Status Reason Start Date Expiration Date Visits Re quested Visits Authorized [id number] Closed 06/27/2024 06/27/2025 1 1 Reason for Visit * Outpatient (Routine) - Closed Specialty Diagnoses / Procedures Referred By Contac t Referred To Contact Diagnoses Excess Fluid Volume Procedures US Abdomen Complete Fransisca Araiza M.D., Ph.D. [address] [place] [address] Phone: tel: fax: [facility] Referral ID Status Reason Start Date Expiration Date Visits Re quested Visits Authorized [id number] Closed 06/27/2024 06/27/2025 1 1 Encounter Details Date Type Department Care Team (Latest Contact Info) Description 07/20/2024 1:02 PM CDT - 07/20/2024 11:59 PM CDT Hospital Encounter Department of Radiology, [facility] in [place], [place] [address] [place] [address] Fransisca Araiza M.D., Ph.D. [address] [place] [address] Excess Fluid Volume Discharge Disposition: Home or Self Care Social History Tobacco Use Types Packs/Day Years Used Date Smoking Tobacco: Never Smokeless Tobacco: Never Alcohol Use Standard Drinks/Week Comments Not Currently 1 (1 standard drink = 0.6 oz pur e alcohol) [facility] Utilities Answer Date Recorded In the past 12 months has e e27, gas, oil, or water [employer] threatened to shut off services in your [...] Answer Date Recorded PHQ-2 Score 1 03/11/2021 [facility] Occupat ional [facility] - Occupational Stress Questionnaire Answer Date Recorded [...] your living situation today? I have a [facility] place to live 12/31/2023 Education Answer Date Recorded What is the highest level of school you have completed or the highest degree you have received? Associate degree: occupational, technical, or vocational program 10/01/2020 Comments No Sex and Gender Information Value Date Recorded Sex Assigned at Female 06/23/2021 10:52 AM CDT Legal Sex Female 5:19 PM CONTRACTS MANAGER Gender Identity Female 10/01/2020 2:34 PM CONTRACTS MANAGER Sexual Orientation Straight 10/01/2020 2: 34 PM CONTRACTS MANAGER documented as of this encounter Medications at Time of Discharge aspirin 81 mg chewable tablet Chew 81 mg daily. calcium carbonate (CALCIUM 500 ORAL) Take 1 tablet by mouth daily. celecoxib (CeleBREX) 200 mg capsule Take 200 mg by mouth daily. 09/16/2020 cholecalciferol, vitamin D3, (VITAMIN D3 ORAL) Take 5,000 Units by mouth daily. cyclobenzaprine (FLEXERIL) 10 mg tablet Take 10 mg by mouth as needed. 04/19/2020 diazePAM (Valium) 5 mg tablet Take 1 tablet (5 mg total) by mouth See Admin Instructions. Take one (1) tablet 30 minutes before MRI, may take 2nd dose if needed. Will need regional otr company driver. 2 tablet 07/23/2023 diphenhydrAMINE (BENADRYL) 25 mg capsule Take 25 mg by mouth daily. 10/08/2013 furosemide (LASIX) 20 mg tablet Take 20 mg by mouth as needed. 07/20/2020 gabapentin (NEURONTIN) 600 mg tablet Take 200 mg by mouth 2 (two) times a day. 200 mg am, 400 mg pm hydroCHLOROthiaz wilner (MICROZIDE) 12.5 mg capsule Take 12.5 mg by mouth daily. 01/01/2021 iron,carbonyl-vi tamin C (VITRON-C) 65 mg iron- [address] tablet Take 2 tablets by mouth daily. Do not crush or chew. Lactobac no.41/Bifidobact no.7 (PROBIOTIC-10 ORAL) Take 2 capsules by mouth at bedtime. Inner Balance 10/08/2012 levothyroxine (SYNTHROID, LEVOTHROID) 112 mcg tablet take one tablet by mouth every morning before breakfast 30 tablet 1 12/27/2023 losartan (COZAAR) 50 mg tablet Take 50 mg by mouth daily. 08/31/2020 MULTIVITAMIN ORAL Take 1 tablet by mouth daily. naltrexone-bupro pion (Contrave) 8-90 mg per extended release tablet Start 1 tab daily in week 1, then 1 tablet twice daily in week 2, then 1 tablet AM, 2 tabs PM in week 3, then 2 tabs twice daily therafter 120 tablet 11 12/03/2022 prochlorperazine (COMPAZINE) 10 mg tablet Take 10 mg by mouth every 6 (six) hours as needed for nausea or vomiting. simvastatin (ZOCOR) 40 mg tablet Take 40 mg by mouth at bedtime. 09/16/2020 topiramate (TOPAMAX) 50 mg tablet Take 50 mg by mouth 2 (two) times a day. 08/16/2020 torsemide (Demadex) 20 mg tablet Take 1 tablet (20 mg total) by mouth daily. 90 tablet 3 06/28/2024 vitamin B complex (B COMPLEX 1 ORAL) Place 1 capsule under the tongue daily. zolpidem (AMBIEN) 5 mg tablet Take 2.5 mg by mouth at bedtime. 09/10/2020 documented as of this encounter Plan of Treatment Upcoming Encounters Date Type Department Care Team (Latest Contact Info) Description 08/04/2024 1:20 PM CONTRACTS MANAGER Appointment Department of Laboratory Medicine and Pathology, [facility], in [place], [place] [address] [place] [address] Cinda Willis M.B., Ch.B. [address] [place] [phone] 08/04/2024 2:00 PM CONTRACTS MANAGER Clinical Support Department of Nutrition and Diabetes Education in [place], [place] [address] [place] [address] Cinda Willis M.B., Ch.B. 200 [place] [phone] Mandy Trevino M.S., RDN, LD [address] [place] [phone] 08/15/2024 3:00 PM CONTRACTS MANAGER Office Visit Division of Endocrinology in [place], [place] [address] [place] [phone] Cinda Willis M.B., Ch.B. [address] [place] [phone] 08/18/2024 2:45 PM CONTRACTS MANAGER Clinical Support [facility] in [place], [place] [address] [place] [phone] Zeke Reddy L.Ac. [address] [place] [phone] 09/14/2024 2:25 PM CONTRACTS MANAGER Appointment Department of Cardiovascular Diseases in [address] [phone] Fransisca Araiza M.D., Ph.D. [address] [place] [phone] Discharge Disposition: Home or Self Care 09/22/2024 2:00 PM CONTRACTS MANAGER Clinical Support [facility] in [place], [place] [address] [place] [phone] Zeke Reddy L.Ac. [address] [place] [phone] 10/02/2024 3:00 PM CONTRACTS MANAGER Office Visit Division of Nephrology and Hypertension in [address] [phone] Fransisca Araiza M.D., Ph.D. [address] [place] [phone] documented as of this encounter Procedures Procedure Name Priority Date/Time Associated Diagnosis Comments US ABDOMEN COMPLETE RAD - Routine (most inpatients and all outpatients) 07/20/2024 2:13 PM CDT Excess Fluid Volume documented in this encounter Results * US Abdomen Complete (07/20/2024 2:13 [...] portal vein. Liver shear wave elastography (2D-SWE, Klip, C1-6, LPO with wedge position with right arm overhead) was performed with patient in suspended respiration. Patient was fasting for at least 4 hours prior to the exam. Retail Attendant images were obtained Subjective assessment of study [...] seen. Ascites: ??None. Procedure Note Ratna Ruelas M.B.B.S. - 07/20/2024 EXAM: US ABDOMEN COMPLETE COMPARISON: CT abdomen and pelvis with IV contrast from October 21, 2022 FINDINGS: Liver: Diffuse increased echogenicity consistent with hepatic steatosis.No focal hepatic observation. Antegrade flow of the main portal vein. Liver shear wave elastography (2D-SWE, Klip, C1-6, LPO with wedge positionwith right arm overhead) was performed with patient in suspendedrespiration. Patient was fasting for at least 4 hours prior to the exam.Retail Attendant images were obtained Subjective assessment of study [...] Ph.D. IMG US PROCEDU RES Final Result documented in this encounter Visit Diagnoses Diagnosis Excess Fluid Volume documented in this encounter Additional Health Concerns Assessment Noted Time PHQ-9 Depression Total Score: 4 03/11/20 21 2:35 PM CDT documented as of this encounter
--- OUTSIDE RECORDS SUMMARY | 2024-07-28 08:36 | XMS_ITS | Encounter Summary ---
Author Organization [facility] Address [address] [place] [address] Care Team Providers Care Sr Account Executive Name Role Phone Unavailable Primary Care Provider Unavailabl e Reason for Visit * Outpatient (Routine) - Closed Specialty Diagnoses / Procedures Referred By Neftaly weinstein Referred To Contact Diagnoses Pain Hip Bilateral Procedures PMR Peripheral injection/USGI (Procedure Only) Jinny Hutson M.D. 200 [place] [address] Phone: tel: fax: [facility] Referral ID Status Reason Start Date Expiration Date Visits Re quested Visits Authorized [id number] Closed 06/26/2024 06/26/2025 1 1 Encounter Details Date Type Department Care Team (Latest Contact Info) Description 06/30/2024 10:30 AM CDT Procedure visit Department of Physical Medicine and Rehabilitation in [place], [place] [address] [place] [address] Alonzo Barrow M.D. [address] [place] [phone] Pain Hip Bilateral Social History Tobacco Use Types Packs/Day Years Used Date Smoking Tobacco: Never Smokeless Tobacco: Never Alcohol Use Standard Drinks/Week Comments Not Currently 1 (1 standard drink = 0.6 oz pur e alcohol) [facility] Utilities Answer Date Recorded In the past [...] week 11/22/2022 How often do you attend [facility] or orthodox services? More than 4 times per year [...] Recorded PHQ-2 Score 1 03/11/2021 [facility] Occupat ional Health - Occupational [...] your living situation today? I have a [facility] place to live 12/31/2023 Education Answer Date Recorded What is the highest level of school you have completed or the highest degree you have received? Associate degree: occupational, technical, or vocational program 10/01/2020 Comments No Sex and Gender Information Value Date Recorded Sex Assigned at Female 06/23/2021 10:52 AM CDT Legal Sex Female 5:19 PM BLINDSTITCH MACHINE OPERATOR Gender Identity Female 10/01/2020 2:34 PM BLINDSTITCH MACHINE OPERATOR Sexual Orientation Straight 10/01/2020 2: 34 PM BLINDSTITCH MACHINE OPERATOR documented as of this encounter Procedure Notes * Alonzo Barrow M.D. - 06/30/2024 10:30 AM CDTAssociated Order(s): PMR Peripheral injection/USGI (Procedure Only): Bilat hip joint Pre-Procedure Diagnose(s): Pain Hip Bilateral Post-Procedure Diagnose(s): Pain Hip Bilateral Hip site - Bilat hip joint: injection only Performed by: Alonzo Barrow M.D. Authorized by: Jinny Hutson M.D. Care team members present 1. Alonzo Barrow M.D. 2. Yesenia Cunningham PROCEDURE DETAILS Indications: bilateral hip pain Procedure Location hip Hip site - Bilat hip joint Site prep: patient was prepped and draped in usual sterile fashion Patient position: supine Procedure performed: injection only [...] completed successfully: yes Complications: no apparent complications Post-procedure instructions: avoid strenuous activity for 2 [...] team members performing significant interventional tasks. Injection machining technician/nurse was present for assistance during the procedure. documented in this encounter Plan of Treatment Upcoming Encounters Date Type Department Care Team (Latest Contact Info) Description 08/04/2024 1:20 PM BLINDSTITCH MACHINE OPERATOR Appointment Department of Laboratory Medicine and Pathology, [facility] in [place], [place] [address] [place] [phone] Cinda Willis M.B., Ch.B. [address] [place] [phone] 08/04/2024 2:00 PM BLINDSTITCH MACHINE OPERATOR Clinical Support Department of Nutrition and Diabetes Education in [place], [place] [address] [place] [phone] Cinda Willis M.B., Ch.B. [address] [place] [phone] Mandy Trevino M.S., RDN, LD [address] [place] [phone] 08/15/2024 3:00 PM BLINDSTITCH MACHINE OPERATOR Office Visit Division of Endocrinology in [place], [place] [address] [place] [phone] Cinda Willis M.B., Ch.B. [address] [place] [phone] 08/18/2024 2:45 PM BLINDSTITCH MACHINE OPERATOR Clinical Support [facility] in [place], [place] [address] [place] [phone] Zeke Reddy L.Ac. [address] [place] [phone] 09/14/2024 2:25 PM BLINDSTITCH MACHINE OPERATOR Appointment Department of Cardiovascular Diseases in [address] [phone] Fransisca Araiza M.D., Ph.D. [address] [place] [phone] Discharge Disposition: Home or Self Care 09/22/2024 2:00 PM BLINDSTITCH MACHINE OPERATOR Clinical Support Integrative Medicine and [facility] in [place], [place] [address] [place] [phone] Zeke Reddy, L.Ac. [address] [place] [phone] 10/02/2024 3:00 PM BLINDSTITCH MACHINE OPERATOR Office Visit Division of Nephrology and Hypertension in [address] [phone] Fransisca Araiza M.D., Ph.D. [address] [place] [phone] documented as of this encounter Procedures Procedure Name Priority Date/Time Associated Diagnosis Comments IA ARTHCS ASP/INJ MJR JT W US Routine 06/30/2024 10:30 AM CDT Pain Hip Bilateral documented in this encounter Results * IA ARTHCS ASP/INJ MJR JT W US (06/30/2024 [...] team members performing significant interventional tasks. Injection machining technician/nurse was present for assistance during the procedure. us Jinny Hutson M.D. PROCEDURE/MINOR SURGICAL ORDERABLES Final Result MMODAL NA documented in this encounter Visit Diagnoses Diagnosis Pain Hip Bilateral documented in this encounter Administered Medications Inactive Administered Medications - up to 3 most recent administrations Medication Order MAR Action Action Date Dose Rate Site methylPREDNISolone acetate injection 40 mg (DEPO-MedroL) 40 mg, intra-articular, One-Time Injection, Starting on Wed06/30/24 at 1030, For 1 doseIndications:Pain Hip Bilateral Given 06/30/2024 10:30 AM CDT 40 mg methylPREDNISolone acetate injection 40 mg (DEPO-MedroL) 40 mg, intra-articular, One-Time Injection, Starting on Wed06/30/24 at 1030, For 1 doseIndications:Pain Hip Bilateral Given 06/30/2024 10:30 AM CDT 40 mg ROPivacaine (PF) 2 mg/mL (0.2 %) injection 3 mL (Naropin) 3 mL, intra-articular, One-Time Injection, Starting on Wed06/30/24 at 1030, For 1 doseIndications:Pain Hip Bilateral Given 06/30/2024 10:30 AM CDT 3 mL ROPivacaine (PF) 2 mg/mL (0.2 %) injection 3 mL (Naropin) 3 mL, intra-articular, One-Time Injection, Starting on Wed06/30/24 at 1030, For 1 doseIndications:Pain Hip Bilateral Given 06/30/2024 10:30 AM CDT 3 mL documented in this encounter Additional Health Concerns Assessment Noted Time PHQ-9 Depression Total Score: 4 03/11/20 21 2:35 PM CDT documented as of this encounter
--- OUTSIDE RECORDS SUMMARY | 2024-07-28 08:36 | XMS_ITS | Encounter Summary ---
Author Organization [facility] Address [address] [place] [address] Care Team Providers Care Brim Presser Name Role Phone Unavailable Primary Care Provider Unavailabl e Encounter Details Date Type Department Care Team (Late st Contact Info) Description 04/14/2024 Clinical Communication Integrative Medicine and Health in [place], [place] [address] [place] [address] Calvin Smalls, L.. Social History Tobacco Use Types Packs/Day Years Used Date Smoking Tobacco: Never Smokeless Tobacco: Never Alcohol Use Standard Drinks/Week Comments Not Currently 1 (1 standard drink = 0.6 oz pur e alcohol) [facility] Utilities Answer Date Recorded In the past 12 months has e electric, gas, oil, or water [employer] threatened to shut off services in your [...] Score 1 03/11/2021 [facility] - Occupational Stress Questionnaire Answer Date [...] Answer Date Recorded Employment status Unemployed/not in [employer] paid workforce and NOT seeking employment 12/31/2023 Housing Stability Answer Date Recorded What is your living situation today? I have a [facility] place to live 12/31/2023 Education Answer Date Recorded What is the highest level of school you have completed or the highest degree you have received? Associate degree: occupational, technical, or vocational program 10/01/2020 Comments No Sex and Gender Information Value Date Recorded Sex Assigned at Female 06/23/2021 10:52 AM CDT Legal Sex Female 5:19 PM VEHICLE UPHOLSTERER Gender Identity Female 10/01/2020 2:34 PM VEHICLE UPHOLSTERER Sexual Orientation Straight 10/01/2020 2: 34 PM VEHICLE UPHOLSTERER documented as of this encounter Plan of Treatment Upcoming Encounters Date Type Department Care Team (Latest Contact Info) Description 08/04/2024 1:20 PM VEHICLE UPHOLSTERER Appointment Department of Laboratory Medicine and Pathology, [facility], in [place], [place] [address] [place] [address] Cinda Willis M.B., Ch.B. 200 [place] [address] 08/04/2024 2:00 PM VEHICLE UPHOLSTERER Clinical Support Department of Nutrition and Diabetes Education in [place], [place] [address] [place] [address] Cinda Willis M.B., Ch.B. [address] [place] [phone] Mandy Trevino M.S., RDN, LD [address] [place] [phone] 08/15/2024 3:00 PM VEHICLE UPHOLSTERER Office Visit Division of Endocrinology in [place], [place] [address] [place] [phone] Cinda Willis M.B., Ch.B. [address] [place] [phone] 08/18/2024 2:45 PM VEHICLE UPHOLSTERER Clinical Support Integrative Medicine and Health in [address] [phone] Zeke Reddy L.Ac. [address] [place] [phone] 09/14/2024 2:25 PM VEHICLE UPHOLSTERER Appointment Department of Cardiovascular Diseases in [address] [phone] Fransisca Araiza M.D., Ph.D. [address] [place] [phone] Discharge Disposition: Home or Self Care 09/22/2024 2:00 PM VEHICLE UPHOLSTERER Clinical Support Integrative Medicine and Health in [address] [phone] Zeke Reddy L.Ac. [address] [place] [phone] 10/02/2024 3:00 PM VEHICLE UPHOLSTERER Office Visit Division of Nephrology and Hypertension in [address] [phone] Fransisca Araiza M.D., Ph.D. [address] [place] [phone] documented as of this encounter Visit Diagnoses Not on filedocumented in this encounter Additional Health Concerns Assessment Noted Time PHQ-9 Depression Total Score: 4 03/11/ 21 2:35 PM CDT documented as of this encounter
--- OUTSIDE RECORDS SUMMARY | 2024-07-28 08:36 | XMS_ITS | Encounter Summary ---
Author Organization [facility] Address [address] [place] [address] Care Team Providers Care Information Systems Security Specialist Name Role Phone Unavailable Primary Care Provider Unavailabl e Reason for Referral * Outpatient (Routine) - Authorized Specialty Diagnoses / Procedures Referred By Contac t Referred To Contact Cinda Styles M.B., Ch.B. 200 [place] [address] Phone: tel: fax: [facility] Referral ID Status Reason Start Date Expiration Date V isits Requested Visits Authorized [id number] Authorized 04/21/2024 10/21/2025 2 2 Reason for Visit * Outpatient (Routine) - Authorized Specialty Diagnoses / Procedures Referred By Contac t Referred To Contact Cinda Styles M.B., Ch.B. [address] [place] [address] Phone: tel: fax: [facility] Referral ID Status Reason Start Date Expiration Date V isits Requested Visits Authorized [id number] Authorized 02/18/2024 08/19/2025 2 2 Encounter Details Date Type Department Care Team (Latest Contact Info) Description 04/21/2024 2:00 PM CDT Clinical Support Department of Nutrition and Diabetes Education in [place], [place] [address] [place] [phone] Cinda Willis M.B., Ch.B. [address] [place] [phone] Mandy Trevino M.S., RDN, LD 200 [place] [address] Obesity Body Mass Index 30-39.9 Adult [E66.9] [...] week 11/22/2022 How often do you attend [facility] or confucianist services? More than 4 times per year 11/22/2022 Do you belong to any clubs o r organizations such as alevism groups, unions, fraternal or athletic groups, or [...] Date Recorded PHQ-2 Score 1 03/11/2021 [facility] of Occupat ional Health - Occupational Stress [...] AM CDT Legal Sex Female 5:19 PM MACHINE FEEDER Gender Identity Female 10/01/2020 2:34 PM MACHINE FEEDER Sexual Orientation Straight 10/01/2020 2: 34 PM MACHINE FEEDER documented as of this encounter Last Filed [...] find benefits from [employer]. She is in [employer] group 2 times per month. She is [...] (Latest Contact Info) Description 08/04/2024 1:20 PM MACHINE FEEDER Appointment Department of Laboratory Medicine and Pathology, [facility] in [place], [place] [address] [place] [phone] Cinda Willis M.B., Ch.B. [address] [place] [phone] 08/04/2024 2:00 PM MACHINE FEEDER Clinical Support Department of Nutrition and Diabetes Education in [place], [place] [address] [place] [phone] Cinda Willis M.B., Ch.B. [address] [place] [phone] Mandy Trevino M.S., TOIN, LD [address] [place] [phone] 08/15/2024 3:00 PM MACHINE FEEDER Office Visit Division of Endocrinology in [address] [phone] Cinda Willis M.B., Ch.B. [address] [place] [phone] 08/18/2024 2:45 PM MACHINE FEEDER Clinical Support Integrative Medicine and Health in [place], [place] [address] [place] [phone] Zeke Reddy L.Ac. [address] [place] [phone] 09/14/2024 2:25 PM MACHINE FEEDER Appointment Department of Cardiovascular Diseases in [place], [place] [address] [place] [phone] Fransisca Araiza M.D., Ph.D. [address] [place] [phone] Discharge Disposition: Home or Self Care 09/22/2024 2:00 PM MACHINE FEEDER Clinical Support [facility] Health in [place], [place] [address] [place] [address] Zeke Reddy L.Ac. [address] [place] [phone] 10/02/2024 3:00 PM MACHINE FEEDER Office Visit Division of Nephrology and Hypertension in [place], [place] [address] [place] [address] Fransisca Araiza M.D., Ph.D. [address] [place] [phone] Scheduled Referrals Name Type Priority Associated Diagnoses [...]
--- OUTSIDE RECORDS SUMMARY | 2024-07-28 08:36 | XMS_ITS | Encounter Summary ---
Author Organization [facility] Address [address] [place] [address] Care Team Providers Care Wardrobe Custodian Name Role Phone Unavailable Primary Care Provider Unavailabl e Reason for Referral * Outpatient (Routine) - Authorized Specialty Diagnoses / Procedures Referred By Contac t Referred To Contact Nephrology and Hypertension Fransisca Araiza M.D., Ph.D. 200 [place] [address] Phone: tel: fax: [facility] Referral ID Status Reason Start Date Expiration Date V isits Requested Visits Authorized [id number] Authorized 06/27/2024 12/27/2025 1 1 * Outpatient (Routine) - Closed Specialty Diagnoses / Procedures Referred By Contac t Referred To Contact Diagnoses Excess Fluid Volume Procedures US Abdomen Complete Fransisca Araiza M.D., Ph.D. 200 [place] [address] Phone: tel: fax: [facility] Referral ID Status Reason Start Date Expiration Date Visits Re quested Visits Authorized [id number] Closed 06/27/2024 06/27/2025 1 1 * Cardiovascular-Diagnostic (Routine) - Authorized Specialty Diagnoses / Procedures Referred By Contac t Referred To Contact Diagnoses Excess Fluid Volume Procedures Echo Transthoracic (TTE) Fransisca Araiza M.D., Ph.D. [address] [place] [address] Phone: tel: fax: [facility] Referral ID Status Reason Start Date Expiration Date V isits Requested Visits Authorized [id number] Authorized 06/27/2024 06/27/2025 1 1 Reason for Visit * Appointment Request (Routine) - Closed Specialty Diagnoses / Procedures Referred By Contac t Referred To Contact Nephrology and Hypertension Troy Seals M.D. [address] [place] [phone] Phone: tel: fax: Referral ID Status Reason Start Date Expiration Date Visits Re quested Visits Authorized [id number] Closed 05/25/2024 05/25/2025 1 1 Encounter Details Date Type Department Care Team (Latest Contact Info) Description 06/27/2024 11:00 AM CDT External Outreach Division of Nephrology and Hypertension in [place], [place] [address] [place] [phone] Fransisca Araiza M.D., Ph.D. [address] [place] [address] Excess Fluid Volume (Primary Dx); Elevated Creatinine Social History Tobacco Use Types Packs/Day Years Used Date Smoking Tobacco: Never Smokeless Tobacco: Never Alcohol Use Standard Drinks/Week Comments Not Currently 1 (1 standard drink = 0.6 oz pur e alcohol) [facility] Utilities Answer Date Recorded In the past 12 months has e ncyclo, gas, oil, or water [employer] threatened to shut off services in your [...] Answer Date Recorded PHQ-2 Score 1 03/11/2021 [facility] of Occupat ional Health - Occupational Stress [...] your living situation today? I have a [facility] place to live 12/31/2023 Education Answer Date Recorded What is the highest level of school you have completed or the highest degree you have received? Associate degree: occupational, technical, or vocational program 10/01/2020 Comments No Sex and Gender Information Value Date Recorded Sex Assigned at Female 06/23/2021 10:52 AM CDT Legal Sex Female 5:19 PM RETORT KILN BURNER Gender Identity Female 10/01/2020 2:34 PM RETORT KILN BURNER Sexual Orientation Straight 10/01/2020 2: 34 PM RETORT KILN BURNER documented as of this encounter Consult Notes * Fransisca Araiza M.D., Ph.D. - 06/27/2024 11:00 AM CDT Referring Provider: Troy Seals M.D. SUBJECTIVE CHIEF COMPLAINT / REASON FOR VISIT Elevated creatinine Edema HISTORY OF PRESENT ILLNESS Gisela Snow is a 59 y.o. female with longstanding history of hypertension, hypothyroidism,GERD is referred to nephrology for evaluation of elevated creatinine. Patient has been taking Celebrex for long periods of time, but stopped taking it lately due to elevated creatinine. Her main concern during this visit is her generalized edema that she first noticed few months ago during the summer of 2023. She notices it in her legs, but also her face and upper extremities. She feels her abdominal girth has increased, and feels it is full of fluid. Along with that there was a weight increase from her baseline weight of 192-193 ob up to 198.5-200 lb. She has been prescribed with furosemide 20 mg which it has been increased up to 40 mg BID with no improvement of her swelling. Past Medical History: Diagnosis Date Gastroesophageal Reflux Disease NOS Hyperlipidemia 2010 Hypertension NOS 2010 Hypothyroidism 2002 Migraine Headache 1997 Post Operative Nausea/Vomiting Sickness Motion Personal History Past Surgical History: Procedure Laterality Date ARTHROPLASTY CARPOMETACARPAL JOINT (CMC) Right 01/20/2021 Procedure: ARTHROPLASTY CARPOMETACARPAL JOINT TRAPEZIUM EXCISION WITH PALMARIS TENDON INTERPOSITION, LIGAMENT RECONSTRUCTION.; Surgeon: Aaron Valentin M.D.; Location: [place] [id number] OR OTHER CONVERTED SHX (SEE COMMENT) N/A 10/12/2016 >Incisional biopsy of the left lateral tongue. OTHER SURGICAL HISTORY 1996 Oblation RELEASE CARPAL TUNNEL OPEN WRIST Right 01/20/2021 Procedure: RELEASE CARPAL TUNNEL OPEN WRIST.; Surgeon: Aaron Valentin M.D.; Location: [place] [id number] SINUS SURGERY 2002 TONSILLECTOMY 1970 TUBAL LIGATION 1992 Allergies Allergen Reactions Anesthesia S/I-40 (Propofol) [Propofol] Nausea And Vomiting Chocolate Flavor Other (see comments) Soar throat, tongue swelling Nut - Unspecified Other (see comments) Tape [Adhesive] Itching Social History Tobacco Use Smoking status: Never Smokeless tobacco: Never Substance Use Topics Alcohol use: Not Currently Alcohol/week: 1.0 standard drink of alcohol Types: 1 Standard drinks or equivalent per week Family History Problem Relation Name Age of Onset Breast cancer Paternal Grandmother Renea Renteria Breast cancer Mother's Sister Dorothy Mclain Coronary artery disease Father William Renteria Hypertension Father William Renteria Hyperlipidemia Father William Renteria Sleep apnea Father William Renteria Coronary artery disease Mother Meredith Renteria REVIEW OF SYSTEMS All other systems were reviewed and are negative, rest as per HPI. OBJECTIVE PHYSICAL EXAMINATION General: No acute distress, breathing comfortably. Heart: Regular rate and rhythm. No murmurs, rubs or gallops. Respiratory: Regular inspiratory effort. No wheezes, no rhonchi. Abdomen: Soft, not tender, not distended. Present bowel sounds. Extremities: Full range of motion. Normal gait. Trace edema in lower extremities Neuro: No focal deficits. Alert and oriented X 4. Skin: Warm. No rashes. Psych: Answers questions appropriately. No signs of anxiety or depression noted. DIAGNOSTICS Labs: I have reviewed available labs in detail with patient. ASSESSMENT / PLAN #1 Excess Fluid Volume #2 Elevated creatinine Patient is referred to Nephrology for evaluation of elevated creatinine and edema. Her creatinine elevation correlates with the chronic use of Celebrex. She has stopped taking it andshe has been recommended to take tylenol instead. We will continue to monitor kidney function to determine signs of CKD. She also has been taking hefty doses of diuretics with no improvement of her swelling and weight. Unclear cause of her edema, I have recommended to have an echo and abdominal ultrasound to evaluate. Previous abdominal ultrasound had shown fatty liver but no ascites. We will repeat to evaluate both liver and kidneys. There is no proteinuria in urine tests, therefore less likely for her edema to berelated to CKD. Differential diagnosis also includes hypothyroidism, capillary leak syndrome, lipedema, and lymphedema. I have recommended her to cut down on her diuretics to 20 mg daily, as higher doses have not been helpful with her swelling, and they increase the risk for ALEJO. I have recommended her to follow up a low salt diet. I will meet with her in [place] once tests are completed. All questions were answered. Jessenia Lim M.D., Ph.D. Nephrology and Hypertension documented in this encounter Plan of Treatment Upcoming Encounters Date Type Department Care Team (Latest Contact Info) Description 08/04/2024 1:20 PM RETORT KILN BURNER Appointment Department of Laboratory Medicine and Pathology, [facility], in [place], [place] [address] [place] [phone] Cinda Willis M.B., Ch.B. [address] [place] [phone] 08/04/2024 2:00 PM RETORT KILN BURNER Clinical Support Department of Nutrition and Diabetes Education in [place], [place] [address] [place] [phone] Cidna Willis M.B., Ch.B. [address] [place] [phone] Mandy Trevino M.S., RDN, LD [address] [place] [phone] 08/15/2024 3:00 PM RETORT KILN BURNER Office Visit Division of Endocrinology in [place], [place] [address] [place] [phone] Cinda Willis M.B., Ch.B. [address] [place] [phone] 08/18/2024 2:45 PM RETORT KILN BURNER Clinical Support [facility] in [place], [place] [address] [place] [phone] Zeke Reddy L.Ac. [address] [place] [phone] 09/14/2024 2:25 PM RETORT KILN BURNER Appointment Department of Cardiovascular Diseases in [place], [place] [address] [place] [phone] Fransisca Araiza M.D., Ph.D. [address] [place] [phone] Discharge Disposition: Home or Self Care 09/22/2024 2:00 PM RETORT KILN BURNER Clinical Support [facility] in [place], [place] [address] [place] [phone] Zeke Reddy L.Ac. [address] [place] [phone] 10/02/2024 3:00 PM RETORT KILN BURNER Office Visit Division of Nephrology and Hypertension in [place], [place] [address] [place] [address] Fransisca Araiza M.D., Ph.D. [address] [place] [address] Scheduled Orders Name Type Priority Associated Diagnoses Order Schedule Echo Transthoracic (TTE) Echocardiography Routine Excess Fluid Volume Expected: 06/27/2024 (Approximate), Expires: 09/27/2025 Scheduled Referrals Name Type Priority Associated Diagnoses Order Schedule Nephrology and Hypertension office visit (clinic) Outpatient Referral Routine 1 Occurrences starting 06/27/2024 until 09/27/2025 documented as of this encounter Results * US Abdomen Complete [...] portal vein. Liver shear wave elastography (2D-SWE, [employer], C1-6, LPO with wedge position with right arm overhead) was performed with patient in suspended respiration. Patient was fasting for at least 4 hours prior to the exam. Manager Ed images were obtained Subjective assessment of study [...] at least 4 hours prior to the exam.Manager Ed images were obtained Subjective assessment of study [...] imaging isrecommended per the SRU consensus guidelines. Fransisca Lim M.D., Ph.D. IMG US PROCEDU RES Final Result documented in this encounter Visit Diagnoses Diagnosis Excess Fluid Volume- Primary Elevated Creatinine Excess Fluid Volume documented in this encounter Additional Health Concerns Assessment Noted Time PHQ-9 Depression Total Score: 4 03/11/20 21 2:35 PM CDT documented as of this encounter
--- OUTSIDE RECORDS SUMMARY | 2024-07-28 08:36 | XMS_ITS | Encounter Summary ---
Author Organization [facility] Address [address] [place] [address] Care Team Providers Care Termite Inspector Name Role Phone Unavailable Primary Care Provider Unavailabl e Reason for Visit * Outpatient (Routine) - Closed Specialty Diagnoses / Procedures Referred By Neftaly t Referred To Contact Nutrition Cinda Willis M.B., Ch.B. [address] [place] [phone] Phone: tel: fax: [facility] Referral ID Status Reason Start Date Expiration Date Visits Re quested Visits Authorized [id number] Closed 01/07/2024 07/08/2025 2 2 Encounter Details Date Type Department Care Team (Latest Contact Info) Description 06/02/2024 3:00 PM CDT Clinical Support Department of Nutrition and Diabetes Education in [place], [place] [address] [place] [phone] Cinda Willis M.B., Ch.B. [address] [place] [phone] Mandy Trevino M.S., RDN, LD [address] [place] [phone] Obesity Body Mass Index 30-39.9 Adult [E66.9] (Primary Dx) Social History Tobacco Use Types Packs/Day Years Used Date Smoking Tobacco: Never Smokeless Tobacco: Never Alcohol Use Standard Drinks/Week Comments Not Currently 1 (1 standard drink = 0.6 oz pur e alcohol) [facility] Utilities Answer Date Recorded In the past 12 months has th e electric, gas, oil, or water [employer] threatened to shut off services in your [...] How often do you attend chur or jain services? More than 4 times per year 11/22/2022 Do you belong to any clubs o r organizations such as protestant groups, unions, fraternal or athletic groups, or [...] 03/11/2021 [facility] of Occupat ional [facility] - Occupational Stress Questionnaire Answer [...] your living situation today? [facility] 12/31/2023 Education Answer Date Recorded What is the highest level of school you have completed or the highest degree you have received? Associate degree: occupational, technical, or vocational program 10/01/2020 Comments No Sex and Gender Information Value Date Recorded Sex Assigned at Female 06/23/2021 10:52 AM CDT Legal Sex Female 5:19 PM TELETYPIST Gender Identity Female 10/01/2020 2:34 PM TELETYPIST Sexual Orientation Straight 10/01/2020 2: 34 PM TELETYPIST documented as of this encounter Last Filed [...] find benefits from [employer]. She is in [employer] group 2 times per month. She [...] (Latest Contact Info) Description 08/04/2024 1:20 PM TELETYPIST Appointment Department of Laboratory Medicine and Pathology, [facility] in [place], [place] [address] [place] [phone] Cinda Willis M.B., Ch.B. [address] [place] [phone] 08/04/2024 2:00 PM TELETYPIST Clinical Support Department of Nutrition and Diabetes Education in [place], [place] [address] [place] [phone] Cinda Willis M.B., Ch.B. [address] [place] [phone] Mandy Trevino M.S., RDN, LD [address] [place] [phone] 08/15/2024 3:00 PM TELETYPIST Office Visit Division of Endocrinology in [place], [place] [address] [place] [phone] Cinda Willis M.B., Ch.B. [address] [place] [phone] 08/18/2024 2:45 PM TELETYPIST Clinical Support [facility] in [place], [place] [address] [place] [phone] Zeke Reddy L.Ac. [address] [place] [phone] 09/14/2024 2:25 PM TELETYPIST Appointment Department of Cardiovascular Diseases in [address] [phone] Fransisca Araiza M.D., Ph.D. [address] [place] [phone] Discharge Disposition: Home or Self Care 09/22/2024 2:00 PM TELETYPIST Clinical Support [facility] in [place], [place] [address] [place] [phone] Zeke Reddy L.Ac. [address] [place] [phone] 10/02/2024 3:00 PM TELETYPIST Office Visit Division of Nephrology and Hypertension in [place], [place] [address] [place] [phone] Fransisca Araiza M.D., Ph.D. [address] [place] [phone] documented as of this encounter Visit Diagnoses Diagnosis Obesity Body Mass Index 30-39.9 Adult [E66.9]- Primary documented in this encounter Additional Health Concerns Assessment Noted Time PHQ-9 Depression Total Score: 4 03/11/20 21 2:35 PM CDT documented as of this encounter
--- OUTSIDE RECORDS SUMMARY | 2024-07-28 08:36 | XMS_ITS | Encounter Summary ---
Author Organization [facility] Address [address] [place] [address] Care Team Providers Care Machine Maintenance Supervisor Name Role Phone Unavailable Primary Care Provider Unavailabl e Reason for Visit * Outpatient (Routine) - Authorized Specialty Diagnoses / Procedures Referred By Neftaly t Referred To Contact Diagnoses Pain Low Back Unspecified Pain Hip Bilateral Procedures FOR[facility]LY [facility], [facility] Acupuncture Integrative Medicine and Health in [place], [place] [address] [place] [address] Phone: tel: [facility] Referral ID Status Reason Start Date Expiration Date V isits Requested Visits Authorized [id number] Authorized 02/07/2024 02/06/2025 20 Encounter Details Date Type Department Care Team (Latest Contact Info) Description 06/09/2024 2:45 PM CDT Clinical Support Integrative Medicine and Health in [place], [place] [address] [place] [phone] Zeke Reddy L.Ac. [address] [place] [phone] Pain Low Back Unspecified; Pain Hip Bilateral Social History Tobacco Use Types Packs/Day Years Used Date Smoking Tobacco: Never Smokeless Tobacco: Never Alcohol Use Standard Drinks/Week Comments Not Currently 1 (1 standard drink = 0.6 oz pur e alcohol) [facility] Utilities Answer Date Recorded In the [...] any clubs o r organizations such as adventism groups, unions, fraternal or athletic groups, or [...] Answer Date Recorded PHQ-2 Score 1 03/11/2021 [facility] Occupat ional Health - Occupational [...] AM CDT Legal Sex Female 5:19 PM CERTIFIED NURSING ASSISTANT INSTRUCTOR Gender Identity Female 10/01/2020 2:34 PM CERTIFIED NURSING ASSISTANT INSTRUCTOR Sexual Orientation Straight 10/01/2020 2: 34 PM CERTIFIED NURSING ASSISTANT INSTRUCTOR documented as of this encounter Progress Notes [...] symptom relief. Total Needling Time: 30 minutes [place] Electrified: No Diathermy: No Cupping: Yes Treatment Points Used: Supine position. Set One: GV 20/24, Penetrating needle from TE 23 to GB 8, penetrating GB14 to Yuyao, TE 5, PC 6, LI4 Set Two: CV 12/24//, ST 25,Weishangshu, ST 36/37, SP 12/24/09, LV 3/5, KI 3 Number of [place] Used = Number of [place] Retrieved: Yes Stimulation Intensity: Medium Narrative Assessment: [...] the www.[employer]CCAOM.org for locating a qualified licensed massage practitioner in the local community. PATIENT EDUCATION Ready to learn, no apparent learning barriers were identified, learning preference include listening. Explained diagnosis and treatment plan: patient/caregiver expressed understanding of the content. documented in this encounter Plan of Treatment Upcoming Encounters Date Type Department Care Team (Latest Contact Info) Description 08/04/2024 1:20 PM CERTIFIED NURSING ASSISTANT INSTRUCTOR Appointment Department of Laboratory Medicine and Pathology, [facility] in [address] [phone] Cinda Willis M.B., Ch.B. [address] [place] [phone] 08/04/2024 2:00 PM CERTIFIED NURSING ASSISTANT INSTRUCTOR Clinical Support Department of Nutrition and Diabetes Education in [address] [phone] Cinda Willis M.B., Ch.B. [address] [place] [phone] Mandy Trevino M.S., RDN, LD [address] [place] [phone] 08/15/2024 3:00 PM CERTIFIED NURSING ASSISTANT INSTRUCTOR Office Visit Division of Endocrinology in [address] [phone] Cinda Willis M.B., Ch.B. [address] [place] [phone] 08/18/2024 2:45 PM CERTIFIED NURSING ASSISTANT INSTRUCTOR Clinical Support [facility]ative [facility] in [address] [phone] Zeke Reddy L.Ac. [address] [place] [phone] 09/14/2024 2:25 PM CERTIFIED NURSING ASSISTANT INSTRUCTOR Appointment Department of Cardiovascular Diseases in [place], [place] [address] [place] [phone] Fransisca Araiza M.D., Ph.D. [address] [place] [phone] Discharge Disposition: Home or Self Care 09/22/2024 2:00 PM CERTIFIED NURSING ASSISTANT INSTRUCTOR Clinical Support [facility] in [place], [place] [address] [place] [phone] Zeke Reddy L.Ac. [address] [place] [phone] 10/02/2024 3:00 PM CERTIFIED NURSING ASSISTANT INSTRUCTOR Office Visit Division of Nephrology and Hypertension in [address] [phone] Fransisca Araiza M.D., Ph.D. [address] [place] [phone] documented as of this encounter Visit Diagnoses Diagnosis Pain Low Back Unspecified Pain Hip Bilateral documented in this encounter Additional Health Concerns Assessment Noted Time PHQ-9 Depression Total Score: 4 03/11/20 21 2:35 PM CDT documented as of this encounter
--- OUTSIDE RECORDS SUMMARY | 2024-07-28 08:36 | XMS_ITS ---
Author Organization [facility] Address [address] [place] [address] Care Team Providers Care Active Directory Specialist Name Role Phone Unavailable Unavailable Unavailable Surgery Details Not on file Complications Check Surgery Details section. Procedure Estimated Blood Loss Check Surgery Details section. Procedure Findings Check Surgery Details section. Procedure Specimens Taken Check Surgery Details section.
--- OUTSIDE RECORDS SUMMARY | 2024-07-28 08:36 | XMS_ITS | Referral Summary ---
Author Organization [facility] Address [address] [place] [address] Care Team Providers Care Coil Winder Hand Name Role Phone Unavailable Primary Care Provider Unavailabl e Source Comments Patient records contain information from all sites at [facility]. For routine questions regarding patient records, call [phone] during business hours, M-F 8:00 AM - 5:00 PM Central Time. Record requests for emergency care only can be directed to [phone] at any time.[facility] Encounters * This document contains information received from the source organization and may not represent a complete record from that organization. Date Type Department Care Team Description 07/20/2024 1:02 PM CDT - 07/20/2024 11:59 PM CDT Hospital Encounter [facility] [place], [place] [address] [place] [address] Fransisca Araiza M.D., Ph.D. Excess Fluid Volume Discharge Disposition: Home or Self Care 07/07/2024 4:30 PM CDT Clinical Support [facility] Health in [place], [place] [address] [place] [address] Zeke Reddy L.Ac. Pain Low Back Unspecified; Pain Hip Bilateral 06/30/2024 10:30 AM CDT Procedure visit Department of Physical Medicine and Rehabilitation in [place], [place] [address] [place] [address] Alonzo Barrow M.D. Pain Hip Bilateral 06/30/2024 2:00 PM CDT Clinical Support Department of Nutrition and Diabetes Education in [place], [place] [address] [place] [phone] Cinda Willis M.B., Yoli. Mandy Trevino MDianne, RDN, LD Obesity Body Mass Index 30-39.9 Adult [E66.9] (Primary Dx) 06/27/2024 11:00 AM CDT External Outreach Division of Nephrology and Hypertension in [place], [place] [address] [place] [address] Fransisca Araiza M.D., Ph.D. Excess Fluid Volume (Primary Dx); Elevated Creatinine 06/26/2024 Orders Only Department of Physical Medicine and Rehabilitation in [place], [place] [address] [place] [address] Jinny Hutson M.D. Pain Hip Bilateral (Primary Dx) 06/09/2024 2:45 PM CDT Clinical Support [facility] Health in [place], [place] [address] [place] [phone] Zeke Reddy L.Ac. Pain Low Back Unspecified; Pain Hip Bilateral 06/02/2024 3:00 PM CDT Clinical Support Department of Nutrition and Diabetes Education in [place], [place] [address] [place] [address] Cinda Willis M.B., Yoli. Mandy Trevino M.S., RDN, LD Obesity Body Mass Index 30-39.9 Adult [E66.9] (Primary Dx) 06/01/2024 Clinical Communication Division of General Internal Medicine in [place], [place] [address] [place] [address] Prescheduling, Provider Triage 05/17/2024 Orders Only Division of Endocrinology in [place], [place] [address] [place] [phone] Kristi Garland APRN, C.N.P. 05/12/2024 1:00 PM CDT Clinical Support [facility] in [place], [place] [address] [place] [phone] Calvin Smalls, L.Ac. Pain Low Back Unspecified; [...] Take 20 mg by mouth as needed. 0 Active cyclobenzaprine (FLEXERIL) 10 mg tablet [...] take 2nd dose if needed. Will need seasonal delivery driver. 2 tablet 3 Active levothyroxine [...] 0.6 oz pur e alcohol) [facility] Utilities Answer Date Recorded In the past [...] How often do you attend chur or voodoo services? More than 4 times per year [...] Score 1 03/11/2021 [facility] - Occupational Stress Questionnaire Answer Date [...] your living situation today? I have a [facility] place to live 12/31/2023 Education Answer Date Recorded What is the highest level of school you have completed or the highest degree you have received? Associate degree: occupational, technical, or vocational program 10/01/2020 Comments No Sex and Gender Information Value Date Recorded Sex Assigned at Female 06/23/2021 10:52 AM CDT Legal Sex Female 5:19 PM GYRO MECHANIC Gender Identity Female 10/01/2020 2:34 PM GYRO MECHANIC Sexual Orientation Straight 10/01/2020 2: 34 PM GYRO MECHANIC Last Filed Vital Signs Vital Sign Reading Time Taken Comments Blood Pressure 154/72 10/27/2023 2:52 PM GYRO MECHANIC Pulse 63 10/27/2023 2:52 PM GYRO MECHANIC Temperature 36.6 ??C (97.9 ??F) 10/27/2023 1:41 PM CS T Respiratory Rate 18 01/20/2021 1:15 PM CDT Oxygen Saturation 98% 10/27/2023 2:52 PM GYRO MECHANIC Inhaled Oxygen Concentration - - Weight 90.7 kg (199 lb 15.3 oz) 024 11:05 AM CDT Height 162.2 cm (5' 3.86) 06/30/2024 1 1:05 AM CDT Body Mass Index 34.48 06/30/2024 11:05 AM CDT Plan of Treatment Upcoming Encounters Date Type Department Care Team (Latest Contact Info) Description 08/04/2024 1:20 PM GYRO MECHANIC Appointment Department of Laboratory Medicine and Pathology, [facility], in [place], [place] [address] [place] [phone] Cinda Willis M.B., Ch.B. [address] [place] [phone] 08/04/2024 2:00 PM GYRO MECHANIC Clinical Support Department of Nutrition and Diabetes Education in [place], [place] [address] [place] [phone] Cinda Willis M.B., Ch.B. [address] [place] [phone] Mandy Trevino M.S., RDN, LD [address] [place] [phone] 08/15/2024 3:00 PM GYRO MECHANIC Office Visit Division of Endocrinology in [place], [place] [address] [place] [phone] Cinda Willis M.B., Ch.B. [address] [place] [phone] 08/18/2024 2:45 PM GYRO MECHANIC Clinical Support [facility] in [place], [place] [address] [place] [phone] Zeke Reddy L.Ac. [address] [place] [phone] 09/14/2024 2:25 PM GYRO MECHANIC Appointment Department of Cardiovascular Diseases in [place], [place] [address] [place] [phone] Fransisca Araiza M.D., Ph.D. [address] [place] [phone] Discharge Disposition: Home or Self Care 09/22/2024 2:00 PM GYRO MECHANIC Clinical Support Integrative Medicine and [facility] in [place], [place] [address] [place] [phone] Zeke Reddy L.Ac. [address] [place] [phone] 10/02/2024 3:00 PM GYRO MECHANIC Office Visit Division of Nephrology and Hypertension in [place], [place] [address] [place] [phone] Fransisca Araiza M.D., Ph.D. [address] [place] [phone] Medical Devices Implanted Type Area Odd Bundle Worker Device Identifier Shelf Expiration Date Model / Serial / Lot Misc Other Misc Other Mouth Description:Left side upper lower teeth Procedures Procedure Name Priority Date/Time Associated Diagnosis Comments US ABDOMEN COMPLETE RAD - Routine (most inpatients and all outpatients) 07/20/2024 2:13 PM CDT Excess Fluid Volume GA ARTHCS ASP/INJ MJR JT W US Routine 06/30/2024 10:30 AM CDT Pain Hip Bilateral THYROID-STIMULATIN G HORMONE-SENSITIVE (S-TSH) Routine 09/03/2023 1:51 PM GYRO MECHANIC Hypothyroidism Primary OUTSIDE MG MAMMOGRAM Routine 03/22/2020 1:15 PM CDT HEMOGLOBIN A1C, B Routine 10/13/2016 9:2 6 AM GYRO MECHANIC CHRONIC VIRAL HEPATITIS PROFILE Routine 10/13/2016 9:26 AM GYRO MECHANIC CREATININE WITH EGFR, S/P Routine 10/13/2016 9:26 AM GYRO MECHANIC from Last 3 Months or Most [...] least 4 hours prior to the exam. Supervisor Pleating images were obtained Subjective assessment of study [...] at least 4 hours prior to the exam.Supervisor Pleating images were obtained Subjective assessment of study [...] IMG US PROCEDU RES Final Result * GA ARTHCS ASP/INJ MJR JT W US (06/30/2024 [...] team members performing significant interventional tasks. Injection prosthetic technician/nurse was present for assistance during the procedure. us Jinny Hutson M.D. PROCEDURE/MINOR SURGICAL ORDERABLES Final Result Performing Organization Address [facility] Co de Phone Number MMODAL NA * S-TSH (Thyroid-Stimulating Hormone - Sensitive) (09/03/2023 1:51 PM GYRO MECHANIC) TSH, Sensitive 0.6 0.3 - 4.2 mIU/L 09/03/2023 2:56 PM GYRO MECHANIC DTL Blood (Blood, Venous) 09/03/2023 1:51 PM GYRO MECHANIC 09/03/2023 2:23 PM GYRO MECHANIC Cinda Staples, ChNorbertoB. LAB BLOOD ADD-ON Final Re sult Performing Organization Address [facility] Co de Phone Number [facility] [address] [place] [address], [facility] DTL [facility] [address] [place] [address] * MAMMO SCREEN, BILAT, W/CAD-Outside Mammogram (03/22/2020 [...] PROCEDURES Final R esult Performing Organization Address [facility] de Phone Number IIMS NA * Chronic Hepatitis Profile (10/13/2016 9:26 AM GYRO MECHANIC) HBs Antigen, S Negative Negative [facility] HBc Total Ab, S Negative Negative [facility] HCV Ab, S Negative Negative [facility] Comment:Kacszp-jn-tevnoc rat io is <1.00. HBs Antibody,S Negative Unvaccinated : Negative; Vaccinated: Positive [facility] Comment:Patient is presumed to be not immune to infection with HBV. HBs Antibody, Quantitative, S <5.0 Unvaccinated : <5.0; Vaccinated: >=12.0 MIU/ML [facility] 10/13/2016 9:26 AM GYRO MECHANIC 10/13/2016 9:26 AM GYRO MECHANIC us Didier Hays M.D. LAB MICROBIOLOGY - BLOOD ORDERABLES Final Result Performing Organization Address [facility] de Phone Number [facility] [address] * Hemoglobin A1c (10/13/2016 9:26 AM GYRO MECHANIC) Hemoglobin A1c, B 5.4 4.0 - 5.6 % [facility] 10/13/2016 9:26 AM GYRO MECHANIC 10/13/2016 9:26 AM GYRO MECHANIC Didier Hays M.D. LAB BLOOD ADD-ON Final R esult Performing Organization Address [facility] Co de Phone Number [facility] [address] * Creatinine with Estimated GFR (MDRD) (10/13/2016 9:26 AM GYRO MECHANIC) Creatinine 0.9 0.6 - 1.1 MG/DL [facility] eGFR Non-Black/Afric an Faroese >60 >60 ML/MIN/BSA [facility] eGFR-Black/Afri can Faroese >60 >60 ML/MIN/BSA [facility] 10/13/2016 9:26 AM GYRO MECHANIC 10/13/2016 9:26 AM GYRO MECHANIC Didier Hays M.D. LAB BLOOD ADD-ON Final R esult [facility] [address] [place] [address], [facility] from Last 3 Months or Most Recently Relevant to Health Maintenance Insurance [facility]
--- OUTSIDE RECORDS SUMMARY | 2024-07-28 08:36 | XMS_ITS | Encounter Summary ---
Author Organization [facility] Address [address] [place] [address] Care Team Providers Care Portable Pinch Riveter Name Role Phone Unavailable Primary Care Provider Unavailabl e Reason for Referral * Outpatient (Routine) - Closed Specialty Diagnoses / Procedures Referred By Neftaly weinstein Referred To Contact Diagnoses Pain Hip Bilateral Procedures PMR Peripheral injection/USGI (Procedure Only) Jinny Hutson M.D. 200 [place] [address] Phone: tel: fax: [facility] Referral ID Status Reason Start Date Expiration Date Visits Re quested Visits Authorized [id number] Closed 06/26/2024 06/26/2025 1 1 Encounter Details Date Type Department Care Team (Late st Contact Info) Description 06/26/2024 Orders Only Department of Physical Medicine and Rehabilitation in [place], [place] [address] [place] [phone] Jinny Hutson M.D. [address] [place] [phone] Pain Hip Bilateral (Primary Dx) Social History Tobacco Use Types Packs/Day Years Used Date Smoking Tobacco: Never Smokeless Tobacco: Never Alcohol Use Standard Drinks/Week Comments Not Currently 1 (1 standard drink = 0.6 oz pur e alcohol) [facility] Utilities Answer Date Recorded In the past 12 months has th e [employer] gas, oil, or water [employer] threatened to shut off services in your [...] How often do you attend chur or zoroastrianism services? More than 4 times [...] Recorded PHQ-2 Score 1 03/11/2021 [facility] of Occupat ional Health - Occupational Stress [...] your living situation today? I have a [facility] to live 12/31/2023 Education Answer Date Recorded What is the highest level of school you have completed or the highest degree you have received? Associate degree: occupational, technical, or vocational program 10/01/2020 Comments No Sex and Gender Information Value Date Recorded Sex Assigned at Female 06/23/2021 10:52 AM CDT Legal Sex Female 5:19 PM IMMIGRATION ATTORNEY Gender Identity Female 10/01/2020 2:34 PM IMMIGRATION ATTORNEY Sexual Orientation Straight 10/01/2020 2: 34 PM IMMIGRATION ATTORNEY documented as of this encounter Plan of Treatment Upcoming Encounters Date Type Department Care Team (Latest Contact Info) Description 08/04/2024 1:20 PM IMMIGRATION ATTORNEY Appointment Department of Laboratory Medicine and Pathology, [facility] in [place], [place] [address] [place] [phone] Cinda Willis M.B., Ch.B. [address] [place] [phone] 08/04/2024 2:00 PM IMMIGRATION ATTORNEY Clinical Support Department of Nutrition and Diabetes Education in [place], [place] [address] [place] [phone] Cinda Willis M.B., Ch.B. [address] [place] [phone] Mandy Trevino M.S., RDN, LD [address] [place] [phone] 08/15/2024 3:00 PM IMMIGRATION ATTORNEY Office Visit Division of Endocrinology in [place], [place] [address] [place] [phone] Cinda Willis M.B., Ch.B. [address] [place] [phone] 08/18/2024 2:45 PM IMMIGRATION ATTORNEY Clinical Support [facility] and [facility] in [place], [place] [address] [place] [phone] Zeke Reddy L.Ac. [address] [place] [phone] 09/14/2024 2:25 PM IMMIGRATION ATTORNEY Appointment Department of Cardiovascular Diseases in [place], [place] [address] [place] [phone] Fransisca Araiza M.D., Ph.D. [address] [place] [phone] Discharge Disposition: Home or Self Care 09/22/2024 2:00 PM IMMIGRATION ATTORNEY Clinical Support [facility] and Health in [place], [place] [address] [place] [phone] Zeke Reddy L.Ac. [address] [place] [phone] 10/02/2024 3:00 PM IMMIGRATION ATTORNEY Office Visit Division of Nephrology and Hypertension in [place], [place] [address] [place] [phone] Fransisca Araiza M.D., Ph.D. [address] [place] [phone] documented as of this encounter Results * ID ARTHCS ASP/INJ MJR JT W US (06/30/2024 10:30 AM CDT) Narrative MMODAL - 06/30/2024 10:30 AM CDT Alonzo Barrwo M.D. ? 06/30/2024 10:35 AM Hip site [...] team members performing significant interventional tasks. Injection electrocardiographic technician/nurse was present for assistance during the procedure. us Jinny Hutson M.D. PROCEDURE/MINOR SURGICAL ORDERABLES Final Result MMODAL NA documented in this encounter Visit Diagnoses Diagnosis Pain Hip Bilateral- Primary Pain Hip Bilateral documented in this encounter Additional Health Concerns Assessment Noted Time PHQ-9 Depression Total Score: 4 03/11/20 21 2:35 PM CDT documented as of this encounter
--- OUTSIDE RECORDS SUMMARY | 2024-07-28 08:36 | XMS_ITS | Encounter Summary ---
Author Organization [facility] Address [address] [place] [address] Care Team Providers Care Sales Operations Consultant Name Role Phone Unavailable Primary Care Provider Unavailabl e Reason for Visit * Outpatient (Routine) - Authorized Specialty Diagnoses / Procedures Referred By Neftaly t Referred To Contact Diagnoses Pain Low Back Unspecified Pain Hip Bilateral Procedures [facility] Acupuncture [facility] Health in [place], [place] [address] [place] [address] Phone: tel: [facility] Referral ID Status Reason Start Date Expiration Date V isits Requested Visits Authorized [id number] Authorized 02/07/2024 02/06/2025 20 20 Encounter Details Date Type Department Care Team (Latest Contact Info) Description 05/12/2024 1:00 PM CDT Clinical Support Integrative Medicine and Health in [place], [place] [address] [place] [address] Calvin Smalls L.[facility] Pain Low Back Unspecified; Pain Hip Bilateral Social History Tobacco Use Types Packs/Day Years Used Date Smoking Tobacco: Never Smokeless Tobacco: Never Alcohol Use Standard Drinks/Week Comments Not Currently 1 (1 standard drink = 0.6 oz pur e alcohol) [facility] Utilities Answer Date Recorded In the past 12 months has e electric, gas, oil, or water [employer] threatened to shut off services in your [...] any clubs o r organizations such as anglican groups, unions, fraternal or athletic groups, or [...] Score 1 03/11/2021 [facility] Occupat ional Health - [...] your living situation today? [facility] live 12/31/2023 Education Answer Date Recorded What is the highest level of school you have completed or the highest degree you have received? Associate degree: occupational, technical, or vocational program 10/01/2020 Comments No Sex and Gender Information Value Date Recorded Sex Assigned at Female 06/23/2021 10:52 AM CDT Legal Sex Female 5:19 PM HEAD OPERATOR Gender Identity Female 10/01/2020 2:34 PM HEAD OPERATOR Sexual Orientation Straight 10/01/2020 2: 34 PM HEAD OPERATOR documented as of this encounter Progress Notes * Calvin Smalls L.Ac. - 05/12/2024 1:00 PM CDT Referral Source: No ref. provider found Supervised by: [place] [id number] SUBJECTIVE Chief Complaint: Back Pain History of [...] symptom relief. Total Needling Time: 30 minutes [place] Electrified: No Diathermy: Yes Cupping: No Treatment Points Used: Set One: GB20, UB10, GB21, SI15, UB23-25, [place], YaoYan, TFL mitzi triangle Set Two: UB40, GB34, SP6, KD3, UB62 Other: Number of [place] Used = Number of [place] Retrieved: Yes Stimulation Intensity: Medium Narrative Assessment: [...] the www.[employer]CCA[employer].org for locating a qualified licensed mass real estate appraiser in the local community. PATIENT EDUCATION Ready to learn, no apparent learning barriers were identified, learning preference include listening. Explained diagnosis and treatment plan: patient/caregiver expressed understanding of the content. documented in this encounter Plan of Treatment Upcoming Encounters Date Type Department Care Team (Latest Contact Info) Description 08/04/2024 1:20 PM HEAD OPERATOR Appointment Department of Laboratory Medicine [facility], [facility] [place], [place] [address] [place] [phone] Cinda Willis M.B., Ch.B. [address] [place] [phone] 08/04/2024 2:00 PM HEAD OPERATOR Clinical Support Department of Nutrition and Diabetes Education in [place], [place] [address] [place] [phone] Cinda Willis M.B., Ch.B. [address] [place] [phone] Mandy Trevino M.S., RDN, LD [address] [place] [phone] 08/15/2024 3:00 PM HEAD OPERATOR Office Visit Division of Endocrinology in [place], [place] [address] [place] [phone] Cinda Willis M.B., Ch.B. [address] [place] [phone] 08/18/2024 2:45 PM HEAD OPERATOR Clinical Support [facility] in [place], [place] [address] [place] [phone] Zeke Reddy L.Ac. [address] [place] [phone] 09/14/2024 2:25 PM HEAD OPERATOR Appointment Department of Cardiovascular Diseases in [place], [place] [address] [place] [phone] Fransisca Araiza M.D., Ph.D. [address] [place] [phone] Discharge Disposition: Home or Self Care 09/22/2024 2:00 PM HEAD OPERATOR Clinical Support [facility] in [place], [place] [address] [place] [phone] Zeke Reddy L.Ac. [address] [place] [phone] 10/02/2024 3:00 PM HEAD OPERATOR Office Visit Division of Nephrology and Hypertension in [place], [place] [address] [place] [phone] Fransisca Araiza M.D., Ph.D. [address] [place] [phone] documented as of this encounter Visit Diagnoses Diagnosis Pain Low Back Unspecified Pain Hip Bilateral documented in this encounter Additional Health Concerns Assessment Noted Time PHQ-9 Depression Total Score: 4 03/11/20 21 2:35 PM CDT documented as of this encounter
--- OUTSIDE RECORDS SUMMARY | 2024-07-28 08:36 | XMS_ITS | Encounter Summary ---
Author Organization [facility] Address [address] [place] [address] Care Team Providers Care Electronic Data Interchange Specialist Name Role Phone Unavailable Primary Care Provider Unavailabl e Reason for Visit * Outpatient (Routine) - Authorized Specialty Diagnoses / Procedures Referred By Contangelique t Referred To Contact Nutrition Cinda Willis M.B., Ch.B. [address] [place] [phone] Phone: tel: fax: [facility] Referral ID Status Reason Start Date Expiration Date V isits Requested Visits Authorized [id number] Authorized 04/21/2024 10/21/2025 2 2 Encounter Details Date Type Department Care Team (Latest Contact Info) Description 06/30/2024 2:00 PM CDT Clinical Support Department of Nutrition and Diabetes Education in [place], [place] [address] [place] [address] Cinda Willis M.B., Ch.B. [address] [place] [phone] Mandy Trevino M.S., RDN, LD [address] [place] [phone] Obesity Body Mass Index 30-39.9 Adult [E66.9] (Primary Dx) Social History Tobacco Use Types Packs/Day Years Used Date Smoking Tobacco: Never Smokeless Tobacco: Never Alcohol Use Standard Drinks/Week Comments Not Currently 1 (1 standard drink = 0.6 oz pur e alcohol) [facility] Utilities Answer Date Recorded In the past 12 months has th e electric, gas, oil, or water [employer] threatened to shut off services in your [...] How often do you attend chur or gnosticism services? More than 4 times [...] Date Recorded PHQ-2 Score 1 03/11/2021 [facility] of Occupat ional [facility] - Occupational Stress Questionnaire Answer Date Recorded [...] your living situation today? [facility] 12/31/2023 Education Answer Date Recorded What is the highest level of school you have completed or the highest degree you have received? Associate degree: occupational, technical, or vocational program 10/01/2020 Comments No Sex and Gender Information Value Date Recorded Sex Assigned at Female 06/23/2021 10:52 AM CDT Legal Sex Female 5:19 PM ACADEMIC COMPUTING DIRECTOR Gender Identity Female 10/01/2020 2:34 PM ACADEMIC COMPUTING DIRECTOR Sexual Orientation Straight 10/01/2020 2: 34 PM ACADEMIC COMPUTING DIRECTOR documented as of this encounter Last Filed Vital Signs Vital Sign Reading Time Taken Comments Blood Pressure - - Pulse - - Temperature - - Respiratory Rate - - Oxygen Saturation - - Inhaled Oxygen Concentration - - Weight 90.7 kg (199 lb 15.3 oz) 024 11:05 AM CDT Height 162.2 cm (5' 3.86) 06/30/2024 1 1:05 AM CDT Body Mass Index 34.48 06/30/2024 11:05 AM CDT documented in this encounter Progress Notes * Mandy Trevino M.S., RDN, LD - 06/30/2024 2:00 PM CDT CHIEF COMPLAINT/REASON FOR VISIT Nutrition-Weight Management Follow-Up Met with patient ASSESSMENT Previous goals: 1. Continue to have goat milk + pinky cracker/oat bar in the morning and protein + fruit/veg in the evening-1500 mg sodium per day Updates: She continues to do the same with diet. Has been walking 20 minutes most days outdoors. Weight is down 6.6 pounds since last month. Weight was up last month due to fluids and she saw a [place] imaging services director in [place] earlier this week who is doing some additional testing regarding excess fluid. Dieting experience: She previously tried phentermine but could not tolerate this and did not find benefits from Contrave. She is in [employer] group 2 times per month. She [...] Snack: none Beverages: Sprite Zero, water with [place], María Elena Dry Alcohol intake: occasionally 1-2 drinks Physical activity: Gisela Snow reports doing the recumbent bike for 50 minutes 4 times perweek. Weight History Ht Readings from Last 1 Encounters: 06/30/24 162.2 cm Wt Readings from Last 1 Encounters: 06/30/24 90.7 kg BMI Readings from Last 1 Encounters: 06/30/24 34.48 kg/m?? Weight change: 05/06/23: 86 kg 07/09/23: 85.8 kg 01/07/24: 87.1 kg 02/08/24: 88.1 kg 04/21/24: 88.6 kg 06/02/24: 93.8 kg Estimation of Nutritional Needs REE December [...] in the evening-1500 mg sodium per day 2. Continue with 20 minutes of walking most days of the week FOLLOW UP PLAN: Follow-up appointment has been arranged Time spent with patient (minutes): 30 documented in this encounter Plan of Treatment Upcoming Encounters Date Type Department Care Team (Latest Contact Info) Description 08/04/2024 1:20 PM ACADEMIC COMPUTING DIRECTOR Appointment Department of Laboratory Medicine and Pathology, [facility] in [place], [place] [address] [place] [address] Cinda Willis M.B., Ch.B. [address] [place] [phone] 08/04/2024 2:00 PM ACADEMIC COMPUTING DIRECTOR Clinical Support Department of Nutrition and Diabetes Education in [place], [place] [address] [place] [phone] Cinda Willis M.B., Ch.B. [address] [place] [phone] Mandy Trevino M.S., RDN, LD [address] [place] [phone] 08/15/2024 3:00 PM ACADEMIC COMPUTING DIRECTOR Office Visit Division of Endocrinology in [place], [place] [address] [place] [phone] Cinda Willis M.B., Ch.B. [address] [place] [phone] 08/18/2024 2:45 PM ACADEMIC COMPUTING DIRECTOR Clinical Support [facility] Health in [address] [phone] Zeke Reddy L.Ac. [address] [place] [phone] 09/14/2024 2:25 PM ACADEMIC COMPUTING DIRECTOR Appointment Department of Cardiovascular Diseases in [address] [phone] Fransisca Araiza M.D., Ph.D. [address] [place] [phone] Discharge Disposition: Home or Self Care 09/22/2024 2:00 PM ACADEMIC COMPUTING DIRECTOR Clinical Support [facility] in [address] [phone] Zeke Reddy L.Ac. [address] [place] [phone] 10/02/2024 3:00 PM ACADEMIC COMPUTING DIRECTOR Office Visit Division of Nephrology and Hypertension in [address] [phone] Fransisca Araiza M.D., Ph.D. [address] [place] [phone] documented as of this encounter Visit Diagnoses Diagnosis Obesity Body Mass Index 30-39.9 Adult [E66.9]- Primary documented in this encounter Additional Health Concerns Assessment Noted Time PHQ-9 Depression Total Score: 4 03/11/20 21 2:35 PM CDT documented as of this encounter
--- OUTSIDE RECORDS SUMMARY | 2024-07-28 08:36 | XMS_ITS | Encounter Summary ---
Author Organization [facility] Address [address] [place] [address] Care Team Providers Care Java Lead Engineer Name Role Phone Unavailable Primary Care Provider Unavailabl e Encounter Details Date Type Department Care Team (Late st Contact Info) Description 05/17/2024 Orders Only Division of Endocrinology in [place], [place] [address] [place] [phone] Kristi Garland, FORREST, C.N.P. [address] [place] [address] Social History Tobacco Use Types Packs/Day Years Used Date Smoking Tobacco: Never Smokeless Tobacco: Never Alcohol Use Standard Drinks/Week Comments Not Currently 1 (1 standard drink = 0.6 oz pur e alcohol) [facility] Utilities Answer Date Recorded In the past 12 months has [facility] [employer], gas, oil, or water [email or web address] threatened to shut off services in your [...] any clubs o r organizations such as mandaen groups, unions, fraternal or athletic groups, or [...] Answer Date Recorded PHQ-2 Score 1 03/11/2021 [facility] of Occupat ional Health - Occupational Stress [...] Answer Date Recorded Employment status Unemployed/not in [employer] paid workforce and NOT seeking employment 12/31/2023 Housing Stability Answer Date Recorded What is your living situation today? I have a [facility] place to live 12/31/2023 Education Answer Date Recorded What is the highest level of school you have completed or the highest degree you have received? Associate degree: occupational, technical, or vocational program 10/01/2020 Comments No Sex and Gender Information Value Date Recorded Sex Assigned at Female 06/23/2021 10:52 AM CDT Legal Sex Female 5:19 PM INDUSTRIAL ROBOTICS MECHANIC Gender Identity Female 10/01/2020 2:34 PM INDUSTRIAL ROBOTICS MECHANIC Sexual Orientation Straight 10/01/2020 2: 34 PM INDUSTRIAL ROBOTICS MECHANIC documented as of this encounter Plan of Treatment Upcoming Encounters Date Type Department Care Team (Latest Contact Info) Description 08/04/2024 1:20 PM INDUSTRIAL ROBOTICS MECHANIC Appointment Department of Laboratory Medicine and Pathology, [facility], in [place], [place] [address] [place] [address] Cinda Willis M.B., Ch.B. 200 [place] [phone] 08/04/2024 2:00 PM INDUSTRIAL ROBOTICS MECHANIC Clinical Support Department of Nutrition and Diabetes Education in [place], [place] [address] [place] [phone] Cinda Willis M.B., Ch.B. [address] [place] [phone] Mandy Trevino M.S., RDN, LD [address] [place] [phone] 08/15/2024 3:00 PM INDUSTRIAL ROBOTICS MECHANIC Office Visit Division of Endocrinology in [place], [place] [address] [place] [phone] Cinda Willis M.B., Ch.B. [address] [place] [phone] 08/18/2024 2:45 PM INDUSTRIAL ROBOTICS MECHANIC Clinical Support [facility]ative Medicine and Health in [address] [phone] Zeke Reddy L.Ac. [address] [place] [phone] 09/14/2024 2:25 PM INDUSTRIAL ROBOTICS MECHANIC Appointment Department of Cardiovascular Diseases in [address] [phone] Fransisca Araiza M.D., Ph.D. [address] [place] [phone] Discharge Disposition: Home or Self Care 09/22/2024 2:00 PM INDUSTRIAL ROBOTICS MECHANIC Clinical Support [facility] Health in [place], [place] [address] [place] [phone] Zeke Reddy L.Ac. [address] [place] [phone] 10/02/2024 3:00 PM INDUSTRIAL ROBOTICS MECHANIC Office Visit Division of Nephrology and Hypertension in [address] [phone] Fransisca Araiza M.D., Ph.D. [address] [place] [phone] documented as of this encounter Visit Diagnoses Not on filedocumented in this encounter Additional Health Concerns Assessment Noted Time PHQ-9 Depression Total Score: 4 03/11/20 21 2:35 PM CDT documented as of this encounter
--- OUTSIDE RECORDS SUMMARY | 2024-07-28 08:36 | XMS_ITS | Encounter Summary ---
Author Organization [facility] Address [address] [place] [address] Care Team Providers Care Simplex Printer Installer Name Role Phone Unavailable Primary Care Provider Unavailabl e Reason for Visit * Reason Onset Date Comments Triage 06/01/2024 Encounter Details Date Type Department Care Team (Late st Contact Info) Description 06/01/2024 Clinical Communication Division of General Internal Medicine in [place], [place] [address] [place] [address] Prescheduling, Provider Triage Social History Tobacco Use Types Packs/Day Years Used Date Smoking Tobacco: Never Smokeless Tobacco: Never Alcohol Use Standard Drinks/Week Comments Not Currently 1 (1 standard drink = 0.6 oz pur e alcohol) [facility] Utilities Answer Date Recorded In the past 12 months has e [employer], gas, oil, or water [employer] threatened to shut off services in your [...] often do you attend chur ch or sikh services? More than 4 times per year 11/22/2022 Do you belong to any clubs o r organizations such as baptist groups, unions, fraternal or athletic groups, or [...] Score 1 03/11/2021 [facility] - Occupational Stress Questionnaire Answer Date [...] AM CDT Legal Sex Female 5:19 PM RETAIL REPRESENTATIVE Gender Identity Female 10/01/2020 2:34 PM RETAIL REPRESENTATIVE Sexual Orientation Straight 10/01/2020 2: 34 PM RETAIL REPRESENTATIVE documented as of this encounter Miscellaneous Notes * Telephone Encounter - Susie Kingsley Moon - 06/01/2024 2:29 PM CDT Gisela Snow 1965 [id number] 59 years Height: 5'-4 Weight: 201 Gender: [...] to 12 months Previous Eval: Yes Location: [facility] Have had: None of the above Diagnosis: Outcome: Continue to take 40-80mg Furosemide daily and referral to a Home Agent, appt schedule Jun 27. The fluid retention [...] AVAILABLE: I AM AVAILABLE ANY TIME PHONE: [phone] documented in this encounter Plan of Treatment Upcoming Encounters Date Type Department Care Team (Latest Contact Info) Description 08/04/2024 1:20 PM RETAIL REPRESENTATIVE Appointment Department of Laboratory Medicine and Pathology, [facility], in [place], [place] [address] [place] [phone] Cinda Willis M.B., Ch.B. [address] [place] [phone] 08/04/2024 2:00 PM RETAIL REPRESENTATIVE Clinical Support Department of Nutrition and Diabetes Education in [place], [place] [address] [place] [phone] Cinda Willis M.B., Ch.B. [address] [place] [phone] Mandy Trevino M.S., RDN, LD [address] [place] [phone] 08/15/2024 3:00 PM RETAIL REPRESENTATIVE Office Visit Division of Endocrinology in [place], [place] [address] [place] [phone] Cinda Willis M.B., Ch.B. [address] [place] [phone] 08/18/2024 2:45 PM RETAIL REPRESENTATIVE Clinical Support [facility] in [place], [place] [address] [place] [phone] Zeke Reddy L.Ac. [address] [place] [phone] 09/14/2024 2:25 PM RETAIL REPRESENTATIVE Appointment Department of Cardiovascular Diseases in [place], [place] [address] [place] [phone] Fransisca Araiza M.D., Ph.D. [address] [place] [phone] Discharge Disposition: Home or Self Care 09/22/2024 2:00 PM RETAIL REPRESENTATIVE Clinical Support [facility]ative Medicine and Health in [place], [place] [address] [place] [phone] Zeke Reddy L.Ac. [address] [place] [phone] 10/02/2024 3:00 PM RETAIL REPRESENTATIVE Office Visit Division of Nephrology and Hypertension in [place], [place] [address] [place] [address] Fransisca Araiza M.D., Ph.D. [address] [place] [phone] documented as of this encounter Visit Diagnoses Not on filedocumented in this encounter Additional Health Concerns Assessment Noted Time PHQ-9 Depression Total Score: 4 03/11/20 21 2:35 PM CDT documented as of this encounter
--- NOTE | 2024-07-28 08:45 | CRLHL7_ITS ---
For Patients: As a result of the Century Cures Act, medical imaging exams and procedure reports are released immediately into your electronic medical record. You may view this report before your referring provider. If you have questions, please contact your health care provider. BILATERAL SCREENING MAMMOGRAM WITH COMPUTER-AIDED DETECTION AND TOMOSYNTHESIS TECHNIQUE: CC and MLO views were obtained. These mammographic images have been obtained using full-field digital technique. These mammographic images were interpreted with the benefit of computer-aided detection. Breast tomosynthesis was used in this interpretation. COMPARISON FILM: 08/08/21, 03/22/20, 07/30/14. FINDINGS: There are scattered areas of fibroglandular density. IMPRESSION: There is no radiographic evidence for malignancy. ASSESSMENT: BI-RADS Category 1: Negative RECOMMENDATION: Routine screening mammogram in 1 year. A lay language report of this examination will be provided to the patient. ALEJANDRO MONTIEL M.D. Diagnostic Radiologist [email or web address] BILL/ken Transcribed: 08/03/2024, 3:[address]/Dictated by: Alejandro Montiel MD @ 08/03/2024 11:00:00 AM (Electronically Signed)
== END 2024-07-28 08:33 | disposition home or self-care (01) ==
LOC: MAMMO 08:33
PROVIDERS: PCP Family Medicine; Visit Provider Family Medicine
DX: Z12.31 Encounter for screening mammogram for malignant neoplasm of breast (principal)
CPT/HCPCS: 77063; 77067

== ENCOUNTER 2024-08-08 16:07 | Outpatient (CLI) | payer BC, SELFPAY ==
--- OUTSIDE RECORDS SUMMARY | 2024-08-12 04:13 | XMS_ITS | Clinical Summary ---
Author Organization [id number] Address [place], [place] [address] Care Team Providers Care Parks Worker Name Role Phone Troy Seals MD Primary Care Provider [phone] Oliver Hylton MD Unavailable [phone] Jm Araujo Unavailable Unavailable Allergies No known [...] Name Administration Dates Next Due COVID-19 vaccine (LYYN 30mcg/0.3mL) P F, MDV 01/24/2021,12/31/2020 Social History [...] 74 05/23/2020 9:18 AM CDT Temperature 36.5 C (97.7 F) 05/29/2020 2:00 PM CDT Respiratory Rate 16 05/14/2020 10:29 AM CDT [...] 16 Negative Negative 06/19/2021 3:20 PM CDT [facility] TYPE 18 Negative Negative 06/19/2021 3:20 PM CDT [facility] OTHER HIGH RISK TYPES Negative Negative 06/19/2021 3:20 PM CDT [facility] Other (Cervical/Vagina l) 06/16/2021 11:35 AM CDT 06/18/2021 9:20 AM CDT Narrative [facility] - 06/19/2021 3:20 PM CDT HPV types 16, 18, 31, 33, 35, 39, 45, 51, 52, 56, 58, 59, 66 and 68 DNA were undetectable or below the pre-set threshold. Methodology: Farzaneh Dick 4800 HPV Test Cynthia Coy MD MICROBIOLOGY [facility] [address] [place] [address], from Last 3 Months or Most Recently Relevant to Health Maintenance Care Teams Parks Worker Relationship Specialty Start Date End Date Troy Seals MD PCP - General Family Practice 06/04/14 [place] [address] [facility] [place] [address] Consulting Physician Cardiovascular Disease 06/06/14 Jm Araujo [address] [place] [address] Family Practice Pulverizer Mill Operator 04/19/20
--- OUTSIDE RECORDS SUMMARY | 2024-08-12 04:14 | XMS_ITS | Encounter Summary ---
Author Organization [facility] Address [address] [place] [address] Care Team Providers Care Dividing Machine Operator Helper Name Role Phone Unavailable Primary Care Provider Unavailabl e Reason for Referral * Outpatient (Routine) - Closed Specialty Diagnoses / Procedures Referred By Contac t Referred To Contact Diagnoses Excess Fluid Volume Procedures US Abdomen Complete Fransisca Araiza M.D., Ph.D. [address] [place] [address] Phone: tel: fax: [facility] Referral ID Status Reason Start Date Expiration Date Visits Re quested Visits Authorized [id number] Closed 06/27/2024 06/27/2025 1 1 Reason for Visit * Outpatient (Routine) - Closed Specialty Diagnoses / Procedures Referred By Contac t Referred To Contact Diagnoses Excess Fluid Volume Procedures US Abdomen Complete Fransisca Araiza M.D., Ph.D. [address] [place] [address] Phone: tel: fax: [facility] Referral ID Status Reason Start Date Expiration Date Visits Re quested Visits Authorized [id number] Closed 06/27/2024 06/27/2025 1 1 Encounter Details Date Type Department Care Team (Latest Contact Info) Description 07/20/2024 1:02 PM CDT - 07/20/2024 11:59 PM CDT Hospital Encounter Department of Radiology, [facility] in [place], [place] [address] [place] [address] Fransisca Araiza M.D., Ph.D. [address] [place] [address] Excess Fluid Volume Discharge Disposition: Home or Self Care Social History Tobacco Use Types Packs/Day Years Used Date Smoking Tobacco: Never Smokeless Tobacco: Never Alcohol Use Standard Drinks/Week Comments Not Currently 1 (1 standard drink = 0.6 oz pur e alcohol) [facility] Utilities Answer Date Recorded In the past 12 months has e Ready [employer] Travel, gas, oil, or water [employer] threatened to shut off services in your [...] often do you attend chur ch or jain services? More than 4 times per year 11/22/2022 Do you belong to any clubs o r organizations such as denominational groups, unions, fraternal or athletic groups, or [...] Answer Date Recorded PHQ-2 Score 1 03/11/2021 [facility] of Occupat ional [facility] - Occupational Stress Questionnaire Answer [...] AM CDT Legal Sex Female 5:19 PM COOLER SUPERVISOR Gender Identity Female 10/01/2020 2:34 PM COOLER SUPERVISOR Sexual Orientation Straight 10/01/2020 2: 34 PM COOLER SUPERVISOR documented as of this encounter Medications at [...] 2nd dose if needed. Will need hazmat cdl driver. 2 tablet 07/23/2023 diphenhydrAMINE (BENADRYL) 25 [...] Department Care Team (Latest Contact Info) Description 08/14/2024 12:00 PM COOLER SUPERVISOR Clinical Communication Virtual Review in [place], [place] [address] [place] [phone] 08/15/2024 3:00 PM COOLER SUPERVISOR Office Visit Division of Endocrinology in [place], [place] [address] [place] [phone] Cinda Willis M.B., Ch.B. [address] [place] [phone] 08/18/2024 2:45 PM COOLER SUPERVISOR Clinical Support [facility] in [place], [place] [address] [place] [phone] Zeke Reddy L.Ac. [address] [place] [phone] 09/14/2024 2:25 PM COOLER SUPERVISOR Appointment Department of Cardiovascular Diseases in [place], [place] [address] [place] [address] Fransisca Araiza M.D., Ph.D. [address] [place] [phone] Discharge Disposition: Home or Self Care 09/22/2024 2:00 PM COOLER SUPERVISOR Clinical Support [facility] in [place], [place] [address] [place] [phone] Zeke Reddy L.Ac. [address] [place] [phone] 10/02/2024 3:00 PM COOLER SUPERVISOR Office Visit Division of Nephrology and Hypertension in [place], [place] [address] [place] [phone] Fransisca Araiza M.D., Ph.D. [address] [place] [phone] documented as of this encounter Procedures Procedure [...] Diffuse increased echogenicity consistent with hepatic steatosis. No focal hepatic observation. Antegrade flow of the main portal vein. Liver shear wave elastography (2D-SWE, GE, C1-6, LPO with wedge position with right arm overhead) was performed with patient in suspended respiration. Patient was fasting for at least 4 hours prior to the exam. Tar Heat Exchanger Cleaner images were obtained Subjective assessment of study quality: Good Median liver stiffness of 5.02 kPa Interquartile Range/Median (IQR/M): 12.1 % (quality metric; less than or equal [...] caliber. IVC: Normal where seen. Ascites: None. Procedure Note Ratna Ruelas M.B.B.S. - 07/20/2024 [...] at least 4 hours prior to the exam.Tar Heat Exchanger Cleaner images were obtained Subjective assessment of study [...]
--- OUTSIDE RECORDS SUMMARY | 2024-08-12 04:14 | XMS_ITS | Encounter Summary ---
Author Organization [facility] Address [address] [place] [address] Care Team Providers Care Trade Analyst Name Role Phone Unavailable Primary Care Provider Unavailabl e Reason for Referral * Outpatient (Routine) - Authorized Specialty Diagnoses / Procedures Referred By Contac t Referred To Contact Cinda Styles M.B., Ch.B. [address] [place] [address] Phone: tel: fax: [facility] Referral ID Status Reason Start Date Expiration Date V isits Requested Visits Authorized [id number] Authorized 08/04/2024 02/03/2026 1 1 HER MACHINE Reason for Visit * Outpatient (Routine) - Closed Specialty Diagnoses / Procedures Referred By Contac t Referred To Contact Cinda Styles M.B., Ch.B. [address] [place] [address] Phone: tel: fax: [facility] Referral ID Status Reason Start Date Expiration Date Visits Re quested Visits Authorized [id number] Closed 04/21/2024 10/21/2025 2 2 Encounter Details Date Type Department Care Team (Latest Contact Info) Description 08/04/2024 2:00 PM BRUSHER MACHINE Clinical Support Department of Nutrition and Diabetes Education in [place], [place] [address] [place] [phone] Cinda Willis M.B., Ch.B. [address] [place] [phone] Mandy Trevino M.S., RDN, LD [address] [place] [address] Obesity Body Mass Index 30-39.9 Adult [E66.9] (Primary Dx) Social History Tobacco Use Types Packs/Day Years Used Date Smoking Tobacco: Never Smokeless Tobacco: Never Alcohol Use Standard Drinks/Week Comments Not Currently 1 (1 standard drink = 0.6 oz pur e alcohol) [facility] Utilities Answer Date Recorded In the past 12 months has e electric, gas, oil, or water [employer] threatened to shut off services in your [...] often do you attend chur ch or religion services? More than 4 times per year 11/22/2022 Do you belong to any clubs o r organizations such as restorationism groups, unions, fraternal or athletic groups, or [...] Answer Date Recorded PHQ-2 Score 1 03/11/2021 [facility] of Occupat ional Health - Occupational Stress [...] your living situation today? I have a [facility] place to live 12/31/2023 Education Answer Date Recorded What is the highest level of school you have completed or the highest degree you have received? Associate degree: occupational, technical, or vocational program 10/01/2020 Comments No Sex and Gender Information Value Date Recorded Sex Assigned at Female 06/23/2021 10:52 AM CDT Legal Sex Female 5:19 PM BRUSHER MACHINE Gender Identity Female 10/01/2020 2:34 PM BRUSHER MACHINE Sexual Orientation Straight 10/01/2020 2: 34 PM BRUSHER MACHINE documented as of this encounter Last Filed Vital Signs Vital Sign Reading Time Taken Comments Blood Pressure - - Pulse - - Temperature - - Respiratory Rate - - Oxygen Saturation - - Inhaled Oxygen Concentration - - Weight 88.6 kg (195 lb 5.2 oz) 08/04/2024 1:35 P M BRUSHER MACHINE Height 160.1 cm (5' 3.03) 08/04/2024 1:35 PM CS T Body Mass Index 34.57 08/04/2024 1:35 PM BRUSHER MACHINE documented in this encounter Progress Notes * Mandy Trevino M.S., RDN, LD - 08/04/2024 2:00 PM CST CHIEF COMPLAINT/REASON FOR VISIT Nutrition-Weight Management Follow-Up Met with patient ASSESSMENT Previous goals: 1. Continue to have goat milk + pinky cracker/oat bar in the morning and protein + fruit/veg in the evening-1500 mg sodium per day -Continues to do well with this 2. Continue with 20 minutes of walking most days of the week -She is not doing this but walking thedog around the yard daily Updates: She is getting 90+ oz water with Dorena electrolytes added. Weight is down 11 pounds in 2 months which she is happy about (was higher due to fluid), however, she is having symptoms she's previous had related to her thyroid not functioning as well such as heart palpitations and fatigue. She will be visiting with Dr. Willis on 08/15 to discuss this more. Dieting experience: She previously tried phentermine but could not tolerate this and did not find benefits from Contrave. She is in [employer] [facility] 2 times per month. She [...] Snack: none Beverages: Sprite Zero, water with Oxynade, [employer] Dry Alcohol intake: occasionally 1-2 drinks Physical activity: Gisela Snow reports doing the recumbent bike for 50 minutes 4 times perweek. Weight History Ht Readings from Last 1 Encounters: 08/04/24 160.1 cm Wt Readings from Last 1 Encounters: 08/04/24 88.6 kg BMI Readings from Last 1 Encounters: 08/04/24 34.57 kg/m?? Weight change: 05/06/23: 86 kg 07/09/23: 85.8 kg 01/07/24: 87.1 kg 02/08/24: 88.1 kg 04/21/24: 88.6 kg 06/02/24: 93.8 kg 06/30/24: 90.7 kg Estimation of Nutritional Needs REE December [...] fruit/veg in the evening-1500 mg sodium per day, portion peanut butter 2. Get up every hour and walk around the house FOLLOW UP PLAN: Will see in November Time spent with patient (minutes): 20 HER MACHINE documented in this encounter Plan of Treatment Upcoming Encounters Date Type Department Care Team (Latest Contact Info) Description 08/14/2024 12:00 PM BRUSHER MACHINE Clinical Communication Virtual Review in [place], [place] [address] [place] [address] 08/15/2024 3:00 PM BRUSHER MACHINE Office Visit Division of Endocrinology in [address] [phone] Cinda Willis M.B., Ch.B. [address] [place] [phone] 08/18/2024 2:45 PM BRUSHER MACHINE Clinical Support [facility] in [address] [phone] Zeke Reddy L.Ac. [address] [place] [phone] 09/14/2024 2:25 PM BRUSHER MACHINE Appointment Department of Cardiovascular Diseases in [address] [phone] Fransisca Araiza M.D., Ph.D. [address] [place] [phone] Discharge Disposition: Home or Self Care 09/22/2024 2:00 PM BRUSHER MACHINE Clinical Support [facility] in [address] [phone] Zeke Reddy L.Ac. [address] [place] [phone] 10/02/2024 3:00 PM BRUSHER MACHINE Office Visit Division of Nephrology and Hypertension in [address] [phone] Fransisca Araiza M.D., Ph.D. [address] [place] [phone] Scheduled Referrals Name Type Priority Associated Diagnoses Orde r Schedule Nutrition office visit (clinic) Outpatient Referral Routine Expected: 11/20/2024, Expires: 11/04/2025 documented as of this encounter Visit Diagnoses Diagnosis Obesity Body Mass Index 30-39.9 Adult [E66.9]- Primary documented in this encounter Additional Health Concerns Assessment Noted Time PHQ-9 Depression Total Score: 4 03/11/20 21 2:35 PM CDT documented as of this encounter
--- OUTSIDE RECORDS SUMMARY | 2024-08-12 04:14 | XMS_ITS | Encounter Summary ---
Author Organization [facility] Address [address] [place] [address] Care Team Providers Care Web Graphic Designer Name Role Phone Unavailable Primary Care Provider Unavailabl e Reason for Visit * Appointment Request (Routine) - Closed Specialty Diagnoses / Procedures Referred By Neftaly t Referred To Contact Nephrology and Hypertension Referral ID Status Reason Start Date Expiration Date Visits Re quested Visits Authorized [id number] Closed 07/21/2024 07/21/2025 1 1 Encounter Details Date Type Department Care Team (Latest Contact Info) Description 08/08/2024 3:30 PM LIP AND GATE BUILDER External Outreach Division of Nephrology and Hypertension in [place], [place] [address] [place] [address] Fransisca Araiza M.D., Ph.D. [address] [place] [address] Chronic Kidney Disease (CKD), Stage 3b Glomerular Filtration Rate (GFR) 30 To 44 (HCC) (Primary Dx) Social History Tobacco Use Types Packs/Day Years Used Date Smoking Tobacco: Never Smokeless Tobacco: Never Alcohol Use Standard Drinks/Week Comments Not Currently 1 (1 standard drink = 0.6 oz pur e alcohol) [facility] Utilities Answer Date Recorded In the past 12 months has e electric, gas, oil, or water [employer] threatened to shut off services in your [...] How often do you attend chur or yazdanism services? More than 4 times per year [...] Date Recorded PHQ-2 Score 1 03/11/2021 [facility] of Occupat ional Health - Occupational [...] your living situation today? I have a [facility] place to live 12/31/2023 Education Answer Date Recorded What is the highest level of school you have completed or the highest degree you have received? Associate degree: occupational, technical, or vocational program 10/01/2020 Comments No Sex and Gender Information Value Date Recorded Sex Assigned at Female 06/23/2021 10:52 AM CDT Legal Sex Female 5:19 PM LIP AND GATE BUILDER Gender Identity Female 10/01/2020 2:34 PM LIP AND GATE BUILDER Sexual Orientation Straight 10/01/2020 2: 34 PM LIP AND GATE BUILDER documented as of this encounter Progress Notes * Fransisca Araiza M.D., Ph.D. - 08/08/2024 3:30 PM CST PROGRESS NOTE SUBJECTIVE CHIEF COMPLAINT / REASON FOR VISIT Elevated creatinine Generalized swelling [place] [facility] Outreach Visit Location: [facility] HISTORY OF PRESENT ILLNESS Gisela Snow is a 59 y.o. female who is seen for follow-up. Patient has history of hypertension, hypothyroidism, GERD who was referred to Nephrology for evaluation of edema and elevated creatinine. She has prior history of NSAIDs use, she has stopped taking them. Due to her generalized edema she was on high doses of diuretics, and I had discontinue furosemide 80 mg twice a day, and switch it to torsemide 20 mg daily. She has tolerated this medication well. Blood pressure is at goal. She has not repeated labs yet. For workup of her generalized edema, she underwent an abdominal ultrasound that ruled out ascites, and showed borderline fatty liver by elastography. Kidneys are normal in size and there are no signsof obstruction or masses. Her urinalysis did not show significant proteinuria. Regarding her hypothyroidism, she has been working with her strategy director to titrate her levothyroxine as her TSH was significantly low, and it has now improved to normal level. Her gabapentin was discontinued, and she is currently taking Cymbalta for fibromyalgia. There was also consideration of whether gabapentin was also contributing to her edema. Through all the changes on her medications summarized above, her generalized edema has improved significantly and her weight has gone back to her baseline. She is pending to do echocardiogram that is scheduled for next month. Overall she feels better than last time she was seen a month ago. OBJECTIVE Blood pressure 117/59 pulse 58 PHYSICAL EXAMINATION Constitutional Appearance: Normal appearance. Musculoskeletal General: No swelling. Normal range of motion. Neurological General: No focal deficit present. Mental Status: She is alert. Mental status is at baseline. DIAGNOSTICS I have reviewed available labs in detail with patient. ASSESSMENT / PLAN #1 generalized edema #2 Elevated creatinine Patient returns for follow-up. Per generalized edema has significantly improved. She is currently on torsemide 20 mg daily. I will repeat laboratory workup to date monitor on her kidney function. She used to be on better estimated glomerular filtration rate prior to increasing her diuretics, there is possibly correlation with her prior use of high doses of diuretics and NSAIDs and her kidney function. We will reassess again to determine her CKD stage, which is likely associated with NSAID use. Pending echo for completion of work up. Return visit in 6 m to 1 year depending on lab results of her eGFR. Jessenia Lim M.D., Ph.D. Addendum: Labs shows Creatinine is stable at 1.3, eGFR of 39. No proteinuria. Return visit in 1 year to monitor kidney function. AND GATE BUILDER documented in this encounter Plan of Treatment Upcoming Encounters Date Type Department Care Team (Latest Contact Info) Description 08/14/2024 12:00 PM LIP AND GATE BUILDER Clinical Communication Virtual Review in [address] [phone] 08/15/2024 3:00 PM LIP AND GATE BUILDER Office Visit Division of Endocrinology in [address] [phone] Cinda Willis M.B., Ch.B. [address] [place] [phone] 08/18/2024 2:45 PM LIP AND GATE BUILDER Clinical Support [facility] in [address] [phone] Zeke Reddy L.Ac. [address] [place] [phone] 09/14/2024 2:25 PM LIP AND GATE BUILDER Appointment Department of Cardiovascular Diseases in [address] [phone] Fransisca Araiza M.D., Ph.D. [address] [place] [phone] Discharge Disposition: Home or Self Care 09/22/2024 2:00 PM LIP AND GATE BUILDER Clinical Support [facility] in [address] [phone] Zeke Reddy L.Ac. [address] [place] [phone] 10/02/2024 3:00 PM LIP AND GATE BUILDER Office Visit Division of Nephrology and Hypertension in [address] [phone] Fransisca Araiza M.D., Ph.D. [address] [place] [phone] documented as of this encounter Visit Diagnoses Diagnosis Chronic Kidney Disease (CKD), Stage 3b Glomerular Filtration Rate (GFR) 30 To 44 (HCC)- Primary documented in this encounter Additional Health Concerns Assessment Noted Time PHQ-9 Depression Total Score: 4 03/11/20 21 2:35 PM CDT documented as of this encounter
--- OUTSIDE RECORDS SUMMARY | 2024-08-12 04:14 | XMS_ITS | Clinical Summary ---
Author Organization [facility] Address [address] [place] [address] Care Team Providers Care Manager Play Name Role Phone Unavailable Primary Care Provider Unavailabl e Source Comments Patient records contain information from all sites at [facility]. For routine questions regarding patient records, call [phone] during business hours, M-F 8:00 AM - 5:00 PM Central Time. Record requests for emergency care only can be directed to [phone] at any time.[facility] Allergies Active Allergy Reactions Criticality Noted Date [...] take 2nd dose if needed. 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 2 tablet 3 Active levothyroxine (SYNTHROID, [...] organization. Date Type Department Care Team Description 08/08/2024 3:30 PM DIVING BOARD ASSEMBLER External Outreach Division of Nephrology and Hypertension in [place], [place] [address] [place] [phone] Fransisca Araiza M.D., Ph.D. Chronic Kidney Disease (CKD), Stage 3b Glomerular Filtration Rate (GFR) 30 To 44 (HCC) (Primary Dx) 08/04/2024 2:00 PM DIVING BOARD ASSEMBLER Clinical Support Department of Nutrition and Diabetes Education in [place], [place] [address] [place] [phone] Cinda Willis M.B., Ch.B. Mandy Trevino M.S., RDN, LD Obesity Body Mass Index 30-39.9 Adult [E66.9] (Primary Dx) 08/04/2024 12:44 PM DIVING BOARD ASSEMBLER - 08/04/2024 11:59 PM DIVING BOARD ASSEMBLER Hospital Encounter Department of Laboratory Medicine and Pathology, [facility] in [place], [place] [address] [place] [address] Cinda Willis M.B., Ch.B. Obesity Body Mass Index 30-39.9 Adult Discharge Disposition: Home or Self Care 07/20/2024 1:02 PM CDT - 07/20/2024 11:59 PM CDT Hospital Encounter Department of Radiology, [facility] in [place], [place] [address] [place] [address] Fransisca Araiza M.D., Ph.D. Excess Fluid Volume Discharge Disposition: Home or Self Care 07/07/2024 4:30 PM CDT Clinical Support [facility] in [place], [place] [address] [place] [address] Zeke Reddy L.Ac. Pain Low Back Unspecified; Pain Hip Bilateral 06/30/2024 2:00 PM CDT Clinical Support Department of Nutrition and Diabetes Education in [place], [place] [address] [place] [address] Cinda Willis M.B., Светлана.B. Mandy Trevino, M.S., RDN, LD Obesity Body Mass Index 30-39.9 Adult [E66.9] (Primary Dx) 06/30/2024 10:30 AM CDT Procedure visit Department of Physical Medicine and Rehabilitation in [place], [place] [address] [place] [phone] Alonzo Barrow M.D. Pain Hip Bilateral 06/27/2024 11:00 AM CDT External Outreach Division of Nephrology and Hypertension in [place], [place] [address] [place] [phone] Fransisca Araiza M.D., Ph.D. Excess Fluid Volume (Primary Dx); Elevated Creatinine 06/26/2024 Orders Only Department of Physical Medicine and Rehabilitation in [place], [place] [address] [place] [phone] Jinny Hutson M.D. Pain Hip Bilateral (Primary Dx) 06/09/2024 2:45 PM CDT Clinical Support [facility] in [place], [place] [address] [place] [address] Zeke Reddy L.Ac. Pain Low Back Unspecified; Pain Hip Bilateral 06/02/2024 3:00 PM CDT Clinical Support Department of Nutrition and Diabetes Education in [place], [place] [address] [place] [address] Cinda Willis M.B., Светлана.B. Mandy Trevino M.S., RDN, LD Obesity Body Mass Index 30-39.9 Adult [E66.9] (Primary Dx) 06/01/2024 Clinical Communication Division of General Internal Medicine in [place], [place] [address] [place] [address] Prescheduling, Provider Triage 05/17/2024 Orders Only Division of Endocrinology in [place], [place] [address] [place] [address] Kristi Garland, FORREST, C.N.P. 05/12/2024 1:00 PM CDT Clinical Support [facility] in [place], [place] [address] [place] [phone] Calvin Smalls L.Ac. Pain Low Back Unspecified; [...] e alcohol) [facility] Utilities Answer Date Recorded In the past 12 months has th e [employer], gas, oil, or water [employer] threatened to shut off services in your [...] often do you attend chur ch or voodoo services? More than 4 times per year 11/22/2022 Do you belong to any clubs o r organizations such as caodaism groups, unions, fraternal or athletic groups, or [...] Answer Date Recorded PHQ-2 Score 1 03/11/2021 [facility] - Occupational Stress [...] your living situation today? I have a [facility] place to live 12/31/2023 Education Answer Date Recorded What is the highest level of school you have completed or the highest degree you have received? Associate degree: occupational, technical, or vocational program 10/01/2020 Comments No Sex and Gender Information Value Date Recorded Sex Assigned at Female 06/23/2021 10:52 AM CDT Legal Sex Female 5:19 PM DIVING BOARD ASSEMBLER Gender Identity Female 10/01/2020 2:34 PM DIVING BOARD ASSEMBLER Sexual Orientation Straight 10/01/2020 2: 34 PM DIVING BOARD ASSEMBLER Last Filed Vital Signs Vital Sign Reading Time Taken Comments Blood Pressure 154/72 10/27/2023 2:52 PM DIVING BOARD ASSEMBLER Pulse 63 10/27/2023 2:52 PM DIVING BOARD ASSEMBLER Temperature 36.6 C (97.9 F) 10/27/2023 1:41 PM DIVING BOARD ASSEMBLER Respiratory Rate 18 01/20/2021 1:15 PM CDT Oxygen Saturation 98% 10/27/2023 2:52 PM DIVING BOARD ASSEMBLER Inhaled Oxygen Concentration - - Weight 88.6 kg (195 lb 5.2 oz) 08/04/2024 1:35 P M DIVING BOARD ASSEMBLER Height 160.1 cm (5' 3.03) 08/04/2024 1:35 PM CS T Body Mass Index 34.57 08/04/2024 1:35 PM DIVING BOARD ASSEMBLER Plan of Treatment Upcoming Encounters Date Type Department Care Team (Latest Contact Info) Description 08/14/2024 12:00 PM DIVING BOARD ASSEMBLER Clinical Communication Virtual Review in [place], [place] [address] [place] [address] 08/15/2024 3:00 PM DIVING BOARD ASSEMBLER Office Visit Division of Endocrinology in [address] [phone] Cinda Willis M.B., Ch.B. [address] [place] [phone] 08/18/2024 2:45 PM DIVING BOARD ASSEMBLER Clinical Support [facility] in [address] [phone] Zeke Reddy L.Ac. [address] [place] [phone] 09/14/2024 2:25 PM DIVING BOARD ASSEMBLER Appointment Department of Cardiovascular Diseases in [address] [phone] Fransisca Araiza M.D., Ph.D. [address] [place] [phone] Discharge Disposition: Home or Self Care 09/22/2024 2:00 PM DIVING BOARD ASSEMBLER Clinical Support [facility] in [address] [phone] Zeke Reddy L.Ac. [address] [place] [phone] 10/02/2024 3:00 PM DIVING BOARD ASSEMBLER Office Visit Division of Nephrology and Hypertension in [place], [place] [address] [place] [address] Fransisca Araiza M.D., Ph.D. [address] [place] [address] Health Maintenance Due Date Last Done Comments [...] - Risk 60-74 years 1-dose series) 2024 Cervical/Vaginal Cancer Screening 06/16/2024 06/16/2021, 10/24/2012 (Performed elsewhere) Thyroid Stimulating Hormone (TSH) test for thyroid function 08/04/2025 08/04/2024, 09/03/2023, 07/02/2023, Additional history exists Cologuard 07/16/2026 07/16/2023 Colorectal Cancer Screening 07/16/2026 DTaP,Tdap,and Td Vaccines (4 - Td or Tdap) 06/09/2031 06/09/2021, 11/10/2012, 09/26/2007 Hepatitis C Screening Completed 10/13/2016 Zoster Vaccines Completed 03/10/2021, 09/20, 02/26/2020 COVID-19 Vaccine Completed 08/02/2024, , 06/18/2022, Additional history exists Influenza Vaccine Completed 08/02/2024, , 09/09/2021, Additional history exists Hepatitis B Vaccines Aged Out No long er eligible based on patient's age to complete this topic IPV Vaccines Aged Out No longer eligi ble based on patient's age to complete this topic Pneumococcal vaccine (0-64 years) Aged Out No longer eligible based on patient's age to complete this topic Medical Devices Implanted Type Area Sound Technician Supervisor Device Identifier Shelf Expiration Date Model / Serial / Lot Misc Other Misc Other Mouth Description:Left side upper lower teeth Procedures Procedure Name Priority Date/Time Associated Diagnosis Comments THYROID-STIMULATIN G HORMONE-SENSITIVE (S-TSH) Routine 08/04/2024 1:15 PM DIVING BOARD ASSEMBLER Obesity Body Mass Index 30-39.9 Adult US ABDOMEN COMPLETE RAD - Routine (most inpatients and all outpatients) 07/20/2024 2:13 PM CDT Excess Fluid Volume GA ARTHCS ASP/INJ MJR JT W US Routine 06/30/2024 10:30 AM CDT Pain Hip Bilateral OUTSIDE MG MAMMOGRAM Routine 03/22/2020 1:15 PM CDT HEMOGLOBIN A1C, B Routine 10/13/2016 9:2 6 AM DIVING BOARD ASSEMBLER CHRONIC VIRAL HEPATITIS PROFILE Routine 10/13/2016 9:26 AM DIVING BOARD ASSEMBLER CREATININE WITH EGFR, S/P Routine 10/13/2016 9:26 AM DIVING BOARD ASSEMBLER from Last 3 Months or Most Recently Relevant to Health Maintenance Results * S-TSH (Thyroid-Stimulating Hormone - Sensitive) (08/04/2024 1:15 PM DIVING BOARD ASSEMBLER) TSH, Sensitive 0.9 0.3 - 4.2 mIU/L 08/04/2024 2:26 PM DIVING BOARD ASSEMBLER DTL Blood (Blood, Venous) 08/04/2024 1:15 PM DIVING BOARD ASSEMBLER 08/04/2024 1:52 PM DIVING BOARD ASSEMBLER us Cinda Staples, Ch.B. LAB BLOOD ADD-ON Final Re sult [facility] [address] [place] [address], [place] DTL [facility] [address] [place] [address] * US Abdomen Complete (07/20/2024 2:13 PM [...] portal vein. Liver shear wave elastography (2D-SWE, [employer], C1-6, LPO with wedge position with right arm overhead) was performed with patient in suspended respiration. Patient was fasting for at least 4 hours prior to the exam. [employer] images were obtained Subjective assessment of study [...] portal vein. Liver shear wave elastography (2D-SWE, [employer], C1-6, LPO with wedge positionwith right arm overhead) was performed with patient in suspendedrespiration. Patient was fasting for at least 4 hours prior to the exam.[employer] images were obtained Subjective assessment of study [...] consensus guidelines. us Fransisca Lim M.D., Ph.D. [facility] US PROCEDU RES Final Result * GA ARTHCS ASP/INJ MJR JT W US (06/30/2024 10:30 AM CDT) Narrative MMODAL - 06/30/2024 10:30 AM CDT Alonzo Barrow M.D. 06/30/2024 10:35 AM Hip site - Bilat [...] team members performing significant interventional tasks. Injection dental lab technician/nurse was present for assistance during the procedure. us Jinny Hutson M.D. PROCEDURE/MINOR SURGICAL ORDERABLES Final Result MMODAL NA * MAMMO SCREEN, BILAT, W/CAD-Outside Mammogram (03/22/2020 [...] overread is required please follow defined workflow. us Provider Not In System IMG BI PROCEDURES Final R esult Performing Organization Address [facility] Co de Phone Number IIMS NA * Chronic Hepatitis Profile (10/13/2016 9:26 AM DIVING BOARD ASSEMBLER) HBs Antigen, S Negative Negative [facility] HBc Total Ab, S Negative Negative [facility] HCV Ab, S Negative Negative [facility] Comment:Hrvaii-kv-wgyycf rat io is <1.00. HBs Antibody,S Negative Unvaccinated : Negative; Vaccinated: Positive [facility] Comment:Patient is presumed to be not immune to infection with HBV. HBs Antibody, Quantitative, S <5.0 Unvaccinated : <5.0; Vaccinated: >=12.0 MIU/ML [facility] 10/13/2016 9:26 AM DIVING BOARD ASSEMBLER 10/13/2016 9:26 AM DIVING BOARD ASSEMBLER Didier Hays M.D. LAB MICROBIOLOGY - BLOOD ORDERABLES Final Result Performing Organization Address City/[facility] Co de Phone Number [facility] [address] * Hemoglobin A1c (10/13/2016 9:26 AM DIVING BOARD ASSEMBLER) Hemoglobin A1c, B 5.4 4.0 - 5.6 % [facility] 10/13/2016 9:26 AM DIVING BOARD ASSEMBLER 10/13/2016 9:26 AM DIVING BOARD ASSEMBLER Didier Hays M.D. LAB BLOOD ADD-ON Final R esult [facility] [address] [place] [id number] * Creatinine with Estimated GFR (MDRD) (10/13/2016 9:26 AM DIVING BOARD ASSEMBLER) Creatinine 0.9 0.6 - 1.1 MG/DL [facility] eGFR Non-Black/Afric an Armenian >60 >60 ML/MIN/BSA [facility] eGFR-Black/Afri can Armenian >60 >60 ML/MIN/BSA [facility] 10/13/2016 9:26 AM DIVING BOARD ASSEMBLER 10/13/2016 9:26 AM DIVING BOARD ASSEMBLER Didier Hays M.D. LAB BLOOD ADD-ON Final R esult Performing Organization Address City/State/[facility] Co de Phone Number [facility] [address] [place], [place] [address] from Last 3 Months or Most Recently Relevant to Health Maintenance Insurance [facility]
--- OUTSIDE RECORDS SUMMARY | 2024-08-12 04:14 | XMS_ITS | Referral Summary ---
Author Organization [facility] Address [address] [place] [address] Care Team Providers Care Retail Service Specialist Name Role Phone Unavailable Primary Care Provider Unavailabl e Source Comments Patient records contain information from all sites at [facility]. For routine questions regarding patient records, call [phone] during business hours, M-F 8:00 AM - 5:00 PM Central Time. Record requests for emergency care only can be directed to [phone] at any time.[facility] Encounters * This document contains information received from the source organization and may not represent a complete record from that organization. Date Type Department Care Team Description 08/08/2024 3:30 PM SPRAY OPERATOR External Outreach Division of Nephrology and Hypertension in [place], [place] [address] [place] [address] Fransisca Araiza M.D., Ph.D. Chronic Kidney Disease (CKD), Stage 3b Glomerular Filtration Rate (GFR) 30 To 44 (HCC) (Primary Dx) 08/04/2024 12:44 PM SPRAY OPERATOR - 08/04/2024 11:59 PM SPRAY OPERATOR Hospital Encounter Department of Laboratory Medicine and Pathology, [facility], in [place], [place] [address] [place] [address] Cinda Willis M.B., Ch.B. Obesity Body Mass Index 30-39.9 Adult Discharge Disposition: Home or Self Care 08/04/2024 2:00 PM SPRAY OPERATOR Clinical Support Department of Nutrition and Diabetes Education in [place], [place] [address] [place] [address] Cinda Willis M.B., Ch.B. Mandy Trevino M.S., RDN, LD Obesity Body Mass Index 30-39.9 Adult [E66.9] (Primary Dx) 07/20/2024 1:02 PM CDT - 07/20/2024 11:59 PM CDT Hospital Encounter Department of Radiology, [facility], in [place], [place] [address] [place] [address] Fransisca Araiza M.D., Ph.D. Excess Fluid Volume Discharge Disposition: Home or Self Care 07/07/2024 4:30 PM CDT Clinical Support Integrative Medicine and Health in [place], [place] [address] [place] [address] Zeke Reddy L.Ac. Pain Low Back Unspecified; Pain Hip Bilateral 06/30/2024 10:30 AM CDT Procedure visit Department of Physical Medicine and Rehabilitation in [place], [place] [address] [place] [phone] Alonzo Barrow M.D. Pain Hip Bilateral 06/30/2024 2:00 PM CDT Clinical Support Department of Nutrition and Diabetes Education in [place], [place] [address] [place] [address] Cinda Willis M.B., Ch.B. Mandy Trevino M.S., RDN, LD Obesity Body Mass Index 30-39.9 Adult [E66.9] (Primary Dx) 06/27/2024 11:00 AM CDT External Outreach Division of Nephrology and Hypertension in [place], [place] [address] [place] [phone] Fransisca Araiza M.D., Ph.D. Excess Fluid Volume (Primary Dx); Elevated Creatinine 06/26/2024 Orders Only Department of Physical Medicine and Rehabilitation in [place], [place] [address] [place] [phone] Jinny Hutson M.D. Pain Hip Bilateral (Primary Dx) 06/09/2024 2:45 PM CDT Clinical Support [facility] in [place], [place] [address] [place] [address] Zeke Reddy L.Ac. Pain Low Back Unspecified; Pain Hip Bilateral 06/02/2024 3:00 PM CDT Clinical Support Department of Nutrition and Diabetes Education in [place], [place] [address] [place] [address] Cinda Willis M.B., Ch.B. Mandy Trevino M.S., RDN, LD Obesity Body Mass Index 30-39.9 Adult [E66.9] (Primary Dx) 06/01/2024 Clinical Communication Division of General Internal Medicine in [place], [place] [address] [place] [address] Prescheduling, Provider Triage 05/17/2024 Orders Only Division of Endocrinology in [place], [place] [address] [place] [phone] Kristi Garland APRN, C.N.P. 05/12/2024 1:00 PM CDT Clinical Support [facility] in [place], [place] [address] [place] [phone] Calvin Smalls L.Ac. Pain Low Back Unspecified; [...] take 2nd dose if needed. 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 2 tablet 3 Active levothyroxine (SYNTHROID, [...] In the past 12 months has e [employer], [employer], oil, or water [employer] threatened to shut off services in your [...] How often do you attend chur or rastafari services? More than 4 times per year 11/22/2022 Do you belong to any clubs o r organizations such as anabaptist groups, unions, fraternal or athletic groups, or [...] Answer Date Recorded PHQ-2 Score 1 03/11/2021 [facility] - Occupational [...] Answer Date Recorded Employment status Unemployed/not in [employer] paid workforce and NOT seeking employment 12/31/2023 [...] AM CDT Legal Sex Female 5:19 PM SPRAY OPERATOR Gender Identity Female 10/01/2020 2:34 PM SPRAY OPERATOR Sexual Orientation Straight 10/01/2020 2: 34 PM SPRAY OPERATOR Last Filed Vital Signs Vital Sign Reading Time Taken Comments Blood Pressure 154/72 10/27/2023 2:52 PM SPRAY OPERATOR Pulse 63 10/27/2023 2:52 PM SPRAY OPERATOR Temperature 36.6 C (97.9 F) 10/27/2023 1:41 PM SPRAY OPERATOR Respiratory Rate 18 01/20/2021 1:15 PM CDT Oxygen Saturation 98% 10/27/2023 2:52 PM SPRAY OPERATOR Inhaled Oxygen Concentration - - Weight 88.6 kg (195 lb 5.2 oz) 08/04/2024 1:35 P M SPRAY OPERATOR Height 160.1 cm (5' 3.03) 08/04/2024 1:35 PM CS T Body Mass Index 34.57 08/04/2024 1:35 PM SPRAY OPERATOR Plan of Treatment Upcoming Encounters Date Type Department Care Team (Latest Contact Info) Description 08/14/2024 12:00 PM SPRAY OPERATOR Clinical Communication Virtual Review in [place], [place] 200 [place] [address] 08/15/2024 3:00 PM SPRAY OPERATOR Office Visit Division of Endocrinology in [place], [place] [address] [place] [phone] Cinda Willis M.B., Ch.B. [address] [place] [phone] 08/18/2024 2:45 PM SPRAY OPERATOR Clinical Support [facility] in [address] [phone] Zeke Reddy L.Ac. [address] [place] [phone] 09/14/2024 2:25 PM SPRAY OPERATOR Appointment Department of Cardiovascular Diseases in [address] [phone] Fransisca Araiza M.D., Ph.D. [address] [place] [phone] Discharge Disposition: Home or Self Care 09/22/2024 2:00 PM SPRAY OPERATOR Clinical Support [facility] in [address] [address] Zeke Reddy L.Ac. [address] [place] [phone] 10/02/2024 3:00 PM SPRAY OPERATOR Office Visit Division of Nephrology and Hypertension in [address] [phone] Fransisca Araiza M.D., Ph.D. [address] [place] [phone] Medical Devices Implanted Type Area Refrigeration Plant Operator Device Identifier Shelf Expiration Date Model / Serial / Lot Misc Other Misc Other Mouth Description:Left side upper lower teeth Procedures Procedure Name Priority Date/Time Associated Diagnosis Comments THYROID-STIMULATIN G HORMONE-SENSITIVE (S-TSH) Routine 08/04/2024 1:15 PM SPRAY OPERATOR Obesity Body Mass Index 30-39.9 Adult US ABDOMEN COMPLETE RAD - Routine (most inpatients and all outpatients) 07/20/2024 2:13 PM CDT Excess Fluid Volume AR ARTHCS ASP/INJ MJR JT W US Routine 06/30/2024 10:30 AM CDT Pain Hip Bilateral OUTSIDE MG MAMMOGRAM Routine 03/22/2020 1:15 PM CDT HEMOGLOBIN A1C, B Routine 10/13/2016 9:2 6 AM SPRAY OPERATOR CHRONIC VIRAL HEPATITIS PROFILE Routine 10/13/2016 9:26 AM SPRAY OPERATOR CREATININE WITH EGFR, S/P Routine 10/13/2016 9:26 AM SPRAY OPERATOR from Last 3 Months or Most Recently Relevant to Health Maintenance Results * S-TSH (Thyroid-Stimulating Hormone - Sensitive) (08/04/2024 1:15 PM SPRAY OPERATOR) TSH, Sensitive 0.9 0.3 - 4.2 mIU/L 08/04/2024 2:26 PM SPRAY OPERATOR DTL Blood (Blood, Venous) 08/04/2024 1:15 PM SPRAY OPERATOR 08/04/2024 1:52 PM SPRAY OPERATOR us Cinda Staples, Ch.B. LAB BLOOD ADD-ON Final Re sult [facility] [address] [place] [address], [place] DTL [facility] [address] [place] [address] * US Abdomen Complete (07/20/2024 2:13 PM [...] portal vein. Liver shear wave elastography (2D-SWE, Pump Audio, C1-6, LPO with wedge position with right arm overhead) was performed with patient in suspended respiration. Patient was fasting for at least 4 hours prior to the exam. Sld Inclusion Teacher images were obtained Subjective assessment of study [...] portal vein. Liver shear wave elastography (2D-SWE, Pump Audio, C1-6, LPO with wedge positionwith right arm overhead) was performed with patient in suspendedrespiration. Patient was fasting for at least 4 hours prior to the exam.Sld Inclusion Teacher images were obtained Subjective assessment of study [...] IMG US PROCEDU RES Final Result * AR ARTHCS ASP/INJ MJR JT W US (06/30/2024 [...] team members performing significant interventional tasks. Injection facility technician/nurse was present for assistance during the [...] PROCEDURES Final R esult Performing Organization Address [facility] de Phone Number [facility] NA * Chronic Hepatitis Profile (10/13/2016 9:26 AM SPRAY OPERATOR) HBs Antigen, S Negative Negative [facility] HBc Total Ab, S Negative Negative [facility] HCV Ab, S Negative Negative [facility] Comment:Qacnxb-rh-tqdjjw rat io is <1.00. HBs Antibody,S Negative Unvaccinated : Negative; Vaccinated: Positive [facility] Comment:Patient is presumed to be not immune to infection with HBV. HBs Antibody, Quantitative, S <5.0 Unvaccinated : <5.0; Vaccinated: >=12.0 MIU/ML [facility] 10/13/2016 9:26 AM SPRAY OPERATOR 10/13/2016 9:26 AM SPRAY OPERATOR us Didier Hays M.D. LAB MICROBIOLOGY - BLOOD ORDERABLES Final Result Performing Organization Address [facility] Co de Phone Number [facility] [address] * Hemoglobin A1c (10/13/2016 9:26 AM SPRAY OPERATOR) Hemoglobin A1c, B 5.4 4.0 - 5.6 % [facility] 10/13/2016 9:26 AM SPRAY OPERATOR 10/13/2016 9:26 AM SPRAY OPERATOR us Didier Hays M.D. LAB BLOOD ADD-ON Final R esult Performing Organization Address [facility] Co de Phone Number [facility] [address] [place] [address], [facility] * Creatinine with Estimated GFR (MDRD) (10/13/2016 9:26 AM SPRAY OPERATOR) Creatinine 0.9 0.6 - 1.1 MG/DL [facility] eGFR Non-Black/Afric an Slovenian >60 >60 ML/MIN/BSA [facility] eGFR-Black/Afri can Slovenian >60 >60 ML/MIN/BSA [facility] 10/13/2016 9:2 6 AM SPRAY OPERATOR 10/13/2016 9:26 AM SPRAY OPERATOR Didier Hays M.D. LAB BLOOD ADD-ON Final R esult [facility] [address] [place] [address], [facility] from Last 3 Months or Most Recently Relevant to Health Maintenance Insurance [facility]
--- OUTSIDE RECORDS SUMMARY | 2024-08-12 04:14 | XMS_ITS | Encounter Summary ---
Author Organization [facility] Address [address] [place] [address] Care Team Providers Care Fur Machine Operator Name Role Phone Unavailable Primary Care Provider Unavailabl e Encounter Details Date Type Department Care Team (Latest Contact Info) Description 08/04/2024 12:44 PM COMMUNITY AFFAIRS MANAGER - 08/04/2024 11:59 PM COMMUNITY AFFAIRS MANAGER Hospital Encounter Department of Laboratory Medicine and Pathology, [facility] in [place], [place] [address] [place] [address] Cinda Willis M.B., Ch.B. [address] [place] [address] Obesity Body Mass Index 30-39.9 Adult Discharge Disposition: Home or Self Care Social History Tobacco Use Types Packs/Day Years Used Date Smoking Tobacco: Never Smokeless Tobacco: Never Alcohol Use Standard Drinks/Week Comments Not Currently 1 (1 standard drink = 0.6 oz pur e alcohol) [facility] Utilities Answer Date Recorded In the past 12 months has th e [employer], gas, oil, or water [employer] threatened to shut off services in your [...] any clubs o r organizations such as taoism groups, unions, fraternal or athletic groups, or [...] your living situation today? I have a [facility] place to live 12/31/2023 Education Answer Date Recorded What is the highest level of school you have completed or the highest degree you have received? Associate degree: occupational, technical, or vocational program 10/01/2020 Comments No Sex and Gender Information Value Date Recorded Sex Assigned at Female 06/23/2021 10:52 AM CDT Legal Sex Female 5:19 PM COMMUNITY AFFAIRS MANAGER Gender Identity Female 10/01/2020 2:34 PM COMMUNITY AFFAIRS MANAGER Sexual Orientation Straight 10/01/2020 2: 34 PM COMMUNITY AFFAIRS MANAGER documented as of this encounter Medications [...] take 2nd dose if needed. Will need stake driver. 2 tablet 07/23/2023 diphenhydrAMINE (BENADRYL) 25 [...] (Latest Contact Info) Description 08/14/2024 12:00 PM COMMUNITY AFFAIRS MANAGER Clinical Communication Virtual Review in [place], [place] [address] [place] [address] 08/15/2024 3:00 PM COMMUNITY AFFAIRS MANAGER Office Visit Division of Endocrinology in [place], [place] [address] [place] [phone] Cinda Willis M.B., Ch.B. [address] [place] [phone] 08/18/2024 2:45 PM COMMUNITY AFFAIRS MANAGER Clinical Support [facility] in [place], [place] [address] [place] [phone] Zeke Reddy L.Ac. [address] [place] [phone] 09/14/2024 2:25 PM COMMUNITY AFFAIRS MANAGER Appointment Department of Cardiovascular Diseases in [address] [phone] Fransisca Araiza M.D., Ph.D. [address] [place] [phone] Discharge Disposition: Home or Self Care 09/22/2024 2:00 PM COMMUNITY AFFAIRS MANAGER Clinical Support [facility] in [place], [place] [address] [place] [phone] Zeke Reddy L.Ac. [address] [place] [phone] 10/02/2024 3:00 PM COMMUNITY AFFAIRS MANAGER Office Visit Division of Nephrology and Hypertension in [address] [phone] Fransisca Araiza M.D., Ph.D. [address] [place] [phone] documented as of this encounter Procedures Procedure Name Priority Date/Time Associated Diagnosis Comments THYROID-STIMULATING HORMONE-SENSITIVE (S-TSH) Routine 08/04/2024 1:15 PM COMMUNITY AFFAIRS MANAGER Obesity Body Mass Index 30-39.9 Adult documented in this encounter Results * S-TSH (Thyroid-Stimulating Hormone - Sensitive) (08/04/2024 1:15 PM COMMUNITY AFFAIRS MANAGER) TSH, Sensitive 0.9 0.3 - 4.2 mIU/L 08/04/2024 2:26 PM COMMUNITY AFFAIRS MANAGER DTL Blood (Blood, Venous) 08/04/2024 1:15 PM COMMUNITY AFFAIRS MANAGER 08/04/2024 1:52 PM COMMUNITY AFFAIRS MANAGER us Cinda Staples, ChNorbertoB. LAB BLOOD ADD-ON Final Re sult [facility] [address] [place] [address], [facility] DTL [facility] [address] [place] [address] documented in this encounter Visit Diagnoses Diagnosis Obesity Body Mass Index 30-39.9 Adult documented in this encounter Additional Health Concerns Assessment Noted Time PHQ-9 Depression Total Score: 4 03/11/20 21 2:35 PM CDT documented as of this encounter
--- OUTSIDE RECORDS SUMMARY | 2024-08-12 04:14 | XMS_ITS ---
Author Organization [facility] Address [address] [place] [address] Care Team Providers Care Cq Developer Name Role Phone Unavailable Unavailable Unavailable Surgery Details Not on file Complications Check Surgery Details section. Procedure Estimated Blood Loss Check Surgery Details section. Procedure Findings Check Surgery Details section. Procedure Specimens Taken Check Surgery Details section.
--- OUTSIDE RECORDS SUMMARY | 2024-08-12 04:15 | XMS_ITS | Encounter Summary ---
Author Organization [facility] Address [address] [place] [address] Care Team Providers Care Sand Digger Name Role Phone Unavailable Primary Care Provider Unavailabl e Reason for Visit * Outpatient (Routine) - Authorized Specialty Diagnoses / Procedures Referred By Neftaly t Referred To Contact Diagnoses Pain Low Back Unspecified Pain Hip Bilateral Procedures [facility] Acupuncture [facility] Health in [place], [place] [address] [place] [address] Phone: tel: [facility] Referral ID Status Reason Start Date Expiration Date V isits Requested Visits Authorized [id number] Authorized 02/07/2024 02/06/2025 20 20 Encounter Details Date Type Department Care Team (Latest Contact Info) Description 07/07/2024 4:30 PM CDT Clinical Support [facility] in [place], [place] [address] [place] [phone] Zeke Reddy L.Ac. [address] [place] [phone] Pain Low Back Unspecified; Pain Hip Bilateral Social History Tobacco Use Types Packs/Day Years Used Date Smoking Tobacco: Never Smokeless Tobacco: Never Alcohol Use Standard Drinks/Week Comments Not Currently 1 (1 standard drink = 0.6 oz pur e alcohol) [facility] Utilities Answer Date Recorded In the past [...] often do you attend chur ch or mu-ism services? More than 4 times per year 11/22/2022 Do you belong to any clubs o r organizations such as roman catholic groups, unions, fraternal or athletic groups, [...] living situation today? I have a [facility] place to live 12/31/2023 Education Answer Date Recorded What is the highest level of school you have completed or the highest degree you have received? Associate degree: occupational, technical, or vocational program 10/01/2020 Comments No Sex and Gender Information Value Date Recorded Sex Assigned at Female 06/23/2021 10:52 AM CDT Legal Sex Female 5:19 PM PARTS ASSEMBLER Gender Identity Female 10/01/2020 2:34 PM PARTS ASSEMBLER Sexual Orientation Straight 10/01/2020 2: 34 PM PARTS ASSEMBLER documented as of this encounter Progress [...] symptom relief. Total Needling Time: 30 minutes Lily Dale Electrified: No Diathermy: No Cupping: Yes Treatment Points Used: Prone position. Set One: GV 14/16/17, GB 19/20/21, Jingbailao, SI 11/13,BL 24/25/26/27/28 Set Two: Both GB 29/30/34/41, BL 54, Hip Ashix1,BL 37/40/57 Number of Lily Dale Used = Number of Lily Dale Retrieved: Yes Stimulation Intensity: Medium Narrative Assessment: [...] the www.[employer].org for locating a qualified licensed dispensing optician in the local community. PATIENT EDUCATION Ready to learn, no apparent learning barriers were identified, learning preference include listening. Explained diagnosis and treatment plan: patient/caregiver expressed understanding of the content. documented in this encounter Plan of Treatment Upcoming Encounters Date Type Department Care Team (Latest Contact Info) Description 08/14/2024 12:00 PM PARTS ASSEMBLER Clinical Communication Virtual Review in [place], [place] [address] [place] [address] 08/15/2024 3:00 PM PARTS ASSEMBLER Office Visit Division of Endocrinology in [address] [phone] Cinda Willis M.B., Ch.B. [address] [place] [phone] 08/18/2024 2:45 PM PARTS ASSEMBLER Clinical Support [facility]ative Medicine and [facility] in [address] [phone] Zeke Reddy L.Ac. [address] [place] [phone] 09/14/2024 2:25 PM PARTS ASSEMBLER Appointment Department of Cardiovascular Diseases in [address] [phone] Fransisca Araiza M.D., Ph.D. [address] [place] [phone] Discharge Disposition: Home or Self Care 09/22/2024 2:00 PM PARTS ASSEMBLER Clinical Support [facility] in [address] [phone] Zeke Reddy L.Ac. [address] [place] [phone] 10/02/2024 3:00 PM PARTS ASSEMBLER Office Visit Division of Nephrology and Hypertension in [place], [place] [address] [place] [address] Fransisca Araiza M.D., Ph.D. [address] [place] [address] documented as of this encounter Visit Diagnoses Diagnosis Pain Low Back Unspecified Pain Hip Bilateral documented in this encounter Additional Health Concerns Assessment Noted Time PHQ-9 Depression Total Score: 4 03/11/20 21 2:35 PM CDT documented as of this encounter
--- OUTSIDE RECORDS SUMMARY | 2024-08-12 04:15 | XMS_ITS | Encounter Summary ---
Author Organization [facility] Address [address] [place] [address] Care Team Providers Care Marine Insurance Claim Examiner Name Role Phone Unavailable Primary Care Provider Unavailabl e Reason for Visit * Outpatient (Routine) - Authorized Specialty Diagnoses / Procedures Referred By Neftaly t Referred To Contact Diagnoses Pain Low Back Unspecified Pain Hip Bilateral Procedures [facility] Acupuncture Integrative Medicine and Health in [place], [place] [address] [place] [address] Phone: tel: [facility] Referral ID Status Reason Start Date Expiration Date V isits Requested Visits Authorized [id number] Authorized 02/07/2024 02/06/2025 20 Encounter Details Date Type Department Care Team (Latest Contact Info) Description 06/09/2024 2:45 PM CDT Clinical Support Integrative Medicine and Health in [place], [place] [address] [place] [phone] Zeke Reddy L.Ac. [address] [place] [phone] Pain Low Back Unspecified; Pain Hip Bilateral [...] often do you attend chur ch or orthodoxy services? More than 4 times per year 11/22/2022 Do you belong to any clubs o r organizations such as muslim groups, unions, fraternal or athletic groups, or [...] your living situation today? I have a [facility] place to live 12/31/2023 Education Answer Date Recorded What is the highest level of school you have completed or the highest degree you have received? Associate degree: occupational, technical, or vocational program 10/01/2020 Comments No Sex and Gender Information Value Date Recorded Sex Assigned at Female 06/23/2021 10:52 AM CDT Legal Sex Female 5:19 PM PATIENT ACCOUNTS CLERK Gender Identity Female 10/01/2020 2:34 PM PATIENT ACCOUNTS CLERK Sexual Orientation Straight 10/01/2020 2: 34 PM PATIENT ACCOUNTS CLERK documented as of this encounter Progress Notes [...] symptom relief. Total Needling Time: 30 minutes [place] Electrified: No Diathermy: No Cupping: Yes Treatment Points Used: Supine position. Set One: GV 20/24, Penetrating needle from TE 23 to GB 8, penetrating GB14 to Yuyao, TE 5, PC 6, LI4 Set Two: CV 12/24//, ST 25,Weishangshu, ST 36/37, SP 12/24/09, LV 3/5, KI 3 Number of [place] Used = Number of [place] Retrieved: Yes Stimulation Intensity: Medium Narrative Assessment: [...] the www.[employer]CCA[employer].org for locating a qualified licensed practical nurse clinic nurse in the local community. PATIENT EDUCATION Ready to learn, no apparent learning barriers were identified, learning preference include listening. Explained diagnosis and treatment plan: patient/caregiver expressed understanding of the content. documented in this encounter Plan of Treatment Upcoming Encounters Date Type Department Care Team (Latest Contact Info) Description 08/14/2024 12:00 PM PATIENT ACCOUNTS CLERK Clinical Communication Virtual Review in [place], [place] 200 [place] [address] 08/15/2024 3:00 PM PATIENT ACCOUNTS CLERK Office Visit Division of Endocrinology in [address] [phone] Cinda Willis M.B., Ch.B. [address] [place] [phone] 08/18/2024 2:45 PM PATIENT ACCOUNTS CLERK Clinical Support Integrative Medicine and [facility] in [address] [address] Zeke Reddy L.Ac. [address] [place] [phone] 09/14/2024 2:25 PM PATIENT ACCOUNTS CLERK Appointment Department of Cardiovascular Diseases in [address] [phone] Fransisca Araiza M.D., Ph.D. [address] [place] [phone] Discharge Disposition: Home or Self Care 09/22/2024 2:00 PM PATIENT ACCOUNTS CLERK Clinical Support Integrative Medicine and Health in [address] [phone] Zeke Reddy L.Ac. [address] [place] [phone] 10/02/2024 3:00 PM PATIENT ACCOUNTS CLERK Office Visit Division of Nephrology and Hypertension in [place], [place] [address] [place] [address] Fransisca Araiza M.D., Ph.D. [address] [place] [address] documented as of this encounter Visit Diagnoses Diagnosis Pain Low Back Unspecified Pain Hip Bilateral documented in this encounter Additional Health Concerns Assessment Noted Time PHQ-9 Depression Total Score: 4 03/11/20 21 2:35 PM CDT documented as of this encounter
--- OUTSIDE RECORDS SUMMARY | 2024-08-12 04:15 | XMS_ITS | Encounter Summary ---
Author Organization [facility] Address [address] [place] [address] Care Team Providers Care Concrete Carpenter Name Role Phone Unavailable Primary Care Provider Unavailabl e Reason for Visit * Reason Onset Date Comments Triage 06/01/2024 Encounter Details Date Type Department Care Team (Late st Contact Info) Description 06/01/2024 Clinical Communication Division of General Internal Medicine in [place], [place] [address] [place] [address] Prescheduling, Provider Triage Social History Tobacco Use Types Packs/Day Years Used Date Smoking Tobacco: Never Smokeless Tobacco: Never Alcohol Use Standard Drinks/Week Comments Not Currently 1 (1 standard drink = 0.6 oz pur e alcohol) [facility] Utilities Answer Date Recorded In the past 12 months has e [employer], gas, oil, or water [employer] threatened to shut off services in your [...] often do you attend chur ch or confucianism services? More than 4 times per year 11/22/2022 Do you belong to any clubs o r organizations such as zoroastrianism groups, unions, fraternal or athletic groups, or [...] Score 1 03/11/2021 [facility] - Occupational Stress Questionnaire Answer Date [...] your living situation today? I have a [facility] place to live 12/31/2023 Education Answer Date Recorded What is the highest level of school you have completed or the highest degree you have received? Associate degree: occupational, technical, or vocational program 10/01/2020 Comments No Sex and Gender Information Value Date Recorded Sex Assigned at Female 06/23/2021 10:52 AM CDT Legal Sex Female 5:19 PM EXTERMINATION INSPECTOR Gender Identity Female 10/01/2020 2:34 PM EXTERMINATION INSPECTOR Sexual Orientation Straight 10/01/2020 2: 34 PM EXTERMINATION INSPECTOR documented as of this encounter Miscellaneous Notes * Telephone Encounter - Susie Kingsley Moon - 06/01/2024 2:29 PM CDT Gisela Snow 1965 [id number] 59 years Height: 5'-4 Weight: 201 Gender: [...] to 12 months Previous Eval: Yes Location: [facility] Have had: None of the above Diagnosis: Outcome: Continue to take 40-80mg Furosemide daily and referral to a Legal Instruments Examiner, appt schedule Jun 27. The fluid retention [...] AVAILABLE: I AM AVAILABLE ANY TIME PHONE: [phone] documented in this encounter Plan of Treatment Upcoming Encounters Date Type Department Care Team (Latest Contact Info) Description 08/14/2024 12:00 PM EXTERMINATION INSPECTOR Clinical Communication Virtual Review in [place], [place] 200 [place] [address] 08/15/2024 3:00 PM EXTERMINATION INSPECTOR Office Visit Division of Endocrinology in [place], [place] [address] [place] [phone] Cinda Willis M.B., Ch.B. [address] [place] [phone] 08/18/2024 2:45 PM EXTERMINATION INSPECTOR Clinical Support Integrative Medicine and Health in [place], [place] [address] [place] [phone] Zeke Reddy L.Ac. [address] [place] [phone] 09/14/2024 2:25 PM EXTERMINATION INSPECTOR Appointment Department of Cardiovascular Diseases in [place], [place] [address] [place] [phone] Fransisca Araiza M.D., Ph.D. [address] [place] [phone] Discharge Disposition: Home or Self Care 09/22/2024 2:00 PM EXTERMINATION INSPECTOR Clinical Support Integrative Medicine and Health in [place], [place] [address] [place] [phone] Zeke Reddy L.Ac. [address] [place] [phone] 10/02/2024 3:00 PM EXTERMINATION INSPECTOR Office Visit Division of Nephrology and Hypertension in [place], [place] [address] [place] [phone] Fransisca Araiza M.D., Ph.D. [address] [place] [phone] documented as of this encounter Visit Diagnoses Not on filedocumented in this encounter Additional Health Concerns Assessment Noted Time PHQ-9 Depression Total Score: 4 03/11/20 21 2:35 PM CDT documented as of this encounter
--- OUTSIDE RECORDS SUMMARY | 2024-08-12 04:15 | XMS_ITS | Encounter Summary ---
Author Organization [facility] Address [address] [place] [address] Care Team Providers Care Shaper And Presser Name Role Phone Unavailable Primary Care Provider Unavailabl e Reason for Referral * Outpatient (Routine) - Authorized Specialty Diagnoses / Procedures Referred By Contac t Referred To Contact Nephrology and Hypertension Fransisca Araiza M.D., Ph.D. 200 [place] [address] Phone: tel: fax: [facility] Referral ID Status Reason Start Date Expiration Date V isits Requested Visits Authorized [id number] Authorized 06/27/2024 12/27/2025 1 1 * Outpatient (Routine) - Closed Specialty Diagnoses / Procedures Referred By Contac t Referred To Contact Diagnoses Excess Fluid Volume Procedures US Abdomen Complete Fransisca Araiza M.D., Ph.D. 200 [place] [address] Phone: tel: fax: [facility] Referral ID Status Reason Start Date Expiration Date Visits Re quested Visits Authorized [id number] Closed 06/27/2024 06/27/2025 1 1 * Cardiovascular-Diagnostic (Routine) - Authorized Specialty Diagnoses / Procedures Referred By Contac t Referred To Contact Diagnoses Excess Fluid Volume Procedures Echo Transthoracic (TTE) Fransisca Araiza M.D., Ph.D. [address] [place] [address] Phone: tel: fax: [facility] Referral ID Status Reason Start Date Expiration Date V isits Requested Visits Authorized [id number] Authorized 06/27/2024 06/27/2025 1 1 Reason for Visit * Appointment Request (Routine) - Closed Specialty Diagnoses / Procedures Referred By Contac t Referred To Contact Nephrology and Hypertension Troy Seals M.D. [address] [place] [phone] Phone: tel: fax: Referral ID Status Reason Start Date Expiration Date Visits Re quested Visits Authorized [id number] Closed 05/25/2024 05/25/2025 1 1 Encounter Details Date Type Department Care Team (Latest Contact Info) Description 06/27/2024 11:00 AM CDT External Outreach Division of Nephrology and Hypertension in [place], [place] [address] [place] [phone] Fransisca Araiza M.D., Ph.D. [address] [place] [address] Excess Fluid Volume (Primary Dx); Elevated Creatinine Social History Tobacco Use Types Packs/Day Years Used Date Smoking Tobacco: Never Smokeless Tobacco: Never Alcohol Use Standard Drinks/Week Comments Not Currently 1 (1 standard drink = 0.6 oz pur e alcohol) [facility] Utilities Answer Date Recorded In the past 12 months has e [employer], gas, oil, or water [employer] threatened to shut off services in your [...] How often do you attend chur or rastafarian services? More than 4 times per year 11/22/2022 Do you belong to any clubs o r organizations such as holiness groups, unions, fraternal or athletic groups, or [...] Answer Date Recorded PHQ-2 Score 1 03/11/2021 [facility]at ional [facility] - Occupational Stress [...] living situation today? I have a [facility] place to live 12/31/2023 Education Answer Date Recorded What is the highest level of school you have completed or the highest degree you have received? Associate degree: occupational, technical, or vocational program 10/01/2020 Comments No Sex and Gender Information Value Date Recorded Sex Assigned at Female 06/23/2021 10:52 AM CDT Legal Sex Female 5:19 PM RELIGIOUS EDUCATION TEACHER Gender Identity Female 10/01/2020 2:34 PM RELIGIOUS EDUCATION TEACHER Sexual Orientation Straight 10/01/2020 2: 34 PM RELIGIOUS EDUCATION TEACHER documented as of this encounter Consult Notes [...] LIGAMENT RECONSTRUCTION.; Surgeon: Aaron Valentin M.D.; Location: [place] [address] OR OTHER CONVERTED SHX (SEE COMMENT) N/A 10/12/2016 >Incisional biopsy of the left lateral tongue. OTHER SURGICAL HISTORY 1996 Oblation RELEASE CARPAL TUNNEL OPEN WRIST Right 01/20/2021 Procedure: RELEASE CARPAL TUNNEL OPEN WRIST.; Surgeon: Aaron Valentin M.D.; Location: [place] [address]OR SINUS SURGERY 2002 TONSILLECTOMY 1970 TUBAL LIGATION [...] diet. I will meet with her in [place] once tests are completed. All questions were answered. Jessenia Lim M.D., Ph.D. Nephrology and Hypertension documented in this encounter Plan of Treatment Upcoming Encounters Date Type Department Care Team (Latest Contact Info) Description 08/14/2024 12:00 PM RELIGIOUS EDUCATION TEACHER Clinical Communication Virtual Review in [place], [place] 200 [place] [address] 08/15/2024 3:00 PM RELIGIOUS EDUCATION TEACHER Office Visit Division of Endocrinology in [address] [phone] Cinda Willis M.B., Ch.B. [address] [place] [phone] 08/18/2024 2:45 PM RELIGIOUS EDUCATION TEACHER Clinical Support Integrative Medicine and Health in [address] [phone] Zeke Reddy L.Ac. [address] [place] [phone] 09/14/2024 2:25 PM RELIGIOUS EDUCATION TEACHER Appointment Department of Cardiovascular Diseases in [address] [phone] Fransisca Araiza M.D., Ph.D. [address] [place] [phone] Discharge Disposition: Home or Self Care 09/22/2024 2:00 PM RELIGIOUS EDUCATION TEACHER Clinical Support Integrative Medicine and [facility] in [address] [phone] Zeke Reddy L.Ac. [address] [place] [phone] 10/02/2024 3:00 PM RELIGIOUS EDUCATION TEACHER Office Visit Division of Nephrology and Hypertension in [address] [phone] Fransisca Araiza M.D., Ph.D. [address] [place] [phone] Scheduled Orders Name Type Priority Associated Diagnoses [...] portal vein. Liver shear wave elastography (2D-SWE, [employer], C1-6, LPO with wedge position with right arm overhead) was performed with patient in suspended respiration. Patient was fasting for at least 4 hours prior to the exam. Position Classification Manager images were obtained Subjective assessment of study [...] portal vein. Liver shear wave elastography (2D-SWE, [employer], C1-6, LPO with wedge positionwith right arm overhead) was performed with patient in suspendedrespiration. Patient was fasting for at least 4 hours prior to the exam.Position Classification Manager images were obtained Subjective assessment of study [...] isrecommended per the SRU consensus guidelines. us Frasnisca Lim M.D., Ph.D. IM US PROCEDU RES Final Result documented in this encounter Visit Diagnoses Diagnosis Excess Fluid Volume- Primary Elevated Creatinine Excess Fluid Volume documented in this encounter Additional Health Concerns Assessment Noted Time PHQ-9 Depression Total Score: 4 03/11/20 21 2:35 PM CDT documented as of this encounter
--- OUTSIDE RECORDS SUMMARY | 2024-08-12 04:15 | XMS_ITS | Encounter Summary ---
Author Organization [facility] Address [address] [place] [address] Care Team Providers Care Trailer Body Assembler Name Role Phone Unavailable Primary Care Provider Unavailabl e Reason for Visit * Outpatient (Routine) - Closed Specialty Diagnoses / Procedures Referred By Neftaly weinstein Referred To Contact Diagnoses Pain Hip Bilateral Procedures PMR Peripheral injection/USGI (Procedure Only) Jinny Hutson M.D. 200 [place] [address] Phone: tel: fax: [facility] Referral ID Status Reason Start Date Expiration Date Visits Re quested Visits Authorized [id number] Closed 06/26/2024 06/26/2025 1 1 Encounter Details Date Type Department Care Team (Latest Contact Info) Description 06/30/2024 10:30 AM CDT Procedure visit Department of Physical Medicine and Rehabilitation in [place], [place] [address] [place] [address] Alonzo Barrow M.D. [address] [place] [phone] Pain Hip Bilateral Social History Tobacco Use Types Packs/Day Years Used Date Smoking Tobacco: Never Smokeless Tobacco: Never Alcohol Use Standard Drinks/Week Comments Not Currently 1 (1 standard drink = 0.6 oz pur e alcohol) [facility] Utilities Answer Date Recorded In [...] week 11/22/2022 How often do you attend [facility] or mormon services? More than 4 times per year [...] 1 03/11/2021 [facility] - Occupational [...] your living situation today? I have a [facility] place to live 12/31/2023 Education Answer Date Recorded What is the highest level of school you have completed or the highest degree you have received? Associate degree: occupational, technical, or vocational program 10/01/2020 Comments No Sex and Gender Information Value Date Recorded Sex Assigned at Female 06/23/2021 10:52 AM CDT Legal Sex Female 5:19 PM CONTRACT ADMINISTRATIVE ASSISTANT Gender Identity Female 10/01/2020 2:34 PM CONTRACT ADMINISTRATIVE ASSISTANT Sexual Orientation Straight 10/01/2020 2: 34 PM CONTRACT ADMINISTRATIVE ASSISTANT documented as of this encounter Procedure Notes [...] team members performing significant interventional tasks. Injection senior telecommunications technician/nurse was present for assistance during the procedure. documented in this encounter Plan of Treatment Upcoming Encounters Date Type Department Care Team (Latest Contact Info) Description 08/14/2024 12:00 PM CONTRACT ADMINISTRATIVE ASSISTANT Clinical Communication Virtual Review in [address] [phone] 08/15/2024 3:00 PM CONTRACT ADMINISTRATIVE ASSISTANT Office Visit Division of Endocrinology in [address] [phone] Cinda Willis M.B., Ch.B. [address] [place] [phone] 08/18/2024 2:45 PM CONTRACT ADMINISTRATIVE ASSISTANT Clinical Support Integrative Medicine and Health in [address] [phone] Zeke Reddy L.Ac. [address] [place] [phone] 09/14/2024 2:25 PM CONTRACT ADMINISTRATIVE ASSISTANT Appointment Department of Cardiovascular Diseases in [address] [phone] Fransisca Araiza M.D., Ph.D. [address] [place] [phone] Discharge Disposition: Home or Self Care 09/22/2024 2:00 PM CONTRACT ADMINISTRATIVE ASSISTANT Clinical Support Integrative Medicine and Health in [place], [place] [address] [place] [address] Zeke Reddy L.Ac. [address] [place] [address] 10/02/2024 3:00 PM CONTRACT ADMINISTRATIVE ASSISTANT Office Visit Division of Nephrology and Hypertension in [place], [place] [address] [place] [address] Fransisca Araiza M.D., Ph.D. [address] [place] [address] documented as of this encounter Procedures Procedure Name Priority Date/Time Associated Diagnosis Comments SD ARTHCS ASP/INJ MJR JT W US Routine 06/30/2024 10:30 AM CDT Pain Hip Bilateral documented in this encounter Results * SD ARTHCS ASP/INJ MJR JT W US (06/30/2024 [...] team members performing significant interventional tasks. Injection senior telecommunications technician/nurse was present for assistance during the [...]
--- OUTSIDE RECORDS SUMMARY | 2024-08-12 04:15 | XMS_ITS | Encounter Summary ---
Author Organization [facility] Address [address] [place] [address] Care Team Providers Care Dietetics Director Name Role Phone Unavailable Primary Care Provider Unavailabl e Encounter Details Date Type Department Care Team (Late st Contact Info) Description 04/14/2024 Clinical Communication Integrative Medicine and Health in [place], [place] [address] [place] [address] Calvin Smalls, L.. Social History Tobacco Use Types Packs/Day Years Used Date Smoking Tobacco: Never Smokeless Tobacco: Never Alcohol Use Standard Drinks/Week Comments Not Currently 1 (1 standard drink = 0.6 oz pur e alcohol) [facility] Utilities Answer Date Recorded In the past 12 months has e electric, gas, oil, or water [employer] threatened to shut off services in your [...] any clubs o r organizations such as taoist groups, unions, fraternal or athletic groups, or [...] 03/11/2021 [facility] - Occupational Stress Questionnaire Answer Date Recorded [...] Answer Date Recorded Employment status Unemployed/not in [employer] paid workforce and NOT seeking employment 12/31/2023 Housing Stability Answer Date Recorded What is your living situation today? I have a [facility] place to live 12/31/2023 Education Answer Date Recorded What is the highest level of school you have completed or the highest degree you have received? Associate degree: occupational, technical, or vocational program 10/01/2020 Comments No Sex and Gender Information Value Date Recorded Sex Assigned at Female 06/23/2021 10:52 AM CDT Legal Sex Female 5:19 PM DIVISION HEAD Gender Identity Female 10/01/2020 2:34 PM DIVISION HEAD Sexual Orientation Straight 10/01/2020 2: 34 PM DIVISION HEAD documented as of this encounter Plan of Treatment Upcoming Encounters Date Type Department Care Team (Latest Contact Info) Description 08/14/2024 12:00 PM DIVISION HEAD Clinical Communication Virtual Review in [place], [place] [address] [place] [address] 08/15/2024 3:00 PM DIVISION HEAD Office Visit Division of Endocrinology in [place], [place] [address] [place] [phone] Cinda Willis M.B., Ch.B. [address] [place] [phone] 08/18/2024 2:45 PM DIVISION HEAD Clinical Support Integrative Medicine and Health in [place], [place] [address] [place] [phone] Zeke Reddy L.Ac. [address] [place] [phone] 09/14/2024 2:25 PM DIVISION HEAD Appointment Department of Cardiovascular Diseases in [place], [place] [address] [place] [phone] Fransisca Araiza M.D., Ph.D. [address] [place] [phone] Discharge Disposition: Home or Self Care 09/22/2024 2:00 PM DIVISION HEAD Clinical Support Integrative Medicine and Health in [place], [place] [address] [place] [phone] Zeke Reddy L.Ac. [address] [place] [phone] 10/02/2024 3:00 PM DIVISION HEAD Office Visit Division of Nephrology and Hypertension in [address] [phone] Fransisca Araiza M.D., Ph.D. [address] [place] [phone] documented as of this encounter Visit Diagnoses Not on filedocumented in this encounter Additional Health Concerns Assessment Noted Time PHQ-9 Depression Total Score: 4 03/11/20 21 2:35 PM CDT documented as of this encounter
--- OUTSIDE RECORDS SUMMARY | 2024-08-12 04:15 | XMS_ITS | Encounter Summary ---
Author Organization [facility] Address [address] [place] [address] Care Team Providers Care Preventive Maintenance Coordinator Name Role Phone Unavailable Primary Care Provider Unavailabl e Reason for Visit * Outpatient (Routine) - Authorized Specialty Diagnoses / Procedures Referred By Neftaly t Referred To Contact Diagnoses Pain Low Back Unspecified Pain Hip Bilateral Procedures [facility] Acupuncture Integrative Medicine and Health in [place], [place] [address] [place] [address] Phone: tel: [facility] Referral ID Status Reason Start Date Expiration Date V isits Requested Visits Authorized [id number] Authorized 02/07/2024 02/06/2025 20 20 Encounter Details Date Type Department Care Team (Latest Contact Info) Description 05/12/2024 1:00 PM CDT Clinical Support Integrative Medicine and Health in [place], [place] [address] [place] [address] Calvin Smalls L.[facility] Pain Low Back Unspecified; Pain Hip Bilateral Social History Tobacco Use Types Packs/Day Years Used Date Smoking Tobacco: Never Smokeless Tobacco: Never Alcohol Use Standard Drinks/Week Comments Not Currently 1 (1 standard drink = 0.6 oz pur e alcohol) [facility] Utilities Answer Date Recorded In the past 12 months has e electric, gas, oil, or water [employer] threatened to shut off services in [...] How often do you attend chur or orthodox services? More than 4 times per year 11/22/2022 Do you belong to any clubs o r organizations such as scientologist groups, unions, fraternal or athletic groups, or [...] Answer Date Recorded PHQ-2 Score 1 03/11/2021 [facility] - Occupational [...] AM CDT Legal Sex Female 5:19 PM WAREHOUSE INCENTIVE SELECTOR Gender Identity Female 10/01/2020 2:34 PM WAREHOUSE INCENTIVE SELECTOR Sexual Orientation Straight 10/01/2020 2: 34 PM WAREHOUSE INCENTIVE SELECTOR documented as of this encounter Progress Notes * Calvin Smalls L.Ac. - 05/12/2024 1:00 PM CDT Referral Source: No ref. provider found Supervised by: [place] [id number] SUBJECTIVE Chief Complaint: Back Pain History of [...] symptom relief. Total Needling Time: 30 minutes [place] Electrified: No Diathermy: Yes Cupping: No Treatment Points Used: Set One: GB20, UB10, GB21, SI15, UB23-25, Bailao, YaoYan, TFL mitzi triangle Set Two: UB40, GB34, SP6, KD3, UB62 Other: Number of [place] Used = Number of [place] Retrieved: Yes Stimulation Intensity: Medium Narrative Assessment: [...] and the www.[email or web address] for locating a qualified telemarketing sales representative in the local community. PATIENT EDUCATION Ready to learn, no apparent learning barriers were identified, learning preference include listening. Explained diagnosis and treatment plan: patient/caregiver expressed understanding of the content. documented in this encounter Plan of Treatment Upcoming Encounters Date Type Department Care Team (Latest Contact Info) Description 08/14/2024 12:00 PM WAREHOUSE INCENTIVE SELECTOR Clinical Communication Virtual Review in [place], [place] 200 [place] [address] 08/15/2024 3:00 PM WAREHOUSE INCENTIVE SELECTOR Office Visit Division of Endocrinology in [address] [phone] Cinda Willis M.B., Ch.B. [address] [place] [phone] 08/18/2024 2:45 PM WAREHOUSE INCENTIVE SELECTOR Clinical Support Integrative Medicine and Health in [address] [phone] Zeke Reddy L.Ac. [address] [place] [phone] 09/14/2024 2:25 PM WAREHOUSE INCENTIVE SELECTOR Appointment Department of Cardiovascular Diseases in [address] [phone] Fransisca Araiza M.D., Ph.D. [address] [place] [phone] Discharge Disposition: Home or Self Care 09/22/2024 2:00 PM WAREHOUSE INCENTIVE SELECTOR Clinical Support Integrative Medicine and Health in [address] [phone] Zeke Reddy L.Ac. [address] [place] [phone] 10/02/2024 3:00 PM WAREHOUSE INCENTIVE SELECTOR Office Visit Division of Nephrology and Hypertension in [address] [address] Fransisca Araiza M.D., Ph.D. [address] [place] [phone] documented as of this encounter Visit Diagnoses Diagnosis Pain Low Back Unspecified Pain Hip Bilateral documented in this encounter Additional Health Concerns Assessment Noted Time PHQ-9 Depression Total Score: 4 03/11/20 21 2:35 PM CDT documented as of this encounter
--- OUTSIDE RECORDS SUMMARY | 2024-08-12 04:15 | XMS_ITS | Encounter Summary ---
Author Organization [facility] Address 200 [place] [address] Care Team Providers Care Supervisor Metal Furniture Assembly Name Role Phone Unavailable Primary Care Provider Unavailabl e Reason for Referral * Outpatient (Routine) - Closed Specialty Diagnoses / Procedures Referred By Neftaly weinstein Referred To Contact Diagnoses Pain Hip Bilateral Procedures PMR Peripheral injection/USGI (Procedure Only) Jinny Hutson M.D. 200 [place] [address] Phone: tel: fax: [facility] Referral ID Status Reason Start Date Expiration Date Visits Re quested Visits Authorized [id number] Closed 06/26/2024 06/26/2025 1 1 Encounter Details Date Type Department Care Team (Late st Contact Info) Description 06/26/2024 Orders Only Department of Physical Medicine and Rehabilitation in [place], [place] 200 [place] [address] Jinny Hutson M.D. [address] [place] [phone] Pain Hip Bilateral (Primary Dx) Social History Tobacco Use Types Packs/Day Years Used Date Smoking Tobacco: Never Smokeless Tobacco: Never Alcohol Use Standard Drinks/Week Comments Not Currently 1 (1 standard drink = 0.6 oz pur e alcohol) [facility] Utilities Answer Date Recorded In the past 12 months has th e [employer], gas, oil, or water [employer] threatened to shut off services in your [...] Answer Date Recorded PHQ-2 Score 1 03/11/2021 [facility] [place] [facility] Occupat [facility] Health - Occupational Stress [...] your living situation today? [facility] 12/31/2023 Education Answer Date Recorded What is the highest level of school you have completed or the highest degree you have received? Associate degree: occupational, technical, or vocational program 10/01/2020 Comments No Sex and Gender Information Value Date Recorded Sex Assigned at Female 06/23/2021 10:52 AM CDT Legal Sex Female 5:19 PM BACKFILLER Gender Identity Female 10/01/2020 2:34 PM BACKFILLER Sexual Orientation Straight 10/01/2020 2: 34 PM BACKFILLER documented as of this encounter Plan of Treatment Upcoming Encounters Date Type Department Care Team (Latest Contact Info) Description 08/14/2024 12:00 PM BACKFILLER Clinical Communication Virtual Review in [place], [place] 200 [place] [address] 08/15/2024 3:00 PM BACKFILLER Office Visit Division of Endocrinology in [place], [place] [address] [place] [phone] Cinda Willis M.B., Ch.B. [address] [place] [phone] 08/18/2024 2:45 PM BACKFILLER Clinical Support Integrative Medicine and Health in [address] [phone] Zeke Reddy L.Ac. [address] [place] [phone] 09/14/2024 2:25 PM BACKFILLER Appointment Department of Cardiovascular Diseases in [address] [phone] Fransisca Araiza M.D., Ph.D. [address] [place] [phone] Discharge Disposition: Home or Self Care 09/22/2024 2:00 PM BACKFILLER Clinical Support [facility]ative Medicine and Health in [address] [phone] Zeke Reddy L.Ac. [address] [place] [phone] 10/02/2024 3:00 PM BACKFILLER Office Visit Division of Nephrology and Hypertension in [address] [phone] Fransisca Araiza M.D., Ph.D. [address] [place] [phone] documented as of this encounter Results * [place] [facility] ASP/INJ MJR JT W US (06/30/2024 [...] team members performing significant interventional tasks. Injection deburr technician/nurse was present for assistance during the [...]
--- OUTSIDE RECORDS SUMMARY | 2024-08-12 04:15 | XMS_ITS | Encounter Summary ---
Author Organization [facility] Address [address] [place] [address] Care Team Providers Care Investment Accountant Name Role Phone Unavailable Primary Care Provider Unavailabl e Encounter Details Date Type Department Care Team (Late st Contact Info) Description 05/17/2024 Orders Only Division of Endocrinology in [place], [place] [address] [place] [address] Kristi Garland, FORREST, C.N.P. [address] [place] [address] Social History Tobacco Use Types Packs/Day Years Used Date Smoking Tobacco: Never Smokeless Tobacco: Never Alcohol Use Standard Drinks/Week Comments Not Currently 1 (1 standard drink = 0.6 oz pur e alcohol) [facility] Utilities Answer Date Recorded In the past 12 months has [facility] [employer] gas, oil, or water [employer] threatened to shut off services in your [...] often do you attend chur ch or uatsdin services? More than 4 times per year 11/22/2022 Do you belong to any clubs o r organizations such as gnosticism groups, unions, fraternal or athletic groups, or [...] Answer Date Recorded Employment status Unemployed/not in [employer] paid workforce and NOT seeking employment 12/31/2023 Housing Stability Answer Date Recorded What is your living situation today? I have a [facility] place to live 12/31/2023 Education Answer Date Recorded What is the highest level of school you have completed or the highest degree you have received? Associate degree: occupational, technical, or vocational program 10/01/2020 Comments No Sex and Gender Information Value Date Recorded Sex Assigned at Female 06/23/2021 10:52 AM CDT Legal Sex Female 5:19 PM HISTORIC PRESERVATIONIST Gender Identity Female 10/01/2020 2:34 PM HISTORIC PRESERVATIONIST Sexual Orientation Straight 10/01/2020 2: 34 PM HISTORIC PRESERVATIONIST documented as of this encounter Plan of Treatment Upcoming Encounters Date Type Department Care Team (Latest Contact Info) Description 08/14/2024 12:00 PM HISTORIC PRESERVATIONIST Clinical Communication Virtual Review in [place], [place] 200 [place] [address] 08/15/2024 3:00 PM HISTORIC PRESERVATIONIST Office Visit Division of Endocrinology in [place], [place] [address] [place] [phone] Cinda Willis M.B., Ch.B. [address] [place] [phone] 08/18/2024 2:45 PM HISTORIC PRESERVATIONIST Clinical Support Integrative Medicine and Health in [place], [place] [address] [place] [phone] Zeke Reddy L.Ac. [address] [place] [phone] 09/14/2024 2:25 PM HISTORIC PRESERVATIONIST Appointment Department of Cardiovascular Diseases in [place], [place] [address] [place] [phone] Fransisca Araiza M.D., Ph.D. [address] [place] [phone] Discharge Disposition: Home or Self Care 09/22/2024 2:00 PM HISTORIC PRESERVATIONIST Clinical Support Integrative Medicine and Health in [place], [place] [address] [place] [phone] Zeke Reddy L.Ac. [address] [place] [phone] 10/02/2024 3:00 PM HISTORIC PRESERVATIONIST Office Visit Division of Nephrology and Hypertension in [place], [place] [address] [place] [phone] Fransisca Araiza M.D., Ph.D. [address] [place] [phone] documented as of this encounter Visit Diagnoses Not on filedocumented in this encounter Additional Health Concerns Assessment Noted Time PHQ-9 Depression Total Score: 4 03/11/20 21 2:35 PM CDT documented as of this encounter
--- OUTSIDE RECORDS SUMMARY | 2024-08-12 04:15 | XMS_ITS | Encounter Summary ---
Author Organization [facility] Address [address] [place] [address] Care Team Providers Care Staff Veterinarian Name Role Phone Unavailable Primary Care Provider Unavailabl e Reason for Visit * Outpatient (Routine) - Closed Specialty Diagnoses / Procedures Referred By Neftaly t Referred To Contact Nutrition Cinda Willis M.B., Ch.B. 200 [place] [address] Phone: tel: fax: [facility] Referral ID Status Reason Start Date Expiration Date Visits Re quested Visits Authorized [id number] Closed 04/21/2024 10/21/2025 2 2 Encounter Details Date Type Department Care Team (Latest Contact Info) Description 06/30/2024 2:00 PM CDT Clinical Support Department of Nutrition and Diabetes Education in [place], [place] [address] [place] [phone] Cinda Willis M.B., Ch.B. [address] [place] [phone] Mandy Trevino M.S., RDN, LD [address] [place] [phone] Obesity Body Mass Index 30-39.9 Adult [E66.9] (Primary Dx) Social History Tobacco Use Types Packs/Day Years Used Date Smoking Tobacco: Never Smokeless Tobacco: Never Alcohol Use Standard Drinks/Week Comments Not Currently 1 (1 standard drink = 0.6 oz pur e alcohol) [facility] Utilities Answer Date Recorded In the past 12 months has th e electric, gas, oil, or water [employer] threatened to shut off services in [...] Date Recorded PHQ-2 Score 1 03/11/2021 [facility]at [facility] - Occupational Stress Questionnaire Answer Date [...] living situation today? [facility] 12/31/2023 Education Answer Date Recorded What is the highest level of school you have completed or the highest degree you have received? Associate degree: occupational, technical, or vocational program 10/01/2020 Comments No Sex and Gender Information Value Date Recorded Sex Assigned at Female 06/23/2021 10:52 AM CDT Legal Sex Female 5:19 PM SENIOR ELECTRONICS TECHNICIAN Gender Identity Female 10/01/2020 2:34 PM SENIOR ELECTRONICS TECHNICIAN Sexual Orientation Straight 10/01/2020 2: 34 PM SENIOR ELECTRONICS TECHNICIAN documented as of this encounter Last Filed [...] due to fluids and she saw a [place] set up mechanic coil winding machines in [place] earlier this week who is doing some additional testing regarding excess fluid. Dieting experience: She previously tried phentermine but could not tolerate this and did not find benefits from Contrave. She is in [employer] group 2 times per month. [...] (Latest Contact Info) Description 08/14/2024 12:00 PM SENIOR ELECTRONICS TECHNICIAN Clinical Communication Virtual Review in [place], [place] 200 [place] [phone] 08/15/2024 3:00 PM SENIOR ELECTRONICS TECHNICIAN Office Visit Division of Endocrinology in [place], [place] [address] [place] [phone] Cinda Willis M.B., Ch.B. [address] [place] [phone] 08/18/2024 2:45 PM SENIOR ELECTRONICS TECHNICIAN Clinical Support Integrative Medicine and Health in [place], [place] [address] [place] [phone] Zeke Reddy L.Ac. [address] [place] [phone] 09/14/2024 2:25 PM SENIOR ELECTRONICS TECHNICIAN Appointment Department of Cardiovascular Diseases in [place], [place] [address] [place] [phone] Fransisca Araiza M.D., Ph.D. [address] [place] [phone] Discharge Disposition: Home or Self Care 09/22/2024 2:00 PM SENIOR ELECTRONICS TECHNICIAN Clinical Support Integrative Medicine and Health in [place], [place] [address] [place] [phone] Zeke Reddy L.Ac. [address] [place] [phone] 10/02/2024 3:00 PM SENIOR ELECTRONICS TECHNICIAN Office Visit Division of Nephrology and Hypertension in [place], [place] [address] [place] [phone] Fransisca Araiza M.D., Ph.D. [address] [place] [phone] documented as of this encounter Visit Diagnoses Diagnosis Obesity Body Mass Index 30-39.9 Adult [E66.9]- Primary documented in this encounter Additional Health Concerns Assessment Noted Time PHQ-9 Depression Total Score: 4 03/11/20 21 2:35 PM CDT documented as of this encounter
--- OUTSIDE RECORDS SUMMARY | 2024-08-12 04:15 | XMS_ITS | Encounter Summary ---
Author Organization [facility] Address [address] [place] [address] Care Team Providers Care News Writer Name Role Phone Unavailable Primary Care Provider Unavailabl e Reason for Visit * Outpatient (Routine) - Closed Specialty Diagnoses / Procedures Referred By Neftaly t Referred To Contact Nutrition Cinda Willis M.B., Ch.B. [address] [place] [phone] Phone: tel: fax: [facility] Referral ID Status Reason Start Date Expiration Date Visits Re quested Visits Authorized [id number] Closed 01/07/2024 07/08/2025 2 2 Encounter Details Date Type Department Care Team (Latest Contact Info) Description 06/02/2024 3:00 PM CDT Clinical Support Department of Nutrition and Diabetes Education in [place], [place] [address] [place] [phone] Cinda Willis M.B., Ch.B. [address] [place] [phone] Mandy Trevino M.S., RDN, LD [address] [place] [phone] Obesity Body Mass Index 30-39.9 Adult [E66.9] (Primary Dx) Social History Tobacco Use Types Packs/Day Years Used Date Smoking Tobacco: Never Smokeless Tobacco: Never Alcohol Use Standard Drinks/Week Comments Not Currently 1 (1 standard drink = 0.6 oz pur e alcohol) [facility] Utilities Answer Date Recorded In the past 12 months has th e electric, gas, oil, or water [employer] threatened to shut off services in your [...] any clubs o r organizations such as cheondoism groups, unions, fraternal or athletic groups, or [...] [facility] of Occupat ional [facility] - Occupational Stress Questionnaire Answer Date [...] your living situation today? [facility] to live 12/31/2023 Education Answer Date Recorded What is the highest level of school you have completed or the highest degree you have received? 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 She is in [employer] group 2 times per month. She [...] (Latest Contact Info) Description 08/14/2024 12:00 PM WELL SERVICE DERRICK WORKER Clinical Communication Virtual Review in [place], [place] 200 [place] [phone] 08/15/2024 3:00 PM WELL SERVICE DERRICK WORKER Office Visit Division of Endocrinology in [address] [phone] Cinda Willis M.B., Ch.B. [address] [place] [phone] 08/18/2024 2:45 PM WELL SERVICE DERRICK WORKER Clinical Support Integrative Medicine and Health in [address] [phone] Zeke Reddy L.Ac. [address] [place] [phone] 09/14/2024 2:25 PM WELL SERVICE DERRICK WORKER Appointment Department of Cardiovascular Diseases in [place], [place] [address] [place] [phone] Fransisca Araiza M.D., Ph.D. [address] [place] [phone] Discharge Disposition: Home or Self Care 09/22/2024 2:00 PM WELL SERVICE DERRICK WORKER Clinical Support Integrative Medicine and Health in [place], [place] [address] [place] [phone] Zeke Reddy L.Ac. [address] [place] [phone] 10/02/2024 3:00 PM WELL SERVICE DERRICK WORKER Office Visit Division of Nephrology and Hypertension in [place], [place] [address] [place] [phone] Fransisca Araiza M.D., Ph.D. [address] [place] [phone] documented as of this encounter Visit Diagnoses Diagnosis Obesity Body Mass Index 30-39.9 Adult [E66.9]- Primary documented in this encounter Additional Health Concerns Assessment Noted Time PHQ-9 Depression Total Score: 4 03/11/20 21 2:35 PM CDT documented as of this encounter
== END 2024-08-08 16:08 | disposition home or self-care (01) ==
LOC: NFLDREF 08-12 04:11
PROVIDERS: PCP Family Medicine; Referring Provider Family Medicine; Visit Provider Internal Medicine Nephrology
DX: N18.9 Chronic kidney disease, unspecified (principal); E87.6 Hypokalemia; E03.9 Hypothyroidism, unspecified
CPT/HCPCS: 80069; 82043; 82570; 82728; 83540; 83550

== ENCOUNTER 2025-01-25 14:12 | Outpatient (CLI) | payer BC, SELFPAY ==
--- NOTE | 2025-01-25 15:00 | CRLHL7_ITS ---
For Patients: As a result of the Century Cures Act, medical imaging exams and procedure reports are released immediately into your electronic medical record. You may view this report before your referring provider. If you have questions, please contact your health care provider. INDICATION: postmenopausal bleeding COMPARISON: none TECHNIQUE: 2D boyer scale and color Doppler images were acquired of the pelvis using a transabdominal and transvaginal approach. FINDINGS: Posterior intramural fibroid is present which measures 2.3 x 1.8 x 2.0 cm. Uterus measures 6.8 cm in length by 3.4 cm in AP diameter by 4.8 cm in transverse dimension. The endometrial lining is difficult to visualize. The right ovary measures 2.8 x 1.6 x 1.9 cm in size and the left ovary measures 2.4 x 1.5 x 1.8 cm. The ovaries demonstrate normal arterial and venous blood flow on color Doppler analysis. There are no suspicious fluid collections within the cul-de-sac. IMPRESSION: The endometrium is ill-defined and cannot be measured. A posterior left-sided intramural fibroid is present which measures 2.3 x 1.8 x 2.0 cm. Dictated by Alejandro Castro MD @ 01/25/2025 4:11:53 PM (Electronically Signed)
== END 2025-01-25 14:13 | disposition home or self-care (01) ==
LOC: US 14:13
PROVIDERS: PCP Family Medicine; Visit Provider Physician Assistant
DX: N95.0 Postmenopausal bleeding (principal); D25.1 Intramural leiomyoma of uterus
CPT/HCPCS: 76830; 76856

== ENCOUNTER 2025-03-12 11:46 | Outpatient (CLI) | payer BC, SELFPAY | END 2025-03-12 11:47 | disposition home or self-care (01) | LOC: NFLDREF 11:47 | PROVIDERS: PCP Family Medicine; Visit Provider Registered Nurse | DX: Z01.818 Encounter for other preprocedural examination (principal) | CPT/HCPCS: 80048 ==

== ENCOUNTER 2025-03-13 07:06 | Day surgery (SDC) | payer BC, SELFPAY ==
[2025-03-13] VITALS (7 sets, daily range): BP systolic 125–138; BP diastolic 83–99; PULSE 82–148; RESP 16; TEMP 36.8–37.3; O2SAT 92–95; BMI 34.0
[2025-03-13] MEDS: LACTATED RINGERS 1000 ML 1,000 ML 100 ML IV (08:22)
[2025-03-13] MEDS: SODIUM CHLORIDE 0.9 % (FLUSH) 10 ML SYRINGE IVF (08:22)
[2025-03-13 08:26] LABS: Ur HCG Qualitative* Negative (Negative)
--- NOTE | 2025-03-13 11:23 | W.PM.H&PU ---
History & Physical Update History & Physical Update H&P Reviewed and patient assessed: No changes noted
[2025-03-13] MEDS: LIDOCAINE 1% MDV 10 ML INJECTION (11:50)
--- NOTE | 2025-03-13 11:50 | SUR.OPER ---
PATIENT QUESTIONS ANSWERED SATISFACTORILY PREOPERATIVELY. PATIENT BROUGHT TO OR #2 PER CART. Patient positioned supine on OR #2 bed. The perioperative team supported arms bilaterally on arm boards. Final approval of positioning by surgeon.
--- NOTE | 2025-03-13 12:05 | W.PM.GYNPROC ---
Procedure Note Date of procedure: 03/13/25 Will [facility] bill your pro fee for this procedure?: Yes Pre-op diagnosis: Postmenopausal bleeding History of endometrial ablation Left-sided intramural fibroid measuring 2.3 x 1.8 x 2.0 cm on recent ultrasound. Post-op diagnosis: Postmenopausal bleeding Intrauterine synechiae Endometrial polyps Apparent submucosal fibroid, approximately 2.5 cm in greatest dimension Procedure: Hysteroscopy, polypectomy, visual dilation and curettage Anesthesia: MAC and local Complications: 1. Rapid fluid deficit to 1500 cc of saline, requiring discontinuation of hysteroscopy 2. Tacycardia to 140s at time of procedure termination Surgeon: Cynthia Coy MD Estimated blood loss (mL): 5 Pathology: specimen obtained, sent to pathology (endometrial curettings) Condition: stable Disposition: same day Findings: 1. On exam under anesthesia, vagina was normal in appearance. The posterior lip of the cervix was flush with the posterior vaginal vault. Uterus was soft, mobile, anteverted, of normal texture. There were no palpable adnexal masses. 2. Upon hysteroscopy, survey of the endocervix was normal. Survey of the endometrial cavity revealed diffuse thin synechiae. The overall shape appeared more or less normal, though a full view was obstructed by the synechiae laterally and there were no visible tubal ostia. There were several subcentimeter apparent endometrial polyps near the posterior fundus. There was an apparent submucosal fibroid measuring approximately 2.5 cm in greatest dimension arising from the posterior left uterine segment. 3. There was immediate rapid accumulation of fluid deficit upon insertion of the hysteroscope. There was no perforation visualized, and and there was no perforation with the hysteroscope itself. Procedure Description: Procedure in detail: Patient was taken to the operating room with IV running. She was positioned in dorsal lithotomy position with her legs fully supported in Yellofin stirrups. Monitored anesthesia care was administered. She was prepped and draped in the usual sterile fashion. Exam under anesthesia was performed for the above-noted findings. Bladder was straight catheterized. Speculum was inserted. Cervix visualized and grasped along the anterior lip with a single-tooth tenaculum. Paracervical block was performed for a total of 10 cc of 1% lidocaine. Cervix was serially dilated to accommodate the TRUCLEAR hysteroscope. Dilation was accomplished without difficulty. The hysteroscope was assembled with saline inflow and outflow in place. The line was flushed of bubbles. The hysteroscope was advanced through the cervix into the endometrial cavity for the above noted findings. The tissue morcellator was then inserted through the operating channel. Window lock was performed. Under direct visualization, the endometrial cavity was circumferentially curetted with the tissue morcellator. The polyps and endometrium in the upper uterus appeared well-sampled. The surface of the apparent fibroid was sampled, but I was unable to finish resection due to the rapid fluid deficit that reached 1500 cc. The procedure was terminated at that point. Additionally, she developed tachycardia at that same time. Saturations remained normal, as did repiratory rate. The hysteroscope and morcellator were then removed from the uterus. Tenaculum was removed from the anterior lip of cervix. Hemostasis was noted. Patient tolerated procedure well. She was taken to recovery area. Postoperative debrief was verbalized with OR staff, including a verification of pathology specimens to be sent as described above.
--- NOTE | 2025-03-13 12:18 | P.ANES_ITS ---
Anesthesia Charges Start Date/Time Anesthesia Start Date: 03/13/25 Anesthesia Start Time: 11:22 Stop Date/Time Anesthesia Stop Date: 03/13/25 Anesthesia Stop Time: 12:13 Coding CPT Codes CPT Codes: ANESTH HYSTEROSCOPE/GRAPH - 03988 ([id number]) P2 - PATIENT W/MILD SYST DISEASE, QK - CLERICAL PRODUCTION WORKER 2-4 CNCRNT ANES PROC, QX - ARMOURED CAR ESCORT SVC W/ MD MED DIRECTION
--- NOTE | 2025-03-13 12:18 | W.ANESCHARGE ---
Anesthesia Charges Start Date/Time Anesthesia Start Date: 03/13/25 Anesthesia Start Time: 11:22 Stop Date/Time Anesthesia Stop Date: 03/13/25 Anesthesia Stop Time: 12:13 Coding CPT Codes CPT Codes: ANESTH HYSTEROSCOPE/GRAPH - 41019 ([id number]) P2 - PATIENT W/MILD SYST DISEASE, QK - FACING BASTER 2-4 CNCRNT ANES PROC, QX - TRAY SERVER SVC W/ MD MED DIRECTION
[2025-03-13] MEDS: KETOROLAC 15 MG/ML inj IVP (12:35)
--- NOTE | 2025-03-13 12:37 | P.ANES_ITS ---
Anesthesia Charges Start Date/Time Anesthesia Start Date: 03/13/25 Anesthesia Start Time: 11:22 Stop Date/Time Anesthesia Stop Date: 03/13/25 Anesthesia Stop Time: 12:13 Coding CPT Codes CPT Codes: ANESTH HYSTEROSCOPE/GRAPH - 46653 ([id number]) QK - GAS OPERATOR 2-4 CNCRNT ANES PROC, QX - MANAGER MEDICAL SVC W/ MD MED DIRECTION, P2 - PATIENT W/MILD SYST DISEASE
--- NOTE | 2025-03-13 12:37 | W.ANESCHARGE ---
Anesthesia Charges Start Date/Time Anesthesia Start Date: 03/13/25 Anesthesia Start Time: 11:22 Stop Date/Time Anesthesia Stop Date: 03/13/25 Anesthesia Stop Time: 12:13 Coding CPT Codes CPT Codes: ANESTH HYSTEROSCOPE/GRAPH - 82473 ([id number]) QK - TRAVELING INVENTORY ASSOCIATE 2-4 CNCRNT ANES PROC, QX - SHOT CORE DRILL OPERATOR SVC W/ MD MED DIRECTION, P2 - PATIENT W/MILD SYST DISEASE
--- NOTE | 2025-03-13 12:38 | SUR.PHASEII ---
upon arrival from [facility], lung sounds throughout clear to auscultation. Dr. Coy in to see patient
--- NOTE | 2025-03-13 12:51 | SUR.PHASEII ---
pt up to bathroom with SBA
--- NOTE | 2025-03-13 13:23 | SUR.PHASEII ---
updated Dr. Coy on patient condition. Received orders for labs, see orders.
[2025-03-13 13:48] LABS: Basophils Absolute Auto 0.04 K/uL (0.00-0.30); Basophils Percent Auto 0.5 % (0.0-3.0); Eosinophils Absolute Auto 0.44 K/uL (0.00-0.50); Eosinophils Percent Auto 5.7 % (0.0-7.0); Hemoglobin* 14.3 gm/dL (12.0-16.0); Immature Granulocytes Abs Auto 0.01 K/uL (0.00-0.30); Immature Granulocytes Pct Auto 0.1 %; Lymphocytes Absolute Auto 1.77 K/uL (0.90-2.90); Lymphocytes Percent Auto 22.8 % (20-44); Mean Corpuscular HGB Conc 33 gm/dL (32-36); Mean Corpuscular Hemoglobin 31 pg (26-34); Mean Corpuscular Volume 95 fL (80-100); Neutrophils Absolute Auto 5.28 K/uL (1.7-7.0); Neutrophils Percent Auto 67.9 % (42.0-72.0); Platelet Count* 255 K/uL (140-440); RDW Coefficient of Variation % 13.1 % (11.5-15.5); Red Blood Count 4.65 m/uL (4.00-5.20); White Blood Count* 7.77 K/uL (4.50-11.00)
[2025-03-13 13:56] LABS: Slide Review Reflex No
[2025-03-13 14:02] LABS: Chloride* 110 mmol/L (96-114); Potassium* 3.7 mmol/L (3.6-5.1); Sodium* 141 mmol/L (135-149)
[2025-03-13 14:05] LABS: Anion Gap 9 mEq/L (7-15); Blood Urea Nitrogen* 14 mg/dL (7-30); Carbon Dioxide* 22 mmol/L (20-32); Creatinine* 0.9 mg/dL (0.5-1.5); Est. Creatinine Clearance* 51.02; Estimated Glomerular Filt Rate 73 ml/min
[2025-03-13 14:06] LABS: Calcium* 8.9 mg/dL (8.4-10.6); Glucose* 185 mg/dL (60-115)
--- NOTE | 2025-03-13 14:42 | SUR.PHASEII ---
Order for 12-Lead EKG obtained from [facility]. [facility] aware of results, consulting with Surgeon and patternmaker. Patient comfortable and resting in room. Denies pain. Both her and her are agreeable to the plan of care.
--- NOTE | 2025-03-13 14:46 | SUR.PHASEII ---
Okay to discharge to home, per MDA and Surgeon. Patient needs to make a follow-up appointment with her Primary care physician, next week.
== END 2025-03-13 14:59 | disposition home or self-care (01) ==
PROVIDERS: PCP Family Medicine; Visit Provider Obstetrics & Gynecology
PROC: 0UDB8ZZ Extraction of Endometrium, Via Natural or Artificial Opening Endoscopic (ICD-10-PCS; CPT 58558; principal; 2025-03-13 09:45)
DX: N95.0 Postmenopausal bleeding (principal); D25.1 Intramural leiomyoma of uterus; N84.0 Polyp of corpus uteri; R00.0 Tachycardia, unspecified
CPT/HCPCS: 58558; 00952; 36415; 80048; 81025; 85025; 86850; 86900; 86901; J2003; C1782; J1100; J1885; J2250; J2405; J2704; J3010; J7120

== ENCOUNTER 2025-03-30 08:45 | Outpatient (CLI) | payer BC, SELFPAY | END 2025-03-30 08:46 | disposition home or self-care (01) | LOC: RAD 08:45 | PROVIDERS: PCP Family Medicine; Visit Provider Family Medicine | DX: I48.91 Unspecified atrial fibrillation (principal) | CPT/HCPCS: 93306 ==

== ENCOUNTER 2025-04-04 11:47 | Outpatient (CLI) | payer BC, SELFPAY | END 2025-04-04 11:48 | disposition home or self-care (01) | LOC: NFLDREF 04-06 02:24 | PROVIDERS: PCP Family Medicine; Referring Provider Family Medicine; Visit Provider Obstetrics & Gynecology | DX: R30.0 Dysuria (principal) | CPT/HCPCS: 87086 ==

== ENCOUNTER 2025-04-24 11:37 | Outpatient (CLI) | payer BC, SELFPAY ==
--- NOTE | 2025-05-01 11:41 | W.PM.SLEEP ---
Sleep Study Details Details Interpreting Provider: Loki Date of Sleep Study: 04/24/25 Sleep Study Details: STUDY TYPE:? Home unattended ? BMI:? 34.15 ORDERING PROVIDER:Reba Manjarrez INDICATION:? Concern about sleep apnea ? SLEEP SUMMARY:? 556 minutes monitored RESPIRATORY SUMMARY:? AHI 16.2 per rule 1A, 8.5 per CMS guideline Low oxygen 84 3.7% of study oxygen less than 90% Snoring 74.5% PERIODIC LIMB MOVEMENTS OF SLEEP:? Not recorded CARDIAC:? Range 54-114, mean 70.1 beats per minute IMPRESSION:? Moderate obstructive sleep apnea RECOMMENDATION: Treatment options include CPAP dental appliance weight loss and/or airway expansion surgery.
== END 2025-04-24 11:38 | disposition home or self-care (01) ==
PROVIDERS: PCP Family Medicine; Visit Provider Otolaryngology
DX: G47.33 Obstructive sleep apnea (adult) (pediatric) (principal)
CPT/HCPCS: 95806

== ENCOUNTER 2025-05-16 09:45 | Outpatient (CLI) | payer BC, SELFPAY | END 2025-05-16 09:46 | disposition home or self-care (01) | LOC: NFLDREF 05-17 16:41 | PROVIDERS: PCP Family Medicine; Referring Provider Family Medicine; Visit Provider Family Medicine | DX: E78.5 Hyperlipidemia, unspecified (principal); E03.9 Hypothyroidism, unspecified | CPT/HCPCS: 80053; 80061; 84443 ==